=== PATIENT | female | born 1985 | race Caucasian/White ===

== ENCOUNTER 2020-10-11 10:14 | Emergency (ER) | payer BC, SELFPAY ==
[2020-10-11 10:25] VITALS: BP 154/111; PULSE 94; RESP 16; TEMP 37; O2SAT 100
--- NOTE | 2020-10-11 10:38 | ED.UPPEXIN ---
HPI - Extremity Injury (Upper) General Chief Complaint: Extremity Injury, Upper Stated Complaint: INJURED L ARM Source: patient and RN notes reviewed Limitations: no limitations History of Present Illness HPI narrative: The patient, is right-handed, presents with left shoulder pain. Patient states she has started a workout challenge and started to 50 or more push ups daily. She now complains of a couple day history of left shoulder pain is mild, worse with motion or sleeping on it, better at rest. No deformity, direct injury, neck pain, numbness/weakness, radiating pain Related Data Home Medications Medication Instructions Recorded Confirmed metoprolol succinate PO 10/11/20 Allergies Allergy/AdvReac Type Severity Reaction Status Date / Time No Known Allergies Allergy Unverified 01/11/19 10:27 Review of Systems Review of Systems: Narrative: The patient has been informed that they may have pre-hypertension or Hypertension based on a BP reading in the department. I recommend that the patient call the primary care provider listed on their discharge instructions or a physician of their choice this week to arrange follow up for further evaluation of possible pre-hypertension or Hypertension General/Constitutional: No weight loss,fever Eyes: N0: Redness,discharge Ears/Nose/Throat: No: Epistaxis,ear discharge Respiratory: Denies: Hemoptysis Gastrointestinal: No Vomiting, Bleeding-rectal Skin: No Lumps, eruption Neurologic: No Focal Weakness,Sz Hematologic: Denies: Petechiae/Purpura Psychiatric: No: Suicida ideationl All Other Systems: Reviewed and Negative PMFSH Comments At time of signature, agree with nursing past medical, surgical, social and family history. There is no relevant family history pertinent to the presenting complaint Exam Narrative: Exam Narrative: General Appearance: Well appearing, Well nourished, Conjunctiva clear Mouth/Throat: Normal appearing, Normal lips, Supple Respiratory: Airway patent, No respiratory distress MS-shoulder: Normal strength (mostly intact, limited flexion/extension, wanda IR by pain), Tenderness (AC and deltoid laterally, with mild decreased ROM), no swelling . no biceps and triceps tenderness; no drop arm, Neer, impingement signs Skin: Warm, Dry, Normal color Neurological: A&O x3, Speech clear, CN II-XII intact Psychiatric: Normal mood, Normal affect Course Vital Signs Vital signs: Vital Signs Temperature 98.6 F 10/11/20 10:25 Pulse Rate 94 10/11/20 10:25 Respiratory Rate 16 10/11/20 10:25 Blood Pressure 154/111 H 10/11/20 10:25 Pulse Oximetry 100 10/11/20 10:25 Temperature 98.6 F 10/11/20 10:25 Pulse Rate 94 10/11/20 10:25 Respiratory Rate 16 10/11/20 10:25 Blood Pressure 154/111 H 10/11/20 10:25 Pulse Oximetry 100 10/11/20 10:25 Discharge Plan Discharge Clinical Impression: Bursitis of shoulder, left Patient Disposition: Home, Self-Care Condition: Stable Instructions: Shoulder Bursitis (ED) Prescriptions: New methylprednisolone [Medrol (Guevara)] 4 mg tablets,dose pack See Rx Instructions .ROUTE .COMPLEX Qty: 21 RF: 0 tramadol 50 mg tablet 50 mg PO TID PRN (Reason: pain) Qty: 15 RF: 1 No Action metoprolol succinate 50 mg tablet extended release 24 hr PO RF: 0 Follow-up/Referrals: Erin,LETICIA Forde [Primary Care Provider] -
== END 2020-10-11 10:48 | disposition home or self-care (01) ==
PROVIDERS: Emergency Provider Emergency Medicine; PCP Physician Assistant
DX: M75.52 Bursitis of left shoulder (principal); I10 Essential (primary) hypertension
CPT/HCPCS: 99213; G0463

== ENCOUNTER 2021-07-01 09:46 | Emergency (ER) | payer BC, SELFPAY ==
--- NOTE | 2021-07-01 09:48 | ECG_ITS ---
Measurements Intervals [place] Rate: 109 P: 27 CO: 131 QRS: 39 QRSD: 89 T: -20 QT: 324 QTc: 438 Interpretive Statements SINUS TACHYCARDIA NONSPECIFIC ST & T-WAVE ABNORMALITY- ANTEROLAT/INF LEADS ABNORMAL ECG Electronically Signed On 07-01-2021 10:43:35 COMPUTATIONAL PHYSICIST by Avelino Henson D.O.
[2021-07-01 09:55] VITALS: BP 152/112; PULSE 122; RESP 20; TEMP 36.4; O2SAT 100
--- NOTE | 2021-07-01 10:39 | PC.NURSE ---
1035- Pt at intake desk stating she was just going to go outside and wait with her , informed if she was called and did not answer we would call the next person. Pt then stated she was going to leave and if her heart began racing again she would come back.
== END 2021-07-01 10:35 | disposition left against medical advice (07) ==
PROVIDERS: Emergency Provider Emergency Medicine
DX: R42 Dizziness and giddiness (principal)
CPT/HCPCS: 93005; 99199

== ENCOUNTER 2021-07-03 12:49 | Emergency (ER) | payer BC, SELFPAY ==
--- NOTE | ~2021-07-03 | XR_ITS ---
XR chest 2V DATE: 07/03/2021 13:14 INDICATION: Chest pain, palpitations. Tachycardia. Hypertension. TECHNIQUE: PA and lateral views COMPARISON: None FINDINGS: Electronic heart monitor device overlies the anterior upper mid chest. Normal heart size. There is minimal aortic unfolding. No hilar or mediastinal enlargement. No pulmonary infiltrate or consolidation, pleural effusion or pulmonary vascular congestion or pneumo thorax. Included skeletal structures are unremarkable. No rib notching is noted. IMPRESSION: No active cardiopulmonary disease Reviewed, dictated and finalized at location A. ENDOSCOPY
--- NOTE | 2021-07-03 12:52 | ECG_ITS ---
Measurements Intervals [place] Rate: 132 P: 33 DC: 108 QRS: 48 QRSD: 81 T: -29 QT: 370 QTc: 549 Interpretive Statements SINUS OR ECTOPIC ATRIAL TACHYCARDIA WITH SHORT DC INTERVAL BORDERLINE ST-T WAVE ABNORMALITY- ANTEROLAT/INF LEADS BASELINE ARTIFACT- I, II, III, AVL, AVF, V4-V6 ABNORMAL ECG Electronically Signed On 07-03-2021 12:58:59 BRAILLE TYPIST by Avelino Henson D.O.
[2021-07-03 13:02] VITALS: BP 169/97; PULSE 130; RESP 18; TEMP 36.8; O2SAT 100
[2021-07-03 13:04] LABS: Basophils Absolute Auto 0.1 K/mm3 (0.0-0.1); Basophils Percent Auto 0.4 % (0.2-1.2); Eosinophils Absolute Auto 0.1 K/mm3 (0-0.3); Eosinophils Percent Auto 0.7 % (0-4.4); Hematocrit 37.9 % (37.0-47.0); Hemoglobin 11.7 g/dL (12.0-15.0); Immature Granulocyte Absolute 0.09 K/mm3 (0.00-0.031); Immature Granulocyte Percent A 0.6 % (0-0.5); Lymphocytes Absolute Auto 1.96 K/mm3 (0.9-3.2); Lymphocytes Percent Auto 13.3 % (18.3-44.2); Mean Corpuscular HGB Conc 30.9 g/dl (32-36); Mean Corpuscular Hemoglobin 23.4 pg (26-34); Mean Corpuscular Volume 75.6 fl (80-100); Mean Platelet Volume 10.2 fl (7.4-10.4); Monocytes Percent Auto 6.9 % (2.6-8.5); Neutrophils Absolute Auto 11.5 K/mm3 (1.3-6.7); Neutrophils Percent Auto 78.1 % (45.5-73.1); Platelet Count Result 360 k/mm3 (150-375); Red Blood Count 5.01 M/mm3 (4.2-5.4); Red Cell Distribution Width 17.5 % (11.5-14.5); White Blood Count 14.7 K/mm3 (4.5-10.0)
[2021-07-03 13:14] LABS: Partial Thromboplastin Time 24.7 SECONDS (22.3-36.8); Prothrombin Time 12.8 Seconds (11.1-14.7)
[2021-07-03 13:16] LABS: Alanine Aminotransferase 14 U/L (4-35); Albumin Level 4.6 g/dL (3.5-5.1); Alkaline Phosphatase 53 U/L (38-126); Anion Gap 11 mmol/L (8-16); Aspartate Amino Transferase 20 U/L (14-36); Bilirubin,Total 0.4 mg/dL (0.2-1.3); Blood Urea Nitrogen 10 mg/dL (7-17); Calcium 9.3 mg/dL (8.4-10.2); Carbon Dioxide 20 mmol/L (22-30); Chloride 108 mmol/L (98-107); Estimated CRCL calculation 76 ml/min; Estimated Glomerular Filt Rate > 60; Glucose 120 mg/dL (65-110); Lipase 92 U/L (23-300); Potassium 3.1 mmol/L (3.4-5.0); Sodium 139 mmol/L (137-145)
[2021-07-03 13:27] LABS: Troponin I < 0.012 ng/mL (0.000-0.034)
[2021-07-03 15:53] VITALS: BP 140/98; PULSE 118; RESP 18; TEMP 37.6; O2SAT 100
--- NOTE | 2021-07-03 21:12 | ED.ARRPALP ---
HPI - Arrhythmia/Palpitations General Chief Complaint: Arrhythmia/Palpitations Stated Complaint: high blood pressure high HR Time Seen by Provider: 07/03/21 21:08 Source: patient Mode of arrival: ambulatory Limitations: no limitations History of Present Illness HPI narrative: Patient is a 36-year-old female complaining palpitations accompanied by chest discomfort, and elevated blood pressure x2 days. Patient states that her symptoms have been caused by dehydration since she did drink alcohol this past weekend and the following day she started to have the above symptoms. Patient states that she has a history of palpitations/arrhythmia in the past and had a cardiac ablation back in August. Patient states that she currently has a loop recorder on which her mining captain ordered a month ago and supposed to be returned back tomorrow. Related Data Home Medications Medication Instructions Recorded Confirmed metoprolol succinate PO 10/11/20 Allergies Allergy/AdvReac Type Severity Reaction Status Date / Time No Known Allergies Allergy Unverified 01/11/19 10:27 Review of Systems Review of Systems: All systems reviewed & are unremarkable except as noted in HPI and below Constitutional: Constitutional: Denies body ache(s), Denies chills, Denies excessive sweating, Denies fatigue, Denies fever(s), Denies headache(s), Denies lethargy, Denies malaise, Denies weakness and Denies weight loss Eyes: Eyes: Denies blurry vision, Denies change in vision and Denies loss of vision ENT: Denies dizziness, Denies ear discharge, Denies headache(s), Denies lip swelling, Denies epistaxis, Denies nasal congestion, Denies neck pain, Denies throat swelling and Denies tongue swelling Cardiovascular: Cardiovascular: Denies chest pain, Denies chest pain at rest, Denies chest pain with activity, Denies diaphoresis, Denies edema, Denies irregular heart rhythm, Denies lightheadedness and Denies dyspnea on exertion Respiratory: Respiratory: Denies chest congestion, Denies cough, Denies hemoptysis and Denies dyspnea on exertion Gastrointestinal: Gastrointestinal: Denies abdominal pain, Denies melena, Denies hematochezia, Denies diarrhea, Denies vomiting and Denies hematemesis Musculoskeletal: Musculoskeletal: Denies abnormal gait, Denies deformity, Denies joint swelling, Denies limited range of motion, Denies neck pain and Denies numbness Neurologic: Denies Abnormal speech present, Denies abnormal gait, Denies confusion, Denies dizziness, Denies headache(s), Denies focal weakness, Denies loss of vision, Denies numbness, Denies Other visual disturbances, Denies Sensory deficit (Neuro) and Denies weakness Psychiatric: Psychiatric: Denies confusion, Denies depression, Denies auditory hallucinations, Denies homicidal ideation and Denies suicidal ideation Endocrine: Endocrine: Denies cold intolerance, Denies excessive sweating, Denies fatigue, Denies heat intolerance and Denies palpitations Hematologic/Lymphatic: Hematologic/Lymphatic: Denies easy bleeding and Denies easy bruising Allergic/Immunologic: Allergic/Immunologic: Denies lip swelling, Denies throat swelling and Denies tongue swelling PMFSH Comments Past medical history: Cardiac ablation surgery, palpitations Family history: Hypertension Social history: Non-smoker no EtOH or drug use Exam Const: General: cooperative, healthy appearing, comfortable, no acute distress, well developed, alert and awake; No confusion Orientation/consciousness: oriented to person, oriented to place, oriented to time, patient oriented x3 and No confusion Limitations: no limitations HENMT: Head: normal to inspection, normocephalic and atraumatic Ears: hearing grossly normal bilaterally, TM normal on the right and TM normal on the left General nose exam: Normal external nose present, Normal nares present and No nasal discharge present Face and sinus: normal facial exam Mouth: Yes Normal oral and palatal mucosa present, Yes lip n
[2021-07-03 21:28] VITALS: BP 162/114; PULSE 94; RESP 16; O2SAT 100
[2021-07-03 21:31] VITALS: BP 139/95; PULSE 93; RESP 20; O2SAT 100
[2021-07-03] MEDS: POTASSIUM CHLORIDE 20 MEQ PACKET (FOR LIQUID) 40 MEQ PO (21:43)
[2021-07-03] MEDS: SODIUM CHLORIDE 0.9% IV 1,000 ML 999 ML (21:47)
[2021-07-03 21:53] LABS: Troponin I < 0.012 ng/mL (0.000-0.034)
[2021-07-03 22:47] LABS: D Dimer 0.27 ug/mL (<0.48)
[2021-07-03 23:00] VITALS: BP 138/109; PULSE 97; RESP 18; O2SAT 100
[2021-07-03 23:23] VITALS: BP 140/96
[2021-07-04 14:39] LABS: SARS-CoV-2 RNA PCR Negative
== END 2021-07-03 23:23 | disposition home or self-care (01) ==
PROVIDERS: Emergency Medicine; Emergency Provider Emergency Medicine; PCP Physician Assistant
DX: R00.2 Palpitations (principal); R03.0 Elevated blood-pressure reading, without diagnosis of hypertension; E87.6 Hypokalemia; Z20.822 Contact with and (suspected) exposure to COVID-19
CPT/HCPCS: 36415; 71046; 80053; 83690; 84484; 85025; 85380; 85610; 85730; 87804; 93005; 96360; 99284; A9270; C9803; J7030; U0003; U0005

== ENCOUNTER 2024-04-23 08:11 | Outpatient (CLI) | payer BC, SELFPAY ==
--- NOTE | ~2024-04-23 | XR_ITS ---
EXAMINATION: XR chest 2V 04/23/2024 08:21 INDICATION: Cough for 2 weeks. Chest tightness. PROCEDURE: 2 view chest COMPARISON: 07/03/2021 FINDINGS: The lungs are clear. The cardiomediastinal silhouette is within normal limits. There are no pleural effusions. There is no pneumothorax suspected. IMPRESSION: 1: NO ACUTE CARDIOPULMONARY DISEASE. Reviewed, dictated and finalized at location B.
== END 2024-04-23 08:12 | disposition home or self-care (01) ==
LOC: GOSHIMG 08:13
PROVIDERS: PCP Physician Assistant; Visit Provider Physician Assistant
DX: R05.9 Cough, unspecified (principal)
CPT/HCPCS: 71046

== ENCOUNTER 2024-07-09 10:39 | Emergency (ER) | payer BC, SELFPAY ==
--- NOTE | ~2024-07-09 | US_ITS ---
EXAMINATION: US pelvic complete INDICATION: Lower abdomen pain. Comparison:No prior studies for comparison. TECHNIQUE: Multiple transabdominal sonographic images of the pelvis performed. FINDINGS: The uterus measures 10.3 x 7.3 x 10.2 cm. There is a poorly circumscribed mass of the uteru s measuring 8.1 cm, compatible with a fibroid. The endometrial complex is not well delineated. There is an IUD in the endometrium. The right ovary measures 3.5 x 1.3 x 2.4 cm and the left ovary measures 4 x 2.9 x 3 cm. There is a si mple left ovarian cyst measuring 4.5 cm. There are small follicles in each ovary. Normal doppler sign al in both ovaries. There is no free fluid in the pelvis. There are no abnormal masses seen on either side. IMPRESSION: 1. Enlarged fibroid uterus. 2: Simple left ovarian cyst measuring 4.5 cm. Reviewed, dictated and finalized at location B. EKEEPING COORDINATOR
[2024-07-09 11:09] VITALS: BP 149/104; PULSE 114; RESP 18; TEMP 36.5; O2SAT 100
--- NOTE | 2024-07-09 12:06 | ED_ITS ---
HPI - Female Genitourinary General Chief complaint: Vaginal Bleeding <Terrell Thompson PA-C - Last Filed: 07/09/24 12:21> Stated complaint: vaginal bleeding <Terrell Thompson PA-C - Last Filed: 07/09/24 12:21> Time Seen by Provider: 07/09/24 14:01 <Terrell Thompson PA-C - Last Filed: 07/09/24 12:21> Focused HPI: This 39-year-old female who presents to the ED with chief complaint who presents to the ED with chief complaint of vaginal bleeding over the past couple of days. States that she has had irregular periods since having Mirena placed with OB Dr. Barfield about 5 months ago. She reports The last 2 days she has had very heavy vaginal bleeding passing large clots. States that at time she was soaked through 2 pads per hour. She has felt lightheaded but no syncope. Reports associated cramping across the lower abdomen, worse on the left. states that she was told she has ovarian cysts and fibroids. GENERAL: Well-appearing, well-nourished, and in no acute distress. HEAD: Normocephalic, atraumatic. CHEST: Clear to auscultation. No respiratory distress. HEART: Regular rate and rhythm. NEURO: Alert and oriented x3. Patient screened in triage and initial orders placed. Additional care and disposition to be based upon diagnostic testing and treatment. <Terrell Thompson PA-C - Last Filed: 07/09/24 12:21> Source: patient <Terrell Thompson PA-C - Last Filed: 07/09/24 12:21> Mode of arrival: ambulatory <Terrell Thompson PA-C - Last Filed: 07/09/24 12:21> Limitations: no limitations <Terrell Thompson PA-C - Last Filed: 07/09/24 12:21> History of Present Illness HPI Narrative: Agree with HPI. Patient has a large uterine fibroid. She also has a left-sided cyst. Increased bleeding this morning. Mildly lightheaded. <Gordo Loredo MD - Last Filed: 07/09/24 15:39> Related Data Home medications: Home Medications ?Medication ?Instructions ?Recorded ?Confirmed ?Last Taken ?Type metoprolol succinate 50 mg PO 10/11/20 Unknown History tablet,extended release 24 hr <Terrell Thompson PA-C - Last Filed: 07/09/24 12:21> Allergies/Adverse reactions: Allergies Allergy/AdvReac Type Severity Reaction Status Date / Time No Known Allergies Allergy Unverified 01/11/19 10:27 <Terrell Thompson PA-C - Last Filed: 07/09/24 12:21> Review of Systems 2 Review of Systems: All systems reviewed & are unremarkable except as noted in HPI and below <Gordo Loredo MD - Last Filed: 07/09/24 15:39> Constitutional: Constitutional: Reports no additional constitutional complaints <Gordo Loredo MD - Last Filed: 07/09/24 15:39> Cardiovascular: Cardiovascular: Reports no additional cardiovascular complaints <Gordo Loredo MD - Last Filed: 07/09/24 15:39> Respiratory: Respiratory: Reports no additional respiratory complaints < Gordo Loredo MD - Last Filed: 07/09/24 15:39> Gastrointestinal: Gastrointestinal: Reports no additional gastrointestinal complaints <Gordo Loredo MD - Last Filed: 07/09/24 15:39> Genitourinary: Genitourinary: Reports abnormal vaginal bleeding, Denies nocturia, Denies dysuria and Reports pelvic pain <Gordo Loredo MD - Last Filed: 07/09/24 15:39> PMFSH Past Medical History Medical History: Medical History (Updated 07/09/24 @ 15:38 by Gordo Loredo MD) Uterine fibroid <Terrell Thompson PA-C - Last Filed: 07/09/24 12:21> Exam 2 Narrative: GENERAL: Well-appearing, well-nourished, and in no acute distress. HEAD: Normocephalic, atraumatic. CHEST: Clear to auscultation. No respiratory distress. HEART: Regular rate and rhythm. Normal peripheral pulses. ABDOMEN: Soft, nontender, yet palpable uterine mass. EXTREMITIES: Normal range of motion. No edema. SKIN: Warm, dry, no rash. NEURO: Alert and oriented x3. PSYCH: Normal mood and affect. <Gordo Loredo MD - Last Filed: 07/09/24 15:39> Course Course Emergency Course: Discussed with Dr. Giron at [facility], he will prescribe TXA p.o.. Patient to follow-up at the clinic. Mildly dizzy with going from sitting standing but no significant hypotension. Patient given 1 L IV fluid. <Gordo Loredo MD - Last Filed: 07/09/24 15:39> Vital Signs Vital signs: Vital Signs Temperature 97.7 F 07/09/24 11:09 Pulse Rate 114 H 07/09/24 11:09 Respiratory Rate 18 07/09/24 11:09 Blood Pressure 149/104 H 07/09/24 11:09 Pulse Oximetry 100 07/09/24 11:09 Oxygen Delivery Room Air 07/09/24 11:09 Temperature 97.7 F 07/09/24 11:09 Pulse Rate 102 H 07/09/24 14:41 Respiratory Rate 16 07/09/24 14:32 Blood Pressure 124/86 07/09/24 14:41 Pulse Oximetry 100 07/09/24 14:32 Oxygen Delivery Room Air 07/09/24 11:09 <Terrell Thompson PA-C - Last Filed: 07/09/24 12:21> Vital Signs Temperature 97.7 F 07/09/24 11:09 Pulse Rate 114 H 07/09/24 11:09 Respiratory Rate 18 07/09/24 11:09 Blood Pressure 149/104 H 07/09/24 11:09 Pulse Oximetry 100 07/09/24 11:09 Oxygen Delivery Room Air 07/09/24 11:09 Temperature 97.7 F 07/09/24 11:09 Pulse Rate 102 H 07/09/24 14:41 Respiratory Rate 16 07/09/24 14:32 Blood Pressure 124/86 07/09/24 14:41 Pulse Oximetry 100 07/09/24 14:32 Oxygen Delivery Room Air 07/09/24 11:09 <Gordo Loredo MD - Last Filed: 07/09/24 15:39> MDM - Female Genitourinary Lab Data Result diagrams: 07/09/24 12:16 07/09/24 12:16 <Terrell Thompson PA-C - Last Filed: 07/09/24 12:21> Labs: Lab Results 07/09/24 07/09/24 07/09/24 Range/Units 12:16 12:23 12:29 WBC 12.6 H (4.5-10.0) K/mm3 RBC 4.99 (4.2-5.4) M/mm3 Hgb 9.7 L (12.0-15.0) g/dL Hct 34.3 L (37.0-47.0) % MCV 68.7 L (80-100) fl MCH 19.4 L (26-34) pg MCHC 28.3 L (32-36) g/dl RDW 18.6 H (11.5-14.5) % Plt Count 365 (150-375) k/mm3 MPV 10.6 H (7.4-10.4) fl Immature Gran % (Auto) 0.3 (0-0.5) % Neut % (Auto) 80.0 H (45.5-73.1) % Lymph % (Auto) 11.1 L (18.3-44.2) % [place] % (Auto) 7.4 (2.6-8.5) % Eos % (Auto) 0.6 (0-4.4) % Baso % (Auto) 0.6 (0.2-1.2) % Lymph # (Auto) 1.39 (0.9-3.2) K/mm3 [place] # (Auto) 0.9 H (0.1-0.6) K/mm3 Eos # (Auto) 0.1 (0-0.3) K/mm3 Baso # (Auto) 0.1 (0.0-0.1) K/mm3 Abs Immat Gran (auto) 0.04 H (0.00-0.031) K/mm3 Absolute Neuts (auto) 10.1 H (1.3-6.7) K/mm3 Absolute Nucleated RBC 0.000 (0.0-0.012) K/mm3 Nucleated RBC % 0.0 (0.0-0.2) % Platelet Estimate Adequate (Adequate) Hypochromasia 1+ Microcytosis 1+ (NORMAL) Ovalocytes 1+ Schistocytes None seen PT 13.6 (11.1-14.7) Seconds INR 1.0 APTT 25.9 (22.3-36.8) Seconds Sodium 136 L (137-145) mmol/L Potassium 3.6 (3.4-5.0) mmol/L Chloride 102 (98-107) mmol/L Carbon Dioxide 23 (22-30) mmol/L Anion Gap 11 (4-12) mmol/L BUN 12 (7-17) mg/dL Creatinine 0.58 L (0.7-1.0) mg/dL Estim Creat Clear Calc Not Reportable Estimated GFR > 60 (59 - ) Glucose 93 (65-110) mg/dL Calcium 9.2 (8.4-10.2) mg/dL Total Bilirubin 0.6 (0.2-1.3) mg/dL AST 26 (14-36) U/L ALT 16 (6-35) U/L Alkaline Phosphatase 60 (38-126) U/L Total Protein 8.0 (6.3-8.2) g/dL Albumin 4.7 (3.5-5.1) g/dL Urine Color Yellow (Yellow) Urine Appearance Clear (Clear) Urine pH 5.0 (5.0-9.0) Ur Specific [place] 1.007 (1.001-1.035) Urine Protein Negative (Negative) mg/dL Urine Glucose (UA) Negative (Negative) mg/dL Urine Ketones Trace H (Negative) mg/dL Ur Blood (Man) 2+ H (Negative) Urine Nitrate Negative (Negative) Urine Bilirubin Negative (Negative) Urine Urobilinogen 0.2 (<2.0) mg/dL Leukocyte Esterase Rfl Negative (Negative) SHILPA/UL Urine RBC 0-2 (0-2) /hpf Urine WBC 0-5 (0-3) /hpf Ur Squamous Epith Cells None seen (Few) /hpf Urine Bacteria None seen /hpf Urine Casts 0-2 POC Urine HCG, Qual Negative (Negative) Blood Type AB Positive Antibody Screen Negative <Terrell Thompson PA-C - Last Filed: 07/09/24 12:21> Lab Results 07/09/24 07/09/24 07/09/24 Range/Units 12:16 12:23 12:29 WBC 12.6 H (4.5-10.0) K/mm3 RBC 4.99 (4.2-5.4) M/mm3 Hgb 9.7 L (12.0-15.0) g/dL Hct 34.3 L (37.0-47.0) % MCV 68.7 L (80-100) fl MCH 19.4 L (26-34) pg MCHC 28.3 L (32-36) g/dl RDW 18.6 H (11.5-14.5) % Plt Count 365 (150-375) k/mm3 MPV 10.6 H (7.4-10.4) fl Immature Gran % (Auto) 0.3 (0-0.5) % Neut % (Auto) 80.0 H (45.5-73.1) % Lymph % (Auto) 11.1 L (18.3-44.2) % [place] % (Auto) 7.4 (2.6-8.5) % Eos % (Auto) 0.6 (0-4.4) % Baso % (Auto) 0.6 (0.2-1.2) % Lymph # (Auto) 1.39 (0.9-3.2) K/mm3 [place] # (Auto) 0.9 H (0.1-0.6) K/mm3 Eos # (Auto) 0.1 (0-0.3) K/mm3 Baso # (Auto) 0.1 (0.0-0.1) K/mm3 Abs Immat Gran (auto) 0.04 H (0.00-0.031) K/mm3 Absolute Neuts (auto) 10.1 H (1.3-6.7) K/mm3 Absolute Nucleated RBC 0.000 (0.0-0.012) K/mm3 Nucleated RBC % 0.0 (0.0-0.2) % Platelet Estimate Adequate (Adequate) Hypochromasia 1+ Microcytosis 1+ (NORMAL) Ovalocytes 1+ Schistocytes None seen PT 13.6 (11.1-14.7) Seconds INR 1.0 APTT 25.9 (22.3-36.8) Seconds Sodium 136 L (137-145) mmol/L Potassium 3.6 (3.4-5.0) mmol/L Chloride 102 (98-107) mmol/L Carbon Dioxide 23 (22-30) mmol/L Anion Gap 11 (4-12) mmol/L BUN 12 (7-17) mg/dL Creatinine 0.58 L (0.7-1.0) mg/dL Estim Creat Clear Calc Not Reportable Estimated GFR > 60 (59 - ) Glucose 93 (65-110) mg/dL Calcium 9.2 (8.4-10.2) mg/dL Total Bilirubin 0.6 (0.2-1.3) mg/dL AST 26 (14-36) U/L ALT 16 (6-35) U/L Alkaline Phosphatase 60 (38-126) U/L Total Protein 8.0 (6.3-8.2) g/dL Albumin 4.7 (3.5-5.1) g/dL Urine Color Yellow (Yellow) Urine Appearance Clear (Clear) Urine pH 5.0 (5.0-9.0) Ur Specific [place] 1.007 (1.001-1.035) Urine Protein Negative (Negative) mg/dL Urine Glucose (UA) Negative (Negative) mg/dL Urine Ketones Trace H (Negative) mg/dL Ur Blood (Man) 2+ H (Negative) Urine Nitrate Negative (Negative) Urine Bilirubin Negative (Negative) Urine Urobilinogen 0.2 (<2.0) mg/dL Leukocyte Esterase Rfl Negative (Negative) SHILPA/UL Urine RBC 0-2 (0-2) /hpf Urine WBC 0-5 (0-3) /hpf Ur Squamous Epith Cells None seen (Few) /hpf Urine Bacteria None seen /hpf Urine Casts 0-2 POC Urine HCG, Qual Negative (Negative) Blood Type AB Positive Antibody Screen Negative <Gordo Loredo MD - Last Filed: 07/09/24 15:39> Imaging Data Radiologist's impression: ITS Impressions Pelvis Ultrasound 07/09/24 12:58 IMPRESSION: 1. Enlarged fibroid uterus. 2: Simple left ovarian cyst measuring 4.5 cm. <Gordo Loredo MD - Last Filed: 07/09/24 15:39> Discharge Plan Discharge Clinical Impression: Menorrhagia, Uterine fibroid <Terrell Thompson PA-C - Last Filed: 07/09/24 12:21> Patient Disposition: Home, Self-Care <Terrell Thompson PA-C - Last Filed: 07/09/24 12:21> Condition: Stable <Terrell Thompson PA-C - Last Filed: 07/09/24 12:21> Instructions: Menorrhagia (ED) <Terrell Thompson PA-C - Last Filed: 07/09/24 12:21> Additional Instructions: Follow-up with your architectural technologist for further evaluation. Return the ER if you lose consciousness, you cannot keep down food/water/medication, or you have additional concerns. <Terrell Thompson PA-C - Last Filed: 07/09/24 12:21> Patient Language: Nepalese <Terrell Thompson PA-C - Last Filed: 07/09/24 12:21> Prescriptions: No Action metoprolol succinate 50 mg tablet extended release 24 hr PO <Terrell Thompson PA-C - Last Filed: 07/09/24 12:21> Follow-up/Referrals: Erin,LETICIA Gillis [Primary Care Provider] - Cristo Barfield MD [Physician] - 3 Days <Terrell Thompson PA-C - Last Filed: 07/09/24 12:21>
[2024-07-09 12:26] LABS: Basophils Absolute Auto 0.1 K/mm3 (0.0-0.1); Basophils Percent Auto 0.6 % (0.2-1.2); Eosinophils Absolute Auto 0.1 K/mm3 (0-0.3); Eosinophils Percent Auto 0.6 % (0-4.4); Hematocrit 34.3 % (37.0-47.0); Hemoglobin 9.7 g/dL (12.0-15.0); Immature Granulocyte Absolute 0.04 K/mm3 (0.00-0.031); Immature Granulocyte Percent A 0.3 % (0-0.5); Lymphocytes Absolute Auto 1.39 K/mm3 (0.9-3.2); Lymphocytes Percent Auto 11.1 % (18.3-44.2); Mean Corpuscular HGB Conc 28.3 g/dl (32-36); Mean Corpuscular Hemoglobin 19.4 pg (26-34); Mean Corpuscular Volume 68.7 fl (80-100); Mean Platelet Volume 10.6 fl (7.4-10.4); Monocytes Absolute Auto 0.9 K/mm3 (0.1-0.6); Monocytes Percent Auto 7.4 % (2.6-8.5); Neutrophils Absolute Auto 10.1 K/mm3 (1.3-6.7); Platelet Count Result 365 k/mm3 (150-375); Red Blood Count 4.99 M/mm3 (4.2-5.4); Red Cell Distribution Width 18.6 % (11.5-14.5); White Blood Count 12.6 K/mm3 (4.5-10.0)
[2024-07-09 12:32] LABS: BEDSIDEPREGUCG Negative (Negative)
[2024-07-09 12:37] LABS: Alanine Aminotransferase 16 U/L (6-35); Albumin Level 4.7 g/dL (3.5-5.1); Alkaline Phosphatase 60 U/L (38-126); Anion Gap 11 mmol/L (4-12); Aspartate Amino Transferase 26 U/L (14-36); Bilirubin,Total 0.6 mg/dL (0.2-1.3); Blood Urea Nitrogen 12 mg/dL (7-17); Calcium 9.2 mg/dL (8.4-10.2); Carbon Dioxide 23 mmol/L (22-30); Chloride 102 mmol/L (98-107); Estimated Glomerular Filt Rate > 60; Glucose 93 mg/dL (65-110); Potassium 3.6 mmol/L (3.4-5.0); Sodium 136 mmol/L (137-145)
[2024-07-09 12:39] LABS: Prothrombin Time 13.6 Seconds (11.1-14.7)
[2024-07-09 12:40] LABS: Add Urine Microscopic? YES; Appearance Urine Clear (Clear); Bacteria Urine None Seen /hpf; Bilirubin Urine Negative (Negative); Blood Urine 2+ (Negative); Color Urine Yellow (Yellow); Glucose Urine UA Negative (Negative); Ketones Urine Trace mg/dL (Negative); Leukocyte Esterase Ur Negative LEU/UL (Negative); Nitrate Urine Negative (Negative); Non Pathogenic Casts 0-2; Protein Urine Negative (Negative); RBC Urine 0-2 /hpf (0-2); Specific Grav Ur 1.007 (1.001-1.035); Squamous Epithelial Cell Urine None Seen /hpf (Few); Urobilinogen Urine 0.2 mg/dL (<2.0); WBC Urine 0-5 /hpf (0-3)
[2024-07-09 12:40] LABS: Partial Thromboplastin Time 25.9 Seconds (22.3-36.8)
[2024-07-09 13:01] LABS: Hypochromasia 1+; Microcytosis 1+ (NORMAL); Ovalocytes 1+; Platelet Estimate Adequate (Adequate); Schistocytes None Seen
[2024-07-09 14:32] VITALS: BP 130/82; PULSE 85; RESP 16; O2SAT 100
[2024-07-09 14:39] VITALS: BP 117/89; BP 130/82; PULSE 89; PULSE 95
[2024-07-09 14:41] VITALS: BP 124/86; PULSE 102
[2024-07-09] MEDS: SODIUM CHLORIDE 0.9% IV 1,000 ML 999 ML (14:50)
[2024-07-09 16:01] VITALS: BP 128/72; PULSE 82; RESP 16; TEMP 36.6; O2SAT 98
== END 2024-07-09 16:03 | disposition home or self-care (01) ==
PROVIDERS: Physician Assistant; Emergency Provider Emergency Medicine; PCP Physician Assistant
DX: N92.0 Excessive and frequent menstruation with regular cycle (principal); D25.9 Leiomyoma of uterus, unspecified; Z97.5 Presence of (intrauterine) contraceptive device; N83.292 Other ovarian cyst, left side
CPT/HCPCS: 36415; 76856; 80053; 81001; 81025; 85025; 85610; 85730; 86850; 86900; 86901; 99284; J7030

== ENCOUNTER 2024-07-19 08:29 | Outpatient (CLI) | payer BC, SELFPAY ==
--- NOTE | 2024-07-19 08:30 | ECG_ITS ---
Test Date: 2024-07-19 08:49:24 Measurements Intervals [place] Rate: 95 P: 32 MD: 140 QRS: 38 QRSD: 81 T: 3 QT: 338 QTc: 426 Interpretive Statements SINUS RHYTHM NONSPECIFIC T-WAVE ABNORMALITY No previous ECG available for comparison Electronically Signed On 07-19-2024 18:04:44 TARIFF CLERK by Delia Morales M.D.
--- OUTSIDE RECORDS SUMMARY | 2024-07-22 11:57 | XMS_ITS | Referral Summary ---
Author Organization [facility] Address [address] [facility] [place] [address] Care Team Providers Care Specialty Cook Name Role Phone Elis Khan Primary Care Pr ovider Encounters Date Type Department Care Team Description 07/13/2024 Telephone [facility] Cardiology [address] [facility] Medicine 8th [place] [address] [place] [address] Diego Strong MD from Last 3 Months Allergies No known active allergies Medications multivitamin with minerals tablet Take 1 tablet by mouth every morning Active metoprolol XL (TOPROL-XL) 100 mg 24 hr tablet TAKE 1 TABLET BY MOUTH EVERY DAY 90 tablet 3 3 Active lisinopriL (PRINIVIL,ZESTR IL) 10 mg tablet Take 1 tablet (10 mg total) by mouth daily 90 tablet 3 4 Active metoprolol XL (TOPROL-XL) 50 mg extended release tablet Take 1 tablet (50 mg total) by mouth daily 90 tablet 3 4 Active Additional Information Patient not taking.Reported on 04/07/2024 benzonatate (TESSALON) 200 mg capsuleIndicati ons:Acute viral syndrome Take 1 capsule (200 mg total) by mouth 3 (three) times a day as needed for cough 30 capsule 4 Active Active Problems Problem Noted Date Diagnosed Date Cough 12/19/2021 Anemia 11/30/2021 Acute bronchitis 11/30/2021 Acute sinusitis 11/08/2021 Shortness of breath 07/05/2021 Assessment & Plan (07/05/2021 11:30 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 I suspect that spell was more likely related to inappropriate sinus tachycardia. She is currently wearing a 30d monitor to rule out other arrhythmias such as atrial tachycardia. We discussed that if there is no evidence of arrhythmia on the monitor, she should continue to stay well hydrated, can take an extra dose of metoprolol if she has another episode of tachycardia and rest to see if it resolves. If symptoms persist despite this plan, could consider trial of another BB such as propranolol or atenolol. She is considering initiating therapy for anxiety, which I think is a great idea and may help with her symptoms. 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 Currently wearing event monitor Will evaluate monitor results when available Increase metoprolol to 100 daily Assessment & Plan (08/17/2020 1:49 PM DAIRY CATTLE FARM WORKER): Due to WCT - likely SVT w aberrance, vs VT Has CMR ordered, planned EP study w ablation w Dr. Pineda next month Continue metoprolol - symptoms significantly improved on it Will reassess symptoms on follow up after ablation We discussed that some of her symptoms do sound more c/w sinus tachycardia and ablation will not address those Assessment & Plan (05/11/2020 10:52 AM DAIRY CATTLE FARM WORKER): Ddx includes sinus tachycardia vs SVT The sudden onset/offset sounds c/w SVT, though trigger by standing from a bent over position sounds more c/w sinus tachycardia I would like to place a 30 d event monitor to assess for any evidence of underlying arrhythmia, though admittedly she has had long periods between her severe episodes. I have also recommended lab work up including TSH, CBC, and urinary 5-HIAA and metanephrines given her associated HTN and flushing She was not orthostatic on exam today If work up is negative, we would just recommend increased fluid intake and LE compression stockings for what may be intermittent orthostasis Benign essential hypertension 05/11/2020 Assessment & Plan (01/03/2022 9:11 AM CDT): Blood pressure is well controlled. Continue current regimen. Assessment & Plan (07/05/2021 11:29 AM DAIRY CATTLE FARM WORKER): BP has recently been elevated, remains elevated on repeat check today Unclear if her current sx are related to the elevated Bps or not Regardless, BP is above goal Recommend starting lisinopril 10 mg daily Call w BP update in 1 week Check Bmp today Assessment & Plan (08/17/2020 1:50 PM DAIRY CATTLE FARM WORKER): BP is somewhat labile, still a bit above goal Will reassess BP control following EP study and consider changing metoprolol to a different agent at that time Secondary work up negative Assessment & Plan (05/11/2020 10:55 AM DAIRY CATTLE FARM WORKER): She is persistently hypertensive in clinic today. It sounds like she had at least GHTN during - if not preeclampsia. We discussed that this increases her risk of developing CHTN. However, given her associated palpitations and flushing, I think a secondary work up is warranted. I will order labs today as well as an echo to r/o coarctation. I will also order a lipid panel for ascvd risk assessment, and some inflammatory markers given the flushing symptoms. She doesn't believe she has had COVID this year - which has been associated w new onset HTN and autonomic insufficiency. Surgical follow-up care 09/19/2016 Anorectal pain 08/08/2016 Mitral valve insufficiency 04/28/2015 Syncope 04/28/2015 Resolved Problems Problem Noted Date Diagnosed Date Resolved Date Personal history of disease 08/22/2015 01/03/2022 Immunizations Name Administration Dates Next Due Rho (D) Immune Globulin, IV or IM 03/24/2015 Tdap 01/15/2015 Social History Tobacco Use Types Packs/Day Years Used Date Smoking Tobacco: Never Smokeless Tobacco: Never Tobacco Cessation:Counseling Given: Not Answered AUDIT-C Answer Date Recorded Q1: How often do you have a drink containing alc ohol? 2-3 times a week 09/06/2020 Q2: How many drinks containi ng alcohol do you have on a typical day when you are drinking? 1 or 2 09/06/2020 Q3: How often do you have si x or more drinks on one occasion? 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 Gender Identity Not on file Sexual Orientation Not on file Last Filed Vital Signs Vital Sign Reading Time Taken Comments Blood Pressure 126/89 04/07/2024 11:37 AM CDT Pulse 95 04/07/2024 11:37 AM CDT Temperature 36.9 ??C (98.5 ??F) 04/07/2024 11:37 AM C DT Respiratory Rate 18 04/07/2024 11:37 AM CDT Oxygen Saturation 99% 04/07/2024 11:37 AM CDT Inhaled Oxygen Concentration - - Weight 59.5 kg (131 lb 1.6 oz) 04/07/2024 11:37 AM CDT Height 157.5 cm (5' 2.01 ) 04/07/2024 11:37 AM C DT Body Mass Index 23.97 04/07/2024 11:37 AM CDT Plan of Treatment Not on file Medical Devices Implanted Type Area Transportation Planning Technician Device Identifier Shelf Expiration Date Model / Serial / Lot [employer] [id number] System 6-12fr Mvp Venous Closure Vascade - [id number] - [id number] Implanted:Qty: 1 on 09/06/2020 by Tony Pineda MD at [facility] [employer] 07/11/2022 800-612C-1 [id number] / [id number] / [id number] [employer] [id number] System 6-12fr Mvp Venous Closure Vascade - [id number] - [id number] Implanted:Qty: 1 on 09/06/2020 by Tony Pineda MD at [facility] [employer] 07/11/2022 800-612C-1 0U / [id number] / [id number] [employer] [id number] Device Closure Vascade Od5 Fr Femoral Artery - [id number] - [id number] Implanted:Qty: 1 on 09/06/2020 by Tony Pineda MD at [facility] [employer] 06/08/2022 700-500DX- 05U / [id number] [id number] / [id number] [employer] [id number] Device Closure Vascade Od5 Fr Femoral Artery - [id number] - [id number] Implanted:Qty: 1 on 09/06/2020 by Tony Pineda MD at [facility] [employer] 06/08/2022 700-500DX- 05U / [id number] [id number] / [id number] [facility] FEDERAL [facility] BCBS FEDERAL Care Teams Specialty Cook Relationship Specialty Start Date End Date Elis Khan PA PCP - General Physician Apprentice Painter Neckties 10/13/20
--- OUTSIDE RECORDS SUMMARY | 2024-07-22 11:57 | XMS_ITS | Encounter Summary ---
Author Organization [facility] Address [address] [place] [address] Phone Care Team Providers Care Phytopathology Teacher Name Role Phone No, Physician Primary Care Provider [phone] Elis Khan Primary Care Pr ovider Encounter Details Date Type Department Care Team (Latest Contact Info) Description 01/20/2015 Orders Only [facility] Scanning, Provider Social History Tobacco Use Types Packs/Day Years Used Date Smoking Tobacco: Never Assessed Comments Unknown Sex and Gender Information Value Date Recorded Sex Assigned at Not on file Legal Sex Female 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 Gender Identity Not on file Sexual Orientation Not on file documented as of this encounter Plan of Treatment Not on file documented as of this encounter Procedures Procedure Name Priority Date/Time Associated Diagnosis Comments CARDIOLOGY DOCUMENT SCAN 01/20/2015 documented in this encounter Results * SCAN - CARDIOLOGY (01/20/2015) Anatomical Region Laterality Modality Other us Provider Scanning CV CARDIAC SERVICES PROCEDURES Final Result documented in this encounter Visit Diagnoses Not on filedocumented in this encounter Additional Health Concerns Infection Onset Date Last Indicated Resolved Time COVID: Suspected 04/01/2022 04/01/2022 04/01/2022 9:17 PM CDT COVID: Suspected 06/05/2022 06/05/2022 06/06/2022 3:05 AM POWER SHOVEL MECHANIC COVID: Suspected 06/05/2022 06/05/2022 06/06/2022 4:38 AM POWER SHOVEL MECHANIC COVID: Suspected 09/28/2022 09/28/2022 09/28/2022 3:33 PM CDT COVID: Suspected 04/16/2023 04/16/2023 04/16/2023 10:02 AM CDT COVID: Suspected 04/16/2023 04/16/2023 04/16/2023 3:14 PM CDT COVID: Suspected 02/22/2024 02/22/2024 02/22/2024 8:40 AM CDT COVID: Suspected 04/07/2024 04/07/2024 04/07/2024 12:10 PM CDT documented as of this encounter Care Teams Phytopathology Teacher Relationship Specialty Start Date End Date No, Physician PCP - General 05/11/20 10/12/20 Elis Khan PA PCP - General Physician Sample Hand 10/13/20 documented as of this encounter
--- OUTSIDE RECORDS SUMMARY | 2024-07-22 11:57 | XMS_ITS | Clinical Summary ---
Author Organization [facility] Address [address] [place] [address]. [place] [address] [place] [address] Care Team Providers Care Bark Grinder Name Role Phone Unavailable Primary Care Provider Unavailabl e Social History Tobacco Use Types Packs/Day Years Used Date Smoking Tobacco: Never Assessed Comments Unknown Sex and Gender Information Value Date Recorded Sex Assigned at Not on file Legal Sex Female 9:21 PM CDT Gender Identity Not on file Sexual Orientation Not on file Plan of Treatment Health Maintenance Due Date Last Done Comments Cervical Cancer Screening Pa p Smear (Age 30 to 64) Every 3 Years 1986 Annual Physical 1989 Hepatitis C 2004 DTaP, Tdap and Td Vaccines ( 1 - Tdap) 2005 Hepatitis B Vaccines (1 of 3 - 19+ 3-dose series) 2005 Cervical Cancer Screening Pa p with HPV Testing (Age 30 to 64) Every 5 Years 2016 Cervical Cancer Screening with HPV 2016 COVID-19 Vaccine (2023-2 5 season) 2024 Influenza Adult (#1) 2024 HPV Vaccines Aged Out No longer eligi ble based on patient's age to complete this topic Meningococcal B Vaccine Aged Out No l onger eligible based on patient's age to complete this topic Meningococcal Vaccine Aged Out No neva shyann eligible based on patient's age to complete this topic Pneumococcal Vaccine: Pediat rics (0 to 5 Years) and At-Risk Patients (6 to 64 Years) Aged Out No longer eligible b ased on patient's age to complete this topic RSV Immunizations Under 20 Months Aged Out No longer eligible based on patient's age to complete this topic
--- OUTSIDE RECORDS SUMMARY | 2024-07-22 11:57 | XMS_ITS | Clinical Summary ---
Author Organization 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 Gender Identity Not on file Sexual Orientation Not on file Plan of Treatment Upcoming Encounters Date Type Department Care Team (Late st Contact Info) Description 10/01/2024 9:00 AM CDT Office Visit [facility] Minimally Invasive Gynecology [address] [facility] [address] [place] [address] Tammy Monson MD [address] [facility] [address] [place] [address] Health Maintenance Due Date Last Done Comments DTAP/TDAP/TD VACCINES (1 - Tdap) 2005 HEPATITIS B VACCINES (1 of 3 - 19+ 3-dose series) 2005 CERVICAL CANCER SCREENING 2016 INFLUENZA VACCINE (#1) 2024 HPV VACCINES Aged Out No longer eligi ble based on patient's age to complete this topic PNEUMOCOCCAL VACCINE 0-64 YEARS Aged Out No longer eligible based on patient's age to complete this topic
--- OUTSIDE RECORDS SUMMARY | 2024-07-22 11:57 | XMS_ITS | Encounter Summary ---
Author Organization [facility] Address [address] [place] [address] Phone Care Team Providers Care Data Warehousing Architect Name Role Phone No, Physician Primary Care Provider [phone] Elis Khan Primary Care Pr ovider Encounter Details Date Type Department Care Team (Latest Contact Info) Description 04/27/2015 Orders Only [facility] Scanning, Provider Social History Tobacco Use Types Packs/Day Years Used Date Smoking Tobacco: Never Assessed Comments Unknown Sex and Gender Information Value Date Recorded Sex Assigned at Not on file Legal Sex Female 9:19 AM UX RESEARCHER Gender Identity Not on file Sexual Orientation Not on file documented as of this encounter Plan of Treatment Not on file documented as of this encounter Procedures Procedure Name Priority Date/Time Associated Diagnosis Comments CARDIOLOGY DOCUMENT SCAN 04/27/2015 documented in this encounter Results * SCAN - CARDIOLOGY (04/27/2015) Anatomical Region Laterality Modality Other us Provider Scanning CV CARDIAC SERVICES PROCEDURES Final Result documented in this encounter Visit Diagnoses Not on filedocumented in this encounter Additional Health Concerns Infection Onset Date Last Indicated Resolved Time COVID: Suspected 04/01/2022 04/01/2022 04/01/2022 9:17 PM CDT COVID: Suspected 06/05/2022 06/05/2022 06/06/2022 3:05 AM UX RESEARCHER COVID: Suspected 06/05/2022 06/05/2022 06/06/2022 4:38 AM UX RESEARCHER COVID: Suspected 09/28/2022 09/28/2022 09/28/2022 3:33 PM CDT COVID: Suspected 04/16/2023 04/16/2023 04/16/2023 10:02 AM CDT COVID: Suspected 04/16/2023 04/16/2023 04/16/2023 3:14 PM CDT COVID: Suspected 02/22/2024 02/22/2024 02/22/2024 8:40 AM CDT COVID: Suspected 04/07/2024 04/07/2024 04/07/2024 12:10 PM CDT documented as of this encounter Care Teams Data Warehousing Architect Relationship Specialty Start Date End Date No, Physician PCP - General 05/11/20 10/12/20 Elis Khan PA PCP - General Physician Signal Constructor 10/13/20 documented as of this encounter
--- OUTSIDE RECORDS SUMMARY | 2024-07-22 11:57 | XMS_ITS | Continuity of Care Document ---
Author Organization [facility] Address [address] [place] [address] [place] [address] Phone Care Team Providers Care Manager Disaster Recovery Name Role Phone Godwin Arevalo MD Unavailable Unavailable Allergies, Adverse Reactions, Alerts Substance Reaction Status Criticality No Known Allergies Active No Inform ation Medications Medication Instructions Dosage Effective Dates (start - stop) Status Comments Lexapro 10 mg tablet take 1 tablet by or al route every day 10 MG - Active Procedures Procedure Date PREV VISIT, [facility], AGE 18-39 OFFICE/OUTPATIENT VISIT, [facility] Advance Directives Directive Yes / No Effective Date File Name No Information Encounters Encounter Description Practice Location Reason(s) For Visit Diagnoses Date Provider Providers Copied on Encounter PREV VISIT, NEW, AGE 18-39 [facility] Medicine, [address] [place], [id number], [place] tel:[phone] [facility] Medicine physical1 (chief complaint) Encounter for general adult medical exam w abnormal findingsPalpitation sFatigueGeneralized Anxiety Disorder 0 Mickey Connelly. [address] [place], [place], [id number] , [place]. tel:[phone] Family History Family Member Type Diagnosis Age At Onset Father Problem Alive and well Mother Problem Diabetes mellitus type 2 Mother Problem Hypertension Sister Problem Hypertension Mother Problem Stroke 52 Payers Payer name Insurance type Covered constitution party ID Authoriza tion(s) No Information Social History Type Description Quantity Date Captured Comments Alcohol Use Details Caffeine Use Details Unknown Tobacco Use Status Current non-smoker Smoking Status Never smoker Non-Smoking Tobacco Use Details : No Details Available : No Details Available Sex Female Vital Signs Date / Time: Height Weight BMI Pulse Rate Blood Pressure Temperature Respiratory Rate Body Surface Area Head Circumference BMI percentile Pulse Ox Inhaled Ox 6:54 PM 62.00 in 125.00 lbs 22.8 6 kg/m eter (2) 120/70 mm[Hg] Chief Complaint And Reason For Visit From encounter dated '02/15/2020 17:53'. physical1 (chief complaint). Description: Pt needs annual physical Pt has intermittent palpitation for several years .Pt states that stress sometimes causes palpitation but sometimes just random .Pt usually feels some flushing along with palpitation Pt had negative cardiac echo 5 years ago. Pt denies any chest pain or any exertional related symptoms . Pt states that it occurs twice during last 3 months . Pt denies any sob. Pt also has chronic anxiety. Pt denies any depression or any suicidal thought Pt denies any crying spells. Pt has insomnia and she wakes up frequently at night due to anxiety and has hard time falling back to sleep Pt denies any snoring or any trouble with breathing at nig ht. Pt has chronic fatigue and foggy feeling. Plan Of Treatment Date Type Action Status No Information History Of Present Illness Encounter Date Complaint History Of Prese nt Illness physical1 Pt needs annual physical Pt has intermittent palpitation for several years .Pt states that stress sometimes causes palpitation but sometimes just random .Pt usually feels some flushing along with palpitation Pt had negative cardiac echo 5 years ago. Pt denies any chest pain or any exertional related symptoms . Pt states that it occurs twice during last 3 months . Pt denies any sob. Pt also has chronic anxiety. Pt denies any depression or any suicidal thought Pt denies any crying spells. Pt has insomnia and she wakes up frequently at night due to anxiety and has hard time falling back to sleep Pt denies any snoring or any trouble with breathing at night. Pt has chronic fatigue and foggy feeling. Instructions Date Instruction Additional Infor mation No Information Assessments Type Assessment Date assessment Encounter for general adult medi graham exam w abnormal findings assessment Palpitations assessment Fatigue assessment Generalized Anxiety Disorder Jan Mental Status Date Cognitive Assessment Orientation - [place] ed to time, place, person, situation.
--- OUTSIDE RECORDS SUMMARY | 2024-07-22 11:57 | XMS_ITS | Encounter Summary ---
Author Organization [facility] Address [address] [place] [address] Phone Care Team Providers Care Potato Picker Name Role Phone Elis Khan Primary Care Pr ovider Encounter Details Date Type Department Care Team (Late st Contact Info) Description 07/13/2024 Telephone [facility] Cardiology [address] [facility] Advanced Medicine 8th [place] [address] [place] [address] Diego Strong MD [address] [facility] [address] [place] [address] Social History Tobacco Use Types Packs/Day Years Used Date Smoking Tobacco: Never Smokeless Tobacco: Never AUDIT-C Answer Date Recorded Q1: How often [...] on file Legal Sex Female 9:19 AM LODGE SALES ASSOCIATE Gender Identity Not on file Sexual Orientation Not on file documented as of this encounter Miscellaneous Notes * Telephone Encounter - Floresita Aguilar RN - 07/13/2024 2:44 PM LODGE SALES ASSOCIATE [employer] message sent to patient with recs. E SALES ASSOCIATE * Telephone Encounter - Diego Strong MD - 07/13/2024 2:27 PM CST I would defer to her bladder blower regarding management of the fibroid. She should be able to have the surgery. I would recommend she continue metoprolol through the perioperative period. E SALES ASSOCIATE * Telephone Encounter - Floresita Aguilar RN - 07/13/2024 9:[address]ES [address]. Strong, pt would like your input on TBD surgery. E SALES ASSOCIATE * Telephone Encounter - Chritsine Melvin - 07/13/2024 8:10 AM CST Ligia Pt calling stating she is needing surgery to remove a large fibroid from her uterine wall that's causing a lot of bleeding. States she needs this removed and has had it about six months. Will be possibly discussing this surgery with her doc before she sees Royce on 07/23/24 and she wants theCardiology team primed on this so the process goes as quickly as possible. States she specifically would like Dr. Strong's input on this and if she should have surgery. Please call to advise. E SALES ASSOCIATE documented in this encounter Plan of Treatment Not on file documented as of this encounter Visit Diagnoses Not on filedocumented in this encounter Care Teams Potato Picker Relationship Specialty Start Date End Date Elis Khan PA PCP - General Physician Sand Slinger 10/13/20 documented as of this encounter
--- OUTSIDE RECORDS SUMMARY | 2024-07-22 11:57 | XMS_ITS | Clinical Summary ---
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 Currently wearing event monitor Will evaluate monitor results when available Increase metoprolol to 100 daily Assessment & Plan (08/17/2020 1:49 PM PROPERTY ECONOMIST): Due to WCT - likely SVT w [...] those Assessment & Plan (05/11/2020 10:52 AM PROPERTY ECONOMIST): Ddx includes sinus tachycardia vs SVT The [...] regimen. Assessment & Plan (07/05/2021 11:29 AM PROPERTY ECONOMIST): BP has recently been elevated, remains elevated on repeat check today Unclear if her current sx are related to the elevated Bps or not Regardless, BP is above goal Recommend starting lisinopril 10 mg daily Call w BP update in 1 week Check Bmp today Assessment & Plan (08/17/2020 1:50 PM PROPERTY ECONOMIST): BP is somewhat labile, still a bit above goal Will reassess BP control following EP study and consider changing metoprolol to a different agent at that time Secondary work up negative Assessment & Plan (05/11/2020 10:55 AM PROPERTY ECONOMIST): She is persistently hypertensive in clinic today. [...] Date Personal history of disease 08/22/2015 01/03/2022 Encounters Date Type Department Care Team Description 07/13/2024 Telephone [facility] Cardiology [address] [place] [address] [place] [address] Diego Strong MD from Last 3 Months Immunizations Name Administration Dates Next Due Rho (D) Immune Globulin, IV or IM 03/24/2015 Tdap 01/15/2015 Surgical History Surgery Date Site/Laterality Comments OVARIAN CYST REMOVAL 06/30/2018 - 06/29/2019 DILATION AND CURETTAGE OF UTERUS 06/30/2018 - 06/29/2019 RECTAL PROLAPSE REPAIR 06/30/2014 - 06/29/2015 Medical History Medical History Date Comments Anemia Type 2 [place] (myocardial infarc tion) (CMS/HCC) (HCC) 2014 HTN (hypertension) Palpitations PONV (postoperative nausea and vomiting) mild PONV, relieved with PO and IV antiemetics Family History Medical History Relation Name Comments Hypertension Father Heart attack Maternal Grandfather late 60 s Heart disease Maternal Grandfather Family history of cardiac disorder - (Added by TW Conv) Inflammatory bowel disease Maternal Grandmother Family history of inflammatory bowel disease - (Added by TW Conv) Diabetes Mother Hypertension Mother Transient ischemic attack Mother Hypertension Sister Relation Name Status Comments Father Maternal Grandfather Maternal Grandmother Mother Sister Social History Tobacco Use Types Packs/Day Years [...] on file Legal Sex Female 9:19 AM PROPERTY ECONOMIST Gender Identity Not on file Sexual Orientation Not on file Obstetrics History Last Filed Vital Signs Vital Sign Reading [...] 04/07/2024 11:37 AM CDT Plan of Treatment Health Maintenance Due Date Last Done Comments Cervical Cancer Screening 1986 Depression Screening 1986 Hepatitis C Screening 1986 Varicella Vaccines (1 of 2 - 13+ 2-dose series) 1999 Hepatitis B Screening 2004 Regular Well Visit/Exam 18-64 2004 Covid-19 Vaccine (3 - 2023-2 5 season) 2024 03/08/2021, 02/14/2021 Influenza Vaccine (#1) 2024 DTaP/Tdap/Td Vaccine (2 - Td or Tdap) 01/15/2025 01/15/2015 HPV Vaccines Aged Out No longer eligi ble based on patient's age to complete this topic Pneumococcal vaccine <65 Aged Out No longer eligible based on patient's age to complete this topic Medical Devices Implanted Type Area Switch Inspector Device Identifier Shelf Expiration Date Model / Serial / Lot [employer] [id number] System 6-12fr Mvp Venous Closure Vascade - [id number] - [id number] Implanted:Qty: 1 on 09/06/2020 by Tony Pineda MD at [facility] [employer] 07/11/2022 800-612C-1 0U / [id number] / [id number] [employer] [id number] System 6-12fr Mvp Venous Closure Vascade - [id number] - [id number] Implanted:Qty: 1 on 09/06/2020 by Tony Pineda MD at [facility] [employer] 07/11/2022 800-612C-1 0U / [id number] / [id number] [employer] [id number] Device Closure Vascade Od5 Fr Femoral Artery - [id number] - [id number] Implanted:Qty: 1 on 09/06/2020 by Tony Pineda MD at [facility] [employer] 06/08/2022 700-500DX- 05U / [id number] / [id number] [id number] [employer] [id number] Device Closure Vascade Od5 Fr Femoral Artery - [id number] - [id number] Implanted:Qty: 1 on 09/06/2020 by Tony Pineda MD at [facility] [employer] 06/08/2022 700-500DX- 05U / [id number] / [id number] Insurance [facility] [employer] Care Teams Director Of Retention Relationship Specialty Start Date End Date Menossi, Elis Tonja Beverly, PA PCP - General Physician Swatch Clerk 10/13/20
== END 2024-07-19 08:30 | disposition home or self-care (01) ==
LOC: ANHSURGERY 08:33
PROVIDERS: PCP Physician Assistant; Visit Provider Obstetrics & Gynecology
DX: Z01.818 Encounter for other preprocedural examination (principal); R94.31 Abnormal electrocardiogram [ECG] [EKG]; N92.0 Excessive and frequent menstruation with regular cycle; I10 Essential (primary) hypertension
CPT/HCPCS: 36415; 86850; 86900; 86901; 93005

== ENCOUNTER 2024-07-22 00:49 | Day surgery (SDC) | payer BC, SELFPAY ==
[2024-07-16 08:13] VITALS: BMI 24.7
--- NOTE | 2024-07-16 08:23 | PC.NURSE ---
Report to the Outpatient Waiting Room, entrance under the green pavilion located off [facility], at time _1000_ on date _[id number]_. Planned Procedure Time: _1200_.? Time changes happen often and if your time is changed the preop area will call you the afternoon before. - You and your visitor will be asked to self-screen and do not enter if you have any COVID symptoms. Please call surgeon if you need to reschedule. - A mask is optional within the hospital at this time. Patients may have clear liquids (water, carbonated beverages, clear teas, apple juice) until 3 hours prior to surgery with a maximum of 20 ounces. - No food from midnight until time of surgery and no smoking. This includes no chewing gum, candy or mints. Take only the following medications with a SIP of water on the morning of surgery: ___None___ DO NOT STOP ANY OF YOUR OTHER PRESCRIPTION MEDICATIONS PRIOR TO SURGERY EXCEPT THE FOLLOWING Medications to discontinue per physician ___Vitamins Date to take last phkl___[phone]___ Please no make-up, nail british, hairspray, perfume, deodorant, or body powder the day of surgery.? No jewelry (including any body piercings) or valuables the day of surgery, leave them at home.? Please take a shower or bath the night before, or the morning of, surgery with an antibacterial soap.? Wear comfortable, loose fitting clothing.? - Jewelry must be removed prior to entering the operating room.? Rings and piercings that are not removed may be cut off. - The hospital will not accept responsibility for valuables.? - Please leave all valuables, including medications, at home the day of surgery. If you are going home after surgery, a licensed school bus driver/custodian must drive you home.? - NO public transportation without another adult if you receive anesthesia. - We recommend that an adult stay with you for 24 hours following discharge. - We also recommend that you do not drive, make important decision, drink alcoholic beverages, or take any drugs that were not prescribed by your health care provider for at least 24 hours after your discharge time. Follow any additional instructions given to you from your surgeon. Telephone instructions given to __Tammy__and asked if any additional questions and then verbalized understanding. Patient advised to call surgeon office or pre surgery nurse liaison [phone] if any additional questions.
[2024-07-22] VITALS (10 sets, daily range): BP systolic 107–134; BP diastolic 65–87; PULSE 80–108; RESP 14–24; TEMP 36.2–37.2; O2SAT 97–100
[2024-07-22 10:59] LABS: Hematocrit 37.6 % (37.0-47.0); Hemoglobin 10.8 g/dL (12.0-15.0)
[2024-07-22] MEDS: KETOROLAC 15 MG/ML VIAL (*BKC) IV PUSH (11:20)
[2024-07-22] MEDS: LACTATED RINGERS 1,000 ML 30 ML IV CONT ×2 (11:20→14:51)
[2024-07-22] MEDS: ACETAMINOPHEN 500 MG TABLET 1000 MG PO ×3 (11:20→22:55)
[2024-07-22 11:33] LABS: BEDSIDEPREGUCG Negative (Negative)
--- NOTE | 2024-07-22 12:07 | WPDANESEPPF ---
Anes - Initial Pre Proc Eval Procedure: Operation Date: 07/22/24 12:00 Proposed Procedures p Robotic Assisted Hysterectomy with Bilateral Salpingectomy - Sd Giron MD Date/Time: 07/22/24 12:07 Surgeon: Sd Giron MD Pre Op Diagnosis: Menorrhagia Patient Data Age: 39 Gender: F Height: 1.57 m Weight: 59.6 kg Last Vital Signs Temp 37.2 C 07/22/24 11:20 Pulse 108 H 07/22/24 11:20 Resp 14 07/22/24 11:20 BP 134/87 07/22/24 11:20 Pulse Ox 100 07/22/24 11:20 O2 Del Method Room Air 07/22/24 11:20 Allergies Allergy/AdvReac Type Severity Reaction Status Date / Time No Known Allergies Allergy Verified 07/22/24 11:34 Home Medications ?Medication ?Instructions ?Recorded ?Confirmed ?Type ferrous sulfate 137 mg (45 mg 137 mg PO DAILY 07/16/24 07/22/24 History iron) tablet,extended release (Slow Fe) fiber 3 cap PO DAILY 07/16/24 07/22/24 History lisinopril 10 mg tablet 10 mg PO DAILY 07/16/24 07/22/24 History metoprolol succinate 100 mg 100 mg PO HS 07/16/24 07/22/24 History tablet,extended release 24 hr [id number]-Ty-auwl-minerals 18 tablet PO DAILY 07/16/24 History mg-0.4 mg tablet Laboratory Tests 07/22/24 07/22/24 10:53 11:20 Hgb 10.8 L g/dL (12.0-15.0) Hct 37.6 % (37.0-47.0) POC Urine HCG, Qual Negative (Negative) Patient hx anesthesia problems: none Family hx anesthesia problems: none Results Review: All pre-operative results and documents have been reviewed as part of the pre-operative evaluation. [facility] Past Medical History Medical History (Updated 07/22/24 @ 12:08 by Wood Herrera MD) SVT (supraventricular tachycardia) Hypertension Uterine fibroid Surgical History Surgical History (Updated 07/22/24 @ 12:08 by Wood Herrera MD) H/O cardiac radiofrequency ablation Social History Social History Smoking status: Never smoker Alcohol intake: current Drinks per week: 5 Living arrangements: with family Spiritual care concerns: No Anes - Eval Final PreProcedure Day of Procedure 07/22/24 12:07 Patient weight: normal Heart: regular rate and rhythm Lungs: clear to auscultation Airway: Mallampati scale class II Neurological: alert and oriented Last oral intake: >/= 8 hours ASA classification: II Emergent: no Anesthetic plan: proceed Anesthesia type and monitoring: general ETT and standard monitoring Results Review: All pre-operative results and documents have been reviewed as part of the pre-operative evaluation. Informed Consent: The patient's anesthetic plan and its attendant risks and benefits were discussed with the patient/family/POA. Questions were solicited and answers provided to the satisfaction of the patient/family/POA.
--- NOTE | 2024-07-22 12:31 | P.HP_ITS ---
H&P: HPI History of Present Illness Date/Time: 07/22/24 12:31 Chief Complaint: Heavy vaginal bleeding Narrative: This patient is a 39-year-old female with severe menorrhagia we have agreed to perform robotic assisted total hysterectomy with bilateral salpingectomy. The patient understands the details of the procedure. The procedure has been explained in detail. She understands the risks. She understands that injuries may occur that result in hospitalization, more surgery, and severe illness. She understands risk of hemorrhage and infection. She denies any chest pain or shortness of breath. She denies any nausea, vomiting, fever, chills. Review of Systems Review of Systems: All systems reviewed & are unremarkable except as noted in HPI and below Constitutional: Constitutional: Denies chills, Denies fatigue, Denies fever(s) and Denies weakness Eyes: Eyes: Denies blurry vision, Denies change in vision, Denies loss of peripheral vision, Denies loss of vision, Denies other visual disturbances and Denies eye pain ENT: Denies vertigo, Denies dizziness, Denies hearing loss, Denies mouth pain, Denies nasal obstruction, Denies neck mass and Denies neck pain Cardiovascular: Cardiovascular: Denies chest pain, Denies diaphoresis, Denies syncope, Denies leg edema and Denies dyspnea Respiratory: Respiratory: Denies chest congestion, Denies cough, Denies hemoptysis, Denies dyspnea and Denies wheezing Gastrointestinal: Gastrointestinal: Denies abdominal pain, Denies constipation, Denies diarrhea, Denies nausea and Denies vomiting Genitourinary: Genitourinary: Denies hematuria, Denies change in libido, Denies nocturia, Denies genital lesions, Denies flank pain and Denies urinary urgency Musculoskeletal: Musculoskeletal: Denies abnormal gait, Denies back pain, Denies myalgias, Denies arthralgias, Denies joint swelling, Denies muscle weakness and Denies neck pain Integumentary/Breasts: Skin/Breast: Denies swelling, Denies breast pain, Denies breast mass, Denies dry skin, Denies nipple discharge, Denies unusual bruising and Denies jaundice Neurologic: Denies Neuro-related abnormal movements, Denies Abnormal speech present, Denies abnormal gait, Denies behavioral changes, Denies confusion, Denies vertigo, Denies dizziness, Denies syncope, Denies loss of vision, Denies memory loss, Denies convulsions and Denies weakness Psychiatric: Psychiatric: Denies abnormal sleep pattern, Denies behavioral changes, Denies change in libido, Denies confusion, Denies depression, Denies anhedonia and Denies memory loss Endocrine: Endocrine: Reports no additional endocrine complaints, Denies change in libido and Denies fatigue Hematologic/Lymphatic: Hematologic/Lymphatic: Reports no additional hematologic/lymphatic complaints Allergic/Immunologic: Allergic/Immunologic: Reports no additional allergic/immunologic complaints and Denies wheezing PMFSH Past Medical History Medical History (Updated 07/22/24 @ 12:33 by Sd Giron MD) SVT (supraventricular tachycardia) Hypertension Uterine fibroid Surgical History Surgical History (Updated 07/22/24 @ 12:08 by Wood Herrera MD) H/O cardiac radiofrequency ablation Social History Social History Smoking status: Never smoker Alcohol intake: current Drinks per week: 5 Living arrangements: with family Spiritual care concerns: No Meds Home Medications and Allergies Home Medications ?Medication ?Instructions ?Recorded ?Confirmed ?Type ferrous sulfate 137 mg (45 mg 137 mg PO DAILY 07/16/24 07/22/24 History iron) tablet,extended release (Slow Fe) fiber 3 cap PO DAILY 07/16/24 07/22/24 History lisinopril 10 mg tablet 10 mg PO DAILY 07/16/24 07/22/24 History metoprolol succinate 100 mg 100 mg PO HS 07/16/24 07/22/24 History tablet,extended release 24 hr whakkkcttcfk-El-whwu-minerals 18 tablet PO DAILY 07/16/24 History mg-0.4 mg tablet Allergies Allergy/AdvReac Type Severity Reaction Status Date / Time No Known Allergies Allergy Verified 07/22/24 11:34 Vital Signs Vital Signs - 24 hr 07/22/24 11:20 Temperature 98.9 F Pulse Rate 108 H Respiratory Rate 14 Blood Pressure 134/87 Pulse Oximetry 100 Oxygen Delivery Room Air Exam Const: General: cooperative, healthy appearing, comfortable and no acute distress Orientation/consciousness: oriented to person, oriented to place and oriented to time HENMT: Head: normal to inspection Ears: external ears normal Face/Nose/Sinus: Normal external nose present and normal facial exam Face and sinus: normal facial exam Eyes: General: appearance normal, both eyes and all related structures Neck: Neck: normal visual inspection, trachea midline and supple Resp: Auscultation: clear to auscultation bilaterally, no crackles, no rales, no rhonchi and no wheezes Cardio: Rate: regular rate Rhythm: regular rhythm Heart sounds: no click, no murmurs and no rubs GI: GI Palp: No abdominal tenderness, No Soft to palpation, No Tenderness to palpation present (GI) and No Palpable mass present Auscultation: normal bowel sounds Skin: General skin exam: normal color and no rashes or lesions noted Neuro: General: oriented to person, oriented to place and oriented to time Extrem: General: normal to inspection, no joint enlargement, no clubbing, cyanosis or edema, no pedal edema and no calf tenderness Psych: Appearance: grossly normal Mental Status: mental status grossly norm al Speech and movement: Normal speech and movement present H&P: Results Labs Labs: Short CBC 07/22/24 Range/Units 10:53 Hgb 10.8 L (12.0-15.0) g/dL Hct 37.6 (37.0-47.0) % Assessment and Plan Assessment and plan (1) Menorrhagia: Code(s): N92.0 - Excessive and frequent menstruation with regular cycle Status: Acute Assessment and Plan: This patient is a 39-year-old female with severe menorrhagia we have agreed to perform robotic assisted total hysterectomy with bilateral salpingectomy. She understands risks, benefits, and alternatives. She has completed informed consent process is ready to proceed.
[2024-07-22] MEDS: ceFAZolin 2 GM/D5W 50 ML 2 GM/50 ML BAG IVPB (12:33)
--- NOTE | 2024-07-22 12:33 | WPDHPUPDATE1 ---
History and Physical Update Update Date/Time: 07/22/24 12:33 History and Physical has been reviewed, including an updated exam of the patient. There are NO changes in the patient's condition. Risks, benefits, and alternatives have been discussed and questions answered. Patient agrees to proceed with procedure.
[2024-07-22] MEDS: fentaNYL CITRATE INJ (*CRX) 100 MCG/2 ML VIAL 25 MCG IV PUSH ×6 (14:58→15:38)
--- NOTE | 2024-07-22 14:58 | P.OP_ITS ---
Procedure Note - Detailed Date of Procedure 07/22/24 Pre-op Diagnosis Menorrhagia, fibroid uterus Post-op Diagnosis Same Procedure Performed Robot assisted Total hysterectomy with bilateral salpingectomy. Surgeon Sd Giron MD Anesthesia General Indications heavy vaginal bleeding, pelvic pain Findings Large fibroid uterus -15 weeks, normal ovaries and fallopian tubes.. Some scarring over the posterior cul-de-sac peritoneum. Description of Procedure This patient was taken to the operating room. She was prepped and draped in the dorsal lithotomy position after induction of general anesthesia. The uterine manipulator and Dejah cup were placed. This was done with a speculum and tenaculum. The speculum was placed. The cervix was grasped with a tenaculum. The stay sutures were placed at 3 and 9:00 a.m.. The stay sutures of 0 Vicryl were tied to the appropriately Size scope after it was slipped around the cervix.. The tip of the ALEXA manipulator was placed in the intrauterine cavity. The cup was slid into place around the cervix and into the fornices. It was locked into place. The sutures were then wrapped around the handle and tied under tension. A 8 mm skin incision was made in the left upper quadrant the abdomen. a 5 mm Visiport trocar was inserted into abdominal cavity and pneumoperitoneum was achieved. A 8 mm supraumbilical incision was made and a 8 mm trocar was inse rted into the intrauterine cavity under direct visualization of the scope. an 8 mm incision was made in the right upper quadrant of the abdomen and an 8 mm robotic trocar was placed the inter uterine cavity under direct visualization the scope. An 11 mm trocar was inserted in the right upper quadrant of the abdomen rectal is a cystoscope after an incision was made there as well. The robot was docked. Electronic Orientation of the robot was performed. Bilateral ureteral lysis was performed. This was done from the pelvic brim down to the uterine artery. This was done with careful dissection using sharp and blunt dissection. The fallopian tubes were removed bilaterally. The mesosalpinx around the fallopian tubes were cauterized transected with LigaSure cautery. This was done in a bilateral fashion from the ovary to the uterine cornua. The fallopian tube was transected at the uterine cornu and amputated. The tube was taken out the left lower quadrant trocar site. In a stepwise fashion along the lateral aspects of the uterus the round ligament and broad ligaments were cauterized transected down to the level of the uterine arteries. A bladder flap was created in the bladder was moved distally to the end of the cervix and over the Dejah cup. The bilateral uterine arteries were cauterized and transected. Colpotomy was then performed. In a circumferential fashion the vagina was transected using unipolar cautery. The incision was made down on the Dejah cup. The uterus and cervix were taken out through the vagina. A pneumo occluder was placed in the vagina. The vaginal cuff was closed with a 0 V lock suture in a running fashion. The pelvis was irrigated with copious amounts antibiotic irrigation. The ureters were again examined and found to be intact and flowing freely under the uterine arteries into the bladder. The bladder was intact. It was examined directly. Cystoscopy was performed after administration of methylene blue. The cystoscope was inserted. Bladder was distended with fluid. The ureteric meatus was observed bilaterally. Blue fluid was seen to egress bilaterally. The bladder was drained and the cystoscope was withdrawn. The vagina was irrigated with Betadine solution after removal of the Pneumo occluder. the trocars were removed after the robot was undocked. The skin was closed with subacute or Dermabond. The patient was taken to recovery room. She was stable condition. Sponge lap and needle counts were correct x2. Estimated Blood Loss 125 Urine Output 800 Drains Yes Packing No Pathology Yes Complications No immediate complications Condition Stable Disposition Floor
[2024-07-22] MEDS: ONDANSETRON INJ 4 MG/2 ML VIAL IV PUSH ×3 (15:24→22:29)
[2024-07-22] MEDS: diphenhydrAMINE HCl INJ 50 MG/ML VIAL 12.5 MG IV PUSH (16:08)
--- NOTE | 2024-07-22 16:25 | ADMGEN ---
This patient, Tammy Cross, was admitted to OB 2nd Floor Room 286-00. Patient/family oriented to hospital policies and general routines including ID bracelet, bed and alarms, visiting hours, pain management, procedures, bathroom and other care routines, personal items, smoking policy, room service/diet, and visiting hours. Information on how to activate the Rapid Response Team has been discussed. Patient/Family are encouraged to report perceived risks to care and to ask questions if they do not understand what they are told or what they should do.
[2024-07-22] MEDS: KETOROLAC 30 MG/ML VIAL (*BKC) IV PUSH ×2 (16:43→22:55)
[2024-07-22] MEDS: DEXTROSE 5%/0.45% SOD CHL 1,000 ML 125 ML IV CONT (16:44)
[2024-07-22] MEDS: DOCUSATE SODIUM 100 MG CAPSULE PO (18:40)
[2024-07-22] MEDS: SIMETHICONE 80 MG TAB.CHEW PO (18:40)
[2024-07-22] MEDS: PROMETHAZINE HCL 25 MG/ML AMPUL (20:45)
[2024-07-22] MEDS: PROMETHAZINE HCL 25 MG/ML AMPUL 12.5 MG IV PUSH (20:48)
[2024-07-22] MEDS: METOPROLOL SUCCINATE EXT REL 100 MG TABCR PO (21:16)
[2024-07-23 02:12] LABS: Glucose Point of Care 225 mg/dl (65-105)
[2024-07-23] MEDS: SODIUM CHLORIDE 0.9% IV 1,000 ML 125 ML IV CONT (02:20)
[2024-07-23 02:57] VITALS: BP 108/70; PULSE 91; RESP 12; O2SAT 98
--- OUTSIDE RECORDS SUMMARY | 2024-07-23 03:43 | XMS_ITS | Data Portability ---
Author Organization [facility], Main Office Address [address] [place] [address] Assessment No assessment recorded. Plan of Treatment Reminders Order Date Submit Date Provider Last Modified By Organization Details Last Modified Time Details Appointments None recorded. Lab TSH + free T4, serum 023 023 [email or web address] [facility] [address] [place], [address], 4 09:20:37 lipid panel, serum 023 023 KERRY [facility] [address] [address] [place], [address], 3 10:01:45 iron + TIBC + ferritin, serum 023 023 [email or web address] [address] [address] [place], [address], 4 09:20:37 vitamin B12 + folate, serum or blood 023 023 [email or web address] [address] [address] [place], [address], 4 09:20:37 HbA1c (hemoglob in A1c), blood 023 023 [email or web address] [address] [address] [place], [address], 4 09:20:36 CBC w/ auto diff 023 023 [email or web address] [place] [address], [place], [address], 4 09:20:36 CMP, serum or plasma 023 023 [facility] [place], [address], [place], [address], 3 10:01:45 Referral None recorded. Procedures None recorded. Surgeries None recorded. Imaging None recorded. Medication Orders None recorded. Patient TargetsNo targets recorded. Patient InstructionsNo instructions recorded. Reason for Referral None Reported. Results Created Date Observation Date Name Description Value Unit Range Abnormal Flag Note LastModifiedBy Organization Detail LastModifiedTime Result Notes None recorded. Problems Name Problem SNOMED Code Status Onset Date Resolution Date Notes Provider Name and Address Organization Details Recorded Time Acute bronchitis 14761835 Active 2021 Not Available [facility] 3 22:45:45 Benign essential hypertension 1740881 Active 2021 Not Available [facility] 3 22:45:45 Acute sinusitis 70301230 Active 2021 Not Available [facility] 3 22:45:45 Anemia 086871405 Active 2021 Not Available [facility] 3 22:45:45 Cough 99263516 Active 2021 Not Available [facility] 3 22:45:45 Sinusitis 41787551 Active 2022 TAN Jones [address] [facility] [address], [place], [address] , [facility] 3 15:01:19 Problem Notes None recorded. Procedures Surgical History Date Name Laterality Status Provider Name and Address Organization Details Recorded Time 09/09/19 21 catheter ablation of arrhythmogenic focus completed Not Available [facility] 08/28/2022 22:44:04 excision of uterine polyp completed Not Available [facility] 08/28/2022 22:44:04 Imaging Results None recorded. Procedure Notes None recorded. Medical Equipment None Reported. Allergies No known drug allergies Medications Name Sig Start Date Stop Date Status Note LastModified by Organization Details LastModified Time amoxicillin 500 mg capsule TAKE 1 CAPSULE BY MOUTH THREE TIMES DAILY UNTIL GONE 07/11 /2023 completed Not Available Not Available Not Available azithromyci n 250 mg tablet TAKE 2 TABLETS BY MOUTH TODAY, THEN TAKE 1 TABLET DAILY FOR 4 DAYS 01/07 completed Not Available Not Available Not Available benzonatate 200 mg capsule TAKE 1 CAPSULE BY MOUTH THREE TIMES A DAY NEEDED FOR COUGH 01/07 completed Not Available Not Available Not Available metoprolol succinate ER 50 mg tablet,exte nded release 24 hr TAKE 1 TABLET BY MOUTH EVERY DAY 01/08 completed Not Available Not Available Not Available hydrocodone 5 mg-acetamin ophen 325 mg tablet TAKE 1 TO 2 TABLETS BY MOUTH EVERY 6 HOURS NEEDED FOR PAIN 01/08 completed Not Available Not Available Not Available prednisone 20 mg tablet TAKE 2 TABLETS BY MOUTH EVERY DAY FOR 5 DAYS 01/07 completed Not Available Not Available Not Available metoprolol succinate ER 100 mg tablet,exte nded release 24 hr TAKE 1 TABLET BY MOUTH EVERY DAY active Not Available Not Available No t Available Eva Low Dose Aspirin 81 mg tablet,bibiana yed release Take 1 tablet every day by oral route. 11/30 completed Not Available Not Available Not Available penicillin V potassium 500 mg tablet TAKE 1 TABLET BY MOUTH TWICE A DAY FOR 10 DAYS 01/07 completed Not Available Not Available Not Available tramadol 50 mg tablet PRN 11/30 completed Not Available Not Available Not Available amoxicillin 875 mg tablet Take 1 tablet every 12 hours by oral route. active Not Available Not Available No t Available triamcinolo ne acetonide 0.1 % dental paste PLACE A SMALL AMOUNT TO THE AFFECTED AREA OF MOUTH 2-3 TIMES DAILY AFTER MEALS AND AT BEDTIME 01/08 completed Not Available Not Available Not Available cephalexin 500 mg capsule TAKE 1 CAPSULE BY MOUTH EVERY 6 HOURS. 10/13 completed Not Available Not Available Not Available lisinopril 10 mg tablet TAKE 1 TABLET BY MOUTH EVERY DAY active Not Available Not Available No t Available prednisone 50 mg tablet Take 1 tablet every day by oral route for 5 days. active Not Available Not Available No t Available codeine 10 mg-guaifene sin 100 mg/5 mL oral liquid TAKE 10 ML NEEDED BY ORAL ROUTE AT BEDTIME. 01/10 completed Not Available Not Available Not Available metoprolol succinate ER 25 mg tablet,exte nded release 24 hr 10/13 completed Not Available Not Available Not Available methylpredn isolone 4 mg tablets in a dose pack TAKE 6 TABLETS ON DAY 1 DIRECTED ON PACKAGE AND DECREASE BY 1 TAB EACH DAY FOR A TOTAL OF 6 DAYS 01/10 completed Not Available Not Available Not Available amoxicillin 875 mg-potassiu m clavulanate 125 mg tablet TAKE 1 TABLET BY MOUTH TWICE A DAY FOR 7 DAYS 01/07 completed Not Available Not Available Not Available Mucinex 600 mg tablet, extended release Take 1 tablet every 12 hours by oral route. 01/08 completed Not Available Not Available Not Available ID NOW COVID-19 Test Kit TEST DIRECTED 11/29 completed Not Available Not Available Not Available BinaxNOW COVID-19 Ag Self Test kit TEST DIRECTED TODAY 01/07 completed Not Available Not Available Not Available Vitals Date Recorded Body mass index (BMI) Body height Oxygen saturation Oxygen saturation in Arterial blood by Pulse oximetry Heart rate Respiratory rate Body temperature Body weight Systolic blood pressure Diastolic blood pressure Provider Name and Address Organization Details Last Updated DateTime 1 23.6 kg/m2 157.48 cm 98 % 98 % 110 /min 16 /min 97.5 [degF] 91849.4 2 g 130 mm[Hg] 80 mm[Hg] Not Available [facility] 3 22:44:50 Date Recorded Body mass index (BMI) Body height Oxygen saturation Oxygen saturation in Arterial blood by Pulse oximetry Heart rate Respiratory rate Body temperature Body weight Systolic blood pressure Diastolic blood pressure Provider Name and Address Organization Details Last Updated DateTime 2 23.8 kg/m2 157.48 cm 99 % 99 % 88 /min 16 /min 98.3 [degF] 78984.0 1 g 128 mm[Hg] 68 mm[Hg] Not Available [facility] 3 22:44:50 Date Recorded Body height Body temperature Body mass index (BMI) Body weight Respiratory rate Oxygen saturation Oxygen saturation in Arterial blood by Pulse oximetry Heart rate Systolic blood pressure Diastolic blood pressure Provider Name and Address Organization Details Last Updated DateTime 3 157.48 cm 98 [degF] 24.1 kg/m2 16144.4 g 16 /min 99 % 99 % 73 /min 122 mm[Hg] 80 mm[Hg] Tangela [facility]BHARTI [place] [facility] 09:17:28 Social History Question Answer Notes LastModified by Organizat ion Details LastModified Time Tobacco Smoking Status Never Smoker Not Available [facility] 08/28/2022 22:43:37 What Is Your Level Of Alcohol Consumption? Occasional [id number] Information not available 08/28/2022 What Is Your Level Of Caffeine Consumption? Moderate [id number].[id number] Information not available 08/28/2022 How Much Tobacco Do You Chew? None [id number].[id number] Information not available 08/28/2022 In The 14 Days Before Symptom Onset, Have You Had Close Contact With A Laboratory-confir med COVID-19 While That Case Was Ill? No [id number] Information not available 08/28/2022 In The 14 Days Before Symptom Onset, Have You Had Close Contact With A Person Who Is Under Investigation For COVID-19 While That Person Was Ill? No [id number] Information not available 08/28/2022 What Type Of Diet Are You Following? REGULAR [id number].[id number] Information not available 08/28/2022 Which Illicit Or Recreational Drugs Have You Used? None [id number].[id number] Information not available 08/28/2022 Do You Or Have You Ever Used E-cigarettes Or Vape? Never Used Electronic Cigarettes [id number].[id number] 3910 Information not available 08/28/2022 Have There Been Any Changes To Your Family Or Social Situation? No MIGRATION.[id number] 4949 Information not available 08/28/2022 Are There Any Guns Present In Your Home? Yes [id number].[id number] Information not available 08/28/2022 Do You Use Insect Repellent Routinely? No MIGRATION.[id number] Information not available 08/28/2022 What Was The Date Of Your Most Recent Tobacco Screening? 10/13/2020 [id number].[id number] Information not available 08/28/2022 What Is Your Relationship Status? MIGRATION.[id number] 2117 Information not available 08/28/2022 Do You Use Your Seat Belt Or Car Seat Routinely? Yes MIGRATION.[id number] 9762 Information not available 08/28/2022 Do You Have Smoke And Carbon Monoxide Detectors In Your Home? Yes MIGRATION.905323 1087 Information not available 08/28/2022 Are You Passively Exposed To Smoke? No MIGRATION.386021 8536 Information not available 08/28/2022 Do You Or Have You Ever Used Smokeless Tobacco? Never Used Smokeless Tobacco MIGRATION.342033 8715 Information not available 08/28/2022 How Much Tobacco Do You Smoke? No MIGRATION.[id number] 4760 Information not available 08/28/2022 Do You Use Any Illicit Or Recreational Drugs? No MIGRATION.[id number] 6512 Information not available 08/28/2022 Do You Use Sunscreen Routinely? Yes MIGRATION.[id number] 1895 Information not available 08/28/2022 Have You Recently Traveled Abroad? No MIGRATION.[id number] 1366 Information not available 08/28/2022 Do You Have Any Dietary Restrictions? No MIGRATION.991507 6100 Information not available 08/28/2022 Do You Or Have You Ever Used Any Other Forms Of Tobacco Or Nicotine? No MIGRATION.258340 9204 Information not available 08/28/2022 Sex: Unknown Functional Status Question Answer Note LastModified by Itiva ion Details LastModified Time What is your exercise level? Moderate [id number] Information not available 08/28/2022 Mental Status None recorded. Family History Relationship Description Onset Age of this Age Resolved Age Notes LastModified by Organization Details LastModified Time Mother Diabetes mellitus [id number] Not available 08/28/2022 22:44:07 Father Hypertensive disorder [id number] Not available 08/28/2022 22:44:07 Medical History Condition Response NERVE DISEASE N BLINDNESS N RHEUMATIC FEVER N KIDNEY STONES N BLADDER PROBLEMS N MRSA N OTHER # 1 N POLIO N LUNG DISEASE/DISORDER N COPD N RADIATION / CHEMOTHERAPY N Other # 2 N BLOOD DISEASES N SURGERY N EAR OR HEARING PROBLEMS N MUMPS N DEPRESSION (INCLUDING POST ) N BOWEL PROBLEMS N STROKE/TIA N ULCERS N BENIGN PROSTATIC HYPERPLASIA N MEASLES N MYOCARDIAL INFARCTION N OBESITY N GERD/NAUSEA N ANEURYSM N URINARY/BLADDER/KIDNEY PROBLEMS N CORONARY ARTERY DISEASE (CAD) N ADDICTION CONCERNS N Impotence N ENDOMETRIOSIS N USE OF BLOOD THINNERS N SKIN PROBLEMS N GASTROINTESTINAL DISORDER N PERIPHERAL VASCULAR DISEASE N MUSCLE,JOINT OR BONE PROBLEMS N GASTROINTESTINAL BLEEDING N BLOOD CLOTS N ASTHMA N CATARACTS N ERECTILE DYSFUNCTION N VARICOSITIES N GI PROBLEMS N Low Testosterone N INFERTILITY N AIDS/HIV N CHEMOTHERAPY / RADIATION N LIVER DISEASE N MALE HYPOGONADISM N HYPERTENSION Y Deficiency N ANXIETY DISORDER N BLOOD TRANSFUSION N ANEMIA/BLOOD DISORDER Y CHRONIC EAR INFECTIONS N BRONCHITIS N TUBERCULOSIS N GLAUCOMA N FOOT PROBLEM N DIVERTICULITIS N CHICKENPOX N SLEEP APNEA N INFECTIOUS DISEASE N HEART ARRHYTHMIA N PROSTATE N INSOMNIA N HIGH CHOLESTEROL / HYPERLIPIDEMIA N EYE PROBLEMS N HYPERTHYROIDISM N NEUROLOGICAL PROBLEMS N EDEMA N CHRONIC PAIN SYNDROME N HYPOTHYROIDISM N CAROTID BLOCKAGE N CONSTIPATION N BACK / NECK PROBLEMS N HAVE YOU BEEN HOSPITALIZED OR SEEN IN [facility] IN THE PAST YEAR ? N ATHEROSCLEROSIS N BREAST PROBLEMS N DIALYSIS N ECZEMA N OSTEOPOROSIS N ARTHRITIS N NO SIGNIFICANT PAST MEDICAL HISTORY N APPENDICITIS N DIABETES, TYPE N BAD TEETH N ENT N HEARTBURN / REFLUX N AFIB N AUTISM SPECTRUM DISORDER (ASD) N HEPATITIS / LIVER DISEASE N GOUT N SLEEP DISORDER N ALZHEIMER'S DISEASE N Brain Problems N HERPES N DEMENTIA N SEIZURES/EPILEPSY N HEADACHES/MIGRAINES N VASCULAR DISEASE N PACEMAKER N Blood Disorder N DIZZINESS N KIDNEY DISEASE N HEART DISEASE/HEART PROBLEMS N MULTIPLE SCLEROSIS N CARDIAC ARRHYTHMIA N CANCER: SPECIFY N Gall Stones N ATRIAL FIBRILLATION N PULMONARY EMBOLISM N AUTOIMMUNE DISEASE N Gynecological History Statement/Question Response Menses Monthly Y Date of Last Pap Date of LMP 10/04/2020 Obstetrics History GPAL:G 2 P 0 0 0 2 Type Value Living 2 Total 2 Past Encounters Encounter ID Performer Location Encounter Start Date Encounter Closed Date Diagnosis/Indication Diagnosis SNOMED-CT Code Diagnosis ICD10 Code Diagnosis Note [id number] [facility] [place] [address] [address], [address] [place] [phone] 10/13/2020 00:00:00 10/27/2020 18:38:05 [id number] [facility] [place] [address] [address], [address] [place] [address] 4 11/30/2021 00:00:00 12/27/2021 20:34:43 [id number] TAN Jones [facility] [place] [address] [address], [address] [place] [address] 4 01/08/2023 09:10:53 01/08/2023 09:45:15 Adult health examination 545698833 Z00.00 well exam completed . Routine labs due Cholesterol screening 27 3407648 Z13.220 fasting lipids due Diabetes m ellitus screening 429912554 Z13.1 diabetes screening due Long-term drug therapy 268614329 Z79.899 Thyroid di sorder screening 623608708 Z13.29 thyroid panel due Anemia 844389296 D64.9 due for iron studies and b12 , folate with anemia hx History of radiofrequency ablation operation for arrhythmia 782195221 Z98.890 hx discussed. stable on metoprolol ER 100mg daily and lisinopril 10mg daily Benign ess ential hypertension 2859622 I10 stable on metoprolol ER 100mg daily and lisinopril 10mg daily Health Concerns Section Related Observation LastModified by Organization Detai ls LastModified Time None Recorded Concern Status LastModified by Organization Details LastModified Time None Recorded Advance Directives Directive None Recorded Payers Encounter Date Sequence Insurance Name Policy Number Policy Allen Covered Member ID Allen Member ID Guarantor Name 01/08/2023 1 [facility] [employer] ([employer]) [address] [id number] Tammy Cross Notes Date Note Type Note Provider Name and Address Organization Details Recorded Time 1 text/html Generic HPI TemplateReported bypatient.Location:L shoulder Quality:limited ROM and sharp Severity:pain 9/10 when in motion Duration:constant Onset/Timin10/10/20 Context:working out Aggravating factors:moving that armNotes:Pt states she went to [facility] for the injury and they gave her tramadol and steroid pack.HypertensionReported bypatient.Duration:has noted for months Onset/Timing:better Alleviating Factors:medication Self Care:not under emotional stress Associated Symptoms:no shortness of breath; no fatigue; no palpitations; no decline in exercise capacity; no snoring Not Available [facility] 10/27/2020 18:38:05 2 text/html Generic HPI TemplateReported bypatient.Notes:Pt has been ill since . cough, congestion in chest, and fatigue. Pt can't get rid of mucus... she will cough some up but she can feel it in her chest.HypertensionReporte d bypatient.Onset/Timing:be tter Alleviating Factors:medication Self Care:not under emotional stress Associated Symptoms:no palpitations; no decline in exercise capacity; no snoring;shortness of breath;fatigue; shortness of breath and fatigue attributed to the congestion in chest and cough. Not Available [facility] 12/27/2021 20:34:43 3 text/html HypertensionReported bypatient.Duration:has noted for years Onset/Timing:better Alleviating Factors:medication Associated Symptoms:no shortness of breath; no fatigue; no palpitations; no decline in exercise capacity; no snoring wellness TAN Jones [address] [address], [place], [address], [facility] 01/27/2023 01:27:01 OBGyn Episode No OBEpisode recorded.
--- OUTSIDE RECORDS SUMMARY | 2024-07-23 03:43 | XMS_ITS | Data Portability ---
Author Organization [facility] [place] Address [address] [place] [place] [address] [place] [address] Assessment No assessment recorded. Plan of Treatment Reminders Order Date Submit Date Provider Last Modified By Organization Details Last Modified Time Details Appointments SURG POST OP 2024 09:45A Laura GIRON MD Not available Not available Not available Lab test, urine 2023 024 ana laura [place], [address], [address], [place], [address], 02/27/2024 16:26:08 CBC w/ auto diff [facility]24 [facility] [address], [address], [place], [address], 07/14/2024 03:00:04 Referral gynecolog ist referral 2023 024 KERRY Monson MD, [address] [facility], [place], [address], 07/06/2024 04:08:59 Procedures None recorded. Surgeries robotic assisted hysterect liyah with salpingec jessee (SURG) 2024 025 KERRY [facility], [address] [address], [place], [address], 07/23/2024 01:30:12 Imaging US, pelvis 2024 025 [email or web address] [place], [address], [place], [address], 07/08/2024 21:13:44 US, transvagi nal 2024 025 [email or web address] [place], [address], [place], [address], 07/08/2024 21:13:44 Medication Orders Mirena 21 mcg/24 hr (up to 8 years) 52 mg intrauter ine device 2023 024 [email or web address] Not available 02/27/2024 16:33:40 progester one micronize d 200 mg capsule 2024 025 [facility] [address] [place], [address], 07/12/2024 14:46:56 Patient TargetsNo targets recorded. Patient InstructionsNo instructions recorded. Reason for Referral [employer] Referral for Ut erine leiomyoma Referring Physician: Kalani Felton, RESEARCHER, Encounter Date: 02/27/2024 Results Created Date Observation Date Name Description Value Unit Range Abnormal Flag Note LastModifiedBy Organization Detail LastModifiedTime 02/27/20 24 02/27/2024 pregn quyen test, urine HCG negati ve Not Available [place] [address], [place], [address], 02/27/2024 16:25:58 07/13/1907/13/2024 CBC W/DIF F WBC 6.7 10'3/ uL 3.5-10 .5 Not Available [facility] (Lab) [address], [place], [address], 07/14/2024 03:00:03 07/13/1907/13/2024 CBC W/DIF F RBC 4.29 10'6/ uL (based on docume nted legal sex) 3.80-5 .20 Not Available [facility] (Lab) [address], [place], [address], 07/14/2024 03:00:03 07/13/19 25 07/13/2024 CBC W/DIF F HGB 8.5 g/dL (based on docume nted legal sex) 11.6-1 5.4 low Not Available [facility] (Lab) [address], [place], [address], 07/14/2024 03:00:03 07/13/1907/13/2024 CBC W/DIF F HCT 29.8 % (based on docume nted legal sex) 34.0-4 5.0 low Not Available [facility] (Lab) [address], [place], [address], 07/14/2024 03:00:03 07/13/1907/13/2024 CBC W/DIF F MCV 69.5 fL 80.0-9 9.0 low Not Available [facility] (Lab) [address], [place], [address], 07/14/2024 03:00:03 07/13/1907/13/2024 CBC W/DIF F MCH 19.8 pg 27.0-3 4.0 low Not Available [facility] (Lab) [address], [place], [address], 07/14/2024 03:00:03 07/13/1907/13/2024 CBC W/DIF F MCHC 28.5 g/dL 32.0-3 5.5 low Not Available [facility] (Lab) [address], [place], [address], 07/14/2024 03:00:03 07/13/1907/13/2024 CBC W/DIF F RDW 19.4 % 11.0-1 5.0 high Not Available [facility] (Lab) [address] [place], [address], 07/14/2024 03:00:03 07/13/1907/13/2024 CBC W/DIF F plt 323 10'3/ uL 150-40 0 Not Available [facility] (Lab) [address], [place], [address], 07/14/2024 03:00:03 07/13/1907/13/2024 CBC W/DIF F MPV 11.9 fL 8.8-12 .1 Not Available [facility] (Lab) [address], [place], [address], 07/14/2024 03:00:03 07/13/1907/13/2024 CBC W/DIF F neutrophils 57.8 % 34.0-7 3.0 Not Available [facility] (Lab) [address], [place], [address], 07/14/2024 03:00:03 07/13/1907/13/2024 CBC W/DIF F lymphocytes 27.2 % 15.0-5 0.0 Not Available [facility] (Lab) [address], [place], [address], 07/14/2024 03:00:03 07/13/1907/13/2024 CBC W/DIF F monocytes 11.0 % 1.0-15 .0 Not Available [facility] (Lab) [address], [place], [address], 07/14/2024 03:00:03 07/13/1907/13/2024 CBC W/DIF F eosinophils 2.7 % 0.0-8. 0 Not Available [facility] (Lab) [address] [place], [address], 07/14/2024 03:00:03 07/13/19 25 07/13/2024 CBC W/DIF F basophils 0.9 % 0.0-2. 0 Not Available [facility] (Lab) [address] [place], [address], 07/14/2024 03:00:03 07/13/1907/13/2024 CBC W/DIF F immature granulocytes 0.4 % no define d refere nce range Immat ure Granu locyt es (IG) repre sents autom ated enume ratio n of Metam yeloc ytes, Myelo cytes and Promy elocy annette when IG is < 5%. Blast s are not inclu ded in IG and repor lauren separ ately if prese nt. Not Available [facility] (Lab) [address], [place], [address], 07/14/2024 03:00:03 07/13/1907/13/2024 CBC W/DIF F absolute neutrophils 3.9 10'3/ uL 1.5-8. 0 Not Available [facility] (Lab) [address] [place], [address], 07/14/2024 03:00:03 07/13/1907/13/2024 CBC W/DIF F absolute lymphocytes 1.8 10'3/ uL 1.0-4. 0 Not Available [facility] (Lab) [address], [place], [address], 07/14/2024 03:00:03 07/13/1907/13/2024 CBC W/DIF F absolute monocytes 0.7 10'3/ uL 0.2-1. 0 Not Available [facility] (Lab) [address] [place], [address], 07/14/2024 03:00:03 07/13/1907/13/2024 CBC W/DIF F absolute eosinophils 0.2 10'3/ uL 0.0-0. 6 Not Available [facility] (Lab) [address] [place], [address], 07/14/2024 03:00:03 07/13/1907/13/2024 CBC W/DIF F absolute basophils 0.1 10'3/ uL 0.0-0. 3 Not Available [facility] (Lab) [address], [place], [address], 07/14/2024 03:00:03 07/13/19 25 07/13/2024 CBC W/DIF F absolute immature granulocytes 0.0 10'3/ uL 0.00-0 .10 Refer ence range s for nonbi nary/ inter sex or unspe cifie d gende r patie nts have not been estab lishe d. Pleas e refer to the follo wing table for range s estab lishe d for cisge nder patie nts and evalu ate in the clini graham lakisha xt of the indiv idual patie nt: https ://la bhand book. nm.or g/Gen derX Not Available [facility] (Lab) [address], [place], [address], 07/14/2024 03:00:03 02/18/20 24 02/18/2024 US, trans vagin al No observ ation record ed. [email or web address] [place] [address], [place], [address], 02/18/2024 18:01:42 02/18/20 24 02/18/2024 US, pelvi s No observ ation record ed. [email or web address] [place] [address], [place], [address], 02/18/2024 18:01:51 02/18/20 24 02/18/2024 US, pelvi s No observ ation record ed. [email or web address] [facility] [address] [facility], [place], [address], 02/19/2024 07:41:36 07/08/19 25 07/08/2024 US, pelvi s No observ ation record ed. [email or web address] [place] [address], [place], [address], 07/08/2024 18:48:55 07/08/19 25 07/08/2024 US, trans vagin al No observ ation record ed. [facility] [address], [place], [address], 07/08/2024 18:49:03 07/08/19 25 07/08/2024 US, mary s No observ ation record ed. [email or web address] [facility] [address], [place], [address], 07/09/2024 15:46:26 Result Notes None recorded. Problems Name Problem SNOMED Code Status Onset Date Resolution Date Notes Provider Name and Address Organization Details Recorded Time Routine antenata l care Completed 201411/30/2020 Supervisi on of other normal ;Recorded Elsewhere : No Locati on: [facility] So urce: EHR Chron ic: N Practic e ID: 0001 Bill able Time: 04:30:00 PM Amber Martell [facility] 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 17:25:25 Lacerati on of female perineum Completed 201411/30/2020 Perineal tear during delivery involving vaginal muscles;R ecorded Elsewhere : No Locati on: [facility] So urce: EHR Chron ic: N Practic e ID: 0001 Bill able Time: 03:15:00 PM Amber Martell [facility] 17:25:08 Amenorrh ea [id number] Completed 201411/30/2020 AMENORRHE A;Practic e ID: 0001 Amber Martell [facility] 17:24:48 Speciali [facility] medical examinat ion Completed 201411/30/2020 Routine gynecolog ical examinati on;Practi ce ID: 0001 Amber Martell [facility] 17:25:26 Pregnanc y test positive [id number] Completed 201411/30/2020 Positive Test;Prac onel ID: 0001 Amber Martell [facility], [facility] 17:25:15 Uterine size for dates [facility]pa [facility] [id number] Completed 201411/30/2020 UTERINE SIZE ARON-ANTEP AR;Practi ce ID: 0001 Amber Martell [facility], [facility] 17:25:36 Mild hypereme sis-not delivere d [id number] Completed 201411/30/2020 Hyperemes is gravidaru m, antepartu m Mild;Prac onel ID: 0001 Amber Martell [facility], [facility] 17:25:11 anatomy study Completed 201411/30/2020 [facility] SURVEY;Pr actice ID: 0001 Amber Martell [facility] 17:25:02 Complica tion related to pregnanc y Completed 201411/30/2020 PREG COMPL NEC-ANTEP ART;Pract ice ID: 0001 Amber Martell [facility], [facility] 17:24:51 Viral disease in mother complica ting pregnanc y, childbir th AND/OR puerperi [id number] Completed 201411/30/2020 OTH VIRAL DIS-ANTEP ARTUM;Pra ctice ID: 0001 Amber Martell [facility], [facility] 17:25:38 Complica tion of pregnanc y, childbir th and/or puerperi um [id number] Completed 201411/30/2020 COAGULATI ON DEF-ANTEP ART;Pract ice ID: 0001 Amber guillen, [facility] 17:24:53 Dehydrat ion [id number] Completed 201411/30/2020 DEHYDRATI ON;Practi ce ID: 0001 Amber guillen, [facility] 17:24:54 Transien t hyperten angela of pregnanc y - delivere d [id number] Completed 201411/30/2020 Transient hypertens ion of , with delivery; Practice ID: 0001 Amber guillen, [facility] 17:25:30 Transien t hyperten angela of pregnanc y - not delivere d [id number] Completed 201411/30/2020 TRANS HYPERTEN- ANTEPART; Practice ID: 0001 Amber guillen, [facility] 17:25:32 Delivery normal [id number] Completed 201411/30/2020 NORMAL DELIVERY; Practice ID: 0001 Amber guillen, [facility] 17:24:56 Single live [id number] Completed 201411/30/2020 DELIVER-S FRANCISCO LIVEBORN; Practice ID: 0001 Amber guillen, [facility] 17:25:21 Pregnanc y-induce d hyperten angela Completed 201411/30/2020 Gestation al htn w/o significa nt proteinur ia, first trimester ;Practice ID: 0001 Amber guillen, [facility] 17:25:16 Pregnanc y-induce d hyperten angela Completed 201411/30/2020 Gestation al htn w/o significa nt proteinur ia, third trimester ;Practice ID: 0001 Amber guillen, [facility] 17:25:18 Depressi ve disorder [id number] Completed 201411/30/2020 Major depressiv e disorder, single episode, unspecifi ed;Practi ce ID: 0001 Amber Martell [facility] 17:24:58 Hemorrho ids [id number] Completed 201411/30/2020 Unspecifi ed hemorrhoi ds;Practi ce ID: 0001 Amber Martell [facility] 17:25:06 Lochia finding Completed 201411/30/2020 Encounter for routine postpartu m follow-up ;Practice ID: 0001 Amber Martell [facility] 17:25:10 Pain in female genitali a Completed 201811/30/2020 Dysmenorr hea, unspecifi ed;Practi ce ID: 0001 Amber Martell [facility] 17:25:01 Uterine leiomyom a [id number] Completed 201811/30/2020 Leiomyoma of uterus, unspecifi ed;Practi ce ID: 0001 Amber Martell [facility] 17:25:34 Polyp of corpus uteri [id number] Completed 201811/30/2020 Polyp of corpus uteri;Pra ctice ID: 0001 Amber Martell [facility] 17:25:13 Finding of menstrua l bleeding Completed 201811/30/2020 Excessive and frequent menstruat ion with regular cycle;Pra ctice ID: 0001 Amber Martell [facility] 17:25:04 Uses combined oral contrace ption [id number] Completed 201811/30/2020 Encounter for surveilla nce of contracep tive pills;Rec orded Elsewhere : No Locati on: [facility] So urce: EHR Chron ic: N Practic e ID: 0001 Bill able Time: 02:00:00 PM Amber Martell [facility] 17:24:[address] Concept Completed 201511/30/2020 Encntr for general adult medical exam w/o abnormal findings; Recorded Elsewhere : No Locati on: [facility] So urce: EHR Chron ic: N Practic e ID: 0001 Bill able Time: 02:00:00 PM Amber Martell [facility] 17:25:23 Elevated blood-pr essure reading without diagnosi s of hyperten angela [id number] Completed 201811/30/2020 Elevated blood-pre ssure reading without diagnosis of hypertens ion;Recor ded Elsewhere : No Locati on: [facility] So urce: EHR Chron ic: N Practic e ID: 0001 Bill able Time: 02:00:00 PM Amber Martell [facility] 17:24:59 Surveill ance of contrace ption Completed 201511/30/2020 Encounter for surveilla nce of contracep tives, unspecifi ed;Record ed Elsewhere : No Locati on: [facility] So urce: EHR Chron ic: N Practic e ID: 0001 Bill able Time: 02:00:00 PM Amber Martell [facility] 17:25:28 Problem Notes None recorded. Procedures Surgical History Date Name Laterality Status Provider Name and Address Organization Details Recorded Time 025 ROBOTIC ASSISTED HYSTERECTOMY WITH SALPINGECTOMY (SURG) completed Not Available [facility] 07/23/2024 01:30:13 024 IUD Insertion completed KALANI FELTON MD [address], [place], [address], [facility] 02/27/2024 16:26:33 023 Date of Last Pap Smear completed Sosa Lara [facility] 07/01/2024 11:10:28 021 cardiac radiofrequency ablation using ultrasound guidance completed [facility] 02/27/2023 18:12:16 019 Dilation and Curettage completed [facility] 02/27/2023 18:03:31 015 operative reduction of prolapse of anus completed [facility] 02/27/2023 18:02:53 013 fistulectomy of rectum completed [facility] 02/27/2023 18:12:47 hemorrhoidectomy completed [facility] 02/27/2023 18:03:50 Imaging Results Imaging Date Name Status LastModified by Organization Details LastModified Time 02/18/2024 US, transvaginal completed daniela posey [address], [place], [address], 02/18/2024 18:01:42 02/18/2024 US, pelvis completed daniela Anderson [address], [place], [address], 02/18/2024 18:01:51 02/18/2024 US, pelvis completed [email or web address] [facility] [address], [place], [address], 02/19/2024 07:41:36 07/08/2024 US, pelvis completed abhay Anderson [address], [place], [address], 07/08/2024 18:48:55 07/08/2024 US, transvaginal completed abhay posey [address], [place], [address], 07/08/2024 18:49:03 07/08/2024 US, pelvis completed [email or web address] [facility] [address], [place], [address], 07/09/2024 15:46:26 Procedure Notes None recorded. Medical Equipment None Reported. Allergies No known drug allergies Medications Name Sig Start Date Stop Date Status Note LastModified by Organization Details LastModified Time amoxicill in 500 mg capsule TAKE 1 CAPSULE BY MOUTH THREE TIMES DAILY UNTIL GONE 02/27 completed Not Available Not Available Not Available Mirena 21 mcg/24 hr (up to 8 years) 52 mg intrauter ine device Take 1 device by intraute rine route. 2023 active Not Available Not Available Not Avai lable azithromy adela 250 mg tablet TAKE 2 TABLETS BY MOUTH ON DAY 1, AND THEN TAKE 1 TABLET BY MOUTH ONCE A DAY ON DAY 2 THROUGH DAY 5 07/01 completed Not Available Not Available Not Available benzonata te 200 mg capsule TAKE 1 CAPSULE BY MOUTH THREE TIMES DAILY NEEDED FOR COUGH 07/01 completed Not Available Not Available Not Available metoprolo l succinate ER 50 mg tablet,ex tended release 24 hr TAKE 1 TABLET BY MOUTH ONCE DAILY 02/26 completed Not Available Not Available Not Available hydrocodo ne 5 mg-acetam inophen 325 mg tablet TAKE 1 TO 2 TABLETS BY MOUTH EVERY 6 HOURS NEEDED FOR PAIN 02/27 completed Not Available Not Available Not Available prednison e 20 mg tablet TAKE 2 TABLETS BY MOUTH EVERY DAY FOR 5 DAYS 02/27 completed Not Available Not Available Not Available metoprolo l succinate ER 100 mg tablet,ex tended release 24 hr TAKE 1 TABLET BY MOUTH ONCE DAILY 2024 active Not Available Not Available Not Avai lable penicilli n V potassium 500 mg tablet TAKE 1 TABLET BY MOUTH TWICE A DAY FOR 10 DAYS 02/27 completed Not Available Not Available Not Available Reglan 10 mg tablet take 1 tablet by oral route 4 times every day 30 minutes before meals and at bedtime 03/23 completed Prescrib ed Giovanny e: No [facility] By: shawn Posey ncounter DateTime : 02/25/20 15 03:30:00 PM Not Available Not Available Not Available triamcino lone acetonide 0.1 % dental paste PLACE A SMALL AMOUNT TO THE AFFECTED AREA OF MOUTH 2-3 TIMES DAILY AFTER MEALS AND AT BEDTIME 02/27 completed Not Available Not Available Not Available lisinopri l 10 mg tablet TAKE 1 TABLET BY MOUTH ONCE DAILY active Not Available Not Available No t Available progester one micronize d 200 mg capsule Take by oral route for 30 days. active Not Available Not Available No t Available lidocaine HCl 2 % mucosal solution 02/26 completed Not Available Not Available Not Available methylpre dnisolone 4 mg tablets in a dose pack TAKE BY MOUTH DIRECTED ON INSIDE OF PACKAGE 07/12 completed Not Available Not Available Not Available cefdinir 300 mg capsule TAKE 1 CAPSULE BY MOUTH EVERY 12 HOURS 07/12 completed Not Available Not Available Not Available amoxicill in 875 mg-potass ium clavulana te 125 mg tablet TAKE 1 TABLET BY MOUTH TWICE A DAY FOR 7 DAYS 02/27 completed Not Available Not Available Not Available tranexami c acid 650 mg tablet Take 2 tablets 3 times a day by oral route. 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 A 28 mg iron-1 mg-200 mg capsule take 1 capsule by oral route every day 10/08 completed Prescrib ed Elsewher e: No Locat ion: [facility]ify By: eddi hurst DateTime : 07/27/19 15 02:15:00 PM Not Available Not Available Not Available Blisovi Fe 07/19 (28) 1 mg-20 mcg (21)/75 mg (7) tablet take 1 tablet by oral route every day 02/27 completed Prescrib ed Elsewher e: No Locat ion: [facility] Laura odify By: shakeel kenyon DateTime : 01/20/20 11:41:21 AM Not Available Not Available Not Available Anusol-HC 2.5 % topical cream with perineal applicato r apply by topical route 2 times every day to the affected area(s) 06/13 completed Prescrib ed Concettaher e: No Locat ion: [facility] Laura odkong By: boogie kenyon DateTime : 04/25/20 03:00:00 PM Not Available Not Available Not Available BinaxNOW COVID-19 Ag Self Test kit TEST DIRECTED TODAY 02/27 completed Not Available Not Available Not Available Vitals Date Recorded Body height Body mass index (BMI) Body weight Systolic blood pressure Diastolic blood pressure Provider Name and Address Organization Details Last Updated DateTime 02/27/2024 157.48 cm 23.9 kg/m2 96304.16 g 119 mm[Hg] 79 mm[Hg] Rosamaria Villeda [facility] 4 15:55:15 Date Recorded Body height Body mass index (BMI) Body weight Systolic blood pressure Diastolic blood pressure Provider Name and Address Organization Details Last Updated DateTime 07/01/2024 157.48 cm 25.4 kg/m2 30389.34 g 126 mm[Hg] 86 mm[Hg] Sosa Lara [facility] 5 11:10:01 Date Recorded Body height Body mass index (BMI) Body weight Systolic blood pressure Diastolic blood pressure Provider Name and Address Organization Details Last Updated DateTime 07/12/2024 157.48 cm 25.2 kg/m2 46811.75 g 138 mm[Hg] 91 mm[Hg] Shannon Stephens [facility] 5 14:07:58 Social History Question Answer Notes LastModified by Organizat ion Details LastModified Time Tobacco Smoking Status Never [facility] 11/30/2020 17:28:58 What Is Your Level Of Alcohol Consumption? Occasional Information not available 11/30/2020 Are You Blind Or Do You Have Difficulty Seeing? No Information n ot available 11/30/2020 What Is Your Level Of Caffeine Consumption? Moderate Information not available 11/30/2020 In The 14 Days Before Symptom Onset, Have You Had Close Contact With A Laboratory-confirm ed COVID-19 While That Case Was Ill? No Information n ot available 02/27/2023 In The 14 Days Before Symptom Onset, Have You Had Close Contact With A Person Who Is Under Investigation For COVID-19 While That Person Was Ill? No Information not available 02/27/2023 Have You Been To An Area Known To Be High Risk For COVID-19? No Information not available 02/27/2023 Are You Deaf Or Do You Have Serious Difficulty Hearing? No Information not available 11/30/2020 What Type Of Diet Are You Following? REGULAR Information n ot available 11/30/2020 Do You Use Your Seat Belt Or Car Seat Routinely? Yes Information not available 11/30/2020 Do You Have Smoke And Carbon Monoxide Detectors In Your Home? Yes Information not available 11/30/2020 Do You Feel Stressed (tense, Restless, Nervous, Or Anxious, Or Unable To Sleep At Night)? [id number] Information not available 11/30/2020 Do You Use Any Illicit Or Recreational Drugs? No Information not available 11/30/2020 Do You Use Sunscreen Routinely? Yes Information not available 11/30/2020 Sex: Unknown Functional Status Question Answer Note LastModified by Organization D etails LastModified Time Are you able to walk? YESWOREST Information not available 11/30/2020 What is your exercise level? Moderate Information not available 11/30/2020 Mental Status None recorded. Family History Relationship Description Onset Age of this Age Resolved Age Notes LastModified by Organization Details LastModified Time Mother Asthma Not available 08/2020 17:27:24 Mother Diabetes mellitus Not available 2020 17:27:30 Maternal Grandfather Heart disease Not available 2020 17:27:45 Medical History Condition Response Other Y Anemia Y Hypertension Y Gynecological History Statement/Question Response Abnormal Pap N Flow Heavy Date of LMP 07/07/2024 On BCP's at Conception? N Was last menstrual period normal N STIs/STDs N Current Control Method IUD Are cycles usually normal Y Sexually Active? Y Menses Monthly Y Age of first menstrual cycle 14 Date of Last Pap Smear 02/28/2023 Sexual Problems? N LMP Definite Obstetrics History GPAL:G 2 P 2 0 0 2 Type Value Full Term 2 Living 2 Total 2 Past Encounters Encounter ID Performer Location Encounter Start Date Encounter Closed Date Diagnosis/Indication Diagnosis SNOMED-CT Code Diagnosis ICD10 Code Diagnosis Note [id number] Nancy Langley , [facility] [address] [address] 02/27/2023 17:48:10 02/28/2023 15:47:46 Gynecologic examination [id number] Z01.419 Take Calcium with Vitamin D 1200mg daily if not receiving in daily diet. It is strongly advised to have an annual flu shot and up can obtain at most pharmacies . If you have not had a TDap shot in the last 10 years you should obtain one as well. Discussed with patient & provided with informatio n regarding Gardisil vaccine to prevent the 4 strains for HPV that cause cervical cancer if under age 26. Encourage safe sexual practices, to use condoms and limit partners if not already in a monogamous relationsh ip. Do monthly self breast exams. Have mammogram yearly or every other year depending on family history. BRCA testing is now available for patients with strong genetic history of female cancer. If interested contact the office. Engage in daily exercise of low impact aerobic exercise 45-60 minutes 4-5 times weekly. Avoid tobacco and illicit drugs as well as using moderation with alcohol intake less than 1-2 8 oz beverages daily. This lifestyle behavior pattern will lead to less health conditions and longer life span. If BMI greater than 25 weight watchers or dietary consult advised. Patient received above instructio ns, and questions have been answered. If you have any questions please call or respond to this email. Patient was made aware of the patient portal and may obtain a paper copy of today's plan if desired.Pa p/hpv sentSTD Screen declinedGe netic Screen discussedC olon Screen PCPDexa Screen PCPRoutine Labs PCP Menorrhagia [id number] N9 2.[address] Rodas is anemic confirmed with her PCPWould like to consider ablationDo es not want to do BC or hormonal optionsDon e having childrenWi ll update US & then she will make MD consult to discuss ablation Lack or lo ss of sexual desire [id number] F52.0 discussed addyi & Vyleesiwil l let us know if any interest in pursuing. [id number] [facility] [address],[place] [address] 03/11/2023 17:26:48 03/11/2023 18:02:06 Menorrhagia [id number] N92.0 [id number] KALANI FELTON MD [facility] [address],[place] [address] 03/27/2023 18:04:44 03/28/2023 16:04:11 Abnormal uterine bleeding [id number] 9100 N93.9 D25.9 - discussed fibroid is likely cause of AUB, given regular but heavy cycles- management including expectant management , medical management (depo vs OCPs vs IUD), and surgical management (ablation vs myomectomy vs hysterecto my vs Acessa procedure) - discussed suspected high rate of failure with ablation given young age and large fibroid; also that ablation will not fix mass effect symptoms of fibroid.- patient leaning towards IUD for short term relief, will discuss surgical options with her 30 minutes spent discussing plan of care and treatment options with patient [id number] [facility] [address],[facility] [address] 02/18/2024 17:20:24 02/19/2024 09:08:46 Menorrhagia [id number] D25.9 [id number] KALANI FELTON MD [facility] [address],[place] [address] 02/27/2024 15:46:17 02/27/2024 16:55:06 Screening procedure [id number] Z13.9 Insertion of intrauterine contraceptive device [id number] Z30.430 - IUD inserted without difficulty - RTC 1 month for IUD check- due on 01/2032 Uterine leiomyoma 545292 05 D25.9 -7cm fundal fibroid, stable from last exam- mild pressure and heavy periods- would like referral to [facility] for possible removal [id number] KALANI FELTON MD [facility] [address] [address] 07/01/2024 09:34:06 07/01/2024 11:54:46 IUD check [id number] Z30.431 - Mirena IUD placed 02/27/24, due for removal 01/2032- no issues at this time from Mirena Uterine leiomyoma [id number] 05 D25.9 -7cm fundal fibroid, stable from last exam- mild pressure and heavy periods- periods improved on Mirena now- new pressure/l eakage/con stipation- will repeat US to reevaluate fibroid size/posit ion due to new symptoms- referral to [facility] sent, scheduled for September 2024 [id number] Antonieta Martell [facility] [address] [address] 07/08/2024 16:47:16 07/09/2024 05:26:16 Uterine leiomyoma [id number] D25.9 R10.2 N93.9 [id number] [facility] [address] [address] 07/12/2024 14:01:23 07/12/2024 15:14:31 Menorrhagia [id number] D25.9 This patient is a 39-year-ol d female presents for heavy vaginal bleeding. . Her menses are regular. However, they require double protection . Patient has accidents, getting blood on her bedding and clothing.. This bleeding has a profound impact on her quality of life and her activities of daily living.garo law had been in the ER over the weekend for severe vaginal bleeding. She has marked anemia now. She had dizziness. She had tachycardi a. Patient needs definitive surgical treatment as soon as possible. We talked about surgical treatment. She would like to move forward with hysterecto my. We agreed to robotic assisted hysterecto my with bilateral salpingect liyah. The patient understand s the procedure. The procedure was described to the patient in great detail. the patient also understand s the risks. The risks were also explained in detail. She understand s that injuries May occur during surgery. She understand s these injuries can result in hospitaliz ation, more surgery, and severe illness. She understand s there is risk of hemorrhage and infection. Abnormal u terine bleeding [id number] 9100 N93.9 [id number] Sd Giron MD [facility] [address] [address] 07/22/2024 12:03:15 07/22/2024 19:14:16 Health Concerns Section Related Observation LastModified by Organization Detai ls LastModified Time None Recorded Concern Status LastModified by Organization Details LastModified Time None Recorded Advance Directives Directive None Recorded Payers Encounter Date Sequence Insurance Name Policy Number Policy Allen Covered Member ID Allen Member ID Guarantor Name 02/27/2024 1 [employer] [address] [id number] Tammy Arteagahn 07/01/2024 1 [employer] [address] [id number] Tammy Arteagahn 07/08/2024 1 [employer] [address] [id number] Tammy Arteagahn 07/12/2024 1 [employer] [address] [id number] Tammy Sanchez Cross 07/22/2024 1 [employer] [address] [id number] Tammy Cross Notes Date Note Type Note Provider Name and Address Organization Details Recorded Time 02/27/2024 text/html Patient presents for IUD insertion. KALANI FELTON MD [address], [place], [address], [facility] 02/27/2024 16:31:56 07/01/2024 text/html Presents today f or IUD check. Had mirena IUD placed 02/26/25. Has had intermittent bleeding since insertion. Patient has not had any cramping or pain. Has had some decrease in libido. She is overall happy with the IUD.?? She does report leakage of clear discharge. Does not smell or have any irritation. Random small gushes. Some intermittent pressure in pelvis as well. Hx of 7cm fundal fibroid. KALANI FELTON MD [address], [place], [address], [facility] 07/01/2024 11:37:49 07/12/2024 text/html This patient is a 39-year-old female presents for heavy vaginal bleeding. . Her menses are regular. However, they require double protection. Patient has accidents, getting blood on her bedding and clothing.. This bleeding has a profound impact on her quality of life and her activities of daily living.patient had been in the ER over the weekend for severe vaginal bleeding. She has marked anemia now. She had dizziness. She had tachycardia. Patient needs definitive surgical treatment as soon as possible. We talked about surgical treatment. She would like to move forward with hysterectomy. We agreed to robotic assisted hysterectomy with bilateral salpingectomy. The patient understands the procedure. The procedure was described to the patient in great detail. the patient also understands the risks. The risks were also explained in detail. She understands that injuries May occur during surgery. She understands these injuries can result in hospitalization, more surgery, and severe illness. She understands there is risk of hemorrhage and infection. Sd Giron MD [address], [place], [address], [facility] 07/12/2024 14:57:28 OBGyn Episode Ob Episode Information Episode Created Date Number of Fetuses Patient Bloodtype Patient rh Status Prepregnancy Weight lbs Domestic Partner Domestic Partner Phone Father Name Electric Train Driver Status 12/01/19 21 1 CLOSED Fetus Data First Name Last Name Admitted to NICU Weight (g) Sex Living Outcome Pediatric Complications Fetus ID Race Codes Race Delivery Type 3401.94 M Full Term [id number] Vaginal Delivery Brett Calculation Initial Brett Date Initial Exam Date Initial Exam Provider Initial Ultrasound Date Last Menstrual Period Date Ultra Sound Weeks Gestation 0 Eighteen To Twenty Week Brett Update Ultra Sound Date Fundal Height At Umbil Quickening Date Ultra Sound Latest Weeks Gestation Final Brett Confirmed By Final Brett Confirmed Date Final Brett Date Ultra Sound Latest Days Gestation 0 0 Menstrual History Last Menstrual Date Menses Monthly On Bcp Conception Prior Menses Frequency Hcg Plus Date Menarche Onset Age Delivery Information Delivery Date Delivery Type Labor Anesthesia Weeks Gestation Incision Type Labor Labor Length Hrs Delivered By Post Complications Tubal Sterilization Discharge Date Comments 5 39 Discharge Information Feeding Method Contraceptive Method Maternal HG B and HCT Levels Ob Episode Information Episode Created Date Number of Fetuses Patient Bloodtype Patient rh Status Prepregnancy Weight lbs Domestic Partner Domestic Partner Phone Father Name Electric Train Driver Status 12/01/19 21 1 CLOSED Fetus Data First Name Last Name Admitted to NICU Weight (g) Sex Living Outcome Pediatric Complications Fetus ID Race Codes Race Delivery Type 3600.15 9704 M Full Term [id number] Vaginal Delivery Brett Calculation Initial Brett Date Initial Exam Date Initial Exam Provider Initial Ultrasound Date Last Menstrual Period Date Ultra Sound Weeks Gestation 0 Eighteen To Twenty Week Brtet Update Ultra Sound Date Fundal Height At Umbil Quickening Date Ultra Sound Latest Weeks Gestation Final Brett Confirmed By Final Brett Confirmed Date Final Brett Date Ultra Sound Latest Days Gestation 0 0 Menstrual History Last Menstrual Date Menses Monthly On Bcp Conception Prior Menses Frequency Hcg Plus Date Menarche Onset Age Delivery Information Delivery Date Delivery Type Labor Anesthesia Weeks Gestation Incision Type Labor Labor Length Hrs Delivered By Post Complications Tubal Sterilization Discharge Date Comments 3 41 Discharge Information Feeding Method Contraceptive Method Maternal HG B and HCT Levels
[2024-07-23] MEDS: KETOROLAC 30 MG/ML VIAL (*BKC) IV PUSH (04:59)
[2024-07-23] MEDS: ACETAMINOPHEN 500 MG TABLET 1000 MG PO ×2 (04:59→10:29)
[2024-07-23 08:15] VITALS: BP 116/74; PULSE 94; RESP 16; TEMP 37.4; O2SAT 97
[2024-07-23 08:20] VITALS: BP 113/92
[2024-07-23 08:21] VITALS: BP 111/87
[2024-07-23] MEDS: SIMETHICONE 80 MG TAB.CHEW PO ×2 (08:26→11:43)
[2024-07-23] MEDS: DOCUSATE SODIUM 100 MG CAPSULE PO (08:27)
[2024-07-23] MEDS: oxyCODONE HCL (*CRX) 5 MG TAB IR PO ×2 (08:27→13:37)
[2024-07-23] MEDS: FERROUS SULFATE DRIED 142 MG TABCR PO (08:27)
--- NOTE | 2024-07-23 08:35 | PM.GYNPNOP ---
NONPROFIT FUNDRAISER - A/P Postoperative Procedures: Procedures Operation Date: 07/22/24 12:00 Actual Procedure Side Surgeon p Robotic Assisted Hysterectomy with Bilateral Salpingectomy Bilateral Sd Giron MD Postoperative day: 1 Postoperative status: doing well Postoperative plan: see orders Time Spent With Patient Time: Total time spent is greater than 50% in coordination of care (as documented) at patient's floor/unit and/or counseling patient: Time with patient: less than 15 minutes NONPROFIT FUNDRAISER- PN:Subj Post-Op Subjective Date/time seen: 07/23/24 08:35 Subjective: patient reports feeling better, patient has no complaints and pain is well controlled Exam Const: General: healthy appearing, comfortable and no acute distress Resp: Auscultation: clear to auscultation bilaterally, no rales, no rhonchi and no wheezes Cardio: Rate: regular rate Heart sounds: no click, no murmurs and no rubs GI: Inspection: non-distended Auscultation: normal bowel sounds Extrem: General: normal to inspection, no pedal edema and no calf tenderness NONPROFIT FUNDRAISER - PN: Obj Data Vital Signs Vital Signs: Vital Signs - 24 hr 07/22/24 11:20 07/22/24 14:51 07/22/24 15:05 Temperature 98.9 F 97.2 F L Pulse Rate 108 H 83 91 Respiratory Rate 14 16 16 Blood Pressure 134/87 115/67 122/75 Pulse Oximetry 100 99 100 Oxygen Delivery Room Air Simple Face Mask Simple Face Mask Oxygen Flow Rate 10 10 07/22/24 15:20 07/22/24 15:35 07/22/24 15:50 Temperature Pulse Rate 80 88 84 Respiratory Rate 24 H 15 17 Blood Pressure 121/65 117/83 107/76 Pulse Oximetry 97 100 99 Oxygen Delivery Nasal Cannula Nasal Cannula Nasal Cannula Oxygen Flow Rate 2 2 2 07/22/24 16:05 07/22/24 16:30 07/22/24 16:30 Temperature 98.1 F Pulse Rate 91 95 Respiratory Rate 20 16 Blood Pressure 125/79 116/80 Pulse Oximetry 98 100 100 Oxygen Delivery Nasal Cannula Nasal Cannula Oxygen Flow Rate 2 2 07/22/24 19:05 07/22/24 21:16 07/23/24 02:57 Temperature 97.4 F L Pulse Rate 98 97 91 Respiratory Rate 16 12 Blood Pressure 124/79 108/70 Pulse Oximetry 98 98 Oxygen Delivery Oxygen Flow Rate Intake/Output Intake/Output: Intake & Output 07/20/24 07/21/24 07/22/24 07/23/24 23:59 23:59 23:59 23:59 Intake Total 300 2100 Output Total 800 1600 Balance -500 500 Meds/Results Medications: Active Medications Generic Name Dose Route Start Last Admin Trade Name Freq PRN Reason Stop Dose Admin Acetaminophen 1,000 mg 07/22/24 18:00 07/23/24 04:59 Acetaminophen 500 Mg Tablet PO 1,000 mg Q6HR CHEMA Administration Docusate Sodium 100 mg 07/22/24 17:00 07/23/24 08:27 Docusate Sodium 100 Mg Capsule PO 100 mg BID CHEMA Administration Ferrous Sulfate 142 mg 07/23/24 08:00 07/23/24 08:27 Ferrous Sulfate Dried 142 Mg Tabcr PO 142 mg DAILY@0800 CHEMA Administration Dextrose/Sodium Chloride 1,000 mls @ 125 mls/hr 07/22/24 16:23 07/23/24 00:44 Dextrose 5% Sodium Chloride 0.45% IV CONT Infused .Q8H CHEMA Infusion Sodium Chloride 1,000 mls @ 125 mls/hr 07/23/24 02:15 07/23/24 02:20 Normal Saline Iv IV CONT 125 mls/hr .Q8H CHEMA Administration Ibuprofen 600 mg 07/23/24 12:00 Ibuprofen 600 Mg Tablet PO Q6HR CHEMA Lisinopril 10 mg 07/23/24 09:00 Lisinopril 10 Mg Tablet PO DAILY CHEMA Metoprolol Succinate 100 mg 07/22/24 21:00 07/22/24 21:16 Metoprolol Succinate Ext Rel 100 Mg Tabcr PO 100 mg HS CHEMA Administration Miscellaneous Information 0 each 07/22/24 00:01 Fiber Capsule - Please Clarify The Product - There Are Multiple Kinds Of Fiber Supplemen XX 08/21/24 00:00 CLARIFY CHEMA Naloxone HCl 0.1 mg 07/22/24 16:23 Naloxone Hcl 0.4 Mg/Ml Vial IV PUSH Q2M PRN Respiratory rate less than 10 Non-Formulary Medication 3 cap 07/23/24 09:00 Fiber PO 08/22/24 08:59 DAILY CHEMA Ondansetron HCl 4 mg 07/22/24 16:23 07/22/24 22:29 Ondansetron Inj 4 Mg/2 Ml Vial IV PUSH 4 mg Q6H PRN Administration Nausea And Vomiting Oxycodone HCl 5 mg 07/22/24 16:23 07/23/24 08:27 Oxycodone Hcl (*Crx) 5 Mg Tab Ir PO 5 mg Q4H PRN Administration Pain Rated 4-6 Oxycodone HCl 10 mg 07/22/24 16:23 Oxycodone Hcl (*Crx) 5 Mg Tab Ir PO Q6H PRN Pain Rated 7-10 Promethazine HCl 12.5 mg 07/22/24 20:40 07/22/24 20:48 Promethazine Hcl 25 Mg/Ml Ampul IV PUSH 12.5 mg Q4H PRN Administration Nausea And Vomiting Simethicone 80 mg 07/22/24 17:00 07/23/24 08:26 Simethicone 80 Mg Tab.Chew PO 80 mg TIDWM CHEMA Administration Labs 07/22/24 10:53 Labs: Laboratory Results - last 24 hr 07/22/24 07/22/24 07/23/24 10:53 11:20 01:57 Hgb 10.8 L Hct 37.6 POC Capillary Glucose 225 H POC Urine HCG, Qual Negative
[2024-07-23] MEDS: IBUPROFEN 600 MG TABLET PO (10:29)
--- NOTE | 2024-07-23 14:00 | PC.NURSE ---
Patient has been complaining of gas pain symptoms. Increased pressure in lower abdomen and right shoulder pain. Patient has received 2 doses of Mylicon today and one dose of colace. She was given an abdominal binder and has been ambulating in hallway. States that she has been burping but not passing flatulence. Informed Dr. Giron of these symptoms at 1300. OK to discharge home per Dr. Giron. I instructed patient to call the exchange if she continues not to pass flatulence by tomorrow. Patient verbalizes understanding.
== END 2024-07-23 14:16 | disposition home or self-care (01) ==
LOC: ANHSURGERY 09:53 → ANHOB2 16:27
PROVIDERS: PCP Physician Assistant; Visit Provider Obstetrics & Gynecology
PROC: (CPT 58573; principal; 2024-07-22 12:00)
DX: D25.1 Intramural leiomyoma of uterus (principal); N83.8 Other noninflammatory disorders of ovary, fallopian tube and broad ligament; N87.9 Dysplasia of cervix uteri, unspecified; G89.18 Other acute postprocedural pain; I10 Essential (primary) hypertension; I47.10 Supraventricular tachycardia, unspecified; Z79.899 Other long term (current) drug therapy; Z98.890 Other specified postprocedural states; Z86.79 Personal history of other diseases of the circulatory system
CPT/HCPCS: 58573; S2900; 36415; 82948; 85014; 85018; 88307; 99199; A9270; J0690; J1200; J1885; J2250; J2405; J2550; J2704; J3010; J7030; J7120; Q9968

== ENCOUNTER 2024-07-26 12:15 | Observation (INO) | payer BC, SELFPAY ==
[2024-07-26] VITALS (46 sets, daily range): BP systolic 100–138; BP diastolic 81–101; PULSE 112–137; RESP 13–34; TEMP 37.2–38.4; O2SAT 97–100; BMI 25.4
--- NOTE | ~2024-07-26 | CT_ITS ---
EXAMINATION: CT abdomen pelvis w con DATE: 07/26/2024 14:33 INDICATION: Lower abdominal pain TECHNIQUE: Computed tomography (CT) of the abdomen and pelvis was performed with 100 mL Omnipaque-350 intravenous contrast. Automated exposure control and iterative reconstruction technique were employe d. The dose-length product was 313.69 mGy-cm. COMPARISON: None FINDINGS: Mild discoid atelectasis in the dependent right lower lobe. Arch size is normal. No pericardial or pl eural effusion. Liver, gallbladder, spleen, pancreas and bilateral adrenal glands are normal. There a re subcentimeter bilateral renal cysts the largest on the right measuring 6 mm. Bladder is normal. Lamberto wels including the appendix are normal. The uterus is not identified and has likely been surgically r esected. There is stranding and minimal amount of fluid in the pelvis as well as some extraperitoneal gas in the pelvis and gas in the abdominal wall likely related to the recent prior hysterectomy. No abscess or free intraperitoneal gas. Several bilateral fluid attenuation ovarian follicles with 2.8 c m dominant follicle at the left ovary. No pathologically enlarged abdominal or pelvic lymphadenopathy . Bones are unremarkable. IMPRESSION: 1. Postoperative changes of recent hysterectomy with some secondary extraperitoneal gas subtle strand ing and minimal fluid in the pelvis. No abscess or other acute intra-abdominal/pelvic process. Reviewed, dictated and finalized at location B. 3D ARTIST IMPRESSION: 1. Postoperative changes of recent hysterectomy with some secondary extraperito val gas subtle stranding and minimal fluid in the pelvis. No abscess or other acute intra-abdominal/pelvic process.
--- NOTE | ~2024-07-26 | XR_ITS ---
Clinical Indication: Postop fever PA and lateral views of the chest: Comparison: 04/23/2024 Findings: The lungs are clear, without evidence of focal consolidation or pleural effusion. Cardiome diastinal silhouette is within normal limits. Bones and soft tissues are unremarkable. Impression: Normal chest. Reviewed, dictated and finalized at [facility]. UARY TECHNICIAN Impression: Normal chest.
--- NOTE | 2024-07-26 12:40 | ECG_ITS ---
Test Date: 2024-07-26 12:52:11 Measurements Intervals [place] Rate: 120 P: 16 MS: 130 QRS: 41 QRSD: 78 T: -12 QT: 288 QTc: 408 Interpretive Statements SINUS TACHYCARDIA NONSPECIFIC T-WAVE ABNORMALITY ABNORMAL RHYTHM ECG Compared to ECG 07/19/2024 08:49:24 Sinus rhythm no longer present T-wave abnormality still present Electronically Signed On 07-26-2024 13:37:53 PURCHASING ENGINEER by Delia Morales M.D.
[2024-07-26 12:55] LABS: Basophils Percent Auto 0.2 % (0.2-1.2); Eosinophils Absolute Auto 0.1 K/mm3 (0-0.3); Eosinophils Percent Auto 0.7 % (0-4.4); Hematocrit 30.1 % (37.0-47.0); Hemoglobin 8.8 g/dL (12.0-15.0); Immature Granulocyte Absolute 0.04 K/mm3 (0.00-0.031); Immature Granulocyte Percent A 0.3 % (0-0.5); Lymphocytes Absolute Auto 0.73 K/mm3 (0.9-3.2); Lymphocytes Percent Auto 6.1 % (18.3-44.2); Mean Corpuscular HGB Conc 29.2 g/dl (32-36); Mean Corpuscular Hemoglobin 20.6 pg (26-34); Mean Corpuscular Volume 70.5 fl (80-100); Mean Platelet Volume 10.8 fl (7.4-10.4); Monocytes Absolute Auto 1.3 K/mm3 (0.1-0.6); Monocytes Percent Auto 10.7 % (2.6-8.5); Neutrophils Absolute Auto 9.7 K/mm3 (1.3-6.7); Platelet Count Result 275 k/mm3 (150-375); Red Blood Count 4.27 M/mm3 (4.2-5.4); Red Cell Distribution Width 20.8 % (11.5-14.5); White Blood Count 11.9 K/mm3 (4.5-10.0)
[2024-07-26 13:05] LABS: Alanine Aminotransferase 17 U/L (6-35); Albumin Level 3.5 g/dL (3.5-5.1); Alkaline Phosphatase 63 U/L (38-126); Anion Gap 10 mmol/L (4-12); Aspartate Amino Transferase 33 U/L (14-36); Bilirubin,Total 0.7 mg/dL (0.2-1.3); Blood Urea Nitrogen 6 mg/dL (7-17); Calcium 8.5 mg/dL (8.4-10.2); Carbon Dioxide 24 mmol/L (22-30); Chloride 100 mmol/L (98-107); Estimated CRCL calculation 97 ml/min; Estimated Glomerular Filt Rate > 60; Glucose 106 mg/dL (65-110); Sodium 134 mmol/L (137-145)
[2024-07-26 13:13] LABS: Anisocytosis 1+; Hypochromasia 1+; Ovalocytes 1+; Platelet Estimate Adequate (Adequate); Schistocytes None Seen
[2024-07-26 13:34] LABS: Add Urine Microscopic? NO; Appearance Urine Clear (Clear); Bilirubin Urine Negative (Negative); Blood Urine Negative (Negative); Color Urine Yellow (Yellow); Glucose Urine UA Negative (Negative); Ketones Urine 3+ mg/dL (Negative); Leukocyte Esterase Ur Negative LEU/UL (Negative); Nitrate Urine Negative (Negative); Protein Urine Negative (Negative); Specific Grav Ur 1.012 (1.001-1.035); Urobilinogen Urine 0.2 mg/dL (<2.0)
[2024-07-26] MEDS: SODIUM CHLORIDE 0.9% IV 1,000 ML 999 ML IV CONT ×2 (14:13→16:31)
[2024-07-26 14:36] LABS: Influenza A QL RT-PCR Negative (Negative); Influenza B QL RT-PCR Negative (Negative); RSV RNA, RT-PCR Negative (Negative); SARS-CoV-2 RNA PCR Negative (Negative)
[2024-07-26] MEDS: ACETAMINOPHEN 325 MG TABLET PO (14:40)
--- NOTE | 2024-07-26 14:42 | PC.NURSE ---
Per MD Loredo, pt okay to take one prescribed hydrocodone-acetaminophen 5/325 for her scheduled home-dose pain medication. Pt took this, along with additional 325mg acetaminophen to treat fever at this time. Pt reports that as she was trying to get up from CT table that she felt a painful popping sensation to right lower abdomen, and that her RLQ feels very hot internally. MD Loredo made aware. This pain/popping/hotness occurred after the CT was completed.
[2024-07-26 15:12] LABS: Lactic Acid Reflex 0.9 mmol/L (0.7-2.0)
--- OUTSIDE RECORDS SUMMARY | 2024-07-26 15:19 | XMS_ITS | Data Portability ---
Author Organization [facility] [employer], Main Office Address [address] [place] [address] Assessment No assessment recorded. Plan of Treatment Reminders Order Date Submit Date Provider Last Modified By Organization Details Last Modified Time Details Appointments None recorded. Lab TSH + free T4, serum 023 023 [email or web address] [facility] [address] [address] [place], [address], 4 09:20:37 lipid panel, serum 023 023 KERRY [facility] [address] [address] [place], [address], 3 10:01:45 iron + TIBC + ferritin, serum 023 023 [email or web address] [address] [address] [place], [address], 4 09:20:37 vitamin B12 + folate, serum or blood 023 023 [email or web address] [address] [address] [place], [address], 4 09:20:37 HbA1c (hemoglob in A1c), blood 023 023 [email or web address] [address] [address] [place], [address], 4 09:20:36 CBC w/ auto diff 023 023 [email or web address] [address] [place], [place], [address], 4 09:20:36 CMP, serum or plasma 023 023 [facility] [place], [address], [place], [address], 3 10:01:45 Referral None recorded. Procedures None [...] Address Organization Details Recorded Time Acute bronchitis 10387031 Active 2021 Not Available [facility] 3 22:45:45 Benign essential hypertension 3892898 Active 2021 Not Available [facility] 3 22:45:45 Acute sinusitis 37867360 Active 2021 Not Available [facility] 3 22:45:45 Anemia 220204062 Active 2021 Not Available [facility] 3 22:45:45 Cough 48101172 Active 2021 Not Available [facility] 3 22:45:45 Sinusitis 54223329 Active 2022 TAN Jones [address] [facility] [address], [place], [address] , [facility] 3 15:01:19 Problem Notes None recorded. Procedures Surgical History Date Name Laterality Status Provider Name and Address Organization Details Recorded Time 09/09/19 21 catheter ablation of arrhythmogenic focus completed Not Available [facility] 08/28/2022 22:44:04 excision of uterine polyp completed Not Available [facility] 08/28/2022 22:44:04 Imaging Results None recorded. Procedure [...] % 110 /min 16 /min 97.5 [degF] 50484.4 2 g 130 mm[Hg] 80 mm[Hg] Not Available [facility] 3 22:44:50 Date Recorded Body mass index (BMI) Body height Oxygen saturation Oxygen saturation in Arterial blood by Pulse oximetry Heart rate Respiratory rate Body temperature Body weight Systolic blood pressure Diastolic blood pressure Provider Name and Address Organization Details Last Updated DateTime 2 23.8 kg/m2 157.48 cm 99 % 99 % 88 /min 16 /min 98.3 [degF] 79769.0 1 g 128 mm[Hg] 68 mm[Hg] Not Available [facility] 3 22:44:50 Date Recorded Body height Body temperature Body mass index (BMI) Body weight Respiratory rate Oxygen saturation Oxygen saturation in Arterial blood by Pulse oximetry Heart rate Systolic blood pressure Diastolic blood pressure Provider Name and Address Organization Details Last Updated DateTime 3 157.48 cm 98 [degF] 24.1 kg/m2 55391.4 g 16 /min 99 % 99 % 73 /min 122 mm[Hg] 80 mm[Hg] Tangela CruzBHARTI [place] [facility] 09:17:28 Social History Question Answer Notes LastModified by Organizat ion Details LastModified Time Tobacco Smoking Status Never Smoker Not Available [facility] 08/28/2022 22:43:37 What Is Your Level Of Alcohol Consumption? Occasional [id number].[id number] Information not available 08/28/2022 What Is Your Level Of Caffeine Consumption? Moderate MIGRATION.[id number] 8298 Information not available 08/28/2022 How Much Tobacco Do You Chew? None MIGRATION.[id number] 3650 Information not available 08/28/2022 In The 14 Days Before Symptom Onset, Have You Had Close Contact With A Laboratory-confir med COVID-19 While That Case Was Ill? No MIGRATION.[id number] 2498 Information not available 08/28/2022 In The 14 Days Before Symptom Onset, Have You Had Close Contact With A Person Who Is Under Investigation For COVID-19 While That Person Was Ill? No MIGRATION.314251 5847 Information not available 08/28/2022 What Type Of Diet Are You Following? REGULAR MIGRATION.812803 4284 Information not available 08/28/2022 Which Illicit Or Recreational Drugs Have You Used? None MIGRATION.[id number] Information not available 08/28/2022 Do You Or Have You Ever Used E-cigarettes Or Vape? Never Used Electronic Cigarettes MIGRATION.817181 0086 Information not available 08/28/2022 Have There Been Any Changes To Your Family Or Social Situation? No MIGRATION.268846 9645 Information not available 08/28/2022 Are There Any Guns Present In Your Home? Yes MIGRATION.964629 8852 Information not available 08/28/2022 Do You Use Insect Repellent Routinely? No MIGRATION.062350 2522 Information not available 08/28/2022 What Was The Date Of Your Most Recent Tobacco Screening? 10/13/2020 MIGRATION.733403 5562 Information not available 08/28/2022 What Is Your Relationship Status? MIGRATION.567941 8312 Information not available 08/28/2022 Do You Use Your Seat Belt Or Car Seat Routinely? Yes MIGRATION.089172 3582 Information not available 08/28/2022 Do You Have Smoke And Carbon Monoxide Detectors In Your Home? Yes MIGRATION.253102 0525 Information not available 08/28/2022 Are You Passively Exposed To Smoke? No MIGRATION.492137 1009 Information not available 08/28/2022 Do You Or Have You Ever Used Smokeless Tobacco? Never Used Smokeless Tobacco MIGRATION.426306 5995 Information not available 08/28/2022 How Much Tobacco Do You Smoke? No MIGRATION.136403 0138 Information not available 08/28/2022 Do You Use Any Illicit Or Recreational Drugs? No MIGRATION.321800 8752 Information not available 08/28/2022 Do You Use Sunscreen Routinely? Yes MIGRATION.508885 4982 Information not available 08/28/2022 Have You Recently Traveled Abroad? No MIGRATION.734164 3373 Information not available 08/28/2022 Do You Have Any Dietary Restrictions? No MIGRATION.237188 0461 Information not available 08/28/2022 Do You Or Have You Ever Used Any Other Forms Of Tobacco Or Nicotine? No MIGRATION.144911 8951 Information not available 08/28/2022 Sex: Unknown Functional Status Question Answer Note LastModified by [employer] ion Details LastModified Time What is your exercise level? Moderate [id number].[id number] Information not available 08/28/2022 Mental Status None recorded. Family History Relationship Description Onset Age of this Age Resolved Age Notes LastModified by Organization Details LastModified Time Mother Diabetes mellitus [id number] Not available 08/28/2022 22:44:07 Father Hypertensive disorder MIGRATION.[id number] Not available 08/28/2022 22:44:07 Medical History Condition Response NERVE DISEASE N BLINDNESS N RHEUMATIC FEVER N KIDNEY STONES N BLADDER PROBLEMS N MRSA N OTHER # 1 N POLIO N LUNG DISEASE/DISORDER N RADIATION / CHEMOTHERAPY N COPD N Other # 2 N BLOOD DISEASES [...] GLAUCOMA N FOOT PROBLEM N DIVERTICULITIS N SLEEP APNEA N CHICKENPOX N INFECTIOUS DISEASE N PROSTATE N HEART ARRHYTHMIA N INSOMNIA N HIGH CHOLESTEROL / HYPERLIPIDEMIA N EYE PROBLEMS N HYPERTHYROIDISM N NEUROLOGICAL PROBLEMS N EDEMA N CHRONIC PAIN SYNDROME N HYPOTHYROIDISM N CAROTID BLOCKAGE N CONSTIPATION N BACK / NECK PROBLEMS N HAVE YOU BEEN HOSPITALIZED OR SEEN IN [facility] IN THE PAST YEAR ? N ATHEROSCLEROSIS N BREAST PROBLEMS N DIALYSIS N ECZEMA N OSTEOPOROSIS N ARTHRITIS N NO SIGNIFICANT PAST MEDICAL HISTORY N APPENDICITIS N DIABETES, TYPE N BAD TEETH N ENT N HEARTBURN / REFLUX N AFIB N AUTISM SPECTRUM DISORDER (ASD) N HEPATITIS / LIVER DISEASE N GOUT N SLEEP DISORDER N ALZHEIMER'S DISEASE N Brain Problems N DEMENTIA N HERPES N SEIZURES/EPILEPSY N HEADACHES/MIGRAINES N VASCULAR DISEASE N PACEMAKER N Blood Disorder N DIZZINESS N HEART DISEASE/HEART PROBLEMS N KIDNEY DISEASE N MULTIPLE SCLEROSIS N CANCER: SPECIFY N CARDIAC ARRHYTHMIA N ATRIAL FIBRILLATION N Gall Stones N PULMONARY EMBOLISM N AUTOIMMUNE DISEASE N Gynecological History Statement/Question Response Menses Monthly Y Date of Last Pap Date of LMP 10/04/2020 Obstetrics History GPAL:G 2 P 0 0 0 2 Type Value Living 2 Total 2 Past Encounters Encounter ID Performer Location Encounter Start Date Encounter Closed Date Diagnosis/Indication Diagnosis SNOMED-CT Code Diagnosis ICD10 Code Diagnosis Note [id number] [facility] [address] [address], [address] [place] [address] 4 10/13/2020 00:00:00 10/27/2020 18:38:05 [id number] [facility] [place] [address] [address], [address] [place] [address] 4 11/30/2021 00:00:00 12/27/2021 20:34:43 [id number] TAN Jones [facility] [place] [address] [address], [address] [place] [phone] 4 01/08/2023 09:10:53 01/08/2023 09:45:15 Adult health examination 210508163 Z00.00 well exam completed . Routine labs due Cholesterol screening 27 6571471 Z13.220 fasting lipids due Diabetes m ellitus screening 145687833 Z13.1 diabetes screening due Long-term drug therapy 353987843 Z79.899 Thyroid di sorder screening 561904057 Z13.29 thyroid panel due Anemia 474072998 D64.9 due for iron studies and b12 , folate with anemia hx History of radiofrequency ablation operation for arrhythmia 442313836 Z98.890 hx discussed. stable on metoprolol ER 100mg daily and lisinopril 10mg daily Benign ess ential hypertension 4427668 I10 stable on metoprolol ER 100mg daily and lisinopril 10mg daily Health Concerns Section Related Observation LastModified by Organization Detai ls LastModified Time None Recorded Concern Status LastModified by Organization Details LastModified Time None Recorded Advance Directives Directive None Recorded Payers Encounter Date Sequence Insurance Name Policy Number Policy Allen Covered Member ID Allen Member ID Guarantor Name 01/08/[address] [facility]: [employer] ([employer]O) [address] [id number] Tammy Cross Notes Date Note Type Note [...] in exercise capacity; no snoring Not Available [facility] [employer] 10/27/2020 18:38:05 2 text/html Generic HPI TemplateReported [...] congestion in chest and cough. Not Available [email or web address] 12/27/2021 20:34:43 3 text/html HypertensionReported bypatient.Duration:has noted for years Onset/Timing:better Alleviating Factors:medication Associated Symptoms:no shortness of breath; no fatigue; no palpitations; no decline in exercise capacity; no snoring wellness TAN Jones [address] [address], [place], [address], [email or web address] 01/27/2023 01:27:01 OBGyn Episode No OBEpisode recorded.
--- OUTSIDE RECORDS SUMMARY | 2024-07-26 15:19 | XMS_ITS | Clinical Summary ---
Author Organization [facility] Address [address] [place] [address]. [place] [address] [place] [address] Care Team Providers Care Backroom Associate Name Role Phone Unavailable Primary Care Provider [...]
--- OUTSIDE RECORDS SUMMARY | 2024-07-26 15:19 | XMS_ITS | Clinical Summary ---
Author Organization 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 [address] [place] [address] Health Maintenance Due Date Last [...]
--- OUTSIDE RECORDS SUMMARY | 2024-07-26 15:19 | XMS_ITS | Data Portability ---
Author Organization [facility] [place] Address [address] [place] [address] [address] Assessment No assessment recorded. Plan of Treatment Reminders Order Date Submit Date Provider Last Modified By Organization Details Last Modified Time Details Appointments SURG POST OP 2024 09:45A Laura GIRON MD Not available Not available Not available Lab test, urine 2023 024 ana laura [place], [address], [address], [place], [address], 02/27/2024 16:26:08 CBC w/ auto diff [facility] [address], [address], [place], [address], 07/14/2024 03:00:04 Referral gynecolog ist referral 2023 024 KERRY Monson MD, [address] [facility], [address], [place], [address], 07/06/2024 04:08:59 Procedures None recorded. Surgeries robotic assisted hysterect liyah with salpingec jessee (SURG) 2024 025 KERRY [facility], [address] [facility], [place], [address], 07/23/2024 01:30:12 Imaging US, pelvis 2024 025 [email or web address] [place], [address], [place], [address], 07/08/2024 21:13:44 US, transvagi nal 2024 025 [email or web address] [place], [address], [place], [address], 07/08/2024 21:13:44 Medication Orders Mirena 21 mcg/24 hr (up to 8 years) 52 mg intrauter ine device 2023 024 [email or web address] Not available 02/27/2024 16:33:40 progester one micronize d 200 mg capsule 2024 025 [facility] [address] [place], [address], 07/12/2024 14:46:56 Patient TargetsNo targets recorded. Patient InstructionsNo instructions recorded. Reason for Referral Isolation Washer Referral for Ut erine leiomyoma Referring Physician: Kalani Felton, PAINTER FOREMAN, Encounter Date: 02/27/2024 Results Created Date Observation Date Name Description Value Unit Range Abnormal Flag Note LastModifiedBy Organization Detail LastModifiedTime 02/27/20 24 02/27/2024 pregn quyen test, urine HCG negati ve Not Available [place] [address], [place], [address], 02/27/2024 16:25:58 07/13/1907/13/2024 CBC W/DIF F WBC 6.7 10'3/ uL 3.5-10 .5 Not Available [facility] (Lab) [address], [place], [address], 07/14/2024 03:00:03 07/13/1907/13/2024 CBC W/DIF F RBC 4.29 10'6/ uL (based on docume nted legal sex) 3.80-5 .20 Not Available [facility] (Lab) [address], [place], [address], 07/14/2024 03:00:03 07/13/19 25 07/13/2024 CBC W/DIF F HGB 8.5 g/dL (based on docume nted legal sex) 11.6-1 5.4 low Not Available [facility] (Lab) [address] [facility], [place], [address], 07/14/2024 03:00:03 07/13/1907/13/2024 CBC W/DIF F HCT 29.8 % (based on docume nted legal sex) 34.0-4 5.0 low Not Available [facility] (Lab) [address] [facility], [place], [address], 07/14/2024 03:00:03 07/13/1907/13/2024 CBC W/DIF F MCV 69.5 fL 80.0-9 9.0 low Not Available [facility] (Lab) [address] [facility], [place], [address], 07/14/2024 03:00:03 07/13/1907/13/2024 CBC W/DIF F MCH 19.8 pg 27.0-3 4.0 low Not Available [facility] (Lab) [address] [facility], [place], [address], 07/14/2024 03:00:03 07/13/1907/13/2024 CBC W/DIF F MCHC 28.5 g/dL 32.0-3 5.5 low Not Available [facility] (Lab) [address] [facility], [place], [address], 07/14/2024 03:00:03 07/13/1907/13/2024 CBC W/DIF F RDW 19.4 % 11.0-1 5.0 high Not Available [facility] (Lab) [address] [place], [address], 07/14/2024 03:00:03 07/13/1907/13/2024 CBC W/DIF F plt 323 10'3/ uL 150-40 0 Not Available [facility] (Lab) [address] [facility], [place], [address], 07/14/2024 03:00:03 07/13/1907/13/2024 CBC W/DIF F MPV 11.9 fL 8.8-12 .1 Not Available [facility] (Lab) [address] [facility], [place], [address], 07/14/2024 03:00:03 07/13/1907/13/2024 CBC W/DIF F neutrophils 57.8 % 34.0-7 3.0 Not Available [facility] (Lab) [address] [facility], [place], [address], 07/14/2024 03:00:03 07/13/1907/13/2024 CBC W/DIF F lymphocytes 27.2 % 15.0-5 0.0 Not Available [facility] (Lab) [address] [facility], [place], [address], 07/14/2024 03:00:03 07/13/1907/13/2024 CBC W/DIF F monocytes 11.0 % 1.0-15 .0 Not Available [facility] (Lab) [address] [facility], [place], [address], 07/14/2024 03:00:03 07/13/1907/13/2024 CBC W/DIF F eosinophils 2.7 % 0.0-8. 0 Not Available [facility] (Lab) [address] [place], [address], 07/14/2024 03:00:03 07/13/19 25 07/13/2024 CBC W/DIF F basophils 0.9 % 0.0-2. 0 Not Available [facility] (Lab) [address] [place], [address], 07/14/2024 03:00:03 07/13/1907/13/2024 CBC W/DIF F immature granulocytes 0.4 % no define d refere nce range Immat ure Granu locyt es (IG) repre sents autom ated enume ratio n of Metam yeloc ytes, Myelo cytes and Promy elocy annette when IG is < 5%. Blast s are not inclu ded in IG and repor lauren separ ately if prese nt. Not Available [facility] (Lab) [address] [facility], [place], [address], 07/14/2024 03:00:03 07/13/1907/13/2024 CBC W/DIF F absolute neutrophils 3.9 10'3/ uL 1.5-8. 0 Not Available [facility] (Lab) [address] [place], [address], 07/14/2024 03:00:03 07/13/1907/13/2024 CBC W/DIF F absolute lymphocytes 1.8 10'3/ uL 1.0-4. 0 Not Available [facility] (Lab) [address] [facility], [place], [address], 07/14/2024 03:00:03 07/13/1907/13/2024 CBC W/DIF F absolute monocytes 0.7 10'3/ uL 0.2-1. 0 Not Available [facility] (Lab) [address] [place], [address], 07/14/2024 03:00:03 07/13/1907/13/2024 CBC W/DIF F absolute eosinophils 0.2 10'3/ uL 0.0-0. 6 Not Available [facility] (Lab) [address] [place], [address], 07/14/2024 03:00:03 07/13/1907/13/2024 CBC W/DIF F absolute basophils 0.1 10'3/ uL 0.0-0. 3 Not Available [facility] (Lab) [address], [place], [address], 07/14/2024 03:00:03 07/13/19 25 07/13/2024 CBC W/DIF [...] bhand book. nm.or g/Gen derX Not Available [facility] (Lab) [address] [facility], [place], [address], 07/14/2024 03:00:03 02/18/20 24 02/18/2024 US, trans vagin al No observ ation record ed. [email or web address] [place] [address], [place], [address], 02/18/2024 18:01:42 02/18/20 24 02/18/2024 US, pelvi s No observ ation record ed. [email or web address] [place] [address], [place], [address], 02/18/2024 18:01:51 02/18/20 24 02/18/2024 US, pelvi s No observ ation record ed. [email or web address] [facility] [address] [facility], [place], [address], 02/19/2024 07:41:36 07/08/19 25 07/08/2024 US, pelvi s No observ ation record ed. [email or web address] [place] [address], [place], [address], 07/08/2024 18:48:55 07/08/19 25 07/08/2024 US, trans vagin al No observ ation record ed. [facility] [address], [place], [address], 07/08/2024 18:49:03 07/08/19 25 07/08/2024 US, mary s No observ ation record ed. [email or web address] [address], [place], [address], 07/09/2024 15:46:26 Result Notes None recorded. Problems Name Problem SNOMED Code Status Onset Date Resolution Date Notes Provider Name and Address Organization Details Recorded Time Routine antenata l care Completed 201411/30/2020 Supervisi on of other normal ;Recorded Elsewhere : No Locati on: [facility] So urce: EHR Chron ic: N Practic e ID: 0001 Bill able Time: 04:30:00 PM Amber Martell [facility] 17:25:[address] Concept Completed 201811/30/2020 Encntr for physical geographer exam (general) (routine) w/o abn findings; Recorded Elsewhere : No Locati on: [facility] So urce: EHR Chron ic: N Practic e ID: 0001 Bill able Time: 11:00:00 AM Amber Martell [facility] 17:25:25 Lacerati on of female perineum Completed 201411/30/2020 Perineal tear during delivery involving vaginal muscles;R ecorded Elsewhere : No Locati on: [facility] So urce: EHR Chron ic: N Practic e ID: 0001 Bill able Time: 03:15:00 PM Amber Martell [facility] 17:25:08 Amenorrh ea [id number] Completed 201411/30/2020 AMENORRHE A;Practic e ID: 0001 Amber Martell [facility] 17:24:48 [facility]in[facility] ion Completed 201411/30/2020 Routine gynecolog ical examinati on;Practi ce ID: 0001 Amber Martell [facility] 17:25:26 Pregnanc y test positive [id number] Completed 201411/30/2020 Positive Test;Prac onel ID: 0001 Amber Martell [facility], [facility] 17:25:15 Uterine size for dates [facility] [id number] Completed 201411/30/2020 UTERINE SIZE ARON-ANTEP AR;Practi ce ID: 0001 Amber Martell [facility], [facility] 17:25:36 Mild hypereme sis-not delivere d [id number] Completed 201411/30/2020 Hyperemes is gravidaru m, antepartu m Mild;Prac onel ID: 0001 Amber Martell [facility], [facility] 17:25:11 anatomy study Completed 201411/30/2020 [facility] ANATMC SURVEY;Pr actice ID: 0001 Amber Martell [facility] 17:25:02 Complica tion related to pregnanc y Completed 201411/30/2020 PREG COMPL NEC-ANTEP ART;Pract ice ID: 0001 Amber Martell [facility], [facility] 17:24:51 Viral disease in mother complica ting pregnanc y, childbir th AND/OR puerperi [id number] Completed 201411/30/2020 OTH VIRAL DIS-ANTEP ARTUM;Pra ctice ID: 0001 Amber Martell [facility], [facility] 17:25:38 Complica tion of pregnanc y, childbir th and/or puerperi um [id number] Completed 201411/30/2020 COAGULATI ON DEF-ANTEP ART;Pract ice ID: 0001 Amber guillen, [facility] 17:24:53 Dehydrat ion 16227419 Completed 201411/30/2020 DEHYDRATI ON;Practi ce ID: 0001 Amber guillen, [facility] 17:24:54 Transien t hyperten angela of pregnanc y - delivere d 052463221 Completed 201411/30/2020 Transient hypertens ion of , with delivery; Practice ID: 0001 Amber guillen, [facility] 17:25:30 Transien t hyperten angela of pregnanc y - not delivere d [id number] Completed 201411/30/2020 TRANS HYPERTEN- ANTEPART; Practice ID: 0001 Amber guillen, [facility] 17:25:32 Delivery normal [id number] Completed 201411/30/2020 NORMAL DELIVERY; Practice ID: 0001 Amber guillen, [facility] 17:24:56 Single live [id number] Completed 201411/30/2020 DELIVER-S FRANCISCO LIVEBORN; Practice ID: 0001 Amber guillen, [facility] 17:25:21 Pregnanc y-induce d hyperten angela Completed 201411/30/2020 Gestation al htn w/o significa nt proteinur ia, first trimester ;Practice ID: 0001 Amber guillen, [facility] 17:25:16 Pregnanc y-induce d hyperten angela Completed 201411/30/2020 Gestation al htn w/o significa nt proteinur ia, third trimester ;Practice ID: 0001 Amber guillen, [facility] 17:25:18 Depressi ve disorder 86020540 Completed 201411/30/2020 Major depressiv e disorder, single episode, unspecifi ed;Practi ce ID: 0001 Amber Martell [facility] 17:24:58 Hemorrho ids [id number] Completed 201411/30/2020 Unspecifi ed hemorrhoi ds;Practi ce ID: 0001 Amber Martell [facility] 17:25:06 Lochia finding Completed 201411/30/2020 Encounter for routine postpartu m follow-up ;Practice ID: 0001 Amber Martell [facility] 17:25:10 Pain in female genitali a Completed 201811/30/2020 Dysmenorr hea, unspecifi ed;Practi ce ID: 0001 Amber Martell [facility] 17:25:01 Uterine leiomyom a [id number] Completed 201811/30/2020 Leiomyoma of uterus, unspecifi ed;Practi ce ID: 0001 Amber Martell [facility] 17:25:34 Polyp of corpus uteri 91454272 Completed 201811/30/2020 Polyp of corpus uteri;Pra ctice ID: 0001 Amber Martell [facility] 17:25:13 Finding of menstrua l bleeding Completed 201811/30/2020 Excessive and frequent menstruat ion with regular cycle;Pra ctice ID: 0001 Amber Martell [facility] 17:25:04 Uses combined oral contrace ption [id number] Completed 201811/30/2020 Encounter for surveilla nce of contracep tive pills;Rec orded Elsewhere : No Locati on: [facility] So urce: EHR Chron ic: N Practic e ID: 0001 Bill able Time: 02:00:00 PM Amber Martell [facility] 17:24:[address] Concept Completed 201511/30/2020 Encntr for general adult medical exam w/o abnormal findings; Recorded Elsewhere : No Locati on: [facility] So urce: EHR Chron ic: N Practic e ID: 0001 Bill able Time: 02:00:00 PM Amber Martell [facility] 17:25:23 Elevated blood-pr essure reading without diagnosi s of hyperten angela [id number] Completed 201811/30/2020 Elevated blood-pre ssure reading without diagnosis of hypertens ion;Recor ded Elsewhere : No Locati on: [facility] So urce: EHR Chron ic: N Practic e ID: 0001 Bill able Time: 02:00:00 PM Amber Martell [facility] 17:24:59 Surveill ance of contrace ption Completed 201511/30/2020 Encounter for surveilla nce of contracep tives, unspecifi ed;Record ed Elsewhere : No Locati on: [facility] So urce: EHR Chron ic: N Practic e ID: 0001 Bill able Time: 02:00:00 PM Amber Martell [facility] 17:25:28 Problem Notes None recorded. Procedures Surgical History Date Name Laterality Status Provider Name and Address Organization Details Recorded Time 025 ROBOTIC ASSISTED HYSTERECTOMY WITH SALPINGECTOMY (SURG) completed Sosa Lara [facility] 07/23/2024 09:23:18 024 IUD Insertion completed KALANI FELTON MD [address], [place], [address], [facility] 02/27/2024 16:26:33 023 Date of Last Pap Smear completed Sosa Lara [facility] 07/01/2024 11:10:28 021 cardiac radiofrequency ablation using ultrasound guidance completed [facility] 02/27/2023 18:12:16 019 Dilation and Curettage completed [facility] 02/27/2023 18:03:31 015 operative reduction of prolapse of anus completed [facility] 02/27/2023 18:02:53 013 fistulectomy of rectum completed [facility] 02/27/2023 18:12:47 hemorrhoidectomy completed [facility] 02/27/2023 18:03:50 Imaging Results Imaging Date Name Status LastModified by Organization Details LastModified Time 02/18/2024 US, transvaginal completed daniela posey [address], [place], [address], 02/18/2024 18:01:42 02/18/2024 US, pelvis completed daniela [address], [place], [address], 02/18/2024 18:01:51 02/18/2024 US, pelvis completed [email or web address] [address], [place], [address], 02/19/2024 07:41:36 07/08/2024 US, pelvis completed abhay [address], [place], [address], 07/08/2024 18:48:55 07/08/2024 US, transvaginal completed abhay posey [address], [place], [address], 07/08/2024 18:49:03 07/08/2024 US, pelvis completed [email or web address] [address] [facility], [place], [address], 07/09/2024 15:46:26 Procedure Notes None recorded. Medical [...] mg-acetam inophen 325 mg tablet TAKE 1 TABLET BY MOUTH EVERY 4 HOURS NEEDED FOR PAIN active Not Available Not Available No t Available prednison e 20 mg tablet TAKE [...] and at bedtime 03/23 completed Prescrib ed Elsewher e: No Locat ion: Indira [facility] odkong By: [email or web address] E ncounter DateTime : 08/24/19 15 03:30:00 PM Not Available Not Available [...] Prescrib ed Elsewher e: No Locat ion: Indira posey [facility] odify By: [email or web address] kenyon DateTime : 01/19/20 19 10:30:00 AM Not Available Not Available Not Available VETERINARIAN ASSISTANT-PNV-DH A 28 mg iron-1 mg-200 mg capsule take 1 capsule by oral route every day 10/08 completed Prescrib ed Elsewher e: No [facility] By: eddi zuritaunter DateTime : 07/27/19 15 02:15:00 PM Not Available Not Available Not Available Blisovi Fe 07/19 (28) 1 mg-20 mcg (21)/75 mg (7) tablet take 1 tablet by oral route every day 02/27 completed Prescrib ed Elsewher e: No Locat ion: Indira posey [facility] odify By: shakeel kenyon DateTime : 01/20/20 11:41:21 AM Not Available Not Available Not Available Anusol-HC 2.5 % topical cream with perineal applicato r apply by topical route 2 times every day to the affected area(s) 06/13 completed Prescrib neil Baltazar e: No Locat ion: Indira posey [facility] odify By: boogie kenyon DateTime : 04/25/20 03:00:00 PM Not Available Not Available Not Available [employer]NOW COVID-19 Ag Self Test kit TEST DIRECTED TODAY 02/27 completed Not Available Not Available Not Available Vitals Date Recorded Body height Body mass index (BMI) Body weight Systolic blood pressure Diastolic blood pressure Provider Name and Address Organization Details Last Updated DateTime 02/27/2024 157.48 cm 23.9 kg/m2 85330.16 g 119 mm[Hg] 79 mm[Hg] Rosamaria Villeda [facility] 4 15:55:15 Date Recorded Body height Body mass index (BMI) Body weight Systolic blood pressure Diastolic blood pressure Provider Name and Address Organization Details Last Updated DateTime 07/01/2024 157.48 cm 25.4 kg/m2 81389.34 g 126 mm[Hg] 86 mm[Hg] Sosa Lara [facility] 5 11:10:01 Date Recorded Body height Body mass index (BMI) Body weight Systolic blood pressure Diastolic blood pressure Provider Name and Address Organization Details Last Updated DateTime 07/12/2024 157.48 cm 25.2 kg/m2 09393.75 g 138 mm[Hg] 91 mm[Hg] Shannon Stephens [facility] 5 14:07:58 Social History Question Answer Notes LastModified by Organizat ion Details LastModified Time Tobacco Smoking Status Never Smoker [facility] 11/30/2020 17:28:58 What Is Your Level [...] Anxious, Or Unable To Sleep At Night)? [id number] Information not available 11/30/2020 Do You Use [...] SNOMED-CT Code Diagnosis ICD10 Code Diagnosis Note [id number] Nancy Langley , [facility] [address] [address] 02/27/2023 17:48:10 02/28/2023 15:47:46 Gynecologic examination 01888617 Z01.419 Take Calcium with Vitamin D 1200mg [...] Screen PCPDexa Screen PCPRoutine Labs PCP Menorrhagia 050177403 N9 2.0 Labs updated by . TedFunmilayokalpesh is anemic confirmed with her PCPWould like to consider ablationDo es not want to do BC or hormonal optionsDon e having childrenWi ll update US & then she will make MD consult to discuss ablation Lack or lo ss of sexual desire 103055397 F52.0 discussed addyi & Vyleesiwil l let us know if any interest in pursuing. [id number] [facility] [address] [address] 03/11/2023 17:26:48 03/11/2023 18:02:06 Menorrhagia 147645592 N92.0 [id number] KALANI FELTON MD [place] [address],[place] [address] 03/27/2023 18:04:44 03/28/2023 16:04:11 Abnormal uterine bleeding 8951601471 9100 N93.9 D25.9 - discussed fibroid is [...] of care and treatment options with patient [id number] Gena [facility] [address] [address] 02/18/2024 17:20:24 02/19/2024 09:08:46 Menorrhagia 767177717 D25.9 [id number] KALANI FELTON MD [place] [address] [address] 02/27/2024 15:46:17 02/27/2024 16:55:06 Screening procedure 58983089 Z13.9 Insertion of intrauterine contraceptive device 51015515 Z30.430 - IUD inserted without difficulty - RTC 1 month for IUD check- due on 01/2032 Uterine leiomyoma 377024 05 D25.9 -7cm fundal fibroid, stable from last exam- mild pressure and heavy periods- would like referral to [facility] for possible removal [id number] KALANI FELTON MD [place] [address] [address] 07/01/2024 09:34:06 07/01/2024 11:54:46 IUD check 825144560 Z30.431 - Mirena IUD placed 02/27/24, due for removal 01/2032- no issues at this time from Mirena Uterine leiomyoma 880747 05 D25.9 -7cm fundal fibroid, stable from last exam- mild pressure and heavy periods- periods improved on Mirena now- new pressure/l eakage/con stipation- will repeat US to reevaluate fibroid size/posit ion due to new symptoms- referral to [facility] sent, scheduled for September 2024 [id number] Antonieta Martell [place] [address] [address] 07/08/2024 16:47:16 07/09/2024 05:26:16 Uterine leiomyoma 11660064 D25.9 R10.2 N93.9 [id number] [place] [address] [address] 07/12/2024 14:01:23 07/12/2024 15:14:31 Menorrhagia 965654406 D25.9 This patient is a 39-year-ol d [...] hemorrhage and infection. Abnormal u terine bleeding 8009397408 9100 N93.9 [id number] Sd Giron MD [place] [address] [address] 07/22/2024 12:03:15 07/24/2024 03:52:11 Health Concerns Section Related Observation LastModified by Organization Detai ls LastModified Time None Recorded Concern Status LastModified by Organization Details LastModified Time None Recorded Advance Directives Directive None Recorded Payers Encounter Date Sequence Insurance Name Policy Number Policy Allen Covered Member ID Allen Member ID Guarantor Name 02/27/2024 1 [employer] [address] [id number] Tammy Cross 07/01/2024 1 [employer] [address] [id number] Tammy Arteagahn 07/08/2024 1 [employer] [address] [id number] Tammy Arteagahn 07/12/2024 1 [employer] [address] [id number] Tammy Arteagahn 07/22/2024 1 [employer] [address] [id number] Tammy Cross Notes Date Note Type Note Provider Name and Address Organization Details Recorded Time 02/27/2024 text/html Patient presents for IUD insertion. KALANI FELTON MD [address], [place], [address], [facility] 02/27/2024 16:31:56 07/01/2024 text/html Presents today [...] 7cm fundal fibroid. KALANI FELTON MD [address], [place], [address], [facility] 07/01/2024 11:37:49 07/12/2024 text/html This patient [...] infection. Sd Giron MD [address], [place], [address], [facility] 07/12/2024 14:57:28 OBGyn Episode Ob Episode Information Episode Created Date Number of Fetuses Patient Bloodtype Patient rh Status Prepregnancy Weight lbs Domestic Partner Domestic Partner Phone Father Name Associate Account Executive Status 12/01/19 21 1 CLOSED Fetus Data First Name Last Name Admitted to NICU Weight (g) Sex Living Outcome Pediatric Complications Fetus ID Race Codes Race Delivery Type 3401.94 M Full Term [id number] Vaginal Delivery Brett Calculation Initial Brett Date [...] Domestic Partner Domestic Partner Phone Father Name Associate Account Executive Status 12/01/19 21 1 CLOSED Fetus Data First Name Last Name Admitted to NICU Weight (g) Sex Living Outcome Pediatric Complications Fetus ID Race Codes Race Delivery Type 3600.15 9704 M Full Term [id number] Vaginal Delivery Brett Calculation Initial Brett Date [...]
--- OUTSIDE RECORDS SUMMARY | 2024-07-26 15:20 | XMS_ITS | Referral Summary ---
Author Organization [facility] Address [address] [place] [address] Care Team Providers Care Boilers Inspector Name Role Phone Elis Khan Primary Care Pr ovider Encounters Date Type Department Care Team Description 07/13/2024 Telephone [facility] Cardiology [address] 8th [place] [address] [place] [address] Diego Strong MD from Last [...] 07/05/2021 Assessment & Plan (07/05/2021 11:30 AM DISTRIBUTOR SALES CONSULTANT): Reports generalized symptoms including WOODS, nausea, dyspnea [...] 05/11/2020 Assessment & Plan (07/05/2021 11:28 AM DISTRIBUTOR SALES CONSULTANT): Sound most c/w sinus tachycardia, 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 Currently wearing event monitor Will evaluate monitor results when available Increase metoprolol to 100 daily Assessment & Plan (08/17/2020 1:49 PM DISTRIBUTOR SALES CONSULTANT): Due to WCT - likely SVT w [...] those Assessment & Plan (05/11/2020 10:52 AM DISTRIBUTOR SALES CONSULTANT): Ddx includes sinus tachycardia vs SVT The [...] regimen. Assessment & Plan (07/05/2021 11:29 AM DISTRIBUTOR SALES CONSULTANT): BP has recently been elevated, remains elevated on repeat check today Unclear if her current sx are related to the elevated Bps or not Regardless, BP is above goal Recommend starting lisinopril 10 mg daily Call w BP update in 1 week Check Bmp today Assessment & Plan (08/17/2020 1:50 PM DISTRIBUTOR SALES CONSULTANT): BP is somewhat labile, still a bit above goal Will reassess BP control following EP study and consider changing metoprolol to a different agent at that time Secondary work up negative Assessment & Plan (05/11/2020 10:55 AM DISTRIBUTOR SALES CONSULTANT): She is persistently hypertensive in clinic today. [...] on file Legal Sex Female 9:19 AM DISTRIBUTOR SALES CONSULTANT Gender Identity Not on file Sexual Orientation [...] on file Medical Devices Implanted Type Area Reverberatory Furnace Supervisor Device Identifier Shelf Expiration Date Model / Serial / Lot [employer] [id number] System 6-12fr Mvp Venous Closure Vascade - [id number] - [id number] Implanted:Qty: 1 on 09/06/2020 by Tony Pineda MD at [facility] [employer] 07/11/2022 800-612C-1 0U / [id number] / [id number] [employer] [id number] System 6-12fr Mvp Venous Closure Vascade - [id number] - [id number] Implanted:Qty: 1 on 09/06/2020 by Tony Pineda MD at [facility] [employer] 07/11/2022 800-612C-1 0U / [id number] / [id number] [employer] [id number] Device Closure Vascade Od5 Fr Femoral Artery - [id number] - [id number] Implanted:Qty: 1 on 09/06/2020 by Tony Pineda MD at [facility] [employer] 06/08/2022 700-500DX- 05U / [id number] [id number] / [id number] [id number] [employer] [id number] Device Closure Vascade Od5 Fr Femoral Artery - [id number] - [id number] Implanted:Qty: 1 on 09/06/2020 by Tony Pineda MD at [facility] [employer] 06/08/2022 700-500DX- 05U / [id number] [id number] / [id number] Insurance [facility] FEDERAL [facility] BCBS FEDERAL Care Teams Boilers Inspector Relationship Specialty Start Date End Date Elis Khan PA PCP - General Physician Speech Therapy Director 10/13/20
--- OUTSIDE RECORDS SUMMARY | 2024-07-26 15:20 | XMS_ITS | Clinical Summary ---
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 Currently wearing event monitor Will evaluate monitor results when available Increase metoprolol to 100 daily Assessment & Plan (08/17/2020 1:49 PM SUPERVISOR SAWMILL): Due to WCT - likely SVT w [...] those Assessment & Plan (05/11/2020 10:52 AM SUPERVISOR SAWMILL): Ddx includes sinus tachycardia vs SVT The [...] regimen. Assessment & Plan (07/05/2021 11:29 AM SUPERVISOR SAWMILL): BP has recently been elevated, remains elevated on repeat check today Unclear if her current sx are related to the elevated Bps or not Regardless, BP is above goal Recommend starting lisinopril 10 mg daily Call w BP update in 1 week Check Bmp today Assessment & Plan (08/17/2020 1:50 PM SUPERVISOR SAWMILL): BP is somewhat labile, still a bit above goal Will reassess BP control following EP study and consider changing metoprolol to a different agent at that time Secondary work up negative Assessment & Plan (05/11/2020 10:55 AM SUPERVISOR SAWMILL): She is persistently hypertensive in clinic today. [...] Type Department Care Team Description 07/13/2024 Telephone [facility] Cardiology [address] 8th [place] [address] [place] [address] Diego Strong MD from Last 3 Months Immunizations Name Administration Dates Next Due Rho (D) Immune Globulin, IV or IM 03/24/2015 Tdap 01/15/2015 Surgical History Surgery Date Site/Laterality Comments OVARIAN CYST REMOVAL 06/30/2018 - 06/29/2019 DILATION AND CURETTAGE OF UTERUS 06/30/2018 - 06/29/2019 RECTAL PROLAPSE REPAIR 06/30/2014 - 06/29/2015 Medical History Medical History Date Comments Anemia Type 2 VT (myocardial infarc tion) (CMS/HCC) (HCC) 2014 HTN [...] on file Legal Sex Female 9:19 AM SUPERVISOR SAWMILL Gender Identity Not on file Sexual Orientation [...] this topic Medical Devices Implanted Type Area Batterboard Setter Device Identifier Shelf Expiration Date Model / Serial / Lot [employer] [id number] System 6-12fr Mvp Venous Closure Vascade - [id number] - [id number] Implanted:Qty: 1 on 09/06/2020 by Tony Pineda MD at [facility] [employer] 07/11/2022 800-612C-1 0U / [id number] / [id number] [employer] [id number] System 6-12fr Mvp Venous Closure Vascade - [id number] - [id number] Implanted:Qty: 1 on 09/06/2020 by Tony Pineda MD at [facility] [employer] 07/11/2022 800-612C-1 0U / [id number] / [id number] [employer] [id number] Device Closure Vascade Od5 Fr Femoral Artery - [id number] - [id number] Implanted:Qty: 1 on 09/06/2020 by Tony Pineda MD at [facility] [employer] 06/08/2022 700-500DX- 05U / [id number] [id number] / [id number] [id number] [employer] [id number] Device Closure Vascade Od5 Fr Femoral Artery - [id number] - [id number] Implanted:Qty: 1 on 09/06/2020 by Tony Pineda MD at [facility] [employer] 06/08/2022 700-500DX- 05U / [id number] [id number] / [id number] Insurance [facility] FEDERAL Care Teams Equine Science Instructor Relationship Specialty Start Date End Date Menossi, Elis Tonja [place], [place] PCP - General Physician Communications Technologist 10/13/20
--- OUTSIDE RECORDS SUMMARY | 2024-07-26 15:20 | XMS_ITS | Continuity of Care Document ---
Author Organization [facility] Address [address] [place] [address] [place] [address] Phone Care Team Providers Care Food And Beverage Order Clerk Name Role Phone Godwin Arevalo MD Unavailable Unavailable Allergies, Adverse Reactions, Alerts Substance Reaction Status Criticality No Known Allergies Active No Inform ation Medications Medication Instructions Dosage Effective Dates (start - stop) Status Comments Lexapro 10 mg tablet take 1 tablet by or al route every day 10 MG - Active Procedures Procedure Date PREV VISIT, [facility], AGE 18-39 OFFICE/OUTPATIENT VISIT, [facility] Advance Directives Directive Yes / No Effective Date File Name No Information Encounters Encounter Description Practice Location Reason(s) For Visit Diagnoses Date Provider Providers Copied on Encounter PREV VISIT, NEW, AGE 18-39 [facility] Medicine, [address] [place], [id number], [place] tel:[phone] [facility] Medicine physical1 (chief complaint) Encounter for general adult medical exam w abnormal findingsPalpitation sFatigueGeneralized Anxiety Disorder [address] Connelly. [address] [place], [place], [id number] , [place]. tel:[phone] Family History Family Member Type Diagnosis Age At Onset Father Problem Alive and well Mother Problem Diabetes mellitus type 2 Mother Problem Hypertension Sister Problem Hypertension Mother Problem Stroke 52 Payers Payer name Insurance type Covered alliance party ID Authoriza tion(s) No Information Social History Type Description Quantity Date Captured Comments Alcohol Use Details Caffeine Use Details Unknown Tobacco Use Status Current non-smoker 20 Smoking Status Never smoker Non-Smoking Tobacco Use [...] Mental Status Date Cognitive Assessment Orientation - [place] ed to time, place, person, situation.
--- OUTSIDE RECORDS SUMMARY | 2024-07-26 15:20 | XMS_ITS | Encounter Summary ---
Author Organization [facility] Address [address] [place] [address] Phone Care Team Providers Care Cloth Cutting Machine Operator Name Role Phone No, Physician Primary Care Provider [phone] Elis Khan Primary Care Pr ovider Encounter Details Date Type Department Care Team (Latest Contact Info) Description 01/20/2015 Orders Only [facility] Scanning, Provider Social History Tobacco Use Types Packs/Day Years Used Date Smoking Tobacco: Never Assessed Comments Unknown Sex and Gender Information Value Date Recorded Sex Assigned at Not on file Legal Sex Female 9:19 AM RESTUARANT CREW WORKER Gender Identity Not on file Sexual [...] COVID: Suspected 06/05/2022 06/05/2022 06/06/2022 3:05 AM RESTUARANT CREW WORKER COVID: Suspected 06/05/2022 06/05/2022 06/06/2022 4:38 AM RESTUARANT CREW WORKER COVID: Suspected 09/28/2022 09/28/2022 09/28/2022 3:33 PM CDT COVID: Suspected 04/16/2023 04/16/2023 04/16/2023 10:02 AM CDT COVID: Suspected 04/16/2023 04/16/2023 04/16/2023 3:14 PM CDT COVID: Suspected 02/22/2024 02/22/2024 02/22/2024 8:40 AM CDT COVID: Suspected 04/07/2024 04/07/2024 04/07/2024 12:10 PM CDT documented as of this encounter Care Teams Cloth Cutting Machine Operator Relationship Specialty Start Date End Date No, Physician PCP - General 05/11/20 10/12/20 Elis Khan PA PCP - General Physician Tuber Operator 10/13/20 documented as of this encounter
--- OUTSIDE RECORDS SUMMARY | 2024-07-26 15:20 | XMS_ITS | Encounter Summary ---
Author Organization [facility] Address [address] [place] [address] Phone Care Team Providers Care Final Assembly And Packing Supervisor Name Role Phone Elis Khan Primary Care Pr ovider Encounter Details Date Type Department Care Team (Late st Contact Info) Description 07/13/2024 Telephone [facility] Cardiology [address] [facility] [address] 8th [place] [address] [place] [address] Diego Strong MD [address] [facility] [address] [place] [address] Social History Tobacco Use Types [...] on file Legal Sex Female 9:19 AM ROBOTICS APPLICATION ENGINEER Gender Identity Not on file Sexual Orientation Not on file documented as of this encounter Miscellaneous Notes * Telephone Encounter - Floresita Aguilar RN - 07/13/2024 2:44 PM ROBOTICS APPLICATION ENGINEER CEINT message sent to patient with recs. TICS APPLICATION ENGINEER * Telephone Encounter - Diego Strong MD - 07/13/2024 2:27 PM CST I would defer to her sash sticker regarding management of the fibroid. She should be able to have the surgery. I would recommend she continue metoprolol through the perioperative period. TICS APPLICATION ENGINEER * Telephone Encounter - Floresita Aguilar RN - 07/13/2024 9:00 [address]ICS APPLICATION ENGINE[address] Dr. Strong, pt would like your input on TBD surgery. TICS APPLICATION ENGINEER * Telephone Encounter - Christine Melvin - 07/13/2024 8:10 AM CST Ligia [...] should have surgery. Please call to advise. TICS APPLICATION ENGINEER documented in this encounter Plan of Treatment Not on file documented as of this encounter Visit Diagnoses Not on filedocumented in this encounter Care Teams Final Assembly And Packing Supervisor Relationship Specialty Start Date End Date Elis Khan PA PCP - General Physician Strike Off Machine Operator 10/13/20 documented as of this encounter
--- OUTSIDE RECORDS SUMMARY | 2024-07-26 15:20 | XMS_ITS | Encounter Summary ---
Author Organization [facility] Address [address] [place] [address] Phone Care Team Providers Care Resist Coater Developer Name Role Phone No, Physician Primary Care Provider [phone] Elis Khan Primary Care Pr ovider Encounter Details Date Type Department Care Team (Latest Contact Info) Description 04/27/2015 Orders Only [facility] Scanning, Provider Social History Tobacco Use Types Packs/Day Years Used Date Smoking Tobacco: Never Assessed Comments Unknown Sex and Gender Information Value Date Recorded Sex Assigned at Not on file Legal Sex Female 9:19 AM LEATHER GOODS I ASSEMBLER Gender Identity Not on file Sexual Orientation [...] COVID: Suspected 06/05/2022 06/05/2022 06/06/2022 3:05 AM LEATHER GOODS I ASSEMBLER COVID: Suspected 06/05/2022 06/05/2022 06/06/2022 4:38 AM LEATHER GOODS I ASSEMBLER COVID: Suspected 09/28/2022 09/28/2022 09/28/2022 3:33 PM CDT COVID: Suspected 04/16/2023 04/16/2023 04/16/2023 10:02 AM CDT COVID: Suspected 04/16/2023 04/16/2023 04/16/2023 3:14 PM CDT COVID: Suspected 02/22/2024 02/22/2024 02/22/2024 8:40 AM CDT COVID: Suspected 04/07/2024 04/07/2024 04/07/2024 12:10 PM CDT documented as of this encounter Care Teams Resist Coater Developer Relationship Specialty Start Date End Date No, Physician PCP - General 05/11/20 10/12/20 Elis Khan PA PCP - General Physician Collar Stay Fuser Tender 10/13/20 documented as of this encounter
--- NOTE | 2024-07-26 15:46 | ED_ITS ---
HPI - General Adult General Chief complaint: Fever Stated complaint: near syncope Time Seen by Provider: 07/26/24 12:53 History of Present Illness HPI narrative: Patient is a 39-year-old female who presents ER with fever and body aches as well as lower abdominal pain. Recently had a laparoscopic hysterectomy for fibroids. Fever started today. Had been feeling improved yesterday. He reports lower abdominal pressure and cramping with urination. No runny nose or sore throat or productive cough. Reports her surgical port sites were not red or draining. Denies vaginal bleeding or discharge. Patient has been taking MiraLax to help with constipation. Related Data Home Medications ?Medication ?Instructions ?Recorded ?Confirmed ?Last Taken ?Type ferrous sulfate 137 mg (45 mg 137 mg PO DAILY 07/16/24 07/22/24 07/18/24 History iron) tablet,extended release (Slow Fe) fiber 3 cap PO DAILY 07/16/24 07/22/24 07/18/24 History lisinopril 10 mg tablet 10 mg PO DAILY 07/16/24 07/22/24 07/22/24 History metoprolol succinate 100 mg 100 mg PO HS 07/16/24 07/22/24 07/22/24 History tablet,extended release 24 hr umvtplraldda-Yl-wipn-minerals 18 tablet PO DAILY 07/16/24 07/18/24 History mg-0.4 mg tablet Allergies Allergy/AdvReac Type Severity Reaction Status Date / Time No Known Allergies Allergy Verified 07/22/24 11:34 Review of Systems 2 Review of Systems: All systems reviewed & are unremarkable except as noted in HPI and below Constitutional: Constitutional: Reports chills, Reports fatigue and Reports fever(s) ENT: Reports system reviewed and no additional complaints, except as documented Cardiovascular: Cardiovascular: Reports no additional cardiovascular complaints Respiratory: Respiratory: Reports no additional respiratory complaints Gastrointestinal: Gastrointestinal: Reports abdominal pain, Denies diarrhea, Denies nausea and Denies vomiting Genitourinary: Genitourinary: Reports no additional female genitourinary complaints [facility] Past Medical History Medical History (Updated 07/26/24 @ 18:13 by Gordo Loredo MD) SVT (supraventricular tachycardia) Hypertension Uterine fibroid Surgical History Surgical History (Updated 07/22/24 @ 12:08 by Wood Herrera MD) H/O cardiac radiofrequency ablation Social History Social History Smoking status: Never smoker Alcohol intake: current Drinks per week: 5 Living arrangements: with family Spiritual care concerns: No Exam 2 Narrative: GENERAL: Well-appearing, well-nourished, and in no acute distress. HEAD: Normocephalic, atraumatic. ENT: Mucous membranes moist. NECK: Supple. CHEST: Clear to auscultation. No respiratory distress. HEART: Tachycardic and regular. Normal peripheral pulses. ABDOMEN: Soft, mild bilateral lower quadrant pelvic discomfort with voluntary guarding, nondistended. Well-healing surgical port sites. EXTREMITIES: Normal range of motion. No edema. SKIN: Warm, dry, no rash. NEURO: Alert and oriented x3. PSYCH: Normal mood and affect. Course Course Emergency Course: Patient persistently tachycardic after IV fluids and Tylenol. Elevated white count and no source of fever. Discussed with Dr. Giron. Will order blood cultures and start on Zosyn for possible infection the pelvic region. Patient's hemoglobin initially low and we will repeat a hemoglobin. If continues to drop she may require transfusion and verbalized understanding of this. Vital Signs Vital signs: Vital Signs Temperature 101.2 F H 07/26/24 12:16 Pulse Rate 121 H 07/26/24 12:16 Respiratory Rate 07/26/24 12:16 Blood Pressure 133/96 H 07/26/24 12:16 Pulse Oximetry 98 07/26/24 12:16 Oxygen Delivery Room Air 07/26/24 12:16 Temperature 100.2 F H 07/26/24 15:23 Pulse Rate 129 H 07/26/24 15:23 Respiratory Rate 07/26/24 15:23 Blood Pressure 100/89 07/26/24 15:23 Pulse Oximetry 100 07/26/24 15:23 Oxygen Delivery Room Air 07/26/24 12:16 Medical Decision Making Vital Signs Vital Signs: Vital Signs Temperature 101.2 F H 07/26/24 12:16 Pulse Rate 121 H 07/26/24 12:16 Respiratory Rate 20 07/26/24 12:16 Blood Pressure 133/96 H 07/26/24 12:16 Pulse Oximetry 98 07/26/24 12:16 Oxygen Delivery Room Air 07/26/24 12:16 Temperature 100.2 F H 07/26/24 15:23 Pulse Rate 129 H 07/26/24 15:23 Respiratory Rate 20 07/26/24 15:23 Blood Pressure 100/89 07/26/24 15:23 Pulse Oximetry 100 07/26/24 15:23 Oxygen Delivery Room Air 07/26/24 12:16 Lab Data 07/26/24 16:07 07/26/24 12:44 Labs: Lab Results 07/26/24 07/26/24 07/26/24 Range/Units 12:44 13:21 16:07 WBC 11.9 H (4.5-10.0) K/mm3 RBC 4.27 (4.2-5.4) M/mm3 Hgb 8.8 L 9.3 L (12.0-15.0) g/dL Hct 30.1 L 31.6 L (37.0-47.0) % MCV 70.5 L (80-100) fl MCH 20.6 L (26-34) pg MCHC 29.2 L (32-36) g/dl RDW 20.8 H (11.5-14.5) % Plt Count 275 (150-375) k/mm3 MPV 10.8 H (7.4-10.4) fl Immature Gran % (Auto) 0.3 (0-0.5) % Neut % (Auto) 82.0 H (45.5-73.1) % Lymph % (Auto) 6.1 L (18.3-44.2) % [place] % (Auto) 10.7 H (2.6-8.5) % Eos % (Auto) 0.7 (0-4.4) % Baso % (Auto) 0.2 (0.2-1.2) % Lymph # (Auto) 0.73 L (0.9-3.2) K/mm3 [place] # (Auto) 1.3 H (0.1-0.6) K/mm3 Eos # (Auto) 0.1 (0-0.3) K/mm3 Baso # (Auto) 0.0 (0.0-0.1) K/mm3 Abs Immat Gran (auto) 0.04 H (0.00-0.031) K/mm3 Absolute Neuts (auto) 9.7 H (1.3-6.7) K/mm3 Absolute Nucleated RBC 0.000 (0.0-0.012) K/mm3 Nucleated RBC % 0.0 (0.0-0.2) % Platelet Estimate Adequate (Adequate) Hypochromasia 1+ Anisocytosis 1+ Ovalocytes 1+ Schistocytes None seen Sodium 134 L (137-145) mmol/L Potassium 4.0 (3.4-5.0) mmol/L Chloride 100 (98-107) mmol/L Carbon Dioxide 24 (22-30) mmol/L Anion Gap 10 (4-12) mmol/L BUN 6 L D (7-17) mg/dL Creatinine 0.52 L (0.7-1.0) mg/dL Estim Creat Clear Calc 97 ml/min Estimated GFR > 60 (59 - ) Glucose 106 (65-110) mg/dL Lactic Acid 0.9 (0.7-2.0) mmol/L Calcium 8.5 (8.4-10.2) mg/dL Total Bilirubin 0.7 (0.2-1.3) mg/dL AST 33 (14-36) U/L ALT 17 (6-35) U/L Alkaline Phosphatase 63 (38-126) U/L Total Protein 6.0 L (6.3-8.2) g/dL Albumin 3.5 (3.5-5.1) g/dL Urine Color Yellow (Yellow) Urine Appearance Clear (Clear) Urine pH 7.0 (5.0-9.0) Ur Specific [place] 1.012 (1.001-1.035) Urine Protein Negative (Negative) mg/dL Urine Glucose (UA) Negative (Negative) mg/dL Urine Ketones 3+ H (Negative) mg/dL Ur Blood (Man) Negative (Negative) Urine Nitrate Negative (Negative) Urine Bilirubin Negative (Negative) Urine Urobilinogen 0.2 (<2.0) mg/dL Leukocyte Esterase Rfl Negative (Negative) SHILPA/UL Influenza A (RT-PCR) Negative (Negative) Influenza B (RT-PCR) Negative (Negative) RSV (RT-PCR) Negative (Negative) SARS-CoV-2 RNA (RT-PCR) Negative (Negative) Blood Type AB Positive Antibody Screen Negative Imaging Data Radiologist's impression: ITS Impressions Chest X-Ray 07/26/24 13:38 Impression: Normal chest. Abdomen/Pelvis CT 07/26/24 14:49 IMPRESSION: 1. Postoperative changes of recent hysterectomy with some secondary extraperitoneal gas subtle stranding and minimal fluid in the pelvis. No abscess or other acute intra-abdominal/pelvic process. ECG Data EKG #1: ECG completion date: 07/26/24 ECG completion time: 12:52 EKG Interpretation: tachycardia (120), sinus rhythm, non-specific ST changes, normal QRS, normal QT and NL axis Discharge Plan Discharge Clinical Impression: Post-operative pain, Fever postop Patient Disposition: Still a Patient Condition: Stable Patient Language: Cymro Prescriptions: No Action lisinopril 10 mg tablet 10 mg PO DAILY metoprolol succinate 100 mg tablet extended release 24 hr 100 mg PO HS bgwxdkkxuftf-Ng-jaef-minerals 18-0.4 mg tablet PO DAILY fiber Capsule 3 cap PO DAILY Slow Fe 137 mg (45 mg iron) tablet extended release 137 mg PO DAILY hydrocodone-acetaminophen 5-325 mg tablet 1 tablet PO Q4H PRN (Reason: pain) Qty: 25 0RF Follow-up/Referrals: Erin,LETICIA Gillis [Primary Care Provider] -
[2024-07-26 16:16] LABS: Hematocrit 31.6 % (37.0-47.0); Hemoglobin 9.3 g/dL (12.0-15.0)
[2024-07-26] MEDS: PIPERACILLN/TAZ 3.375GM/NS50ML 3.375 GM/50 ML BAG IVPB ×2 (16:31→22:44)
[2024-07-26] MEDS: SODIUM CHLORIDE 0.9% IV 1,000 ML 125 ML IV CONT (19:22)
--- NOTE | 2024-07-26 20:34 | ADMGEN ---
This patient, Tammy Cross, was admitted to Medical Room 250-01. Patient/family oriented to hospital policies and general routines including ID bracelet, bed and alarms, visiting hours, pain management, procedures, bathroom and other care routines, personal items, smoking policy, room service/diet, and visiting hours. Information on how to activate the Rapid Response Team has been discussed. Patient/Family are encouraged to report perceived risks to care and to ask questions if they do not understand what they are told or what they should do.
[2024-07-26] MEDS: HYDROcodone/acetaminophen (*CRX) 5-325 MG TABLET 1 TAB PO (21:19)
[2024-07-27] VITALS (9 sets, daily range): BP systolic 120–144; BP diastolic 81–96; PULSE 96–110; RESP 16–18; TEMP 35.9–37.3; O2SAT 98–100
[2024-07-27] MEDS: SODIUM CHLORIDE 0.9% IV 1,000 ML 125 ML IV CONT ×3 (04:08→20:04)
[2024-07-27] MEDS: PIPERACILLN/TAZ 3.375GM/NS50ML 3.375 GM/50 ML BAG IVPB ×3 (05:26→17:12)
[2024-07-27] MEDS: HYDROcodone/acetaminophen (*CRX) 5-325 MG TABLET 1 TAB PO ×3 (05:35→17:59)
--- NOTE | 2024-07-27 08:50 | P.HP_ITS ---
H&P: HPI History of Present Illness Date/Time: 07/27/24 08:50 Chief Complaint: Dizziness Narrative: 39-year-old female who presented emergency department with dizziness. She was evaluated found to have tachycardia and fever. She became suddenly dizzy at home. Had a near syncopal event. She is recovering normally from a robotic hysterectomy. It was uncomplicated. CT of the abdomen and pelvis was normal. Normal postoperative CT of the abdomen and pelvis. Her urine showed only increased ketones. Her chest x-ray was normal. She had a fever of 101.2 in the emergency department. No focus of infection could be identified. She was started on Zosyn and admitted for observation. She remained tachycardic. Her tachycardia improved but did not resolve with observation. We will consider 1 unit of blood. We will continue observation. Patient feels much better today. Consider discharge later today on oral antibiotics. Review of Systems Review of Systems: All systems reviewed & are unremarkable except as noted in HPI and below Constitutional: Constitutional: Denies chills, Denies fatigue, Denies fever(s) and Denies weakness Eyes: Eyes: Denies blurry vision, Denies change in vision, Denies loss of peripheral vision, Denies loss of vision, Denies other visual disturbances and Denies eye pain ENT: Denies vertigo, Denies dizziness, Denies hearing loss, Denies mouth pain, Denies nasal obstruction, Denies neck mass and Denies neck pain Cardiovascular: Cardiovascular: Denies chest pain, Denies diaphoresis, Denies syncope, Denies leg edema and Denies dyspnea Respiratory: Respiratory: Denies chest congestion, Denies cough, Denies hemoptysis, Denies dyspnea and Denies wheezing Gastrointestinal: Gastrointestinal: Denies abdominal pain, Denies constipation, Denies diarrhea, Denies nausea and Denies vomiting Genitourinary: Genitourinary: Denies hematuria, Denies change in libido, Denies nocturia, Denies genital lesions, Denies flank pain and Denies urinary urgency Musculoskeletal: Musculoskeletal: Denies abnormal gait, Denies back pain, Denies myalgias, Denies arthralgias, Denies joint swelling, Denies muscle weakness and Denies neck pain Integumentary/Breasts: Skin/Breast: Denies swelling, Denies breast pain, Denies breast mass, Denies dry skin, Denies nipple discharge, Denies unusual bruising and Denies jaundice Neurologic: Denies Neuro-related abnormal movements, Denies Abnormal speech present, Denies abnormal gait, Denies behavioral changes, Denies confusion, Denies vertigo, Denies dizziness, Denies syncope, Denies loss of vision, Denies memory loss, Denies convulsions and Denies weakness Psychiatric: Psychiatric: Denies abnormal sleep pattern, Denies behavioral changes, Denies change in libido, Denies confusion, Denies depression, Denies anhedonia and Denies memory loss Endocrine: Endocrine: Reports no additional endocrine complaints, Denies change in libido and Denies fatigue Hematologic/Lymphatic: Hematologic/Lymphatic: Reports no additional hematologic/lymphatic complaints Allergic/Immunologic: Allergic/Immunologic: Reports no additional allergic/immunologic complaints and Denies wheezing PMFSH Past Medical History Medical History (Updated 07/27/24 @ 08:55 by Sd Giron MD) SVT (supraventricular tachycardia) Hypertension Uterine fibroid Surgical History Surgical History (Updated 07/22/24 @ 12:08 by Wood Herrera MD) H/O cardiac radiofrequency ablation Family History Family History (Updated 07/26/24 @ 20:37 by Frances Hendricks RN) Grandparent Acute myocardial infarction Chronic obstructive pulmonary disease Mother Asthma Cerebrovascular accident Diabetes mellitus Hypertension Sibling Hypertension Father Prostate carcinoma Social History Social History Smoking status: Former smoker Alcohol intake: current Drinks per week: 4 Substance use: never Do You Feel Safe in your Home?: Yes Lack of Transportation: No Lack of Food: Never True Current Housing: I Have Housing Concerned About Future Housing: No Difficulty Paying Gas/Electric Bills: No Difficulty Paying for Meds: No Currently Unemployed: No Education: High School Diploma/GED Difficulty w/ Childcare or Family Care: No Living arrangements: with family Spiritual care concerns: No Meds Home Medications and Allergies Home Medications ?Medication ?Instructions ?Recorded ?Confirmed ?Type ferrous sulfate 137 mg (45 mg 137 mg PO DAILY 07/16/24 07/26/24 History iron) tablet,extended release (Slow Fe) fiber 3 cap PO DAILY 07/16/24 07/26/24 History lisinopril 10 mg tablet 10 mg PO DAILY 07/16/24 07/26/24 History metoprolol succinate 100 mg 100 mg PO HS 07/16/24 07/26/24 History tablet,extended release 24 hr [id number]-Kv-mzvt-minerals 18 1 tablet PO DAILY 07/16/24 07/26/24 History mg-0.4 mg tablet hydrocodone 5 mg-acetaminophen 325 1 tablet PO Q4H PRN pain #25 tabs 07/23/24 07/26/24 Rx mg tablet docusate sodium 100 mg capsule 100 mg PO BID 07/26/24 07/26/24 History (Colace) Allergies Allergy/AdvReac Type Severity Reaction Status Date / Time No Known Allergies Allergy Verified 07/22/24 11:34 Vital Signs Vital Signs - 24 hr 07/26/24 12:16 07/26/24 12:21 07/26/24 12:22 Temperature 101.2 F H Pulse Rate 121 H 121 H 127 H Respiratory Rate 20 34 H 19 Blood Pressure 133/96 H 133/96 H Pulse Oximetry 98 98 98 Oxygen Delivery Room Air 07/26/24 12:30 07/26/24 12:31 07/26/24 12:45 Temperature Pulse Rate 122 H 120 H 123 H Respiratory Rate 16 15 15 Blood Pressure 134/101 H Pulse Oximetry 99 100 99 Oxygen Delivery 07/26/24 13:00 07/26/24 13:01 07/26/24 13:15 Temperature Pulse Rate 124 H 122 H 124 H Respiratory Rate 19 16 19 Blood Pressure 137/99 H Pulse Oximetry 98 99 98 Oxygen Delivery 07/26/24 13:30 07/26/24 13:45 07/26/24 14:00 Temperature Pulse Rate 127 H 129 H 127 H Respiratory Rate 25 H 29 H 20 Blood Pressure Pulse Oximetry 100 100 97 Oxygen Delivery 07/26/24 14:15 07/26/24 14:17 07/26/24 14:18 Temperature Pulse Rate 129 H 127 H 128 H Respiratory Rate 18 15 Blood Pressure 138/94 H 138/94 H Pulse Oximetry 99 100 Oxygen Delivery 07/26/24 14:20 07/26/24 14:20 07/26/24 14:22 Temperature Pulse Rate 132 H 134 H 132 H Respiratory Rate 16 20 Blood Pressure 128/92 H 128/92 H 120/87 Pulse Oximetry 98 Oxygen Delivery 07/26/24 14:23 07/26/24 14:37 07/26/24 14:45 Temperature Pulse Rate 137 H 129 H 123 H Respiratory Rate 24 H 20 Blood Pressure 120/87 Pulse Oximetry 100 100 Oxygen Delivery 07/26/24 15:00 07/26/24 15:22 07/26/24 15:23 Temperature 100.2 F H Pulse Rate 126 H 132 H 129 H Respiratory Rate 17 26 H 20 Blood Pressure 100/89 Pulse Oximetry 98 99 100 Oxygen Delivery 07/26/24 15:24 07/26/24 15:30 07/26/24 15:31 Temperature Pulse Rate 127 H 123 H 123 H Respiratory Rate 21 H 17 18 Blood Pressure 128/91 H Pulse Oximetry 99 98 97 Oxygen Delivery 07/26/24 15:45 07/26/24 16:00 07/26/24 16:00 Temperature Pulse Rate 121 H 126 H Respiratory Rate 18 16 18 Blood Pressure Pulse Oximetry 97 98 Oxygen Delivery 07/26/24 16:15 07/26/24 16:30 07/26/24 16:36 Temperature Pulse Rate 129 H 122 H 119 H Respiratory Rate 13 19 21 H Blood Pressure 133/94 H Pulse Oximetry 99 98 100 Oxygen Delivery 07/26/24 16:45 07/26/24 16:46 07/26/24 17:00 Temperature Pulse Rate 115 H 116 H 113 H Respiratory Rate 18 15 20 Blood Pressure 127/92 H Pulse Oximetry 99 99 100 Oxygen Delivery 07/26/24 18:24 07/26/24 18:30 07/26/24 18:35 Temperature Pulse Rate 117 H 115 H 115 H Respiratory Rate 16 21 H Blood Pressure 115/81 Pulse Oximetry 100 100 100 Oxygen Delivery 07/26/24 18:36 07/26/24 18:45 07/26/24 19:00 Temperature 99.2 F Pulse Rate 112 H 114 H 115 H Respiratory Rate 18 21 H 22 H Blood Pressure 122/92 H Pulse Oximetry 99 99 98 Oxygen Delivery 07/26/24 19:01 07/26/24 19:15 07/26/24 19:30 Temperature Pulse Rate 122 H 113 H 115 H Respiratory Rate 25 H 19 20 Blood Pressure Pulse Oximetry 98 100 98 Oxygen Delivery 07/26/24 19:45 07/26/24 20:00 07/26/24 20:23 Temperature 98.9 F 99.9 F H Pulse Rate 113 H 113 H 126 H Respiratory Rate 17 17 17 Blood Pressure 122/92 H 131/95 H Pulse Oximetry 98 98 100 Oxygen Delivery 07/26/24 20:44 07/26/24 22:28 07/27/24 05:23 Temperature 99.1 F Pulse Rate 105 H Respiratory Rate 17 Blood Pressure 124/81 Pulse Oximetry 100 Oxygen Delivery Room Air Room Air 07/27/24 08:09 Temperature 96.7 F L Pulse Rate Respiratory Rate Blood Pressure Pulse Oximetry Oxygen Delivery Exam Const: General: cooperative, healthy appearing, comfortable and no acute distress Orientation/consciousness: oriented to person, oriented to place and oriented to time HENMT: Head: normal to inspection Ears: external ears normal Face/Nose/Sinus: Normal external nose present and normal facial exam Face and sinus: normal facial exam Eyes: General: appearance normal, both eyes and all related structures Neck: Neck: normal visual inspection, trachea midline and supple Resp: Auscultation: clear to auscultation bilaterally, no crackles, no rales, no rhonchi and no wheezes Cardio: Rate: regular rate Rhythm: regular rhythm Heart sounds: no click, no murmurs and no rubs GI: GI Palp: No abdominal tenderness, No Soft to palpation, No Tenderness to palpation present (GI) and No Palpable mass present Auscultation: normal bowel sounds Skin: General skin exam: normal color and no rashes or lesions noted Neuro: General: oriented to person, oriented to place and oriented to time Extrem: General: normal to inspection, no joint enlargement, no clubbing, cyanosis or edema, no pedal edema and no calf tenderness Psych: Appearance: grossly normal Mental Status: mental status grossly normal Speech and movement: Normal speech and movement present H&P: Results Labs Labs: Short CBC 07/26/24 07/26/24 Range/Units 12:44 16:07 WBC 11.9 H (4.5-10.0) K/mm3 Hgb 8.8 L 9.3 L (12.0-15.0) g/dL Hct 30.1 L 31.6 L (37.0-47.0) % Plt Count 275 (150-375) k/mm3 BMP 07/26/24 12:44 Sodium 134 L Potassium 4.0 Chloride 100 Carbon Dioxide 24 BUN 6 L D Creatinine 0.52 L Glucose 106 Calcium 8.5 Liver Function 07/26/24 Range/Units 12:44 Total Bilirubin 0.7 (0.2-1.3) mg/dL AST 33 (14-36) U/L ALT 17 (6-35) U/L Alkaline Phosphatase 63 (38-126) U/L Albumin 3.5 (3.5-5.1) g/dL Urine 07/26/24 Range/Units 13:21 Urine Color Yellow (Yellow) Urine Appearance Clear (Clear) Urine pH 7.0 (5.0-9.0) Ur Specific [place] 1.012 (1.001-1.035) Urine Protein Negative (Negative) mg/dL Urine Glucose (UA) Negative (Negative) mg/dL Assessment and Plan Assessment and plan (1) Fever postop: Code(s): R50.82 - Postprocedural fever Status: Acute (2) Anemia: Code(s): D64.9 - Anemia, unspecified Status: Acute (3) Tachycardia: Code(s): R00.0 - Tachycardia, unspecified Status: Acute Plan 39-year-old female who presented emergency department with dizziness. She was evaluated found to have tachycardia and fever. She became suddenly dizzy at home. Had a near syncopal event. She is recovering normally from a robotic hysterectomy. It was uncomplicated. CT of the abdomen and pelvis was normal. Normal postoperative CT of the abdomen and pelvis. Her urine showed only increased ketones. Her chest x-ray was normal. She had a fever of 101.2 in the emergency department. No focus of infection could be identified. She was started on Zosyn and admitted for observation. She remained tachycardic. Her tachycardia improved but did not resolve with observation. We will consider 1 unit of blood. We will continue observation. Patient feels much better today. Consider discharge later today on oral antibiotics.
[2024-07-27] MEDS: polyethylene glycoL 3350 17 GM POWD.PACK PO (09:20)
[2024-07-27] MEDS: lisinopriL 10 MG TABLET PO (09:20)
[2024-07-27] MEDS: DOCUSATE SODIUM 100 MG CAPSULE PO ×2 (09:20→17:11)
[2024-07-27] MEDS: calcium polycarbophiL 625 MG TABLET 1875 MG PO (09:20)
[2024-07-27] MEDS: FERROUS SULFATE DRIED 142 MG TABCR PO (09:20)
[2024-07-27] MEDS: THERAPEUTIC MULTIVITAMINS/MINERALS TAB (*BKC) 1 TABLET PO (09:20)
[2024-07-27] MEDS: BISACODYL 5 MG TABLET EC PO (09:20)
[2024-07-27] MEDS: BISACODYL 10 MG SUPPOSITORY RECTAL (13:49)
[2024-07-27 15:19] LABS: Hematocrit 27.3 % (37.0-47.0); Hemoglobin 7.9 g/dL (12.0-15.0)
--- NOTE | 2024-07-27 20:36 | P.CONIM_ITS ---
Assessment and Plan Assessment and plan (1) Fever postop: Code(s): R50.82 - Postprocedural fever Status: Acute Assessment and Plan: Patient has been placed in observation Likely secondary to atelectasis CT abdomen and pelvis reviewed Patient empirically on antibiotics Doubtful of acute infection Postop day 4 (2) Anemia: Code(s): D64.9 - Anemia, unspecified Status: Acute Assessment and Plan: Transfuse as needed (3) Menorrhagia: Code(s): N92.0 - Excessive and frequent menstruation with regular cycle Status: Acute Assessment and Plan: Status post hysterectomy (4) SVT (supraventricular tachycardia): Code(s): I47.10 - Supraventricular tachycardia, unspecified Status: Acute Assessment and Plan: Continue metoprolol (5) Hypertension: Code(s): I10 - Essential (primary) hypertension Status: Acute Assessment and Plan: Continue lisinopril HPI Date of Consult Consult date: 07/28/24 Requesting Physician: Sd Giron MD Primary Care Provider: Elis Khan, PA-C Consult Narrative Reason for consult: Fever Narrative: Tammy Cross is a 39 year old female with past medical history significant for uterine bleed, supraventricular tachycardia, ablation, patient is post up day for hysterectomy. Comes to the emergency room due to having episode of near- syncope while in the emergency room patient had also a temp of 101? F, patient has had nausea vomiting at home found to have a hemoglobin of 7.8, patient had resume her metoprolol and lisinopril medications at home a was well. Patient has been taking her pain med the medication as well. Patient was worked up for fever currently started on Zosyn. Will receive 2 units of packed red blood cells. At the time of my visit patient denies any discharge, no cough, no sputum production. Preliminary workup was significant for hemoglobin of 7.8, a CT of abdomen and pelvis was significant for post operative changes and mild discoid atelectasis. Patient has been placed in observation for further evaluation management and treatment. linical Indication: Postop fever PA and lateral views of the chest: Comparison: 04/23/2024 Findings: The lungs are clear, without evidence of focal consolidation or pleural effusion. Cardiomediastinal silhouette is within normal limits. Bones and soft tissues are unremarkable. Impression: Normal chest. EXAMINATION: CT abdomen pelvis w con DATE: 07/26/2024 14:33 INDICATION: Lower abdominal pain TECHNIQUE: Computed tomography (CT) of the abdomen and pelvis was performed with 100 mL Omnipaque-350 intravenous contrast. Automated exposure control and iterative reconstruction technique were employed. The dose-length product was 313.69 mGy-cm. COMPARISON: None FINDINGS: Mild discoid atelectasis in the dependent right lower lobe. Arch size is normal. No pericardial or pleural effusion. Liver, gallbladder, spleen, pancreas and bilateral adrenal glands are normal. There are subcentimeter bilateral renal cysts the largest on the right measuring 6 mm. Bladder is normal. Bowels including the appendix are normal. The uterus is not identified and has likely been surgically resected. There is stranding and minimal amount of fluid in the pelvis as well as some extraperitoneal gas in the pelvis and gas in the abdominal wall likely related to the recent prior hysterectomy. No abscess or free intraperitoneal gas. Several bilateral fluid attenuation ovarian follicles with 2.8 cm dominant follicle at the left ovary. No pathologically enlarged abdominal or pelvic lymphadenopathy. Bones are unremarkable. IMPRESSION: 1. Postoperative changes of recent hysterectomy with some secondary extraperitoneal gas subtle stranding and minimal fluid in the pelvis. No abscess or other acute intra-abdominal/pelvic process. Review of Systems 2 Review of Systems: Near syncope, fever PMFSH Past Medical History Medical History (Updated 07/28/24 @ 01:15 by Kayla Torrez MD) SVT (supraventricular tachycardia) Hypertension Uterine fibroid Surgical History Surgical History (Updated 07/22/24 @ 12:08 by Wood Herrera MD) H/O cardiac radiofrequency ablation Family History Family History (Updated 07/26/24 @ 20:37 by Frances Hendricks RN) Grandparent Acute myocardial infarction Chronic obstructive pulmonary disease Mother Asthma Cerebrovascular accident Diabetes mellitus Hypertension Sibling Hypertension Father Prostate carcinoma Social History Social History Smoking status: Former smoker Alcohol intake: current Drinks per week: 4 Substance use: never Do You Feel Safe in your Home?: Yes Lack of Transportation: No Lack of Food: Never True Current Housing: I Have Housing Concerned About Future Housing: No Difficulty Paying Gas/Electric Bills: No Difficulty Paying for Meds: No Currently Unemployed: No Education: High School Diploma/GED Difficulty w/ Childcare or Family Care: No Living arrangements: with family Spiritual care concerns: No Meds Home Medications and Allergies Home Medications ?Medication ?Instructions ?Recorded ?Confirmed ?Type ferrous sulfate 137 mg (45 mg 137 mg PO DAILY 07/16/24 07/26/24 History iron) tablet,extended release (Slow Fe) fiber 3 cap PO DAILY 07/16/24 07/26/24 History lisinopril 10 mg tablet 10 mg PO DAILY 07/16/24 07/26/24 History metoprolol succinate 100 mg 100 mg PO HS 07/16/24 07/26/24 History tablet,extended release 24 hr mjndqsiwiebd-Br-etih-minerals 18 1 tablet PO DAILY 07/16/24 07/26/24 History mg-0.4 mg tablet hydrocodone 5 mg-acetaminophen 325 1 tablet PO Q4H PRN pain #25 tabs 07/23/24 07/26/24 Rx mg tablet docusate sodium 100 mg capsule 100 mg PO BID 07/26/24 07/26/24 History (Colace) Allergies Allergy/AdvReac Type Severity Reaction Status Date / Time No Known Allergies Allergy Verified 07/22/24 11:34 Vital Signs Vital Signs - 24 hr 07/26/24 20:44 07/26/24 22:28 07/27/24 05:23 Temperature 99.1 F Pulse Rate 105 H Respiratory Rate 17 Blood Pressure 124/81 Pulse Oximetry 100 Oxygen Delivery Room Air Room Air 07/27/24 08:00 07/27/24 08:09 07/27/24 09:19 Temperature 96.7 F L Pulse Rate Respiratory Rate Blood Pressure 130/87 Pulse Oximetry 100 Oxygen Delivery Room Air 07/27/24 14:00 Temperature 97.7 F Pulse Rate 97 Respiratory Rate 16 Blood Pressure 120/86 Pulse Oximetry 100 Oxygen Delivery Exam 2 Narrative: Patient is sitting in bed Const: General: comfortable, no acute distress, well developed, alert, awake and average body habitus Nutritional Appearance: average body habitus O rientation/consciousness: patient oriented x3 Other: Well-appearing HENMT: Head: normal to inspection, normocephalic and atraumatic Ears: h earing grossly normal bilaterally Face/Nose/Sinus: normal facial exam Face and sinus: normal facial exam Eyes: General: appearance normal, both eyes and all related structures P upils: Equal, round and reactive pupils present EOM: EOMs intact bilaterally Neck: Neck: full ROM, no lymphadenopathy and no JVD Thyroid: thyroid normal Lymphatic: no lymphadenopathy noted Resp: Effort & Inspection: normal respiratory effort and able to speak in complete sentences Auscultation: crackles bilateral at the base Cardio: Jugular venous distension: no JVD Rate: regular rate Rhythm: r egular rhythm Heart sounds: S1 normal heart sound present and S2 normal heart sound present GI: Inspection: no visible herniation and other (Surgical incisions closed.) GI Palp: Yes Soft to palpation and Yes No hepatosplenomegaly present : General: Yes deferred Skin: Rashes: no rashes Wounds: no wounds Neuro: General: patient oriented x3 and CN's II-XI intact bilaterally C ranial nerves: Yes CN's II-XII intact bilaterally and Yes Equal, round and reactive pupils present Cognition (Neuro): normal cognition Speech: normal speech Gait exam (Neuro): Unable to assess gait Motor exam (neuro): 5/5 motor strength present throughout Extrem: General: normal to inspection, full ROM, no joint enlargement and no pedal edema Results Labs 07/27/24 15:13 07/26/24 12:44 Labs: Short CBC 07/27/24 Range/Units 15:13 Hgb 7.9 L (12.0-15.0) g/dL Hct 27.3 L (37.0-47.0) % Hospitalist MIPS Advance Care Plan I have confirmed that the patient's Advanced Care Plan is present, code status is documented, or surrogate decision maker is listed in patient medical record.: Yes Medication Reconciliation I have utilized all available resources to obtain, update and review the patients current medications (includes all prescriptions, OTC, herbals, cannabis, and nutritional supplements).: Yes
--- NOTE | 2024-07-27 20:45 | P.PNOB_ITS ---
[facility] TECHN[facility] - A/P Time Spent With Patient Time: Total time spent is greater than 50% in coordination of care (as documented) at patient's floor/unit and/or counseling patient: Time with patient: 15 - 25 minutes [facility] TECHNICIAN- PN:Iris Post-Op Subjective Date/time seen: 07/27/24 20:45 Improved heart rate this evening, continues to feel weak /fatigue. Hemoglobin approximately 7.7. Given the patient's syncopal episode and her low hemoglobin and we talked about blood transfusion ultimately we agreed to 2 units of packed red blood cells. Considering iron supplementation. Medicine to see patient. We agreed to units packed red blood cells. [facility]IAN - PN: Obj Data Vital Signs Vital Signs: Vital Signs - 24 hr 07/26/24 22:28 07/27/24 05:23 07/27/24 08:00 Temperature 99.1 F Pulse Rate 105 H Respiratory Rate 17 Blood Pressure 124/81 Pulse Oximetry 100 100 Oxygen Delivery Room Air Room Air 07/27/24 08:09 07/27/24 09:19 07/27/24 14:00 Temperature 96.7 F L 97.7 F Pulse Rate 97 Respiratory Rate 16 Blood Pressure 130/87 120/86 Pulse Oximetry 100 Oxygen Delivery Intake/Output Intake/Output: Intake & Output 07/24/24 07/25/24 07/26/24 07/27/24 23:59 23:59 23:59 23:59 Intake Total 2100 4248.3 Output Total 900 2200 Balance 1200 2048.3 Meds/Results Medications: Active Medications Generic Name Dose Route Start Last Admin Trade Name Freq PRN Reason Stop Dose Admin Acetaminophen 650 mg 07/26/24 16:01 Acetaminophen 325 Mg Tablet PO Q4H PRN Mild Pain (1-3) or Fever Hydrocodone Bitart/Acetaminophen 1 tab 07/26/24 16:01 07/27/24 17:59 Hydrocodone/Acetaminophen (*Crx) 5-325 Mg Tablet PO 1 tab Q4H PRN Administration Pain Rated 4-6 Bisacodyl 5 mg 07/27/24 08:14 07/27/24 09:20 Bisacodyl 5 Mg Tablet Ec PO 5 mg QAM PRN Administration Constipation Calcium Polycarbophil 1,875 mg 07/27/24 09:00 07/27/24 09:20 Calcium Polycarbophil 625 Mg Tablet PO 1,875 mg DAILY CHEMA Administration Docusate Sodium 100 mg 07/27/24 09:00 07/27/24 17:11 Docusate Sodium 100 Mg Capsule PO 100 mg BID CHEMA Administration Ferrous Sulfate 142 mg 07/27/24 08:25 07/27/24 09:20 Ferrous Sulfate Dried 142 Mg Tabcr PO 142 mg DAILY@0800 CHEMA Administration Piperacillin/Tazobactam/Dextrose 3.375 gm in 50 mls @ 100 mls/hr 07/26/24 23:00 07/27/24 17:12 Zosyn 3.375 Gm/Ns 50 Ml IVPB 100 mls/hr Q6HR CHEMA Administration Sodium Chloride 1,000 mls @ 125 mls/hr 07/26/24 16:05 07/27/24 20:04 Normal Saline Iv IV CONT 125 mls/hr .Q8H CHEMA Administration Sodium Chloride 250 mls @ 30 mls/hr 07/27/24 16:08 Normal Saline Iv IV CONT 07/28/24 00:27 .Q8H20M STA Lisinopril 10 mg 07/27/24 09:00 07/27/24 09:20 Lisinopril 10 Mg Tablet PO 10 mg DAILY CHEMA Administration Metoprolol Succinate 100 mg 07/27/24 21:00 Metoprolol Succinate Ext Rel 100 Mg Tabcr PO HS [facility] Morphine Sulfate 2 mg 07/26/24 16:01 Morphine Sulfate (*Crx) 2 Mg/Ml Inj IV PUSH Q2H PRN Pain Rated 7-10 Multivitamins/Calcium 1 tablet 07/27/24 09:00 07/27/24 09:20 Therapeutic Multivitamins/Minerals Tab (*Bkc) PO 1 tablet DAILY CHEMA Administration Ondansetron HCl 4 mg 07/26/24 16:01 Ondansetron Inj 4 Mg/2 Ml Vial IV PUSH Q4H PRN Nausea Polyethylene Glycol 17 gm 07/27/24 08:14 07/27/24 09:20 Polyethylene Glycol 3350 17 Gm Powd.Pack PO 17 gm QAM PRN Administration Constipation Radiology Results: ITS Impressions Chest X-Ray 07/26/24 13:38 Impression: Normal chest. Abdomen/Pelvis CT 07/26/24 14:49 IMPRESSION: 1. Postoperative changes of recent hysterectomy with some secondary extraperitoneal gas subtle stranding and minimal fluid in the pelvis. No abscess or other acute intra-abdominal/pelvic process. Labs 07/27/24 15:13 07/26/24 12:44 Labs: Laboratory Results - last 24 hr 07/26/24 07/27/24 16:07 15:13 Hgb 7.9 L Hct 27.3 L Blood Type AB Positive Antibody Screen Negative Crossmatch See Detail
[2024-07-27] MEDS: METOPROLOL SUCCINATE EXT REL 100 MG TABCR PO (22:33)
[2024-07-28] VITALS (14 sets, daily range): BP systolic 121–157; BP diastolic 78–93; PULSE 79–108; RESP 16–20; TEMP 36.3–37.3; O2SAT 98–100
--- NOTE | 2024-07-28 | ECHO_ITS ---
Patient Info Name: Tammy Cross Age: 39 years : 1985 Gender: Female Ht: 62 in Wt: 139 lbs BSA: 1.67 m2 HR: 92 bpm BP: 138 / 89 mmHg Heart Rhythm: Sinus Rhythm Technical Quality: Excellent Exam Date: 07/28/2024 2:45 PM Exam Location: Echo Lab Exam Room: [facility] Patient Status: Inpatient Admit Date: 07/28/2024 Staff Ordering Physician: Dayanara Hurd APRN Tools Developer: Jessica Castillo RDCS Attending Provider: Sd Giron MD Referring Physician: Vannessa SAMANO; Exam Type: CA echo doppler w bubble study Study Info Indications - Syncope Complete two-dimensional, color flow and Doppler transthoracic echocardiogram is performed with agitated saline. Summary 1. There is normal biventricular size and systolic function. 2. There is no significant valvular disease. Left Ventricle The left ventricle is normal in size and systolic function. The left ventricular ejection fraction is visually estimated to be 55-60%. There is a false tendon noted in the left ventricle. There is normal diastolic function. Right Ventricle The right ventricle is normal in size and systolic function. Left Atria The left atrium is normal size. Right Atria The right atrium is normal size. Atrial Septum There is no oldge-of-sdsc shunt on the agitated saline study. Pulmonic Valve The pulmonic valve is not well visualized. There is no color Doppler evidence of pulmonic valve regurgitation. Mitral Valve The mitral valve is normal. There is no mitral regurgitation. Tricuspid Valve The tricuspid valve is normal. There is trace tricuspid regurgitation. Pericardium/Pleural Pericardium is normal in appearance with no evidence for significant pericardial effusion. Inferior Vena Cava Inferior vena cava is not well visualized. Aorta The aortic root at the level of the sinus of Valsalva measures 3.4 cm in diameter. Left Ventricular Outflow Tract Name Value Normal LVOT 2D LVOT Diameter 2.0 cm LVOT Doppler LVOT Peak Gradient 7 mmHg LVOT Mean Gradient 3 mmHg LVOT VTI 22 cm LVOT VTI/AV VTI Ratio 0.9 LVOT Stroke Volume 73 ml LVOT CO 6.1 l/min LVOT CI 3.7 l/min/m2 Pulmonic Valve Name Value Normal PV Doppler PV Peak Gradient 3 mmHg Mitral Valve Name Value Normal MV Doppler MV Peak Gradient 4 mmHg MV Mean Gradient 2 mmHg MV Decel [place] 656 cm/s2 MV PHT 49 ms MV Area (PHT) 4.5 cm2 4.0-5.0 MV Area (Cont Eq VTI) 3.2 cm2 MV Regurgitation Doppler MR Peak Gradient 68 mmHg MV Diastolic Function MV E Peak Velocity 111 cm/s MV A Peak Velocity 73 cm/s MV E/A 1.5 MV Decel Time 169 ms MV Annular TDI MV E/e' (Septal) 6.6 <=8.0 MV E/e' (Lateral) 8.2 <=8.0 MV E/e' (Average) 7.4 Tricuspid Valve Name Value Normal TV Regurgitation Doppler TR Peak Velocity 280 cm/s TR Peak Gradient 29 mmHg Aortic Valve Name Value Normal AV Doppler AV Peak Velocity 135 cm/s AV Peak Gradient 7 mmHg AV Mean Gradient 4 mmHg AV VTI 24 cm AV Area (Cont Eq VTI) 3.1 cm2 >=3.0 AV Area (Cont Eq Eloy) 3.1 cm2 AV Regurgitation 2D LVOT Area 3.3 cm2 Ventricles Name Value Normal LV Dimensions 2D/MM IVS Diastolic Thickness (2D) 0.7 cm 0.6-1.0 LVID Diastole (2D) 4.6 cm 3.8-5.2 LVIW Diastolic Thickness (2D) 0.7 cm 0.6-0.9 LVID Systole (2D) 3.3 cm 2.2-3.5 LVOT Diameter 2.0 cm LV Mass (2D Cubed) 101.19 g 67.00-162.00 LV Mass Index (2D Cubed) 60 g/m2 43-95 Relative Wall Thickness (2D) 0.32 LV Fractional Shortening/Ejection Fraction 2D/MM LV Fractional Shortening (2D) 29 % 27-45 LV EF (2D Teicholz) 56 % 54-74 LV Diastolic Volume (4C MOD) 122 ml LV EF (4C MOD) 77 % LV Diastolic Length (4C) 8.2 cm LV Systolic Length (4C) 6.6 cm LV Stroke Volume (4C MOD) 94 ml Atria Name Value Normal LA Dimensions LA Volume (4C A-L) 43 ml RA Dimensions RA Area (4C) 13.7 cm2 <=18.0 Report Signatures
[2024-07-28] MEDS: PIPERACILLN/TAZ 3.375GM/NS50ML 3.375 GM/50 ML BAG IVPB ×3 (01:07→11:04)
[2024-07-28] MEDS: HYDROcodone/acetaminophen (*CRX) 5-325 MG TABLET 1 TAB PO ×2 (02:11→11:03)
[2024-07-28 05:49] LABS: Hematocrit 34.2 % (37.0-47.0); Hemoglobin 10.4 g/dL (12.0-15.0); Mean Corpuscular HGB Conc 30.4 g/dl (32-36); Mean Corpuscular Hemoglobin 22.9 pg (26-34); Mean Corpuscular Volume 75.2 fl (80-100); Mean Platelet Volume 10.1 fl (7.4-10.4); Platelet Count Result 255 k/mm3 (150-375); Red Blood Count 4.55 M/mm3 (4.2-5.4); Red Cell Distribution Width 22.2 % (11.5-14.5); White Blood Count 8.6 K/mm3 (4.5-10.0)
[2024-07-28 06:02] LABS: Anion Gap 7 mmol/L (4-12); Blood Urea Nitrogen 2 mg/dL (7-17); Calcium 8.8 mg/dL (8.4-10.2); Carbon Dioxide 25 mmol/L (22-30); Chloride 106 mmol/L (98-107); Estimated CRCL calculation 94 ml/min; Estimated Glomerular Filt Rate > 60; Glucose 94 mg/dL (65-110); Sodium 138 mmol/L (137-145)
--- NOTE | 2024-07-28 07:43 | P.PNIM_ITS ---
Progress Note: A&P Assessment and Plan (1) Syncopal episodes: Code(s): R55 - Syncope and collapse Status: Acute Assessment and Plan: Echocardiogram Anemia workup Telemetry (2) Fever postop: Code(s): R50.82 - Postprocedural fever Status: Acute Assessment and Plan: s/p hysterectomy with post op fever Likely secondary to atelectasis CT abdomen and pelvis reviewed Patient empirically on antibiotics Doubtful of acute infection Blood cultures with NGTD (3) Anemia: Code(s): D64.9 - Anemia, unspecified Status: Acute Assessment and Plan: 2 uRBC 07/27 for being symaptic Anemia workup (4) Menorrhagia: Code(s): N92.0 - Excessive and frequent menstruation with regular cycle Status: Acute Assessment and Plan: Status post hysterectomy (5) SVT (supraventricular tachycardia): Code(s): I47.10 - Supraventricular tachycardia, unspecified Status: Acute Assessment and Plan: Continue metoprolol (6) Hypertension: Code(s): I10 - Essential (primary) hypertension Status: Acute Assessment and Plan: Continue lisinopril Time Spent With Patient Time: Includes review of chart, time spent patient and family, consulting teams and nursing. Vital signs were reviewed and they are stable. His medications will be reviewed and resumed as appropriate. Findings and treatment plan were discussed with the patient. Questions were solicited and answered to satisfaction. Care plan was discussed with nursing. Over 55 minutes Subjective Date/time seen: 07/28/24 07:43 Interval history: 39 year old female with past medical history significant for uterine bleed, supraventricular tachycardia, ablation s/p hysterectomy with post op fever. Patient states Long history of syncope, she states that was never worked up it was always blamed on her heavy periods. Hemoglobin on arrival to the hospital with close to her baseline, and she did not have any acute bleeding, recommend syncope workup Review of Systems Review of Systems: 12 systems were reviewed and are negativ e except for as per HPI. Exam Narrative: General: well appearing, appears stated age. HEENT: normocephalic, atraumatic. Mucous membranes moist. EOMI, PERRLA, bilateral sclera anicteric, no conjunctival injection. Neck supple without JVD, lymphadenopathy, or bruit. Respiratory: clear to ascultation bilaterally. No rales/rhonic/wheezes. Cardiovascular: Regular rate and rhythm, normal S1-S2 upon ascultation. No murmurs, rubs, or clicks. PMI is nondisplaced, capillary refill less than 3 second. Abdomen: Soft, round, no pulsatile masses, nondistended and nontender. No rebound, no guarding. No CVA tenderness, no hepatosplenomegaly. Bowel sounds present to all four quadrants. No high pitch or tinkling sounds, resonant to percussion. Laparoscopic sites with ecchymosis Extremities: No cyanosis, clubbing, or edema present. Pulses are palpable 2/2. Active ROM to all four extremities. Neuro: Alert and orientated x 4. PERRLA. Cranial nerves 2-12 intact without focal deficit. Skin: Warm, dry, and intact, without rash, erythema, or lesion. Psych: pleasant, cooperative, normal speech, normal affect, no hallucinations, no dysarthia Objective Data Vital Signs Vital Signs: Vital Signs - 24 hr 07/27/24 08:00 07/27/24 08:09 07/27/24 09:19 Temperature 96.7 F L Pulse Rate Respiratory Rate Blood Pressure 130/87 Pulse Oximetry 100 Oxygen Delivery Room Air 07/27/24 14:00 07/27/24 21:00 07/27/24 22:04 Temperature 97.7 F 98.6 F Pulse Rate 97 109 H 108 H Respiratory Rate 16 16 Blood Pressure 120/86 144/96 H Pulse Oximetry 100 100 Oxygen Delivery 07/27/24 22:20 07/27/24 23:20 07/28/24 00:00 Temperature 98.3 F 97.7 F Pulse Rate 110 H 96 91 Respiratory Rate 18 16 Blood Pressure 140/94 H 132/88 Pulse Oximetry 100 98 Oxygen Delivery 07/28/24 00:20 07/28/24 01:04 07/28/24 02:02 Temperature 98.7 F 98.8 F 98.5 F Pulse Rate 91 92 104 H Respiratory Rate 16 20 20 Blood Pressure 138/78 141/93 H 138/91 H Pulse Oximetry 99 98 99 Oxygen Delivery 07/28/24 02:21 07/28/24 03:21 07/28/24 04:00 Temperature 99.1 F 98.6 F Pulse Rate 101 H 89 84 Respiratory Rate 20 16 Blood Pressure 132/82 133/84 Pulse Oximetry 99 98 Oxygen Delivery 07/28/24 04:21 07/28/24 05:27 Temperature 97.3 F L 98.3 F Pulse Rate 79 81 Respiratory Rate 16 16 Blood Pressure 157/81 H 138/89 Pulse Oximetry 100 100 Oxygen Delivery Intake/Output Intake/Output: Intake & Output 07/25/24 07/26/24 07/27/24 07/28/24 23:59 23:59 23:59 23:59 Intake Total 2100 4550.4 950 Output Total 900 2200 Balance 1200 2350.4 950 Meds/Results Medications: Active Medications Generic Name Dose Route Start Last Admin Trade Name Freq PRN Reason Stop Dose Admin Acetaminophen 650 mg 07/26/24 16:01 Acetaminophen 325 Mg Tablet PO Q4H PRN Mild Pain (1-3) or Fever Hydrocodone Bitart/Acetaminophen 1 tab 07/26/24 16:01 07/28/24 02:11 Hydrocodone/Acetaminophen (*Crx) 5-325 Mg Tablet PO 1 tab Q4H PRN Administration Pain Rated 4-6 Bisacodyl 5 mg 07/27/24 08:14 07/27/24 09:20 Bisacodyl 5 Mg Tablet Ec PO 5 mg QAM PRN Administration Constipation Calcium Polycarbophil 1,875 mg 07/27/24 09:00 07/27/24 09:20 Calcium Polycarbophil 625 Mg Tablet PO 1,875 mg DAILY CHEMA Administration Docusate Sodium 100 mg 07/27/24 09:00 07/27/24 17:11 Docusate Sodium 100 Mg Capsule PO 100 mg BID CHEMA Administration Ferrous Sulfate 142 mg 07/27/24 08:25 07/27/24 09:20 Ferrous Sulfate Dried 142 Mg Tabcr PO 142 mg DAILY@0800 CHEMA Administration Piperacillin/Tazobactam/Dextrose 3.375 gm in 50 mls @ 100 mls/hr 07/26/24 23:00 07/28/24 06:34 Zosyn 3.375 Gm/Ns 50 Ml IVPB 100 mls/hr Q6HR CHEMA Administration Sodium Chloride 1,000 mls @ 125 mls/hr 07/26/24 16:05 07/28/24 01:43 Normal Saline Iv IV CONT Not Given .Q8H CHEMA Lisinopril 10 mg 07/27/24 09:00 07/27/24 09:20 Lisinopril 10 Mg Tablet PO 10 mg DAILY CHEMA Administration Metoprolol Succinate 100 mg 07/27/24 21:00 07/27/24 22:33 Metoprolol Succinate Ext Rel 100 Mg Tabcr PO 100 mg HS CHEMA Administration Morphine Sulfate 2 mg 07/26/24 16:01 Morphine Sulfate (*Crx) 2 Mg/Ml Inj IV PUSH Q2H PRN Pain Rated 7-10 Multivitamins/Calcium 1 tablet 07/27/24 09:00 07/27/24 09:20 Therapeutic Multivitamins/Minerals Tab (*Bkc) PO 1 tablet DAILY CHEMA Administration Ondansetron HCl 4 mg 07/26/24 16:01 Ondansetron Inj 4 Mg/2 Ml Vial IV PUSH Q4H PRN Nausea Polyethylene Glycol 17 gm 07/27/24 08:14 07/27/24 09:20 Polyethylene Glycol 3350 17 Gm Powd.Pack PO 17 gm QAM PRN Administration Constipation Radiology Results: ITS Impressions Chest X-Ray 07/26/24 13:38 Impression: Normal chest. Abdomen/Pelvis CT 07/26/24 14:49 IMPRESSION: 1. Postoperative changes of recent hysterectomy with some secondary extra peritoneal gas subtle stranding and minimal fluid in the pelvis. No abscess or other acute intra-abdominal/pelvic process. Labs Labs: Laboratory Results - last 24 hr 07/26/24 07/27/24 07/28/24 16:07 15:13 05:35 WBC 8.6 RBC 4.55 Hgb 7.9 L 10.4 L Hct 27.3 L 34.2 L MCV 75.2 L D MCH 22.9 L D MCHC 30.4 L RDW 22.2 H Plt Count 255 MPV 10.1 Sodium 138 Potassium 4.0 Chloride 106 Carbon Dioxide 25 Anion Gap 7 BUN 2 L Creatinine 0.54 L Estim Creat Clear Calc 94 Estimated GFR > 60 Glucose 94 Calcium 8.8 Blood Type AB Positive Antibody Screen Negative Crossmatch See Detail Quality VTE Prophylaxis VTE prophylaxis: mechanical ordered Hospitalist MIPS Advance Care Plan I have confirmed that the patient's Advanced Care Plan is present, code status is documented, or surrogate decision maker is listed in patient medical record.: Yes Medication Reconciliation I have utilized all available resources to obtain, update and review the patients current medications (includes all prescriptions, OTC, herbals, cannabis, and nutritional supplements).: Yes
[2024-07-28] MEDS: FERROUS SULFATE DRIED 142 MG TABCR PO (08:20)
[2024-07-28] MEDS: THERAPEUTIC MULTIVITAMINS/MINERALS TAB (*BKC) 1 TABLET PO (08:20)
[2024-07-28] MEDS: DOCUSATE SODIUM 100 MG CAPSULE PO (08:20)
[2024-07-28] MEDS: lisinopriL 10 MG TABLET PO (08:20)
[2024-07-28] MEDS: SODIUM CHLORIDE 0.9% IV 1,000 ML 125 ML IV CONT (09:29)
[2024-07-28] MEDS: polyethylene glycoL 3350 17 GM POWD.PACK PO (11:05)
--- NOTE | 2024-07-28 12:42 | P.PNOB_ITS ---
[employer] - A/P Assessment and plan (1) SVT (supraventricular tachycardia): Code(s): I47.10 - Supraventricular tachycardia, unspecified Status: Acute (2) Tachycardia: Code(s): R00.0 - Tachycardia, unspecified Status: Acute (3) Fever postop: Code(s): R50.82 - Postprocedural fever Status: Acute (4) Anemia: Code(s): D64.9 - Anemia, unspecified Status: Acute Plan patient doing well today, she received 2 units of blood, resolution of tachycardia, normal blood pressures, ambulating, afebrile, blood culture-no growth, discharged home with precautions and follow-up Postoperative Postoperative day: 1 Postoperative status: doing well Postoperative plan: see orders Time Spent With Patient Time: Total time spent is greater than 50% in coordination of care (as documented) at patient's floor/unit and/or counseling patient: Time with patient: 15 - 25 minutes [employer]- PN:Iris Post-Op Subjective Date/time seen: 07/28/24 12:42 Patient denies any nausea, vomiting, fever, chills. She denies any chest pain shortness of breath incisions are clean dry intact Interval history: 39 year old female with past medical history significant for uterine bleed, supraventricular tachycardia, ablation s/p hysterectomy with post op fever. Subjective: patient reports feeling better, patient has no complaints and pain is well controlled Exam 2 Const: General: healthy appearing, comfortable and no acute distress Resp: Auscultation: clear to auscultation bilaterally, no rales, no rhonchi and no wheezes Cardio: Rate: regular rate Heart sounds: no click, no murmurs and no rubs GI: Inspection: non-distended Auscultation: normal bowel sounds Extrem: General: normal to inspection, no pedal edema and no calf tenderness [employer] - PN: Obj Data Vital Signs Vital Signs: Vital Signs - 24 hr 07/27/24 14:00 07/27/24 21:00 07/27/24 22:04 Temperature 97.7 F 98.6 F Pulse Rate 97 109 H 108 H Respiratory Rate 16 16 Blood Pressure 120/86 144/96 H Pulse Oximetry 100 100 Oxygen Delivery 07/27/24 22:20 07/27/24 23:20 07/28/24 00:00 Temperature 98.3 F 97.7 F Pulse Rate 110 H 96 91 Respiratory Rate 18 16 Blood Pressure 140/94 H 132/88 Pulse Oximetry 100 98 Oxygen Delivery 07/28/24 00:20 07/28/24 01:04 07/28/24 02:02 Temperature 98.7 F 98.8 F 98.5 F Pulse Rate 91 92 104 H Respiratory Rate 16 20 20 Blood Pressure 138/78 141/93 H 138/91 H Pulse Oximetry 99 98 99 Oxygen Delivery 07/28/24 02:21 07/28/24 03:21 07/28/24 04:00 Temperature 99.1 F 98.6 F Pulse Rate 101 H 89 84 Respiratory Rate 20 16 Blood Pressure 132/82 133/84 Pulse Oximetry 99 98 Oxygen Delivery 07/28/24 04:21 07/28/24 05:27 07/28/24 08:00 Temperature 97.3 F L 98.3 F Pulse Rate 79 81 Respiratory Rate 16 16 Blood Pressure 157/81 H 138/89 Pulse Oximetry 100 100 100 Oxygen Delivery Room Air 07/28/24 08:00 Temperature Pulse Rate 90 Respiratory Rate Blood Pressure Pulse Oximetry Oxygen Delivery Intake/Output Intake/Output: Intake & Output 07/25/24 07/26/24 07/27/24 07/28/24 23:59 23:59 23:59 23:59 Intake Total 2100 4550.4 1360 Output Total 900 2200 Balance 1200 2350.4 1360 Meds/Results Medications: Active Medications Generic Name Dose Route Start Last Admin Trade Name Freq PRN Reason Stop Dose Admin Acetaminophen 650 mg 07/26/24 16:01 Acetaminophen 325 Mg Tablet PO Q4H PRN Mild Pain (1-3) or Fever Hydrocodone Bitart/Acetaminophen 1 tab 07/26/24 16:01 07/28/24 11:03 Hydrocodone/Acetaminophen (*Crx) 5-325 Mg Tablet PO 1 tab Q4H PRN Administration Pain Rated 4-6 Bisacodyl 5 mg 07/27/24 08:14 07/27/24 09:20 Bisacodyl 5 Mg Tablet Ec PO 5 mg QAM PRN Administration Constipation Calcium Polycarbophil 1,875 mg 07/27/24 09:00 07/28/24 08:22 Calcium Polycarbophil 625 Mg Tablet PO Not Given DAILY CHEMA Docusate Sodium 100 mg 07/27/24 09:00 07/28/24 08:20 Docusate Sodium 100 Mg Capsule PO 100 mg BID CHEMA Administration Ferrous Sulfate 142 mg 07/27/24 08:25 07/28/24 08:20 Ferrous Sulfate Dried 142 Mg Tabcr PO 142 mg DAILY@0800 CHEMA Administration Piperacillin/Tazobactam/Dextrose 3.375 gm in 50 mls @ 100 mls/hr 07/26/24 23:00 07/28/24 11:04 Zosyn 3.375 Gm/Ns 50 Ml IVPB 100 mls/hr Q6HR CHEMA Administration Sodium Chloride 1,000 mls @ 125 mls/hr 07/26/24 16:05 07/28/24 09:29 Normal Saline Iv IV CONT 125 mls/hr .Q8H CHEMA Administration Lisinopril 10 mg 07/27/24 09:00 07/28/24 08:20 Lisinopril 10 Mg Tablet PO 10 mg DAILY CHEMA Administration Metoprolol Succinate 100 mg 07/27/24 21:00 07/27/24 22:33 Metoprolol Succinate Ext Rel 100 Mg Tabcr PO 100 mg HS CHEMA Administration Morphine Sulfate 2 mg 07/26/24 16:01 Morphine Sulfate (*Crx) 2 Mg/Ml Inj IV PUSH Q2H PRN Pain Rated 7-10 Multivitamins/Calcium 1 tablet 07/27/24 09:00 07/28/24 08:20 Therapeutic Multivitamins/Minerals Tab (*Bkc) PO 1 tablet DAILY CHEMA Administration Ondansetron HCl 4 mg 07/26/24 16:01 Ondansetron Inj 4 Mg/2 Ml Vial IV PUSH Q4H PRN Nausea Polyethylene Glycol 17 gm 07/27/24 08:14 07/28/24 11:05 Polyethylene Glycol 3350 17 Gm Powd.Pack PO 17 gm QAM PRN Administration Constipation Radiology Results: ITS Impressions Chest X-Ray 07/26/24 13:38 Impression: Normal chest. Abdomen/Pelvis CT 07/26/24 14:49 IMPRESSION: 1. Postoperative changes of recent hysterectomy with some secondary extraperitoneal gas subtle stranding and minimal fluid in the pelvis. No abscess or other acute intra-abdominal/pelvic process. Labs 07/28/24 05:35 07/28/24 05:35 Labs: Laboratory Results - last 24 hr 07/26/24 07/27/24 07/28/24 16:07 15:13 05:35 WBC 8.6 RBC 4.55 Hgb 7.9 L 10.4 L Hct 27.3 L 34.2 L MCV 75.2 L D MCH 22.9 L D MCHC 30.4 L RDW 22.2 H Plt Count 255 MPV 10.1 Sodium 138 Potassium 4.0 Chloride 106 Carbon Dioxide 25 Anion Gap 7 BUN 2 L Creatinine 0.54 L Estim Creat Clear Calc 94 Estimated GFR > 60 Glucose 94 Calcium 8.8 Blood Type AB Positive Antibody Screen Negative Crossmatch See Detail
--- NOTE | 2024-07-28 12:45 | PM.DS ---
DS: Admitting Diagnosis Discharge Date July 28, 2024 Admitting Diagnosis postoperative fever, syncope DS: Discharge Diagnosis Discharge Diagnosis (1) Anemia: Code(s): D64.9 - Anemia, unspecified Status: Acute (2) Fever postop: Code(s): R50.82 - Postprocedural fever Status: Acute DS: Summary Hospital Course Reason for hospitalization: syncope, postop fever Hospital Course: 39-year-old female admitted through the emergency department for postoperative fever. She was about 5 days postop at the time of admission. The fever was of unknown etiology, probably atelectasis. CT showed normal postoperative changes in the pelvis. Was treated with antibiotics and 2 units packed red blood cells. She was markedly anemic. She had an episode of syncope prior to admission. To discharge home today. Ambulating well. Time Spent with Patient Time attestation: Total time spent providing and/or coordinating discharge services: DS: Data Data Completed and Pending Labs on day of discharge: Labs from last 24 hours 07/28/24 07/27/24 07/26/24 05:35 15:13 16:07 WBC 8.6 RBC 4.55 Hgb 10.4 L 7.9 L Hct 34.2 L 27.3 L MCV 75.2 L D MCH 22.9 L D MCHC 30.4 L RDW 22.2 H Plt Count 255 MPV 10.1 Sodium 138 Potassium 4.0 Chloride 106 Carbon Dioxide 25 Anion Gap 7 BUN 2 L Creatinine 0.54 L Estim Creat Clear Calc 94 Estimated GFR > 60 Glucose 94 Calcium 8.8 Blood Type AB Positive Antibody Screen Negative Crossmatch See Detail Preliminary micro results at discharge 07/26/24 16:06 Blood Culture - Preliminary Blood 07/26/24 16:06 Blood Culture - Preliminary Blood Discharge Plan Discharge Consulting providers: Gayla Correa Discharging Clinician: Sd Giron Activity: pelvic rest Diet: regular Patient Language: Italian Discharge Medications: Continued lisinopril 10 mg tablet 10 mg PO DAILY metoprolol succinate 100 mg tablet extended release 24 hr 100 mg PO HS ioglpnzbbvor-Qe-uaoz-minerals 18-0.4 mg tablet 1 tablet PO DAILY fiber Capsule 3 cap PO DAILY Slow Fe 137 mg (45 mg iron) tablet extended release 137 mg PO DAILY hydrocodone-acetaminophen 5-325 mg tablet 1 tablet PO Q4H PRN (Reason: pain) Qty: 25 0RF docusate sodium [Colace] 100 mg capsule 100 mg PO BID Date of admission: 07/28/24 08:59 Primary Care Provider: ErinElis Admitting Provider: Sd Giron Attending physician on admission: Sd Giron Condition: Stable
[2024-07-28] MEDS: CYCLOBENZAPRINE HCL 5 MG TABLET PO (14:18)
[2024-07-28 17:40] LABS: Iron 64 ug/dL (37-170)
[2024-07-28 17:50] LABS: Percent Iron Saturation 21 % (20-50)
[2024-07-28 18:11] LABS: Transferrin 211 mg/dL (206-381)
--- OUTSIDE RECORDS SUMMARY | 2024-07-29 10:47 | XMS_ITS | Encounter Summary ---
Author Organization [facility] Address [address] [place] [address] Phone Care Team Providers Care Knitting Machine Operator Helper Name Role Phone No, Physician Primary Care Provider [phone] Elis Khan Primary Care Pr ovider Encounter Details Date Type Department Care Team (Latest Contact Info) Description 01/20/2015 Orders Only [facility] Scanning, Provider Social History Tobacco Use Types Packs/Day Years Used Date Smoking Tobacco: Never Assessed Comments Unknown Sex and Gender Information Value Date Recorded Sex Assigned at Not on file Legal Sex Female 9:19 AM [employer] Gender Identity Not on file Sexual Orientation [...] COVID: Suspected 06/05/2022 06/05/2022 06/06/2022 3:05 AM [employer] COVID: Suspected 06/05/2022 06/05/2022 06/06/2022 4:38 AM [employer]ATION[employer] COVID: Suspected 09/28/2022 09/28/2022 09/28/2022 3:33 PM CDT COVID: Suspected 04/16/2023 04/16/2023 04/16/2023 10:02 AM CDT COVID: Suspected 04/16/2023 04/16/2023 04/16/2023 3:14 PM CDT COVID: Suspected 02/22/2024 02/22/2024 02/22/2024 8:40 AM CDT COVID: Suspected 04/07/2024 04/07/2024 04/07/2024 12:10 PM CDT documented as of this encounter Care Teams Knitting Machine Operator Helper Relationship Specialty Start Date End Date No, Physician PCP - General 05/11/20 10/12/20 Elis Khan PA PCP - General Physician Processing Lead 10/13/20 documented as of this encounter
--- OUTSIDE RECORDS SUMMARY | 2024-07-29 10:47 | XMS_ITS | Clinical Summary ---
Author Organization [facility] Address [address] [place] [address]. [place] [address] [place] [address] Care Team Providers Care Pumping Station Supervisor Name Role Phone Unavailable Primary Care Provider [...]
--- OUTSIDE RECORDS SUMMARY | 2024-07-29 10:47 | XMS_ITS | Continuity of Care Document ---
Author Organization [facility] Address [address] [place] [address] [place] [address] Phone Care Team Providers Care Development Director Name Role Phone Godwin Arevalo MD Unavailable Unavailable Allergies, Adverse Reactions, Alerts Substance Reaction Status Criticality No Known Allergies Active No Inform ation Medications Medication Instructions Dosage Effective Dates (start - stop) Status Comments Lexapro 10 mg tablet take 1 tablet by or al route every day 10 MG - Active Procedures Procedure Date PREV VISIT, [facility], AGE 18-39 OFFICE/OUTPATIENT VISIT, [facility] Advance Directives Directive Yes / No Effective Date File Name No Information Encounters Encounter Description Practice Location Reason(s) For Visit Diagnoses Date Provider Providers Copied on Encounter PREV VISIT, NEW, AGE 18-39 [facility], [address] [place], [id number], [place] tel:[phone] [facility] physical1 (chief complaint) Encounter for general adult medical exam w abnormal findingsPalpitation sFatigueGeneralized Anxiety Disorder 0 [address] Connelly. [address] [place], [id number] , [place]. tel:[phone] Family History Family Member Type Diagnosis Age At Onset Father Problem Alive and well Mother Problem Diabetes mellitus type 2 Mother Problem Hypertension Sister Problem Hypertension Mother Problem Stroke 52 Payers Payer name Insurance type Covered green party ID Authoriza tion(s) No Information Social [...] Mental Status Date Cognitive Assessment Orientation - [place] ed to time, place, person, situation.
--- OUTSIDE RECORDS SUMMARY | 2024-07-29 10:47 | XMS_ITS | Data Portability ---
Author Organization '[facility] Address [address] [place] [address] [place] [address] Assessment No assessment recorded. Plan of Treatment Reminders Order Date Submit Date Provider Last Modified By Organization Details Last Modified Time Details Appointments SURG POST OP 2024 11:15A Laura GIRON MD Not available Not available Not available Lab test, urine 2023 024 ana laura [place], [address], [address], [place], [address], 02/27/2024 16:26:08 CBC w/ auto diff [facility]24 [facility] [address], [address], [place], [address], 07/14/2024 03:00:04 Referral gynecolog ist referral 2023 024 KERRY Monson MD, [address] [facility], [place], [place], [address], 07/06/2024 04:08:59 Procedures None recorded. Surgeries robotic assisted hysterect liyah with salpingec jessee (SURG) 2024 025 KERRY [facility], [address] [facility], [place], [address], 07/23/2024 01:30:12 Imaging US, pelvis 2024 025 [email or web address] [place], [address], [place], [address], 07/08/2024 21:13:44 US, transvagi nal 2024 025 [email or web address] [place], [address], [place], [address], 07/08/2024 21:13:44 Medication Orders Mirena 21 mcg/24 hr (up to 8 years) 52 mg intrauter ine device 2023 024 [email or web address] Not available 02/27/2024 16:33:40 progester one micronize d 200 mg capsule 2024 025 [facility] [address] [place], [address], 07/12/2024 14:46:56 Patient TargetsNo targets recorded. Patient InstructionsNo instructions recorded. Reason for Referral Negotiator Sales Referral for Ut erine leiomyoma Referring Physician: Kalani Felton, CUSTOMER GREETER, Encounter Date: 02/27/2024 Results Created Date Observation Date Name Description Value Unit Range Abnormal Flag Note LastModifiedBy Organization Detail LastModifiedTime 02/27/20 24 02/27/2024 pregn quyen test, urine HCG negati ve Not Available [place] [address], [place], [address], 02/27/2024 16:25:58 07/13/1907/13/2024 CBC W/DIF F WBC 6.7 10'3/ uL 3.5-10 .5 Not Available [facility] (Lab) [address], [place], [address], 07/14/2024 03:00:03 07/13/1907/13/2024 CBC W/DIF F RBC 4.29 10'6/ uL (based on docume nted legal sex) 3.80-5 .20 Not Available [facility] (Lab) [address], [place], [address], 07/14/2024 03:00:03 07/13/19 25 07/13/2024 CBC W/DIF F HGB 8.5 g/dL (based on docume nted legal sex) 11.6-1 5.4 low Not Available [facility] (Lab) [address] [facility], [place], [address], 07/14/2024 03:00:03 07/13/1907/13/2024 CBC W/DIF F HCT 29.8 % (based on docume nted legal sex) 34.0-4 5.0 low Not Available [facility] (Lab) [address] [facility], [place], [address], 07/14/2024 03:00:03 07/13/1907/13/2024 CBC W/DIF F MCV 69.5 fL 80.0-9 9.0 low Not Available [facility] (Lab) [address], [place], [address], 07/14/2024 03:00:03 07/13/1907/13/2024 CBC W/DIF F MCH 19.8 pg 27.0-3 4.0 low Not Available [facility] (Lab) [address], [place], [address], 07/14/2024 03:00:03 07/13/1907/13/2024 CBC W/DIF F MCHC 28.5 g/dL 32.0-3 5.5 low Not Available [facility] (Lab) [address] [facility], [place], [address], 07/14/2024 03:00:03 07/13/1907/13/2024 CBC W/DIF F RDW 19.4 % 11.0-1 5.0 high Not Available [facility] (Lab) [address] [place], [address], 07/14/2024 03:00:03 07/13/1907/13/2024 CBC W/DIF F plt 323 10'3/ uL 150-40 0 Not Available [facility] (Lab) [address] [facility], [place], [address], 07/14/2024 03:00:03 07/13/1907/13/2024 CBC W/DIF F MPV 11.9 fL 8.8-12 .1 Not Available [facility] (Lab) [address] [facility] [address] [facility], [place], [address], 07/14/2024 03:00:03 07/13/1907/13/2024 CBC W/DIF F neutrophils 57.8 % 34.0-7 3.0 Not Available [facility] (Lab) [address], [place], [address], 07/14/2024 03:00:03 07/13/1907/13/2024 CBC W/DIF F lymphocytes 27.2 % 15.0-5 0.0 Not Available [facility] (Lab) [address] [facility] [address] [facility], [place], [address], 07/14/2024 03:00:03 07/13/1907/13/2024 CBC W/DIF F monocytes 11.0 % 1.0-15 .0 Not Available [facility] (Lab) [address], [place], [address], 07/14/2024 03:00:03 07/13/1907/13/2024 CBC W/DIF F eosinophils 2.7 % 0.0-8. 0 Not Available [facility] (Lab) [address] [place], [address], 07/14/2024 03:00:03 07/13/19 25 07/13/2024 CBC W/DIF F basophils 0.9 % 0.0-2. 0 Not Available [facility] (Lab) [address] [place], [address], 07/14/2024 03:00:03 07/13/1907/13/2024 CBC W/DIF F immature granulocytes 0.4 % no define d refere nce range Immat ure Granu locyt es (IG) repre sents autom ated enume ratio n of Metam yeloc ytes, Myelo cytes and Promy elocy annette when IG is < 5%. Blast s are not inclu ded in IG and repor lauren separ ately if prese nt. Not Available [facility] (Lab) [address] [facility], [place], [address], 07/14/2024 03:00:03 07/13/1907/13/2024 CBC W/DIF F absolute neutrophils 3.9 10'3/ uL 1.5-8. 0 Not Available [facility] (Lab) [address] [place], [address], 07/14/2024 03:00:03 07/13/1907/13/2024 CBC W/DIF F absolute lymphocytes 1.8 10'3/ uL 1.0-4. 0 Not Available [facility] (Lab) [address] [facility] [address] [facility], [place], [address], 07/14/2024 03:00:03 07/13/1907/13/2024 CBC W/DIF F absolute monocytes 0.7 10'3/ uL 0.2-1. 0 Not Available [facility] (Lab) [address] [place], [address], 07/14/2024 03:00:03 07/13/1907/13/2024 CBC W/DIF F absolute eosinophils 0.2 10'3/ uL 0.0-0. 6 Not Available [facility] (Lab) [address] [place], [address], 07/14/2024 03:00:03 07/13/1907/13/2024 CBC W/DIF F absolute basophils 0.1 10'3/ uL 0.0-0. 3 Not Available [facility] (Lab) [address], [place], [address], 07/14/2024 03:00:03 07/13/19 25 07/13/2024 CBC W/DIF [...] bhand book. nm.or g/Gen derX Not Available [facility] (Lab) [address] [facility], [place], [address], 07/14/2024 03:00:03 02/18/20 24 02/18/2024 US, trans vagin al No observ ation record ed. [email or web address] [place] [address], [place], [address], 02/18/2024 18:01:42 02/18/20 24 02/18/2024 US, pelvi s No observ ation record ed. [email or web address] [place] [address], [place], [address], 02/18/2024 18:01:51 02/18/20 24 02/18/2024 US, pelvi s No observ ation record ed. [email or web address] [facility] [address] [facility], [place], [address], 02/19/2024 07:41:36 07/08/19 25 07/08/2024 US, pelvi s No observ ation record ed. [email or web address] [place] [address], [place], [address], 07/08/2024 18:48:55 07/08/19 25 07/08/2024 US, trans vagin al No observ ation record ed. [facility] [address], [place], [address], 07/08/2024 18:49:03 07/08/19 25 07/08/2024 US, mary s No observ ation record ed. [email or web address] [address], [place], [address], 07/09/2024 15:46:26 Result Notes None recorded. Problems Name Problem SNOMED Code Status Onset Date Resolution Date Notes Provider Name and Address Organization Details Recorded Time Routine antenata l care Completed 201411/30/2020 Supervisi on of other normal ;Recorded Elsewhere : No Locati on: [facility] So urce: EHR Chron ic: N Practic e ID: 0001 Bill able Time: 04:30:00 PM Amber Martell [facility] 17:25:[address] Concept Completed 201811/30/2020 Encntr for manufacturing inspector exam (general) (routine) w/o abn findings; Recorded Elsewhere : No Locati on: [facility] So urce: EHR Chron ic: N Practic e ID: 0001 Bill able Time: 11:00:00 AM Amber Martell [facility] 17:25:25 Lacerati on of female perineum Completed 201411/30/2020 Perineal tear during delivery involving vaginal muscles;R ecorded Elsewhere : No Locati on: [facility] So urce: EHR Chron ic: N Practic e ID: 0001 Bill able Time: 03:15:00 PM Amber Martell [facility] 17:25:08 Amenorrh ea [id number] Completed 201411/30/2020 AMENORRHE A;Practic e ID: 0001 Amber Martell [facility] 17:24:48 Speciali [facility] medical examinat ion Completed 201411/30/2020 Routine gynecolog ical examinati on;Practi ce ID: 0001 Amber Martell [facility] 17:25:26 Pregnanc y test positive [id number] Completed 201411/30/2020 Positive Test;Prac onel ID: 0001 Amber Martell [facility], [facility] 17:25:15 Uterine size for dates discrepa [facility] [id number] Completed 201411/30/2020 UTERINE SIZE ARON-ANTEP AR;Practi ce ID: 0001 Amber Martell [facility], [facility] 17:25:36 Mild hypereme sis-not delivere d [id number] Completed 201411/30/2020 Hyperemes is gravidaru m, antepartu m Mild;Prac onel ID: 0001 Amber Martell [facility], [facility] 17:25:11 anatomy study Completed 201411/30/2020 [facility] ANATMC SURVEY;Pr actice ID: 0001 Amber Martell [facility] 17:25:02 Complica tion related to pregnanc y Completed 201411/30/2020 PREG COMPL NEC-ANTEP ART;Pract ice ID: 0001 Amber Martell [facility], [facility] 17:24:51 Viral disease in mother complica ting pregnanc y, childbir th AND/OR puerperi [id number] Completed 201411/30/2020 OTH VIRAL DIS-ANTEP ARTUM;Pra ctice ID: 0001 Amber Martell [facility], [facility] 17:25:38 Complica tion of pregnanc y, childbir th and/or puerperi um [id number] Completed 201411/30/2020 COAGULATI ON DEF-ANTEP ART;Pract ice ID: 0001 Amber guillen, [facility] 17:24:53 Dehydrat ion 96168490 Completed 201411/30/2020 DEHYDRATI ON;Practi ce ID: 0001 Amber guillen, [facility] 17:24:54 Transien t hyperten angela of pregnanc y - delivere d [id number] Completed 201411/30/2020 Transient hypertens ion of , with delivery; Practice ID: 0001 Amber guillen, [facility] 17:25:30 Transien t hyperten angela of pregnanc y - not delivere d 116916811 Completed 201411/30/2020 TRANS HYPERTEN- ANTEPART; Practice ID: 0001 Amber guillen, [facility] 17:25:32 Delivery normal [id number] Completed 201411/30/2020 NORMAL DELIVERY; Practice ID: 0001 Amber guillen, [facility] 17:24:56 Single live [id number] Completed 201411/30/2020 DELIVER-S FRANCISCO LIVEBORN; Practice ID: 0001 Amber guillen, [facility] 17:25:21 Pregnanc y-induce d hyperten angela Completed 201411/30/2020 Gestation al htn w/o significa nt proteinur ia, first trimester ;Practice ID: 0001 Amber guillen, [facility] 17:25:16 Pregnanc y-induce d hyperten angela Completed 201411/30/2020 Gestation al htn w/o significa nt proteinur ia, third trimester ;Practice ID: 0001 Amber guillen, [facility] 17:25:18 Depressi ve disorder 45625195 Completed 201411/30/2020 Major depressiv e disorder, single episode, unspecifi ed;Practi ce ID: 0001 Amber Martell [facility] 17:24:58 Hemorrho ids [id number] Completed 201411/30/2020 Unspecifi ed hemorrhoi ds;Practi ce ID: 0001 Amber Martell [facility] 17:25:06 Lochia finding Completed 201411/30/2020 Encounter for routine postpartu m follow-up ;Practice ID: 0001 Amber Martell [facility] 17:25:10 Pain in female genitali a Completed 201811/30/2020 Dysmenorr hea, unspecifi ed;Practi ce ID: 0001 Amber Martell [facility] 17:25:01 Uterine leiomyom a [id number] Completed 201811/30/2020 Leiomyoma of uterus, unspecifi ed;Practi ce ID: 0001 Amber Martell [facility] 17:25:34 Polyp of corpus uteri 27763830 Completed 201811/30/2020 Polyp of corpus uteri;Pra ctice ID: 0001 Amber Martell [facility] 17:25:13 Finding of menstrua l bleeding Completed 201811/30/2020 Excessive and frequent menstruat ion with regular cycle;Pra ctice ID: 0001 Amber Martell [facility] 17:25:04 Uses combined oral contrace ption [id number] Completed 201811/30/2020 Encounter for surveilla nce of contracep tive pills;Rec orded Elsewhere : No Locati on: [facility] So urce: EHR Chron ic: N Practic e ID: 0001 Bill able Time: 02:00:00 PM Amber Martell [facility] 17:24:[address] Concept Completed 201511/30/2020 Encntr for general adult medical exam w/o abnormal findings; Recorded Elsewhere : No Locati on: [facility] So urce: EHR Chron ic: N Practic e ID: 0001 Bill able Time: 02:00:00 PM Amber Martell [facility] 17:25:23 Elevated blood-pr essure reading without diagnosi s of hyperten angela [id number] Completed 201811/30/2020 Elevated blood-pre ssure reading without diagnosis of hypertens ion;Recor ded Elsewhere : No Locati on: [facility] So urce: EHR Chron ic: N Practic e ID: 0001 Bill able Time: 02:00:00 PM Amber Martell [facility] 17:24:59 Surveill ance of contrace ption Completed 201511/30/2020 Encounter for surveilla nce of contracep tives, unspecifi ed;Record ed Elsewhere : No Locati on: [facility] So urce: EHR Chron ic: N Practic e ID: 0001 Bill able Time: 02:00:00 PM Amber Martell [facility] 17:25:28 Problem Notes None recorded. Procedures Surgical History Date Name Laterality Status Provider Name and Address Organization Details Recorded Time 025 ROBOTIC ASSISTED HYSTERECTOMY WITH SALPINGECTOMY (SURG) completed Sosa Lara [facility] 07/23/2024 09:23:18 024 IUD Insertion completed KALANI FELTON MD [address], [place], [address], [facility] 02/27/2024 16:26:33 023 Date of Last Pap Smear completed Sosa Lara [facility] 07/01/2024 11:10:28 021 cardiac radiofrequency ablation using ultrasound guidance completed [facility] 02/27/2023 18:12:16 019 Dilation and Curettage completed [facility] 02/27/2023 18:03:31 015 operative reduction of prolapse of anus completed [facility] 02/27/2023 18:02:53 013 fistulectomy of rectum completed [facility] 02/27/2023 18:12:47 hemorrhoidectomy completed [facility] 02/27/2023 18:03:50 Imaging Results Imaging Date Name Status LastModified by Organization Details LastModified Time 02/18/2024 US, transvaginal completed daniela posey [address], [place], [address], 02/18/2024 18:01:42 02/18/2024 US, pelvis completed daniela [address], [place], [address], 02/18/2024 18:01:51 02/18/2024 US, pelvis completed [email or web address] [address], [place], [address], 02/19/2024 07:41:36 07/08/2024 US, pelvis completed abhay [address], [place], [address], 07/08/2024 18:48:55 07/08/2024 US, transvaginal completed bahay posey [address], [place], [address], 07/08/2024 18:49:03 07/08/2024 US, pelvis completed [address] [facility], [place], [address], 07/09/2024 15:46:26 Procedure Notes None recorded. Medical [...] ed Elsewher e: No Locat ion: [facility] odkong By: [email or web address] E ncounter DateTime : [...] Elsewher e: No Locat ion: Indira posey [facility] odify By: bchaeverett kenyon DateTime : 01/19/20 19 10:30:00 AM Not Available Not Available Not Available BATTERY CHARGER CONVEYOR LINE-PNV-DH A 28 mg iron-1 mg-200 mg capsule take 1 capsule by oral route every day 10/08 completed Prescrib ed Elsewher e: No [facility] By: eddi zuritaunter DateTime : 07/27/19 15 02:15:00 PM Not Available Not Available Not Available Blisovi Fe 07/19 (28) 1 mg-20 mcg (21)/75 mg (7) tablet take 1 tablet by oral route every day 02/27 completed Prescrib ed Elsewher e: No Locat ion: Indira posey [facility] odify By: shakeel kenyon DateTime : 01/20/20 11:41:21 AM Not Available Not Available Not Available Anusol-HC 2.5 % topical cream with perineal applicato r apply by topical route 2 times every day to the affected area(s) 06/13 completed Prescrib neil Baltazar e: No Locat ion: Indira posey [facility] odify By: boogie kenyon DateTime : [...] Updated DateTime 02/27/2024 157.48 cm 23.9 kg/m2 95973.16 g 119 mm[Hg] 79 mm[Hg] Rosamaria Villeda [facility] 4 15:55:15 Date Recorded Body height Body mass index (BMI) Body weight Systolic blood pressure Diastolic blood pressure Provider Name and Address Organization Details Last Updated DateTime 07/01/2024 157.48 cm 25.4 kg/m2 69726.34 g 126 mm[Hg] 86 mm[Hg] Sosa Lara [facility] 5 11:10:01 Date Recorded Body height Body mass index (BMI) Body weight Systolic blood pressure Diastolic blood pressure Provider Name and Address Organization Details Last Updated DateTime 07/12/2024 157.48 cm 25.2 kg/m2 45050.75 g 138 mm[Hg] 91 mm[Hg] Shannon Stephens [facility] 5 14:07:58 Social History Question Answer Notes LastModified by Organizat ion Details LastModified Time Tobacco Smoking Status Never [facility]oker [facility] 11/30/2020 17:28:58 What Is Your Level [...] Anxious, Or Unable To Sleep At Night)? [id number] Information not available 11/30/2020 Do You Use [...] SNOMED-CT Code Diagnosis ICD10 Code Diagnosis Note [id number] Nancy Langley , [facility] [address] [address] 02/27/2023 17:48:10 02/28/2023 15:47:46 Gynecologic examination 85799069 Z01.419 Take Calcium with Vitamin D 1200mg [...] Screen PCPDexa Screen PCPRoutine Labs PCP Menorrhagia 114117318 N9 2.0 Labs updated by . TedFunmilayokalpesh is anemic confirmed with her PCPWould like to consider ablationDo es not want to do BC or hormonal optionsDon e having childrenWi ll update US & then she will make MD consult to discuss ablation Lack or lo ss of sexual desire 222108047 F52.0 discussed addyi & Vyleesiwil l let us know if any interest in pursuing. [id number] [facility] [address] [address] 03/11/2023 17:26:48 03/11/2023 18:02:06 Menorrhagia 076851251 N92.0 [id number] KALANI FELTON MD [place] [address],[place] [address] 03/27/2023 18:04:44 03/28/2023 16:04:11 Abnormal uterine bleeding 5344774042 9100 N93.9 D25.9 - discussed fibroid is [...] of care and treatment options with patient [id number] Gena [facility] [address] [address] 02/18/2024 17:20:24 02/19/2024 09:08:46 Menorrhagia 948301242 D25.9 [id number] KALANI FELTON MD [place] [address] [address] 02/27/2024 15:46:17 02/27/2024 16:55:06 Screening procedure 94480051 Z13.9 Insertion of intrauterine contraceptive device 23193408 Z30.430 - IUD inserted without difficulty - RTC 1 month for IUD check- due on 01/2032 Uterine leiomyoma 495855 05 D25.9 -7cm fundal fibroid, stable from last exam- mild pressure and heavy periods- would like referral to [facility] for possible removal [id number] KALANI FELTON MD [place] [address] [address] 07/01/2024 09:34:06 07/01/2024 11:54:46 IUD check 918590467 Z30.431 - Mirena IUD placed 02/27/24, due for removal 01/2032- no issues at this time from Mirena Uterine leiomyoma 847174 05 D25.9 -7cm fundal fibroid, stable from last exam- mild pressure and heavy periods- periods improved on Mirena now- new pressure/l eakage/con stipation- will repeat US to reevaluate fibroid size/posit ion due to new symptoms- referral to [facility] sent, scheduled for September 2024 [id number] Antonieta Martell [place] [address] [address] 07/08/2024 16:47:16 07/09/2024 05:26:16 Uterine leiomyoma 53281621 D25.9 R10.2 N93.9 [id number] [place] [address] [address] 07/12/2024 14:01:23 07/12/2024 15:14:31 Menorrhagia 895420315 D25.9 This patient is a 39-year-ol d [...] hemorrhage and infection. Abnormal u terine bleeding [id number] 9100 N93.9 [id number] Sd Giron MD [place] [address] [address] 07/22/2024 12:03:15 07/24/2024 03:52:11 Health Concerns Section Related Observation LastModified by Organization Detai ls LastModified Time None Recorded Concern Status LastModified by Organization Details LastModified Time None Recorded Advance Directives Directive None Recorded Payers Encounter Date Sequence Insurance Name Policy Number Policy Allen Covered Member ID Allen Member ID Guarantor Name 02/27/2024 1 [employer] [address] [id number] Tammy Cross 07/01/2024 1 [employer] [address] [id number] Tammy Arteagahn 07/08/2024 1 [employer] [address] [id number] Tammy Arteagahn 07/12/2024 1 [employer] [address] [id number] Tammy Arteagahn 07/22/2024 1 [employer] [address] [id number] Tammy Cross Notes Date Note Type Note Provider Name and Address Organization Details Recorded Time 02/27/2024 text/html Patient presents for IUD insertion. KALANI FELTON MD [address], [place], [address], [facility] 02/27/2024 16:31:56 07/01/2024 text/html Presents today [...] fibroid. KALANI FELTON MD [address], [place], [address], [facility], [...] infection. Sd Giron MD [address], [place], [address], [facility] 07/12/2024 14:57:28 OBGyn Episode Ob Episode Information Episode Created Date Number of Fetuses Patient Bloodtype Patient rh Status Prepregnancy Weight lbs Domestic Partner Domestic Partner Phone Father Name Action Finisher Status 12/01/19 21 1 CLOSED Fetus Data First Name Last Name Admitted to NICU Weight (g) Sex Living Outcome Pediatric Complications Fetus ID Race Codes Race Delivery Type 3401.94 M Full Term [id number] Vaginal Delivery Brett Calculation Initial Brett Date [...] Domestic Partner Domestic Partner Phone Father Name Action Finisher Status 12/01/19 21 1 CLOSED Fetus Data First Name Last Name Admitted to NICU Weight (g) Sex Living Outcome Pediatric Complications Fetus ID Race Codes Race Delivery Type 3600.15 9704 M Full Term [id number] Vaginal Delivery Brett Calculation Initial Brett Date [...]
--- OUTSIDE RECORDS SUMMARY | 2024-07-29 10:47 | XMS_ITS | Data Portability ---
Author Organization [facility] Food Reporter, Main Office Address [address] [place] [address] Assessment No assessment recorded. Plan of Treatment Reminders Order Date Submit Date Provider Last Modified By Organization Details Last Modified Time Details Appointments None recorded. Lab TSH + free T4, serum 023 023 [email or web address] [facility] [address] [address] [place], [address], 4 09:20:37 lipid panel, serum 023 023 KERRY [facility] [address] [address] [place], [address], 3 10:01:45 iron + TIBC + ferritin, serum 023 023 [email or web address] [address] [address] [place], [address], 4 09:20:37 vitamin B12 + folate, serum or blood 023 023 [email or web address] [address] [address] [place], [address], 4 09:20:37 HbA1c (hemoglob in A1c), blood 023 023 [email or web address] [address] [address] [place], [address], 4 09:20:36 CBC w/ auto diff 023 023 [email or web address] [address], [place], [address], 4 09:20:36 CMP, serum or plasma 023 023 [facility] [place], [address], [place], [address], 3 10:01:45 Referral None recorded. Procedures None [...] Address Organization Details Recorded Time Acute bronchitis 06404688 Active 2021 Not Available [facility] 3 22:45:45 Benign essential hypertension 4652977 Active 2021 Not Available [facility] 3 22:45:45 Acute sinusitis 60406366 Active 2021 Not Available [facility] 3 22:45:45 Anemia 223130647 Active 2021 Not Available [facility] 3 22:45:45 Cough 24731420 Active 2021 Not Available [facility] 3 22:45:45 Sinusitis 47524378 Active 2022 TAN Jones [address] [facility] [address], [place], [address] , [facility] 3 15:01:19 Problem Notes None recorded. Procedures Surgical History Date Name Laterality Status Provider Name and Address Organization Details Recorded Time 09/09/19 21 catheter ablation of arrhythmogenic focus completed Not Available [facility] 08/28/2022 22:44:04 excision of uterine polyp completed Not Available [facility] 08/28/2022 22:44:04 Imaging Results None recorded. Procedure [...] % 110 /min 16 /min 97.5 [degF] 48733.4 2 g 130 mm[Hg] 80 mm[Hg] Not Available [facility] 3 22:44:50 Date Recorded Body mass index (BMI) Body height Oxygen saturation Oxygen saturation in Arterial blood by Pulse oximetry Heart rate Respiratory rate Body temperature Body weight Systolic blood pressure Diastolic blood pressure Provider Name and Address Organization Details Last Updated DateTime 2 23.8 kg/m2 157.48 cm 99 % 99 % 88 /min 16 /min 98.3 [degF] 33854.0 1 g 128 mm[Hg] 68 mm[Hg] Not Available [facility] 3 22:44:50 Date Recorded Body height Body temperature Body mass index (BMI) Body weight Respiratory rate Oxygen saturation Oxygen saturation in Arterial blood by Pulse oximetry Heart rate Systolic blood pressure Diastolic blood pressure Provider Name and Address Organization Details Last Updated DateTime 3 157.48 cm 98 [degF] 24.1 kg/m2 52493.4 g 16 /min 99 % 99 % 73 /min 122 mm[Hg] 80 mm[Hg] Tangela CruzBHARTI [place] [facility] 09:17:28 Social History Question Answer Notes LastModified by Organizat ion Details LastModified Time Tobacco Smoking Status Never Smoker Not Available [facility] 08/28/2022 22:43:37 What Is Your Level Of Alcohol Consumption? Occasional [id number] Information not available 08/28/2022 What Is Your Level Of Caffeine Consumption? Moderate MIGRATION.310603 1365 Information not available 08/28/2022 How Much Tobacco Do You Chew? None MIGRATION.831476 3192 Information not available 08/28/2022 In The 14 Days Before Symptom Onset, Have You Had Close Contact With A Laboratory-confir med COVID-19 While That Case Was Ill? No MIGRATION.793870 8843 Information not available 08/28/2022 In The 14 Days Before Symptom Onset, Have You Had Close Contact With A Person Who Is Under Investigation For COVID-19 While That Person Was Ill? No MIGRATION.555276 0978 Information not available 08/28/2022 What Type Of Diet Are You Following? REGULAR MIGRATION.646464 5701 Information not available 08/28/2022 Which Illicit Or Recreational Drugs Have You Used? None MIGRATION.472835 8018 Information not available 08/28/2022 Do You Or Have You Ever Used E-cigarettes Or Vape? Never Used Electronic Cigarettes MIGRATION.261751 4893 Information not available 08/28/2022 Have There Been Any Changes To Your Family Or Social Situation? No MIGRATION.843771 8825 Information not available 08/28/2022 Are There Any Guns Present In Your Home? Yes MIGRATION.085576 9537 Information not available 08/28/2022 Do You Use Insect Repellent Routinely? No MIGRATION.273724 3017 Information not available 08/28/2022 What Was The Date Of Your Most Recent Tobacco Screening? 10/13/2020 MIGRATION.[id number] 0742 Information not available 08/28/2022 What Is Your Relationship Status? MIGRATION.979629 4293 Information not available 08/28/2022 Do You Use Your Seat Belt Or Car Seat Routinely? Yes MIGRATION.054118 8808 Information not available 08/28/2022 Do You Have Smoke And Carbon Monoxide Detectors In Your Home? Yes MIGRATION.930780 2430 Information not available 08/28/2022 Are You Passively Exposed To Smoke? No MIGRATION.090949 1180 Information not available 08/28/2022 Do You Or Have You Ever Used Smokeless Tobacco? Never Used Smokeless Tobacco MIGRATION.709744 1332 Information not available 08/28/2022 How Much Tobacco Do You Smoke? No MIGRATION.333173 1223 Information not available 08/28/2022 Do You Use Any Illicit Or Recreational Drugs? No MIGRATION.949918 1840 Information not available 08/28/2022 Do You Use Sunscreen Routinely? Yes MIGRATION.766581 8456 Information not available 08/28/2022 Have You Recently Traveled Abroad? No MIGRATION.974995 3758 Information not available 08/28/2022 Do You Have Any Dietary Restrictions? No MIGRATION.798994 8258 Information not available 08/28/2022 Do You Or Have You Ever Used Any Other Forms Of Tobacco Or Nicotine? No MIGRATION.280281 4721 Information not available 08/28/2022 Sex: Unknown Functional Status Question Answer Note LastModified by [employer] ion Details LastModified Time What is your exercise level? Moderate [id number].[id number] 6 Information not available 08/28/2022 Mental Status None recorded. Family History Relationship Description Onset Age of this Age Resolved Age Notes LastModified by Organization Details LastModified Time Mother Diabetes mellitus MIGRATION.[id number] Not available 08/28/2022 22:44:07 Father Hypertensive disorder MIGRATION.[id number] Not available 08/28/2022 22:44:07 Medical History Condition Response NERVE DISEASE N BLINDNESS N RHEUMATIC FEVER N KIDNEY STONES N BLADDER PROBLEMS N MRSA N OTHER # 1 N POLIO N LUNG DISEASE/DISORDER N RADIATION / CHEMOTHERAPY N COPD N Other # 2 N BLOOD DISEASES N SURGERY N EAR OR HEARING PROBLEMS N MUMPS N BOWEL PROBLEMS N DEPRESSION (INCLUDING POST ) N STROKE/TIA N ULCERS N BENIGN PROSTATIC HYPERPLASIA N MEASLES N MYOCARDIAL INFARCTION N OBESITY N GERD/NAUSEA N ANEURYSM N URINARY/BLADDER/KIDNEY PROBLEMS N CORONARY ARTERY DISEASE (CAD) N ADDICTION CONCERNS N ENDOMETRIOSIS N Impotence N USE OF BLOOD THINNERS N SKIN [...] APNEA N CHICKENPOX N INFECTIOUS DISEASE N HEART ARRHYTHMIA N PROSTATE N INSOMNIA N HIGH CHOLESTEROL / HYPERLIPIDEMIA N HYPERTHYROIDISM N EYE PROBLEMS N NEUROLOGICAL PROBLEMS N EDEMA N CHRONIC PAIN SYNDROME N HYPOTHYROIDISM N CAROTID BLOCKAGE N CONSTIPATION N BACK / NECK PROBLEMS N HAVE YOU BEEN HOSPITALIZED OR SEEN IN THE MEDICAL CENTER IN THE PAST YEAR ? N ATHEROSCLEROSIS [...] Brain Problems N HERPES N DEMENTIA N HEADACHES/MIGRAINES N SEIZURES/EPILEPSY N VASCULAR DISEASE N PACEMAKER N Blood Disorder N DIZZINESS N HEART DISEASE/HEART PROBLEMS N KIDNEY DISEASE N MULTIPLE SCLEROSIS N CARDIAC ARRHYTHMIA N CANCER: SPECIFY N ATRIAL FIBRILLATION N Gall Stones N [...] SNOMED-CT Code Diagnosis ICD10 Code Diagnosis Note [id number] [facility] [place] [address] [address], [address] [place] [address] 10/13/2020 00:00:00 10/27/2020 18:38:05 [id number] [facility] [place] [address] [address], [address] [place] [address] 4 11/30/2021 00:00:00 12/27/2021 20:34:43 [id number] TAN Jones [facility] [place] [address] [address], [address] [place] [address] 4 01/08/2023 09:10:53 01/08/2023 09:45:15 Adult health examination 968756937 Z00.00 well exam completed . Routine labs due Cholesterol screening 27 5866422 Z13.220 fasting lipids due Diabetes m ellitus screening 954517103 Z13.1 diabetes screening due Long-term drug therapy 529295322 Z79.899 Thyroid di sorder screening 810381060 Z13.29 thyroid panel due Anemia 139828126 D64.9 due for iron studies and b12 , folate with anemia hx History of radiofrequency ablation operation for arrhythmia 222230517 Z98.890 hx discussed. stable on metoprolol ER 100mg daily and lisinopril 10mg daily Benign ess ential hypertension 8812805 I10 stable on metoprolol ER 100mg daily and lisinopril 10mg daily Health Concerns Section Related Observation LastModified by Organization Detai ls LastModified Time None Recorded Concern Status LastModified by Organization Details LastModified Time None Recorded Advance Directives Directive None Recorded Payers Encounter Date Sequence Insurance Name Policy Number Policy Allen Covered Member ID Allen Member ID Guarantor Name 01/08/2023 1 [facility] [employer] (PPO) [address] [id number] Tammy Cross Notes Date Note Type Note [...] in exercise capacity; no snoring Not Available [facility] Food Reporter 10/27/2020 18:38:05 2 text/html Generic HPI TemplateReported [...] congestion in chest and cough. Not Available [employer] 12/27/2021 20:34:43 3 text/html HypertensionReported bypatient.Duration:has noted for years Onset/Timing:better Alleviating Factors:medication Associated Symptoms:no shortness of breath; no fatigue; no palpitations; no decline in exercise capacity; no snoring wellness TAN Jones [address] [address], [place], [address], [employer] 01/27/2023 01:27:01 OBGyn Episode No OBEpisode recorded.
--- OUTSIDE RECORDS SUMMARY | 2024-07-29 10:47 | XMS_ITS | Encounter Summary ---
Author Organization [facility] Address [address] [place] [address] Phone Care Team Providers Care Mask Designer Name Role Phone No, Physician Primary Care Provider [phone] Elis Khan Primary Care Pr ovider Encounter Details Date Type Department Care Team (Latest Contact Info) Description 04/27/2015 Orders Only [facility] Scanning, Provider Social History Tobacco Use Types Packs/Day Years Used Date Smoking Tobacco: Never Assessed Comments Unknown Sex and Gender Information Value Date Recorded Sex Assigned at Not on file Legal Sex Female 9:19 AM INTAKE MAN Gender Identity Not on file Sexual Orientation [...] COVID: Suspected 06/05/2022 06/05/2022 06/06/2022 3:05 AM INTAKE MAN COVID: Suspected 06/05/2022 06/05/2022 06/06/2022 4:38 AM INTAKE MAN COVID: Suspected 09/28/2022 09/28/2022 09/28/2022 3:33 PM CDT COVID: Suspected 04/16/2023 04/16/2023 04/16/2023 10:02 AM CDT COVID: Suspected 04/16/2023 04/16/2023 04/16/2023 3:14 PM CDT COVID: Suspected 02/22/2024 02/22/2024 02/22/2024 8:40 AM CDT COVID: Suspected 04/07/2024 04/07/2024 04/07/2024 12:10 PM CDT documented as of this encounter Care Teams Mask Designer Relationship Specialty Start Date End Date No, Physician PCP - General 05/11/20 10/12/20 Elis Khan PA PCP - General Physician Figure Skater 10/13/20 documented as of this encounter
--- OUTSIDE RECORDS SUMMARY | 2024-07-29 10:47 | XMS_ITS | Clinical Summary ---
Author Organization [facility] Address [address] [place] [address] Phone Care Team Providers Care Per Diem Name Role Phone Unavailable Primary Care Provider Unavailabl e Social History Tobacco Use Types Packs/Day Years Used Date Smoking Tobacco: Never Assessed Comments Unknown Sex and Gender Information Value Date Recorded Sex Assigned at Not on file Legal Sex Female 11:48 AM SAW SETTER Gender Identity Not on file Sexual Orientation Not on file Plan of Treatment Upcoming Encounters Date Type Department Care Team (Late st Contact Info) Description 10/01/2024 9:00 AM CDT Office Visit [facility]imally Invasive [facility]necology [address] [facility] [place] [address] Tammy Monson MD [address] [facility] [address] [place] [address] Health Maintenance Due Date Last [...]
--- OUTSIDE RECORDS SUMMARY | 2024-07-29 10:48 | XMS_ITS | Encounter Summary ---
Author Organization [facility] Address [address] [place] [address] Phone Care Team Providers Care Manager Rfid Name Role Phone Elis Khan Primary Care Pr ovider Encounter Details Date Type Department Care Team (Late st Contact Info) Description 07/13/2024 Telephone [facility] Cardiology [address] [facility] Advanced Medicine 8th [place] [address] [place] [address] Diego Strong MD [address] [facility] [address] [place] [address] Social History Tobacco Use Types [...] on file Legal Sex Female 9:19 AM GINGER FARMER Gender Identity Not on file Sexual Orientation Not on file documented as of this encounter Miscellaneous Notes * Telephone Encounter - Floresita Aguilar RN - 07/13/2024 2:44 PM GINGER FARMER S[employer] message sent to patient with recs. ER FARMER * Telephone Encounter - Diego Strong MD - 07/13/2024 2:27 PM CST I would defer to her habilitation training specialist regarding management of the fibroid. She should be able to have the surgery. I would recommend she continue metoprolol through the perioperative period. ER FARMER * Telephone Encounter - Floresita Aguilar RN - 07/13/2024 9:[address] Strong, pt would like your input on TBD surgery. ER FARMER * Telephone Encounter - Christine Melvin - [...] should have surgery. Please call to advise. ER FARMER documented in this encounter Plan of Treatment Not on file documented as of this encounter Visit Diagnoses Not on filedocumented in this encounter Care Teams Manager Rfid Relationship Specialty Start Date End Date Elis Khan PA PCP - General Physician Location Man 10/13/20 documented as of this encounter
--- OUTSIDE RECORDS SUMMARY | 2024-07-29 10:48 | XMS_ITS | Referral Summary ---
Author Organization [facility] Address [address] [place] [address] Care Team Providers Care Electroplating Laborer Name Role Phone Elis Khan Primary Care Pr ovider Encounters Date Type Department Care Team Description 07/13/2024 Telephone [facility] Cardiology [address] [facility] Medicine 8th [place] [address] [place] [address] Diego Strong MD from Last [...] 07/05/2021 Assessment & Plan (07/05/2021 11:30 AM PHYSICIAN REPRESENTATIVE): Reports generalized symptoms including WOODS, nausea, dyspnea [...] 05/11/2020 Assessment & Plan (07/05/2021 11:28 AM PHYSICIAN REPRESENTATIVE): Sound most c/w sinus tachycardia, 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 Currently wearing event monitor Will evaluate monitor results when available Increase metoprolol to 100 daily Assessment & Plan (08/17/2020 1:49 PM PHYSICIAN REPRESENTATIVE): Due to WCT - likely SVT w [...] those Assessment & Plan (05/11/2020 10:52 AM PHYSICIAN REPRESENTATIVE): Ddx includes sinus tachycardia vs SVT The [...] regimen. Assessment & Plan (07/05/2021 11:29 AM PHYSICIAN REPRESENTATIVE): BP has recently been elevated, remains elevated on repeat check today Unclear if her current sx are related to the elevated Bps or not Regardless, BP is above goal Recommend starting lisinopril 10 mg daily Call w BP update in 1 week Check Bmp today Assessment & Plan (08/17/2020 1:50 PM PHYSICIAN REPRESENTATIVE): BP is somewhat labile, still a bit above goal Will reassess BP control following EP study and consider changing metoprolol to a different agent at that time Secondary work up negative Assessment & Plan (05/11/2020 10:55 AM PHYSICIAN REPRESENTATIVE): She is persistently hypertensive in clinic today. [...] on file Legal Sex Female 9:19 AM PHYSICIAN REPRESENTATIVE Gender Identity Not on file Sexual Orientation [...] on file Medical Devices Implanted Type Area Access Clerk Device Identifier Shelf Expiration Date Model / Serial / Lot [employer] [id number] System 6-12fr Mvp Venous Closure Vascade - [id number] - [id number] Implanted:Qty: 1 on 09/06/2020 by Tony Pineda MD at [facility] [employer] 07/11/2022 800-612C-1 0U / [id number] / [id number] [employer] [id number] System 6-12fr Mvp Venous Closure Vascade - [id number] - [id number] Implanted:Qty: 1 on 09/06/2020 by Tony Pineda MD at [facility] [employer] 07/11/2022 800-612C-1 0U / [id number] / [id number] [id number] [employer] [id number] Device Closure Vascade Od5 Fr Femoral Artery - [id number] - [id number] Implanted:Qty: 1 on 09/06/2020 by Tony Pineda MD at [facility] [employer] 06/08/2022 700-500DX- 05U / [id number] [id number] / [id number] [id number] [employer] [id number] Device Closure Vascade Od5 Fr Femoral Artery - [id number] - [id number] Implanted:Qty: 1 on 09/06/2020 by Tony Pineda MD at [facility] [employer] 06/08/2022 700-500DX- 05U / [id number] 10B / [id number] [id number] Insurance [facility] FEDERAL [facility] BCBS FEDERAL Care Teams Electroplating Laborer Relationship Specialty Start Date End Date Elis Khan PA PCP - General Physician Field Agent 10/13/20
--- OUTSIDE RECORDS SUMMARY | 2024-07-29 10:48 | XMS_ITS | Clinical Summary ---
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 Currently wearing event monitor Will evaluate monitor results when available Increase metoprolol to 100 daily Assessment & Plan (08/17/2020 1:49 PM FIREARMS SALES ASSOCIATE): Due to WCT - likely SVT w [...] those Assessment & Plan (05/11/2020 10:52 AM FIREARMS SALES ASSOCIATE): Ddx includes sinus tachycardia vs SVT The [...] regimen. Assessment & Plan (07/05/2021 11:29 AM FIREARMS SALES ASSOCIATE): BP has recently been elevated, remains elevated on repeat check today Unclear if her current sx are related to the elevated Bps or not Regardless, BP is above goal Recommend starting lisinopril 10 mg daily Call w BP update in 1 week Check Bmp today Assessment & Plan (08/17/2020 1:50 PM FIREARMS SALES ASSOCIATE): BP is somewhat labile, still a bit above goal Will reassess BP control following EP study and consider changing metoprolol to a different agent at that time Secondary work up negative Assessment & Plan (05/11/2020 10:55 AM FIREARMS SALES ASSOCIATE): She is persistently hypertensive in clinic today. [...] Department Care Team Description 07/13/2024 Telephone [facility] Cardiology [address] [facility] 8[address] [place] [address] [place] [address] Diego Strong MD from Last 3 Months Immunizations Name Administration Dates Next Due Rho (D) Immune Globulin, IV or IM 03/24/2015 Tdap 01/15/2015 Surgical History Surgery Date Site/Laterality Comments OVARIAN CYST REMOVAL 06/30/2018 - 06/29/2019 DILATION AND CURETTAGE OF UTERUS 06/30/2018 - 06/29/2019 RECTAL PROLAPSE REPAIR 06/30/2014 - 06/29/2015 Medical History Medical History Date Comments Anemia Type 2 NE (myocardial infarc tion) (CMS/HCC) (HCC) 2014 HTN [...] on file Legal Sex Female 9:19 AM FIREARMS SALES ASSOCIATE Gender Identity Not on file [...] this topic Medical Devices Implanted Type Area Steam Hoist Operator Device Identifier Shelf Expiration Date Model / Serial / Lot [employer] [id number] System 6-12fr Mvp Venous Closure Vascade - [id number] - [id number] Implanted:Qty: 1 on 09/06/2020 by Tony Pineda MD at [facility] [employer] 07/11/2022 800-612C-1 0U / [id number] / [id number] [employer] [id number] System 6-12fr Mvp Venous Closure Vascade - [id number] - [id number] Implanted:Qty: 1 on 09/06/2020 by Tony Pineda MD at [facility] [employer] 07/11/2022 800-612C-1 0U / [id number] / [id number] [employer] [id number] Device Closure Vascade Od5 Fr Femoral Artery - [id number] - [id number] Implanted:Qty: 1 on 09/06/2020 by Tony Pineda MD at [facility] [employer] 06/08/2022 700-500DX- 05U / [id number] 10B / [id number] [id number] [employer] [id number] Device Closure Vascade Od5 Fr Femoral Artery - [id number] - [id number] Implanted:Qty: 1 on 09/06/2020 by Tony Pineda MD at [facility] [employer] 06/08/2022 700-500DX- 05U / [id number] 10B / [id number] [id number] Insurance [facility] FEDERAL Care Teams Last Putter Away Relationship Specialty Start Date End Date Menossi, Elis Tonja [place], [place] PCP - General Physician General Operator 10/13/20
== END 2024-07-28 19:55 | disposition home or self-care (01) ==
LOC: ANHED 18:13 → ANH2MED 07-27 14:59 → ANH3MEDSUR 07-29 10:04 → ANH2MED 07-29 10:04
PROVIDERS: Nurse Practitioner Gerontology; Admitting Provider Obstetrics & Gynecology; Emergency Provider Emergency Medicine; PCP Physician Assistant; Visit Provider Obstetrics & Gynecology
DX: R50.82 Postprocedural fever (principal); D64.9 Anemia, unspecified; G89.18 Other acute postprocedural pain; I47.10 Supraventricular tachycardia, unspecified; I10 Essential (primary) hypertension; Z20.822 Contact with and (suspected) exposure to COVID-19; Z79.899 Other long term (current) drug therapy; Z87.42 Personal history of other diseases of the female genital tract; Z87.891 Personal history of nicotine dependence; Z90.710 Acquired absence of both cervix and uterus
CPT/HCPCS: 36415; 36430; 71046; 74177; 80048; 80053; 81003; 82607; 82728; 82746; 83540; 83550; 83605; 84443; 84466; 85014; 85018; 85025; 85027; 86850; 86900; 86901; 86923; 87040; 87637; 93005; 93306; 96361; 96365; 96366; 96375; 96376; 99285; A9270; G0378; J2543; J7030; P9016; Q9967

== ENCOUNTER 2024-08-09 09:28 | Inpatient (IN) | payer BC, SELFPAY ==
[2024-08-09] VITALS (7 sets, daily range): BP systolic 108–143; BP diastolic 72–100; PULSE 56–97; RESP 16–18; TEMP 36.6–37.2; O2SAT 96–100; BMI 22.6
--- NOTE | ~2024-08-09 | CT_ITS ---
EXAMINATION: CT guide absc cath placement DATE: 08/10/2024 11:56 INDICATION: Pelvic abscess. TECHNIQUE: The procedure including the risks, benefits, and alternatives was discussed with the patie nt. Risks discussed included bleeding and infection. The patient understood the risks and benefits an d agreed to proceed. The patient was confirmed to be receiving appropriate antibiotic coverage. The skin overlying the abdomen was prepped and draped in usual sterile fashion. Anesthetic was administe red with 1% lidocaine subcutaneously. Moderate sedation was achieved with 1 mg Versed IV and 100 mcg fentanyl IV. An 18 gauge trochar needle was inserted into the pelvic abscess with CT guidance. The ne edle was exchanged over a wire for 5 [place] and 7 [place] dilators and then for an 8.5 [place] pigtail catheter. The catheter was stitched to the skin, and a sterile dressing was applied. The mA was adjus lauren according to patient size. Iterative reconstruction technique was employed. The dose-length produ ct was 407.15 mGy-cm. There were no immediate complications. FINDINGS: CT images demonstrate the catheter within the pelvic abscess. 2 mL fluid was aspirated for testing. IMPRESSION: 1. Successful CT-guided pelvic abscess drainage. 2. 2 mL bloody fluid was sent for aerobic and anaerobic cultures. Reviewed, dictated and finalized at location A. SIFIED ADVERTISING CLERK
--- NOTE | ~2024-08-09 | CT_ITS ---
EXAMINATION: CT abdomen pelvis w con DATE: 08/09/2024 13:01 INDICATION: Fever 2 weeks post hysterectomy TECHNIQUE: Computed tomography (CT) of the abdomen and pelvis was performed with 100 mL Omnipaque-350 intravenous contrast. Automated exposure control and iterative reconstruction technique were employe d. The dose-length product was 238.77 mGy-cm. COMPARISON: 07/26/2024 FINDINGS: Lung bases are clear. Heart size is normal. No pericardial or pleural effusion. Liver, gallbladder, s pleen, pancreas, bilateral adrenal glands and left kidney are normal. 6 mm right renal cyst. Bowels i ncluding the appendix are normal. Bladder is normal. Postoperative change of recent hysterectomy. The re is a 3.9 x 2.5 x 2.5 cm rim-enhancing fluid collection at the uterine fossa which could represent a postoperative hematoma or abscess. Bilateral low-attenuation ovarian follicles the largest on the r ight measuring up to 1.8 cm. There is minimal likely postoperative and extra peritoneal gas in the an terior right hemipelvis. Tiny fat-containing umbilical hernia. No pathologically enlarged abdominal o r pelvic lymphadenopathy. Bones are unremarkable. IMPRESSION: 1. Status post recent hysterectomy with 3.9 x 2.5 x 2.5 cm rim-enhancing fluid collection at the uter ine fossa which could represent a postoperative hematoma or abscess. Reviewed, dictated and finalized at location A. DATA ANALYST IMPRESSION: 1. Status post recent hysterectomy with 3.9 x 2.5 x 2.5 cm rim-enhancing fluid collection at the uterine fossa which could represent a postoperative hematoma or abscess.
--- OUTSIDE RECORDS SUMMARY | 2024-08-09 09:56 | XMS_ITS | Clinical Summary ---
Author Organization [facility] Address [address] [place] [address] Phone Care Team Providers Care Piece Work Checker Name Role Phone Unavailable Primary Care Provider Unavailabl e Social History Tobacco Use Types Packs/Day Years Used Date Smoking Tobacco: Never Assessed Comments Unknown Sex and Gender Information Value Date Recorded Sex Assigned at Not on file Legal Sex Female 11:48 AM TRANSCRIPTION SPECIALIST Gender Identity Not on file Sexual Orientation Not on file Plan of Treatment Upcoming Encounters Date Type Department Care Team (Late st Contact Info) Description 10/01/2024 9:00 AM CDT Office Visit [facility] Minimally Invasive Gynecology [address] [facility] [address] [place] [address] Tammy Monson MD [address] [facility] [address] [place] [address] Health Maintenance Due Date Last Done Comments DTAP/TDAP/TD VACCINES (1 - Tdap) 2005 HEPATITIS B VACCINES (1 of 3 - 19+ 3-dose series) 2005 CERVICAL CANCER SCREENING 2016 INFLUENZA VACCINE (#1) 2024 HPV VACCINES Aged Out No longer eligi ble based on patient's age to complete this topic
--- OUTSIDE RECORDS SUMMARY | 2024-08-09 09:56 | XMS_ITS | Data Portability ---
Author Organization [facility] [place] Address [address] [place] [address] [place] [address] Assessment No assessment recorded. Plan of Treatment Reminders Order Date Submit Date Provider Last Modified By Organization Details Last Modified Time Details Appointments None recorded. Lab CBC w/ auto diff [facility] [address], [address], [place], [address], 03:00:04 urinalysis, dipstick [email or web address] [place] [address], [facility] [address], [place], [address], 11:43:12 Referral None recorded. Procedures None recorded. Surgeries robotic assisted hysterectom y with salpingecto my (SURG) 2024 025 [facility], [address], [place], [address], 5 01:30:12 Imaging US, pelvis [email or web address] [facility] [address], [place], [address], 21:13:44 US, transvagina l 2024 [email or web address], [address], [place], [address], 21:13:44 Medication Orders progesteron e micronized 200 mg capsule 2024 025 KERRYJEREMY [facility] [place], [address], 14:46:56 Patient TargetsNo targets recorded. Patient InstructionsNo instructions recorded. Reason for Referral None Reported. Results Created Date Observation Date Name Description Value Unit Range Abnormal Flag Note LastModifiedBy Organization Detail LastModifiedTime 07/13/1907/13/2024 CBC W/DIF F WBC 6.7 10'3/ uL 3.5-10 .5 Not Available [facility] (Lab) [address], [place], [address], 07/14/2024 03:00:03 07/13/1907/13/2024 CBC W/DIF F RBC 4.29 10'6/ uL (based on docume nted legal sex) 3.80-5 .20 Not Available [facility] (Lab) [address], [place], [address], 07/14/2024 03:00:03 07/13/1907/13/2024 CBC W/DIF F HGB 8.5 g/dL (based on docume nted legal sex) 11.6-1 5.4 low Not Available [facility] (Lab) [address], [place], [address], 07/14/2024 03:00:03 07/13/1907/13/2024 CBC W/DIF F HCT 29.8 % (based on docume nted legal sex) 34.0-4 5.0 low Not Available [facility] (Lab) [address], [place], [address], 07/14/2024 03:00:03 07/13/1907/13/2024 CBC W/DIF F MCV 69.5 fL 80.0-9 9.0 low Not Available [facility] (Lab) [address] [facility], [place], [address], 07/14/2024 03:00:03 07/13/1907/13/2024 CBC W/DIF F MCH 19.8 pg 27.0-3 4.0 low Not Available [facility] (Lab) [address] [facility], [place], [address], 07/14/2024 03:00:03 07/13/19 25 07/13/2024 CBC W/DIF F MCHC 28.5 g/dL 32.0-3 5.5 low Not Available [facility] (Lab) [address] [facility], [place], [address], 07/14/2024 03:00:03 07/13/1907/13/2024 CBC W/DIF F RDW 19.4 % 11.0-1 5.0 high Not Available [facility] (Lab) [address] [facility], [place], [address], 07/14/2024 03:00:03 07/13/1907/13/2024 CBC W/DIF F plt 323 10'3/ uL 150-40 0 Not Available [facility] (Lab) [address] [facility], [place], [address], 07/14/2024 03:00:03 07/13/1907/13/2024 CBC W/DIF F MPV 11.9 fL 8.8-12 .1 Not Available [facility] (Lab) [address] [facility], [place], [address], 07/14/2024 03:00:03 07/13/1907/13/2024 CBC W/DIF F neutrophils 57.8 % 34.0-7 3.0 Not Available [facility] (Lab) [address] [facility], [place], [address], 07/14/2024 03:00:03 07/13/1907/13/2024 CBC W/DIF F lymphocytes 27.2 % 15.0-5 0.0 Not Available [facility] (Lab) [address] [facility], [place], [address], 07/14/2024 03:00:03 07/13/19 25 07/13/2024 CBC W/DIF F monocytes 11.0 % 1.0-15 .0 Not Available [facility] (Lab) [address] [facility], [place], [address], 07/14/2024 03:00:03 07/13/1907/13/2024 CBC W/DIF F eosinophils 2.7 % 0.0-8. 0 Not Available [facility] (Lab) [address] [facility], [place], [address], 07/14/2024 03:00:03 07/13/1907/13/2024 CBC W/DIF F basophils 0.9 % 0.0-2. 0 Not Available [facility] (Lab) [address] [facility], [place], [address], 07/14/2024 03:00:03 07/13/1907/13/2024 CBC W/DIF F immature granulocytes 0.4 % no define d refere nce range Immat ure Granu locyt es (IG) repre sents autom ated enume ratio n of Metam yeloc ytes, Myelo cytes and Promy elocy annette when IG is < 5%. Blast s are not inclu ded in IG and repor lauren separ ately if prese nt. Not Available [facility] (Lab) [address] [facility], [place], [address], 07/14/2024 03:00:03 07/13/1907/13/2024 CBC W/DIF F absolute neutrophils 3.9 10'3/ uL 1.5-8. 0 Not Available [facility] (Lab) [address] [facility], [place], [address], 07/14/2024 03:00:03 07/13/1907/13/2024 CBC W/DIF F absolute lymphocytes 1.8 10'3/ uL 1.0-4. 0 Not Available [facility] (Lab) [address] [facility], [place], [address], 07/14/2024 03:00:03 07/13/1907/13/2024 CBC W/DIF F absolute monocytes 0.7 10'3/ uL 0.2-1. 0 Not Available [facility] (Lab) [address] [facility], [place], [address], 07/14/2024 03:00:03 07/13/1907/13/2024 CBC W/DIF F absolute eosinophils 0.2 10'3/ uL 0.0-0. 6 Not Available [facility] (Lab) [address] [facility], [place], [address], 07/14/2024 03:00:03 07/13/1907/13/2024 CBC W/DIF F absolute basophils 0.1 10'3/ uL 0.0-0. 3 Not Available [facility] (Lab) [address] [facility], [place], [address], 07/14/2024 03:00:03 07/13/1907/13/2024 CBC W/DIF F absolute immature granulocytes 0.0 10'3/ uL 0.00-0 .10 Refer ence range s for nonbi nary/ inter sex or unspe cifie d gende r patie nts have not been estab lishe d. Pleas e refer [facility] for range s estab lishe d for cisge nder patie nts and evalu ate in the clini graham lakisha xt of the indiv idual patie nt: [email or web address] :[email or web address] g/[email or web address] derX Not Available [facility] (Lab) [address] [facility], [place], [address], 07/14/2024 03:00:03 07/08/1907/08/2024 , mary s No observ ation record ed. [facility] [address], [place], [address], 07/08/2024 18:48:55 07/08/19 25 07/08/2024 US, trans vagin al No observ ation record ed. [facility] [address], [place], [address], 07/08/2024 18:49:03 07/08/19 25 07/08/2024 US, pelvi s No observ ation record ed. [email or web address], [place], [address], 07/09/2024 15:46:26 07/29/19 25 07/28/2024 trans -thor acic echoc ardio gram (TTE) (PROC ) No observ ation record ed. [place] [address], [place], [address], 07/29/2024 22:05:39 Result Notes None recorded. Problems Name Problem [...] SNOMED CT Concept Completed 201811/30/2020 Encntr for office admin exam (general) (routine) w/o abn findings; Recorded Elsewhere : No Locati on: [facility] So urce: EHR Chron ic: N Practic e ID: 0001 Bill able Time: 11:00:00 AM Amber Martell [facility] 17:25:25 Lacerati on of female perineum Completed 201411/30/2020 Perineal tear during delivery involving vaginal muscles;R ecorded Elsewhere : No Locati on: [facility] So urce: EHR Chron ic: N Practic e ID: 0001 Ric able Time: 03:15:00 PM [facility] 17:25:08 Amenorrh ea [id number] Completed 201411/30/2020 AMENORRHE A;Practic e ID: 0001 [facility] 17:24:48 Speciali zed medical examinat ion Completed 201411/30/2020 Routine gynecolog ical examinati on;Practi ce ID: 0001 Amber Martell [facility] 17:25:26 Pregnanc y test positive [id number] Completed 201411/30/2020 Positive Test;Prac onel ID: 0001 Amber Martell [facility] 17:25:15 Uterine size for dates discrepa ncy 086020940 Completed 201411/30/2020 UTERINE SIZE ARON-ANTEP AR;Practi ce ID: 0001 Amber Martell [facility] 17:25:36 Mild hypereme sis-not delivere d 130626057 Completed 201411/30/2020 Hyperemes is gravidaru m, antepartu m Mild;Prac onel ID: 0001 Amber Martell [facility] 17:25:11 anatomy study Completed 201411/30/2020 SCRN ANATMC SURVEY;Pr actice ID: 0001 Amber Martell [facility] 17:25:02 Complica tion related to pregnanc y Completed 201411/30/2020 PREG COMPL NEC-ANTEP ART;Pract ice ID: 0001 Amber Martell [facility] 17:24:51 Viral disease in mother complica ting pregnanc y, childbir th AND/OR puerperi [id number] Completed 201411/30/2020 OTH VIRAL DIS-ANTEP ARTUM;Pra ctice ID: 0001 Amber guillen [facility] 17:25:38 Complica tion of pregnanc y, childbir th and/or puerperi 138452610 Completed 201411/30/2020 COAGULATI ON DEF-ANTEP ART;Pract ice ID: 0001 Amber guillen [facility] 17:24:53 Dehydrat ion 06001862 Completed 201411/30/2020 DEHYDRATI ON;Practi ce ID: 0001 Amber Martell wilmer [facility] 17:24:54 Transien t hyperten angela of pregnanc y - delivere d 353815462 Completed 201411/30/2020 Transient hypertens ion of , with delivery; Practice ID: 0001 Amber Martell wilmer [facility] 17:25:30 Transien t hyperten angela of pregnanc y - not delivere d 757540859 Completed 201411/30/2020 TRANS HYPERTEN- ANTEPART; Practice ID: 0001 Amber Martell wilmer [facility] 17:25:32 Delivery normal [id number] Completed 201411/30/2020 NORMAL DELIVERY; Practice ID: 0001 Amber guillen [facility] 17:24:56 Single live [id number] Completed 201411/30/2020 DELIVER-S FRANCISCO LIVEBORN; Practice ID: 0001 Amber guillen [facility] 17:25:21 Pregnanc y-induce d hyperten angela Completed 201411/30/2020 Gestation al htn w/o significa nt proteinur ia, first trimester ;Practice ID: 0001 Amber Martell [facility] 17:25:16 Pregnanc y-induce d hyperten angela Completed 201411/30/2020 Gestation al htn w/o significa nt proteinur ia, third trimester ;Practice ID: 0001 Amber Jasbir guillen [facility] 17:25:18 Depressi ve disorder 60036359 Completed 201411/30/2020 Major depressiv e disorder, single episode, unspecifi ed;Practi ce ID: 0001 Amber Martell [facility] 17:24:58 Hemorrho ids 46574446 Completed 201411/30/2020 Unspecifi ed hemorrhoi ds;Practi ce ID: 0001 Amber Martell [facility] 17:25:06 Lochia finding Completed 201411/30/2020 Encounter for routine postpartu m follow-up ;Practice ID: 0001 Amber Martell [facility] 17:25:10 Pain in female genitali a Completed 201811/30/2020 Dysmenorr hea, unspecifi ed;Practi ce ID: 0001 Amber Martell [facility] 17:25:01 Uterine leiomyom a 05785016 Completed 201811/30/2020 Leiomyoma of uterus, unspecifi ed;Practi ce ID: 0001 Amber Martell [facility] 17:25:34 Polyp of corpus uteri 90248290 Completed 201811/30/2020 Polyp of corpus uteri;Pra ctice ID: 0001 Amber Martell [facility] 17:25:13 Finding of menstrua l bleeding Completed 201811/30/2020 Excessive and frequent menstruat ion with regular cycle;Pra ctice ID: 0001 Amber Martell [facility] 17:25:04 Uses combined oral contrace ption 606735020 Completed 201811/30/2020 Encounter for surveilla nce of contracep tive pills;Rec orded Elsewhere : No Locati on: [facility] So urce: EHR Chron ic: N Practic e ID: 0001 Bill able Time: 02:00:00 PM Amber [facility] 17:24:[address] Concept Completed 201511/30/2020 Encntr for general adult medical exam w/o abnormal findings; Recorded Elsewhere : No Locati on: [facility] So urce: EHR Chron ic: N Practic e ID: 0001 Bill able Time: 02:00:00 PM Amber Martell [facility] 17:25:23 Elevated blood-pr essure reading without diagnosi s of hyperten angela 281305193 Completed 201811/30/2020 Elevated blood-pre ssure reading without [...] 0001 Bill able Time: 02:00:00 PM Amber [facility] 17:25:28 Problem Notes None recorded. Procedures Surgical History Date Name Laterality Status Provider Name and Address Organization Details Recorded Time 025 ROBOTIC ASSISTED HYSTERECTOMY WITH SALPINGECTOMY (SURG) completed [facility] 07/23/2024 09:23:18 024 IUD Insertion completed KALANI FELTON MD [address], [place], [address], [place] [facility] 02/27/2024 16:26:33 023 Date of Last Pap Smear [facility] 07/01/2024 11:10:28 021 cardiac radiofrequency ablation using ultrasound guidance completed [facility] 02/27/2023 18:12:16 019 Dilation and Curettage completed [facility] 02/27/2023 18:03:31 015 operative reduction of prolapse of anus completed [facility] 02/27/2023 18:02:53 013 fistulectomy of rectum completed [facility] 02/27/2023 18:12:47 hemorrhoidectomy completed [facility] 02/27/2023 18:03:50 Imaging Results Imaging Date Name Status LastModified by Organization Details LastModified Time 07/08/2024 US, pelvis completed abhay Anderson [address], [place], [address], 07/08/2024 18:48:55 07/08/2024 US, transvaginal completed abhay posey [address], [place], [address], 07/08/2024 18:49:03 07/08/2024 US, pelvis completed [email or web address] [address], [place], [address], 07/09/2024 15:46:26 07/28/2024 trans-thoracic echocardiogram (TTE) (PROC) completed [address], [place], [address], 07/29/2024 22:05:39 Procedure Notes None recorded. Medical Equipment None [...] Elsewher e: No Locat ion: Indira posey [facility] odify By: [email or web address] zuritaunter DateTime : 08/24/19 15 03:30:00 PM Not [...] completed Not Available Not Available Not Available nitrofura ntoin monohydra te/macroc rystals 100 mg capsule active Not Available Not Available Not Available tranexami c acid 650 mg tablet Take 2 tablets 3 times a day by oral route. 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 A 28 mg iron-1 mg-200 mg capsule take 1 capsule by oral route every day 10/08 completed Prescrib ed Elsewher e: No Locat ion: Indira posey [facility] odify By: [email or web address] zuritaunter DateTime : 07/27/19 15 02:15:00 PM Not Available Not Available Not Available Blisovi Fe 07/19 (28) 1 mg-20 mcg (21)/75 mg (7) tablet take 1 tablet by oral route every day 02/27 completed Prescrib ed Elsewher e: No Locat ion: Abhijeet kalpesh [facility] odify By: shakeel kenyon DateTime : 01/20/20 11:41:21 AM Not Available Not Available Not Available Anusol-HC 2.5 % topical cream with perineal applicato r apply by topical route 2 times every day to the affected area(s) 06/13 completed Prescrib ed Elsewher e: No [facility] odify By: boogie kenyon DateTime : [...] Updated DateTime 07/01/2024 157.48 cm 25.4 kg/m2 68643.34 g 126 mm[Hg] 86 mm[Hg] Sosa Lara [facility] 5 11:10:01 Date Recorded Body height Body mass index (BMI) Body weight Systolic blood pressure Diastolic blood pressure Provider Name and Address Organization Details Last Updated DateTime 07/12/2024 157.48 cm 25.2 kg/m2 29967.75 g 138 mm[Hg] 91 mm[Hg] [facility] 5 14:07:58 Date Recorded Body height Body mass index (BMI) Body weight Systolic blood pressure Diastolic blood pressure Provider Name and Address Organization Details Last Updated DateTime 08/06/2024 157.48 cm 23.8 kg/m2 04009.01 g 125 mm[Hg] 83 mm[Hg] [facility] 5 11:34:53 Social History Question Answer Notes LastModified by Organizat ion Details LastModified Time Tobacco Smoking Status Never Smoker Amber Martell [facility] 11/30/2020 17:28:58 What Is Your Level [...] Anxious, Or Unable To Sleep At Night)? [id number] Information not available 11/30/2020 Do You Use [...] normal N STIs/STDs N Current Control Method Hysterectom y Are cycles usually normal Y Sexually Active? [...] SNOMED-CT Code Diagnosis ICD10 Code Diagnosis Note [id number] Nancy Langley [facility] [address] [address] 02/27/2023 17:48:10 02/28/2023 15:47:46 Gynecologic examination 24325329 Z01.419 Take Calcium with Vitamin D 1200mg [...] Screen PCPDexa Screen PCPRoutine Labs PCP Menorrhagia 949911207 N9 2.[address] Rodas is anemic confirmed with her PCPWould like to consider ablationDo es not want to do BC or hormonal optionsDon e having childrenWi ll update US & then she will make MD consult to discuss ablation Lack or lo ss of sexual desire [id number] F52.0 discussed addyi & Vyleesiwil l let us know if any interest in pursuing. [id number] Gena [facility] [address],[place] [address] 03/11/2023 17:26:48 03/11/2023 18:02:06 Menorrhagia 356680045 N92.0 [id number] KALANI FELTON MD [place] [address],[place] [address] 03/27/2023 18:04:44 03/28/2023 16:04:11 Abnormal uterine bleeding 4921977444 9100 N93.9 D25.9 - discussed fibroid is [...] of care and treatment options with patient [id number] Gena [facility] [address],[place] [address] 02/18/2024 17:20:24 02/19/2024 09:08:46 Menorrhagia 328554756 D25.9 [id number] KALANI FELTON MD [place] [address],[place] [address] 02/27/2024 15:46:17 02/27/2024 16:55:06 Screening procedure 84882683 Z13.9 Insertion of intrauterine contraceptive device 08183441 Z30.430 - IUD inserted without difficulty - RTC 1 month for IUD check- due on 01/2032 Uterine leiomyoma 326919 05 D25.9 -7cm fundal fibroid, stable from last exam- mild pressure and heavy periods- would like referral to [facility] for possible removal [id number] KALANI FELTON MD [place] [address] [address] 07/01/2024 09:34:06 07/01/2024 11:54:46 IUD check 039881124 Z30.431 - Mirena IUD placed 02/27/24, due for removal 01/2032- no issues at this time from Mirena Uterine leiomyoma 337681 05 D25.9 -7cm fundal fibroid, stable from last exam- mild pressure and heavy periods- periods improved on Mirena now- new pressure/l eakage/con stipation- will repeat US to reevaluate fibroid size/posit ion due to new symptoms- referral to [facility] sent, scheduled for September 2024 [id number] Antonieta Martell [facility] [address] [address] 07/08/2024 16:47:16 07/09/2024 05:26:16 Uterine leiomyoma 13820358 D25.9 R10.2 N93.9 [id number] [place] [address] [address] 07/12/2024 14:01:23 07/12/2024 15:14:31 Menorrhagia 326539210 D25.9 This patient is a 39-year-ol d female presents for heavy vaginal bleeding. . Her menses are regular. However, they require double protection . Patient has accidents, getting blood on her bedding and clothing.. This bleeding has a profound impact on her quality of life and her activities of daily living.garo lwa had been in the ER over the [...] hemorrhage and infection. Abnormal u terine bleeding 7464807159 9100 N93.9 [id number] Sd Giron MD [place] [address] [address] 07/22/2024 12:03:15 07/24/2024 03:52:11 [id number] Sd Giron MD [place] [address] [address] 08/06/2024 11:12:27 08/06/2024 15:09:31 Dysuria 32843782 R30.0 Postoperative care 96767 9007 Z48.89 . 39-year-ol d female presents for postop follow-up. She is having trouble with upper respirator y symptoms. She has a viral upper respirator y syndrome. She also has been treated recently for urinary tract infection. Her incisions are clean dry and intact. She is recovering normally from the surgery. Her recent hemoglobin was 12. She had anemia while in the hospital that was treated with blood transfusio n. She will follow up as needed. Health Concerns Section Related Observation LastModified by Organization Detai ls LastModified Time None Recorded Concern Status LastModified by Organization Details LastModified Time None Recorded Advance Directives Directive None Recorded Payers Encounter Date Sequence Insurance Name Policy Number Policy Allen Covered Member ID Allen Member ID Guarantor Name 07/01/2024 1 [employer] [address] [id number] Tammy Cross 07/08/2024 1 [employer] 132 [address] [id number] Tammy Cross 07/12/2024 1 [employer] 132 [address] [id number] Tammy Cross 07/22/2024 1 [employer]: [employer] 132 [address] Cross [id number] Tammy Cross 08/06/2024 1 [facility]: [employer] 132 [address] Cross [id number] Tammy Cross Notes Date Note Type Note Provider Name and Address Organization Details Recorded Time 07/01/2024 text/html Presents today f or IUD check. Had mirena IUD placed 02/26/25. Has had intermittent bleeding since insertion. Patient has not had any cramping or pain. Has had some decrease in libido. She is overall happy with the IUD. She does report leakage of clear discharge. Does not smell or have any irritation. Random small gushes. Some intermittent pressure in pelvis as well. Hx of 7cm fundal fibroid. KALANI FELTON MD [address], [place], [address], [facility] 07/01/2024 11:37:49 07/12/2024 text/html This patient [...] infection. Sd Giron MD [address], [place], [address], [facility] 07/12/2024 14:57:28 08/06/2024 text/html . 39-year-old female presents for postop follow-up. She is having trouble with upper respiratory symptoms. She has a viral upper respiratory syndrome. She also has been treated recently for urinary tract infection. Her incisions are clean dry and intact. She is recovering normally from the surgery. Her recent hemoglobin was 12. She had anemia while in the hospital that was treated with blood transfusion. She will follow up as needed. Sd Giron MD [address], [place], [address], [facility] 08/06/2024 15:07:00 OBGyn Episode Ob Episode Information Episode Created Date Number of Fetuses Patient Bloodtype Patient rh Status Prepregnancy Weight lbs Domestic Partner Domestic Partner Phone Father Name Nuclear Monitoring Technician Status 12/01/19 21 1 CLOSED Fetus Data First Name Last Name Admitted to NICU Weight (g) Sex Living Outcome Pediatric Complications Fetus ID Race Codes Race Delivery Type 3401.94 M Full Term [id number] Vaginal Delivery Brett Calculation Initial Brett Date [...] Domestic Partner Domestic Partner Phone Father Name Nuclear Monitoring Technician Status 12/01/19 21 1 CLOSED Fetus Data First Name Last Name Admitted to NICU Weight (g) Sex Living Outcome Pediatric Complications Fetus ID Race Codes Race Delivery Type 3600.15 9704 M Full Term [id number] Vaginal Delivery Brett Calculation Initial Brett Date [...]
--- OUTSIDE RECORDS SUMMARY | 2024-08-09 09:56 | XMS_ITS | Continuity of Care Document ---
Author Organization [facility] Address [address] [place] [address] [place] [address] Phone Care Team Providers Care Associate Quality Engineer Name Role Phone Godwin Arevalo MD Unavailable Unavailable Allergies, Adverse Reactions, Alerts Substance Reaction Status Criticality No Known Allergies Active No Inform ation Medications Medication Instructions Dosage Effective Dates (start - stop) Status Comments Lexapro 10 mg tablet take 1 tablet by or al route every day 10 MG - Active Procedures Procedure Date PREV VISIT, [facility], AGE 18-39 OFFICE/OUTPATIENT VISIT, [facility] Advance Directives Directive Yes / No Effective Date File Name No Information Encounters Encounter Description Practice Location Reason(s) For Visit Diagnoses Date Provider Providers Copied on Encounter PREV VISIT, NEW, AGE 18-39 [facility], [address], [place], [id number], [place] tel:[phone] [facility] physical1 (chief complaint) Encounter for general adult medical exam w abnormal findingsPalpitation sFatigueGeneralized Anxiety Disorder 0 Mickey Connelly. [address], [place], [id number] , [place]. tel:[phone] Family History Family Member Type Diagnosis Age [...] Mental Status Date Cognitive Assessment Orientation - [place] ed to time, place, person, situation.
--- OUTSIDE RECORDS SUMMARY | 2024-08-09 09:56 | XMS_ITS | Encounter Summary ---
Author Organization [facility] Address [address] [place] [address] Phone Care Team Providers Care Coil Winder Name Role Phone No, Physician Primary Care Provider [phone] Elis Khan Primary Care Pr ovider Encounter Details Date Type Department Care Team (Latest Contact Info) Description 04/27/2015 Orders Only [facility] Scanning, Provider Social History Tobacco Use Types Packs/Day Years Used Date Smoking Tobacco: Never Assessed Comments Unknown Sex and Gender Information Value Date Recorded Sex Assigned at Not on file Legal 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 Gender Identity Not on file Sexual Orientation [...] COVID: Suspected 06/05/2022 06/05/2022 06/06/2022 3:05 AM FARMWORKER [employer]ICE COVID: Suspected 06/05/2022 06/05/2022 06/06/2022 4:38 AM FARMWORKER RICE COVID: Suspected 09/28/2022 09/28/2022 09/28/2022 3:33 PM CDT COVID: Suspected 04/16/2023 04/16/2023 04/16/2023 10:02 AM CDT COVID: Suspected 04/16/2023 04/16/2023 04/16/2023 3:14 PM CDT COVID: Suspected 02/22/2024 02/22/2024 02/22/2024 8:40 AM CDT COVID: Suspected 04/07/2024 04/07/2024 04/07/2024 12:10 PM CDT documented as of this encounter Care Teams Coil Winder Relationship Specialty Start Date End Date No, Physician PCP - General 05/11/20 10/12/20 Elis Khan PA PCP - General Physician Director Of Regional Sales 10/13/20 documented as of this encounter
--- OUTSIDE RECORDS SUMMARY | 2024-08-09 09:56 | XMS_ITS | Clinical Summary ---
Author Organization [facility] Address [address] [address] Care Team Providers Care Clinic Coordinator Name Role Phone Bakari Hsieh Primary Care Pr ovider Allergies No known active allergies Medications multivitamin with minerals tablet Take 1 tablet by mouth every morning Active metoprolol XL (TOPROL-XL) 100 mg 24 hr tablet TAKE 1 TABLET BY MOUTH EVERY DAY 90 tablet 3 01/25/20 23 Active metoprolol XL (TOPROL-XL) 50 mg extended release tablet Take 1 tablet (50 mg total) by mouth daily 90 tablet 3 07/23/19 24 Active Additional Information Patient not taking.Reported on 04/07/2024 benzonatate (TESSALON) 200 mg capsuleIndicat ions:Acute viral syndrome Take 1 capsule (200 mg total) by mouth 3 (three) times a day as needed for cough 30 capsule 04/07/20 24 Active lisinopriL (PRINIVIL,ZEST RIL) 10 mg tablet Take 1 tablet by mouth once daily 90 tablet 08/05/19 25 Active lisinopriL (PRINIVIL,ZEST RIL) 10 mg tablet Take 1 tablet (10 mg total) by mouth daily 90 tablet 3 07/23/19 24 025 Discontinued Active Problems Problem Noted Date Diagnosed Date Cough 12/19/2021 Anemia 11/30/2021 Acute bronchitis 11/30/2021 Acute sinusitis 11/08/2021 Shortness of breath 07/05/2021 Assessment & Plan (07/05/2021 11:30 AM MAINTENANCE MANAGER): Reports generalized symptoms including WOODS, nausea, dyspnea [...] 05/11/2020 Assessment & Plan (07/05/2021 11:28 AM MAINTENANCE MANAGER): Sound most c/w sinus tachycardia, 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 Currently wearing event monitor Will evaluate monitor results when available Increase metoprolol to 100 daily Assessment & Plan (08/17/2020 1:49 PM MAINTENANCE MANAGER): Due to WCT - likely SVT w [...] those Assessment & Plan (05/11/2020 10:52 AM MAINTENANCE MANAGER): Ddx includes sinus tachycardia vs SVT The [...] regimen. Assessment & Plan (07/05/2021 11:29 AM MAINTENANCE MANAGER): BP has recently been elevated, remains elevated on repeat check today Unclear if her current sx are related to the elevated Bps or not Regardless, BP is above goal Recommend starting lisinopril 10 mg daily Call w BP update in 1 week Check Bmp today Assessment & Plan (08/17/2020 1:50 PM MAINTENANCE MANAGER): BP is somewhat labile, still a bit above goal Will reassess BP control following EP study and consider changing metoprolol to a different agent at that time Secondary work up negative Assessment & Plan (05/11/2020 10:55 AM MAINTENANCE MANAGER): She is persistently hypertensive in clinic today. [...] Encounters Date Type Department Care Team Description 08/05/2024 11:22 AM MAINTENANCE MANAGER - 08/05/2024 11:59 PM MAINTENANCE MANAGER Hospital Encounter [facility] [address] [place] [address] Hyperglycemia; Dysuria Discharge Disposition: Discharge to home or self care 08/05/2024 11:00 AM MAINTENANCE MANAGER Lab [facility] Outpatient Lab at [address] [address] Hyperglycemia (Primary Dx); Dysuria; Benign essential hypertension 07/13/2024 Telephone [facility] Cardiology [address] [place] [address] [place] [address] Diego Strong MD from Last 3 Months Immunizations Name Administration Dates Next Due Rho (D) Immune Globulin, IV or IM 03/24/2015 Tdap 01/15/2015 Surgical History Surgery Date Site/Laterality Comments OVARIAN CYST REMOVAL 06/30/2018 - 06/29/2019 DILATION AND CURETTAGE OF UTERUS 06/30/2018 - 06/29/2019 RECTAL PROLAPSE REPAIR 06/30/2014 - 06/29/2015 Medical History Medical History Date Comments Anemia Type 2 [place] (myocardial infarc tion) (CMS/HCC) (HCC) 2014 HTN [...] on file Legal Sex Female 9:19 AM MAINTENANCE MANAGER Gender Identity Not on file Sexual Orientation Not on file Obstetrics History Last Filed Vital Signs Vital Sign Reading Time Taken Comments Blood Pressure 126/89 04/07/2024 11:37 AM CDT Pulse 95 04/07/2024 11:37 AM CDT Temperature 36.9 C (98.5 F) 04/07/2024 11:37 AM CDT Respiratory Rate 18 04/07/2024 11:37 AM CDT [...] this topic Medical Devices Implanted Type Area Classification And Treatment Director Device Identifier Shelf Expiration Date Model / Serial / Lot [employer] [id number] System 6-12fr Mvp Venous Closure Vascade - [id number] - [id number] Implanted:Qty: 1 on 09/06/2020 by Tony Pineda MD at [facility] [employer] 07/11/2022 800-612C-1 [id number] / [id number] / [id number] [employer] [id number] System 6-12fr Mvp Venous Closure Vascade - [id number] - [id number] Implanted:Qty: 1 on 09/06/2020 by Tony Pineda MD at [facility] [employer] 07/11/2022 800-612C-1 0U / [id number] / [id number] [employer] [id number] Device Closure Vascade Od5 Fr Femoral Artery - [id number] - [id number] Implanted:Qty: 1 on 09/06/2020 by Tony Pineda MD at [facility] [employer] 06/08/2022 700-500DX- 05U / [id number] [id number] / [id number] [employer] [id number] Device Closure Vascade Od5 Fr Femoral Artery - [id number] - [id number] Implanted:Qty: 1 on 09/06/2020 by Tony Pineda MD at [facility] [employer] 06/08/2022 700-500DX- 05U / [id number] / [id number] Procedures Procedure Name Priority Date/Time Associated Diagnosis Comments EGFR Routine 08/05/2024 11:22 AM MAINTENANCE MANAGER Hyperglycemia Dysuria DIFFERENTIAL AUTO Routine 08/05/2024 11: 22 AM MAINTENANCE MANAGER Hyperglycemia Dysuria CBC WITH AUTO DIFFERENTIAL Routine 08/05/2024 11:22 AM MAINTENANCE MANAGER Hyperglycemia Dysuria VITAMIN B12 Routine 08/05/2024 11:22 AM MAINTENANCE MANAGER Hyperglycemia Dysuria HEMOGLOBIN A1C Routine 08/05/2024 11:22 AM MAINTENANCE MANAGER Hyperglycemia Dysuria FOLATE Routine 08/05/2024 11:22 AM MAINTENANCE MANAGER Hyperglycemia Dysuria COMPREHENSIVE METABOLIC PANEL Routine 08/05/2024 11:22 AM MAINTENANCE MANAGER Hyperglycemia Dysuria URINE CULTURE Routine 08/05/2024 11:22 AM MAINTENANCE MANAGER Hyperglycemia Dysuria URINALYSIS AND REFLEX TO MICROSCOPIC AND CULTURE Routine 08/05/2024 11:22 AM MAINTENANCE MANAGER Hyperglycemia Dysuria from Last 3 Months Results * eGFR (08/05/2024 11:22 AM MAINTENANCE MANAGER) eGFR >90 >=60 mL/min/1. 73 m2 Comment: Interpretive Data Reference Interval Normal >/= 90 mL/min/1.73m2 Mildly decreased* 60 - 89 mL/min/1.73m2 Mildly to moderately decreased 45 - 59 mL/min/1.73m2 Moderately to severely decreased 30 - 44 mL/min/1.73m2 Severely decreased 15 - 29 mL/min/1.73m2 Kidney Failure < 15 mL/min/1.73m2 *Relative to young adult level Estimated glomerular filtration rate is determined by the 2020 CKD-EPI equation recommended by the National Kidney Foundation (A Unifying Approach to GFR Estimation: Recommendations of the NKF-ASK Task Force on Reassessing the Inclusion of Race in Diagnosing Kidney Disease, JASN 2020). The CKD-EPI equation should not be used for patients with unstable renal function and has not been validated in children and those over 70. Current interpretive data was last reviewed 2021. Blood 08/05/2024 11:2 2 AM MAINTENANCE MANAGER 08/05/2024 3:37 PM MAINTENANCE MANAGER us Bakari MADDO[facility] LAB BLOOD ORDERA BLES Final Result NICK PERKINS [address] [place] [address] * (ABNORMAL) Differential, auto (08/05/2024 11:22 AM MAINTENANCE MANAGER) Neutrophil abs 9.5(H) 1.5 - 6.5 K/cumm Imm gran abs 0.1 0.0 - 0.1 K/cumm [facility] Lymphocyte abs 1.2 0.8 - 3.3 K/cumm [facility] Monocyte abs 1.2(H) 0.2 - 0.8 K/cumm [facility] Eosinophil abs 0.2 0.0 - 0.5 K/cumm [facility] Basophil abs 0.1 0.0 - 0.1 K/cumm [facility] Neutrophil pct 78.3 % [facility] Comment: Interpretive Data Percent cell count reference ranges are not reported, since discordance with absolute values may lead to misinterpretation of CBC data. Current Interpretive Data was last revised on 2017. Imm gran pct 0.6 % [facility] Comment: Interpretive Data Percent cell count reference ranges are not reported, since discordance with absolute values may lead to misinterpretation of CBC data. Current Interpretive Data was last revised on 2017. Lymphocyte pct 9.5 % [facility] Comment: Interpretive Data Percent cell count reference ranges are not reported, since discordance with absolute values may lead to misinterpretation of CBC data. Current Interpretive Data was last revised on 2017. Monocyte pct 9.5 % [facility] Comment: Interpretive Data Percent cell count reference ranges are not reported, since discordance with absolute values may lead to misinterpretation of CBC data. Current Interpretive Data was last revised on 2017. Eosinophil pct 1.6 % [facility] Comment: Interpretive Data Percent cell count reference ranges are not reported, since discordance with absolute values may lead to misinterpretation of CBC data. Current Interpretive Data was last revised on 2017. Basophil pct 0.5 % [facility] Comment: Interpretive Data Percent cell count reference ranges are not reported, since discordance with absolute values may lead to misinterpretation of CBC data. Current Interpretive Data was last revised on 2017. Blood 08/05/2024 11:2 2 AM MAINTENANCE MANAGER 08/05/2024 3:19 PM MAINTENANCE MANAGER us Bakari MADDOX LAB BLOOD ORDERA BLES Final Result [facility] [address] Department [place] [address] * Urinalysis reflex to microscopic and culture Urine, clean voided (08/05/2024 11:22 AM MAINTENANCE MANAGER) Color, ur Straw Yellow Clarity, ur Clear Clear [facility] Specific gravity, ur 1.004 1.003 - 1.030 [facility] pH, urine 6.0 [facility] Comment: Interpretive Data U rine pH is affected by diet, medications, systemic acid-base disturbances, and renal tubular function. pH may affect urinary stone formation. For example, urine pH below 6.0 may help reduce the tendency for calcium phosphate stones and pH greater than 6.0 may reduce the tendency for uric acid stone formation. Source: [facility] Current Interpretive Data was last revised on 2017 Protein, ur ql Negative Negative [facility] Glucose, ur ql Negative Negative [facility] Ketones, ur Negative Negative [facility] Bilirubin, ur Negative Negative [facility] Blood, ur Negative Negative [facility] Urobilinogen, ur <2.0 <2.0 mg/dL [facility] Nitrite, ur Negative Negative [facility] Leukocyte esterase, ur Negative Negative [facility] Urine, clean voided 08/05/2024 11:22 AM MAINTENANCE MANAGER 08/05/2024 3:19 PM MAINTENANCE MANAGER Narrative [facility]ER - 08/05/2024 3:48 PM MAINTENANCE MANAGER FAX RESULTS TO [phone] BAKARI HSIEH Bakari [facility]AD[facility] LAB MICROBIOLOGY - GENERAL ORDERABLES Final Result NICK PERKINS [address] Department [place] [address] * (ABNORMAL) CBC with auto differential (08/05/2024 11:22 AM MAINTENANCE MANAGER) WBC 12.2(H) 3.8 - 9.9 K/cumm Hgb 12.9 11.9 - 15.5 g/dL [facility] Hct 44.5 35.6 - 45.5 % [facility] Plt 366 150 - 400 K/cumm [facility] MPV 10.8 9.1 - 12.3 fL [facility] RBC 5.73(H) 3.90 - 5.20 M/cumm [facility] MCV 77.7(L) 81.3 - 96.4 fL [facility] MCH 22.5(L) 27.1 - 33.3 pg [facility] MCHC 29.0(L) 32.3 - 35.7 g/dL [facility] RDW CV 24.0(H) 11.1 - 14.9 % [facility] RDW SD 65.1(H) 35.7 - 48.1 fL [facility] NRBC abs 0.00 0.00 - 0.01 K/cumm [facility] Blood 08/05/2024 11:2 2 AM MAINTENANCE MANAGER 08/05/2024 3:19 PM MAINTENANCE MANAGER Narrative [facility] - 08/05/2024 3:46 PM MAINTENANCE MANAGER FAX RESULTS TO [phone] BAKARI HSIEH us Bakari MADDOX LAB BLOOD ORDERA BLES Final Result [facility] [address] Department [place] [address] * Urine culture Urine, clean voided (08/05/2024 11:22 AM MAINTENANCE MANAGER) Report Final Report: Less than 100,000 colonies/mL (clinically insignificant growth based on current clinical standards) Comment:Testing performed by : [facility], [address] [facility]., [address] Organism (CLINICALLY INSIGNIFICANT GROWTH [facility] Urine, clean voided 08/05/2024 11:22 AM MAINTENANCE MANAGER 08/05/2024 6:16 PM MAINTENANCE MANAGER Narrative [facility] - 08/06/2024 7:59 PM MAINTENANCE MANAGER FAX RESULTS TO [phone] BAKARI HSIEH Testing performed by [facility] Microbiology Laboratory ([phone]) us Bakari MADDOX LAB MICROBIOLOGY - GENERAL ORDERABLES Final Result Performing Organization Address [facility] Co de Phone Number NICK [address] [address] [facility] [place] [address] * Hemoglobin A1c (08/05/2024 11:22 AM MAINTENANCE MANAGER) [facility] Hgb A1C 4.9 4.0 - 5.6 % Estimated Average Glucose 94 mg/dL NICK Comment: The ADA recommends reporting an estimated Average Glucose (eAG) with all Hemoglobin A1c results using the equation derived from a study of 507 normal and diabetic adults. Minority populations were underrepresented and children were not included. (Diabetes Care 31:7150-9988, 2008). The eAG is not equivalent to a fasting glucose. Blood (Blood, Venous) 08/05/2024 11:22 AM MAINTENANCE MANAGER 08/05/2024 3:19 PM MAINTENANCE MANAGER Narrative NICK - 08/05/2024 4:40 PM MAINTENANCE MANAGER FAX RESULTS TO [phone] BAKARI HSIEH Bakari MADDOX LAB BLOOD ORDERA BLES Final Result Performing Organization Address [facility] de Phone Number NICK [address] [address] [facility] [place] [address] * Folate (08/05/2024 11:22 AM MAINTENANCE MANAGER) [facility] Folic acid >20.0 >=5.0 ng/mL Comment:Hemolysis present. R esults may be affected. Blood 08/05/2024 11:2 2 AM MAINTENANCE MANAGER 08/05/2024 3:19 PM MAINTENANCE MANAGER Bakari Tonja MADDOX LAB BLOOD ORDERA BLES Final Result Performing Organization Address [facility] Co de Phone Number NICK [address] [address] [facility] [place] [address] * Vitamin B12 (08/05/2024 11:22 AM MAINTENANCE MANAGER) [facility] Vitamin B12 480 230 - 1,250 pg/mL Blood (Blood, Venous) 08/05/2024 11:22 AM MAINTENANCE MANAGER 08/05/2024 3:19 PM MAINTENANCE MANAGER Narrative [facility] - 08/05/2024 4:16 PM MAINTENANCE MANAGER FAX RESULTS TO [phone] BAKARI HSIEH Bakari Hsieh PA LAB [place]LOOD [place] [address] [address] Department [place] [address] * (ABNORMAL) Comprehensive metabolic panel (08/05/2024 11:22 AM MAINTENANCE MANAGER) Sodium 134(L) 135 - 145 mmol/L Potassium, pl 4.4 3.3 - 4.9 mmol/L [facility] Chloride 96(L) 97 - 110 mmol/L [facility] CO2 23 22 - 32 mmol/L [facility] Anion gap 15 2 - 15 mmol/L [facility] BUN 7 6 - 25 mg/dL [facility] Creatinine 0.68 0.60 - 1.10 mg/dL [facility] Glucose 86 70 - 199 mg/dL [facility] Comment: Interpretive Data Fasting glucose >/= 126 mg/dl is diagnostic for diabetes. Fasting is defined as no caloric intake for at least 8 hours. Fasting glucose between 100 mg/dl to 125 mg/dl is diagnostic of prediabetes. In a patient with classic symptoms of hyperglycemia or hyperglycemic crisis, a random glucose >/= 200 mg/dl is diagnostic for diabetes. In the absence of unequivocal hyperglycemia, results should be confirmed by repeat testing. The classification and Diagnosis of Diabetes Diabetes Care 2021; 46: S19-S40. Current interpretive data was last revised 2022. Calcium 9.7 8.5 - 10.3 mg/dL [facility] Bilirubin, total 0.4 0.1 - 1.2 mg/dL [facility] Protein, pl 7.3 6.5 - 8.5 g/dL [facility] Albumin 3.9 3.5 - 5.0 g/dL [facility] Alk phos 92 40 - 130 Units/L [facility] ALT 18 7 - 45 Units/L [facility] AST 28 10 - 45 Units/L [facility] Blood (Blood, Venous) 08/05/2024 11:22 AM MAINTENANCE MANAGER 08/05/2024 3:19 PM MAINTENANCE MANAGER Bakari MADDOX LAB BLOOD ORDERA BLES Final Result NICK [address] [address] Department [place] [address] from Last 3 Months Insurance [facility] [employer] Address: [address] [place] [address] Care Teams Clinic Coordinator Relationship Specialty Start Date End Date Bakari Hsieh PA PCP - General Physician Claim Inspector 10/13/20
--- OUTSIDE RECORDS SUMMARY | 2024-08-09 09:56 | XMS_ITS | Data Portability ---
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 colonoscopy not due yet. [email or web address] Not available 11/29/2023 14:25:34 Plan of Treatment Reminders Order Date Submit Date Provider Last Modified By Organization Details Last Modified Time Details Appointments ANY 30 2024 09:00A M TAN Jones Not available Not available Not available Lab ANTONIA (antinuc lear antibodi es) panel, serum 2023 024 [facility], [facility] [place], [address], 12/09/2023 14:29:53 TSH + free T4, serum 2023 024 [email or web address] [facility] [place] [address] [place], [address], 12/25/2023 14:44:47 CMP, serum or plasma 2023 024 [facility] [place] [address] [place], [address], 12/09/2023 14:30:11 CBC w/ auto diff 2023 024 KERRY [facility], [address], [place], [address], 12/09/2023 14:08:22 vitamin B12 + folate, serum or blood 2023 024 [facility], [address], [place], [address], 12/09/2023 14:31:07 lipid panel, serum 2023 024 [facility], [address], [place], [address], 12/09/2023 14:30:30 HbA1c (hemoglo bin A1c), blood 2023 024 [facility], [address], [place], [address], 12/09/2023 14:30:51 Referral None recorded . Procedures None recorded . Surgeries None recorded . Imaging None recorded . Medication Orders None recorded . Patient TargetsNo targets recorded. Patient InstructionsNo instructions recorded. Reason for Referral None Reported. Results Created Date Observation Date Name Description Value Unit Range Abnormal Flag Note LastModifiedBy Organization Detail LastModifiedTime 08/05/1908/05/2024 influ tucker virus A + B + SARS- CoV-2 (COVI D19) Ag panel , rapid IA, upper respi rator y speci men Flu A negati ve Not Available In-Office Order Internal Use Only DO Not Attach Compendium DO Not Attach Compendium, Do Not Delete/merge, [id number] 08/05/2024 11:55:25 08/05/19 25 08/05/2024 influ tucker virus A + B + SARS- CoV-2 (COVI D19) Ag panel , rapid IA, upper respi rator y speci men Flu B negati ve Not Available In-Office Order Internal Use Only DO Not Attach Compendium DO Not Attach Compendium, Do Not Delete/merge, [id number] 08/05/2024 11:55:25 08/05/19 25 08/05/2024 influ tucker virus A + B + SARS- CoV-2 (COVI D19) Ag panel , rapid IA, upper respi rator y speci men Rapid SARS CoV 2 Ag, QL IA, respiratory specimen negati ve Not Available In-Office Order Internal Use Only DO Not Attach Compendium DO Not Attach Compendium, Do Not Delete/merge, [id number] 08/05/2024 11:55:25 08/05/19 25 08/05/2024 rapid strep group A, throa t Strep negati ve Not Available In-Office Order Internal Use Only DO Not Attach Compendium DO Not Attach Compendium, Do Not Delete/merge, [id number] 08/05/2024 12:05:33 04/23/20 24 04/23/2024 XR, chest , 2 view No observ ation record ed. [facility] [address] [facility] [address], [place], [address], 04/23/2024 14:04:43 07/09/19 25 07/09/2024 US, pelvi s, compl ete No observ ation record ed. [email or web address] [address], [place], [address], 07/13/2024 09:03:27 07/26/19 25 07/26/2024 XR, chest , 2 view No observ ation record ed. [address], [place], [address], 07/26/2024 23:05:15 07/26/19 25 07/26/2024 CT, abdom en + pelvi s, w/ contr ast No observ ation record ed. [email or web address] [place] [address] [facility] [address], [place], [address], 07/26/2024 23:02:57 Result Notes None recorded. Problems Name Problem SNOMED Code Status Onset Date Resolution Date Notes Provider Name and Address Organization Details Recorded Time Eruption of skin of face Active 2023 TAN Jones Attn: Pedro g,[address] [facility], [place], [address], [facility] 4 14:24:19 Long-term drug therapy Active 2023 TAN Jones Attn: ePdro balbuena,[address] [facility], [place], [address], [facility] 4 14:24:37 History of radiofrequency ablation operation for arrhythmia 262547705 Active 2023 TAN Jones Attn: Pedro balbuena,[address] [facility], [place], [address], [place] [facility] 4 14:24:46 Benign essential hypertension 1847023 Active 2023 TAN Jones Attn: Pedro balbuena,[address] [facility], [place], [address], [facility] 4 14:25:01 Body mass index 20-24 - normal 932081816 Active 2024 Olegario Shaw [place] null, [place] [facility] 5 11:24:09 Problem Notes None recorded. Procedures Surgical History Date Name Laterality Status Provider Name and Address Organization Details Recorded Time 07/22/19 partial hysterectomy completed Olegario Shaw MA [facility] 08/05/2024 11:22:09 Imaging Results Imaging Date Name Status LastModified by Organiz ation Details LastModified Time 04/23/2024 XR, chest, 2 view completed [facility] [address], [place], [address], 04/23/2024 14:04:43 07/09/2024 US, pelvis, complete completed [address] [place] [address], [address], 07/13/2024 09:03:27 07/26/2024 XR, chest, 2 view completed [address], [address], 07/26/2024 23:05:15 07/26/2024 CT, abdomen + pelvis, w/ contrast completed [address], [place], [address], 07/26/2024 23:02:57 Procedure Notes None recorded. Medical Equipment None Reported. Allergies No known drug allergies Medications Name Sig Start Date Stop Date Status Note LastModified by Organization Details LastModified Time amoxicill in 500 mg capsule TAKE 1 CAPSULE BY MOUTH THREE TIMES DAILY UNTIL GONE 11/25 completed Not Available Not Available Not Available azithromy adela 250 mg tablet TAKE 2 TABLETS BY MOUTH ON DAY 1, AND THEN TAKE 1 TABLET BY MOUTH ONCE A DAY ON DAY 2 THROUGH DAY 5 08/05 completed Not Available Not Available Not Available benzonata te 200 mg capsule TAKE 1 CAPSULE BY MOUTH THREE TIMES DAILY NEEDED FOR COUGH 08/05 completed Not Available Not Available Not Available metoprolo l succinate ER 50 mg tablet,ex tended release 24 hr TAKE 1 TABLET BY MOUTH ONCE DAILY 11/25 completed Not Available Not Available Not Available hydrocodo ne 5 mg-acetam inophen 325 mg tablet TAKE 1 TABLET BY MOUTH EVERY 4 HOURS NEEDED FOR PAIN 08/05 completed Not Available Not Available Not Available metoprolo l succinate ER 100 mg tablet,ex tended release 24 hr TAKE 1 TABLET BY MOUTH ONCE DAILY active Not Available Not Available No t Available Macrobid 100 mg capsule Take 1 capsule every 12 hours by oral route. 2024 active Not Available Not Available Not Avai lable lisinopri l 10 mg tablet TAKE 1 TABLET BY MOUTH ONCE DAILY active Not Available Not Available No t Available methylpre dnisolone 4 mg tablets in a dose pack TAKE BY MOUTH DIRECTED ON INSIDE OF PACKAGE 08/05 completed Not Available Not Available Not Available cefdinir 300 mg capsule TAKE 1 CAPSULE BY MOUTH EVERY 12 HOURS 08/05 completed Not Available Not Available Not Available tranexami c acid 650 mg tablet TAKE 2 TABLETS BY MOUTH THREE TIMES DAILY 08/05 completed pt has stopped taking Not Available Not Available Not Available Vitals Date Recorded Body height Body mass index (BMI) Body weight Respiratory rate Oxygen saturation Oxygen saturation in Arterial blood by Pulse oximetry Heart rate Systolic blood pressure Diastolic blood pressure Provider Name and Address Organization Details Last Updated DateTime 157.48 cm 24.6 kg/m2 73224.4 6 g 20 /min 100 % 100 % 78 /min 130 mm[Hg] 80 mm[Hg] Olegario Shaw [place] [facility] 4 10:02:26 Date Recorded Body height Body mass index (BMI) Body weight Respiratory rate Oxygen saturation Oxygen saturation in Arterial blood by Pulse oximetry Heart rate Systolic blood pressure Diastolic blood pressure Provider Name and Address Organization Details Last Updated DateTime 5 157.48 cm 24.3 kg/m2 86041.7 9 g 20 /min 100 % 100 % 113 /min 136 mm[Hg] 82 mm[Hg] Olegario Shaw [place] [facility] 5 11:25:39 Social History Question Answer Notes LastModified by [employer] ion Details LastModified Time Tobacco Smoking Status Never Smoker Olegario Shaw MA null, [facility] 11/26/2023 10:00:20 What Is Your Level Of Alcohol Consumption? Occasional Information not available 11/26/2023 Are You Blind Or Do You Have Difficulty Seeing? No Information not available 11/26/2023 What Is Your Level Of Caffeine Consumption? Moderate Information not available 11/26/2023 In The 14 Days Before Symptom Onset, Have You Had Close Contact With A Laboratory-confir med COVID-19 While That Case Was Ill? No Information not available 11/26/2023 Have You Been To An Area Known To Be High Risk For COVID-19? No Information not available 11/26/2023 What Type Of Diet Are You Following? REGULAR Information not available 11/26/2023 Are There Any Guns Present In Your Home? No Information not available 11/26/2023 What Was The Date Of Your Most Recent Tobacco Screening? 08/05/2024 Information not available 08/05/2024 Do You Use Your Seat Belt Or Car Seat Routinely? Yes Information not available 11/26/2023 Do You Have Smoke And Carbon Monoxide Detectors In Your Home? Yes Information not available 11/26/2023 Do You Use Any Illicit Or Recreational Drugs? No Information not available 11/26/2023 Do You Use Sunscreen Routinely? Yes Information not available 11/26/2023 Has Tobacco Cessation Counseling Been Provided? Yes Information not available 11/26/2023 On What Date Was Tobacco Cessation Counseling Provided? 08/05/2024 Information not available 08/05/2024 Do You Or Have You Ever Used Any Other Forms Of Tobacco Or Nicotine? No Information not available 11/26/2023 Sex: Female Functional Status Question Answer Note LastModified by Organization D etails LastModified Time Are you able to care for yourself? Yes Information not available 11/26/2023 What is your exercise level? Moderate Information not available 11/26/2023 Mental Status None recorded. Family History Relationship Description Onset Age of this Age Resolved Age Notes LastModified by Organization Details LastModified Time Mother Diabetes mellitus [email or web address] Not available 2023 10:48:37 Mother Hypertensive disorder [email or web address] Not available 2023 10:48:41 Medical History Condition Response Coronary Artery Disease N Other N Atrial Fibrillation N High Blood Pressure Y Depression N COPD N Blood Clots N Anxiety Disorder N Muscle, Joint, or Bone Problems N Acid Reflux (GERD) N Cancer N Stroke N High Cholesterol N Liver Disease N Headaches N Kidney or Bladder Problems N Thyroid Problems N GI Problems N Skin Problems N Anemia N Heart Attack (PR) N Diabetes N Seizures/Epilepsy N Asthma N Allergies N Hepatitis N Heart Failure N Osteoporosis N Gynecological History Statement/Question Response Flow Heavy Date of LMP 07/07/2024 Frequency of Cycle (Q days) 28 Menses Monthly Y Duration of Flow (days) 5 Current Control Method IUD LMP Approximate Obstetrics History GPAL:G 2 P 2 0 0 2 Type Value Full Term 2 Induced 0 Spontaneous 0 Premature 0 Living 2 Total 2 Immunizations Vaccine Type Date Status Note Provider Nam e and Address Organization Details Recorded Time Rho(D)-IG 03/24/2015 completed HAYDE [place], [place] - [facility] 08/05/2024 11:23:52 COVID-19, mRNA, LNP-S, PF, 30 mcg/0.3 mL dose 02/14/2021 [place] HAYDE [place], [place] [facility] 08/05/2024 11:23:52 COVID-19, mRNA, LNP-S, PF, 30 mcg/0.3 mL dose 03/08/2021 completed Olegario Shaw MA wilmer, [place] - [facility] 08/05/2024 11:23:52 Tdap 01/15/2015 completed HAYDE Summers, [place] - [facility] 08/05/2024 11:23:52 Past Encounters Encounter ID Performer Location Encounter Start Date Encounter Closed Date Diagnosis/Indication Diagnosis SNOMED-CT Code Diagnosis ICD10 Code Diagnosis Note [id number] TAN Jones [facility] [employer] [address] [place] [address] 11/26/2023 09:44:45 11/26/2023 11:46:02 Adult health examination 007338410 Z00.01 annual wellness completed. fasting labs ordered Benign ess ential hypertension 2807505 I10 stable on lisinopril 10mg daily, and metoprolol succ. ER 100mg daily. History of radiofrequency ablation operation for arrhythmia 333137831 Z98.890 hx noted. pt is very stable. Long-term drug therapy 189000161 Z79.899 cmp, cbc and b12, folate labs are due Cholesterol screening 27 2481937 Z13.220 fasting lipids due Diabetes m ellitus screening 713921559 Z13.1 a1c screening due Thyroid di sorder screening 387589620 Z13.29 routine thyroid labs due Eruption o f skin of face 6892368256 R21 screening ANTONIA panel ordered with butterfly type rash that waxes and wanes in prominence . [id number] TAN Jones [facility] [employer] [address] [place] [address] 08/05/2024 11:01:43 08/05/2024 12:37:19 Body mass index 20-24 - normal 510969021 Z68.24 Anemia 928392059 D64.9 Hyperglycemia 22577394 R 73.9 Dysuria 88016305 R30.0 Low grade pyrexia 651281 008 R50.9 Health Concerns Section Related Observation LastModified by Organization Detai ls LastModified Time None Recorded Concern Status LastModified by Organization Details LastModified Time None Recorded Advance Directives Directive None Recorded Payers Encounter Date Sequence Insurance Name Policy Number Policy Allen Covered Member ID Allen Member ID Guarantor Name 11/26/2023 1 [place] [employer] [place]) [address] [id number] Tammy Cross Notes Date Note Type Note Provider Name and Address Organization Details Recorded Time 4 text/html HypertensionReported bypatient.Notes:pt is taking lisinopril 10mg daily and metoprolol ER 100mg daily. 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 pt is tolerating medication well. she is due for annual labs. she does report some rosacea type red rash on face/cheeks often. she would like lab testing for this. wellness appt TAN Jones Attn: Accounting,[address] [place], [address], [facility] 11/29/2023 14:25:48 OBGyn Episode No OBEpisode recorded.
--- OUTSIDE RECORDS SUMMARY | 2024-08-09 09:56 | XMS_ITS | Encounter Summary ---
Author Organization [facility] Address [address] [place] [address] Phone Care Team Providers Care Flat Locker Name Role Phone No, Physician Primary Care Provider [phone] Elis Khan Primary Care Pr ovider Encounter Details Date Type Department Care Team (Latest Contact Info) Description 01/20/2015 Orders Only [facility] Scanning, Provider Social History Tobacco Use Types Packs/Day Years Used Date Smoking Tobacco: Never Assessed Comments Unknown Sex and Gender Information Value Date Recorded Sex Assigned at Not on file Legal Sex 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 Gender Identity Not on file Sexual Orientation [...] COVID: Suspected 06/05/2022 06/05/2022 06/06/2022 3:05 AM BOBBIN DRIER COVID: Suspected 06/05/2022 06/05/2022 06/06/2022 4:38 AM BOBBIN DRIER COVID: Suspected 09/28/2022 09/28/2022 09/28/2022 3:33 PM CDT COVID: Suspected 04/16/2023 04/16/2023 04/16/2023 10:02 AM CDT COVID: Suspected 04/16/2023 04/16/2023 04/16/2023 3:14 PM CDT COVID: Suspected 02/22/2024 02/22/2024 02/22/2024 8:40 AM CDT COVID: Suspected 04/07/2024 04/07/2024 04/07/2024 12:10 PM CDT documented as of this encounter Care Teams Flat Locker Relationship Specialty Start Date End Date No, Physician PCP - General 05/11/20 10/12/20 Elis Khan PA PCP - General Physician Online Media Buyer 10/13/20 documented as of this encounter
--- OUTSIDE RECORDS SUMMARY | 2024-08-09 09:56 | XMS_ITS | Clinical Summary ---
Author Organization [facility] Address [address] [place] [address] Care Team Providers Care Educational Technology Coordinator Name Role Phone Unavailable Primary Care Provider [...]
--- OUTSIDE RECORDS SUMMARY | 2024-08-09 09:56 | XMS_ITS | Encounter Summary ---
Author Organization [facility] Address [address] [place] [address] Phone Care Team Providers Care Quantity Surveyor Name Role Phone Elis Khan Primary Care Pr ovider Encounter Details Date Type Department Care Team (Late st Contact Info) Description 07/13/2024 Telephone [facility] Cardiology [address] 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 D COORDINATOR * Telephone Encounter - Diego Strong MD - 07/13/2024 2:27 PM CST I would defer to her client customer manager regarding management of the fibroid. She should be able to have the surgery. I would recommend she continue metoprolol through the perioperative period. D COORDINATOR * Telephone Encounter - Floresita Aguilar RN - 07/13/2024 9:[address] Strong, pt would like your input on TBD surgery. D COORDINATOR * Telephone Encounter - Christine Melvin - [...] should have surgery. Please call to advise. D COORDINATOR documented in this encounter Plan of Treatment Not on file documented as of this encounter Visit Diagnoses Not on filedocumented in this encounter Care Teams Quantity Surveyor Relationship Specialty Start Date End Date Elis Khan PA PCP - General Physician Legal Administrative Assistant 10/13/20 documented as of this encounter
--- OUTSIDE RECORDS SUMMARY | 2024-08-09 09:56 | XMS_ITS | Referral Summary ---
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 Name Role Phone Elis Hsieh Primary Care Pr ovider Encounters Date Type Department Care Team Description 08/05/2024 11:22 AM CURATOR HERBARIUM - 08/05/2024 11:59 PM CURATOR HERBARIUM Hospital Encounter [address] [address] Hyperglycemia; Dysuria Discharge Disposition: Discharge to home or self care 08/05/2024 11:00 AM CURATOR HERBARIUM Lab [facility] Outpatient Lab at [address] [address] Hyperglycemia (Primary Dx); Dysuria; Benign essential hypertension 07/13/2024 Telephone [facility] [place] [facility] 8th [place] [address] [place] [address] Diego Strong MD from Last [...] 07/05/2021 Assessment & Plan (07/05/2021 11:30 AM CURATOR HERBARIUM): Reports generalized symptoms including WOODS, nausea, dyspnea [...] 05/11/2020 Assessment & Plan (07/05/2021 11:28 AM CURATOR HERBARIUM): Sound most c/w sinus tachycardia, 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 Currently wearing event monitor Will evaluate monitor results when available Increase metoprolol to 100 daily Assessment & Plan (08/17/2020 1:49 PM CURATOR HERBARIUM): Due to WCT - likely SVT w [...] those Assessment & Plan (05/11/2020 10:52 AM CURATOR HERBARIUM): Ddx includes sinus tachycardia vs SVT The [...] regimen. Assessment & Plan (07/05/2021 11:29 AM CURATOR HERBARIUM): BP has recently been elevated, remains elevated on repeat check today Unclear if her current sx are related to the elevated Bps or not Regardless, BP is above goal Recommend starting lisinopril 10 mg daily Call w BP update in 1 week Check Bmp today Assessment & Plan (08/17/2020 1:50 PM CURATOR HERBARIUM): BP is somewhat labile, still a bit above goal Will reassess BP control following EP study and consider changing metoprolol to a different agent at that time Secondary work up negative Assessment & Plan (05/11/2020 10:55 AM CURATOR HERBARIUM): She is persistently hypertensive in clinic today. [...] on file Legal Sex Female 9:19 AM CURATOR HERBARIUM Gender Identity Not on file Sexual Orientation [...] on file Medical Devices Implanted Type Area [employer] Helper Device Identifier Shelf Expiration Date Model / Serial / Lot [employer] [id number] System 6-12fr Mvp Venous Closure Vascade - [id number] - [id number] Implanted:Qty: 1 on 09/06/2020 by Tony Pineda MD at [facility] [employer] 07/11/2022 800-612C-1 0U / [id number] / [id number] [employer] [id number] System 6-12fr Mvp Venous Closure Vascade - [id number] - [id number] Implanted:Qty: 1 on 09/06/2020 by Tony Pineda MD at [facility] [employer] 07/11/2022 800-612C-1 0U / [id number] / [id number] [employer] [id number] Device Closure Vascade Od5 Fr Femoral Artery - [id number] - [id number] Implanted:Qty: 1 on 09/06/2020 by Tony Pineda MD at [facility] [employer] 06/08/2022 700-500DX- 05U / [id number] 10B / [id number] [id number] [employer] [id number] Device Closure Vascade Od5 Fr Femoral Artery - [id number] - [id number] Implanted:Qty: 1 on 09/06/2020 by Tony Pineda MD at [facility] [employer] 06/08/2022 700-500DX- 05U / [id number] [id number] / [id number] Procedures Procedure Name Priority Date/Time Associated Diagnosis Comments EGFR Routine 08/05/2024 11:22 AM CURATOR HERBARIUM Hyperglycemia Dysuria DIFFERENTIAL AUTO Routine 08/05/2024 11: 22 AM CURATOR HERBARIUM Hyperglycemia Dysuria CBC WITH AUTO DIFFERENTIAL Routine 08/05/2024 11:22 AM CURATOR HERBARIUM Hyperglycemia Dysuria VITAMIN B12 Routine 08/05/2024 11:22 AM CURATOR HERBARIUM Hyperglycemia Dysuria HEMOGLOBIN A1C Routine 08/05/2024 11:22 AM CURATOR HERBARIUM Hyperglycemia Dysuria FOLATE Routine 08/05/2024 11:22 AM CURATOR HERBARIUM Hyperglycemia Dysuria COMPREHENSIVE METABOLIC PANEL Routine 08/05/2024 11:22 AM CURATOR HERBARIUM Hyperglycemia Dysuria URINE CULTURE Routine 08/05/2024 11:22 AM CURATOR HERBARIUM Hyperglycemia Dysuria URINALYSIS AND REFLEX TO MICROSCOPIC AND CULTURE Routine 08/05/2024 11:22 AM CURATOR HERBARIUM Hyperglycemia Dysuria from Last 3 Months Results * eGFR (08/05/2024 11:22 AM CURATOR HERBARIUM) eGFR >90 >=60 mL/min/1. 73 m2 Comment: [...] reviewed 2021. Blood 08/05/2024 11:2 2 AM CURATOR HERBARIUM 08/05/2024 3:37 PM CURATOR HERBARIUM us Elis [facility] BLOOD ORDERA BLES Final Result NICK [address] Department [place] [address] * (ABNORMAL) Differential, auto (08/05/2024 11:22 AM CURATOR HERBARIUM) Neutrophil abs 9.5(H) 1.5 - 6.5 K/cumm Imm gran abs 0.1 0.0 - 0.1 K/cumm [facility] Lymphocyte abs 1.2 0.8 - 3.3 K/cumm [facility] Monocyte abs 1.2(H) 0.2 - 0.8 K/cumm [facility] Eosinophil abs 0.2 0.0 - 0.5 K/cumm [facility] Basophil abs 0.1 0.0 - 0.1 K/cumm [facility] Neutrophil pct 78.3 % [facility] Comment: Interpretive Data Percent cell count reference ranges are not reported, since discordance with absolute values may lead to misinterpretation of CBC data. Current Interpretive Data was last revised on 2017. Imm gran pct 0.6 % [facility] Comment: Interpretive Data Percent cell count reference ranges are not reported, since discordance with absolute values may lead to misinterpretation of CBC data. Current Interpretive Data was last revised on 2017. Lymphocyte pct 9.5 % [facility] Comment: Interpretive Data Percent cell count reference ranges are not reported, since discordance with absolute values may lead to misinterpretation of CBC data. Current Interpretive Data was last revised on 2017. Monocyte pct 9.5 % [facility] Comment: Interpretive Data Percent cell count reference ranges are not reported, since discordance with absolute values may lead to misinterpretation of CBC data. Current Interpretive Data was last revised on 2017. Eosinophil pct 1.6 % [facility] Comment: Interpretive Data Percent cell count reference ranges are not reported, since discordance with absolute values may lead to misinterpretation of CBC data. Current Interpretive Data was last revised on 2017. Basophil pct 0.5 % [facility] Comment: Interpretive Data Percent cell count reference ranges are not reported, since discordance with absolute values may lead to misinterpretation of CBC data. Current Interpretive Data was last revised on 2017. Blood 08/05/2024 11:2 2 AM CURATOR HERBARIUM 08/05/2024 3:19 PM CURATOR HERBARIUM us Elis [facility] BLOOD ORDERA BLES Final Result [facility] [address] Department of Laboratories [place], [place] [id number] * Urinalysis reflex to microscopic and culture Urine, clean voided (08/05/2024 11:22 AM CURATOR HERBARIUM) Color, ur Straw Yellow Clarity, ur Clear [...] tendency for uric acid stone formation. Source: [facility]lect[facility] Current Interpretive Data was last revised on [...] CH Urine, clean voided 08/05/2024 11:22 AM CURATOR HERBARIUM 08/05/2024 3:19 PM CURATOR HERBARIUM Narrative [facility] - 08/05/2024 3:48 PM CURATOR HERBARIUM FAX RESULTS TO [phone] ELIS HSIEH us Elis [facility] MICROBIOLOGY - GENERAL ORDERABLES Final Result [facility] PERKINS [address] Department of Laboratories [place], [place] [id number] * (ABNORMAL) CBC with auto differential (08/05/2024 11:22 AM CURATOR HERBARIUM) WBC 12.2(H) 3.8 - 9.9 K/cumm Hgb 12.9 11.9 - 15.5 g/dL [facility] Hct 44.5 35.6 - 45.5 % [facility] Plt 366 150 - 400 K/cumm [facility] MPV 10.8 9.1 - 12.3 fL [facility] RBC 5.73(H) 3.90 - 5.20 M/cumm [facility] MCV 77.7(L) 81.3 - 96.4 fL [facility] MCH 22.5(L) 27.1 - 33.3 pg [facility] MCHC 29.0(L) 32.3 - 35.7 g/dL [facility] RDW CV 24.0(H) 11.1 - 14.9 % [facility] RDW SD 65.1(H) 35.7 - 48.1 fL [facility] NRBC abs 0.00 0.00 - 0.01 K/cumm [facility] Blood 08/05/2024 11:2 2 AM CURATOR HERBARIUM 08/05/2024 3:19 PM CURATOR HERBARIUM Narrative [facility] - 08/05/2024 3:46 PM CURATOR HERBARIUM FAX RESULTS TO [phone] ELIS HSIEH Elis MAD[facility] BLOOD ORDERA BLES Final Result N[facility] PERKINS [address] Department [place] [address] * Urine culture Urine, clean voided (08/05/2024 11:22 AM CURATOR HERBARIUM) Report Final Report: Less than 100,000 colonies/mL (clinically insignificant growth based on current clinical standards) Comment:Testing performed by : [facility], [address] [place]., [address] Organism (CLINICALLY INSIGNIFICANT GROWTH [facility] Urine, clean voided 08/05/2024 11:22 AM CURATOR HERBARIUM 08/05/2024 6:16 PM CURATOR HERBARIUM Narrative NICK - 08/06/2024 7:59 PM CURATOR HERBARIUM FAX RESULTS TO [phone] ELIS HSIEH Testing performed by [facility] ([phone]) Elis [facility] MICROBIOLOGY - GENERAL ORDERABLES Final Result Performing Organization Address [facility] Co de Phone Number [facility] [address] [place] [address] * Hemoglobin A1c (08/05/2024 11:22 AM CURATOR HERBARIUM) Hgb A1C 4.9 4.0 - 5.6 % Estimated Average Glucose 94 mg/dL NICK Comment: The ADA recommends reporting an estimated Average Glucose (eAG) with all Hemoglobin A1c results using the equation derived from a study of 507 normal and diabetic adults. Minority populations were underrepresented and children were not included. (Diabetes Care 31:9589-6036, 2008). The eAG is not equivalent to a fasting glucose. Blood (Blood, Venous) 08/05/2024 11:22 AM CURATOR HERBARIUM 08/05/2024 3:19 PM CURATOR HERBARIUM Narrative NICK - 08/05/2024 4:40 PM CURATOR HERBARIUM FAX RESULTS TO [phone] ELIS HSIEH Elis MAD[facility]X [facility] BLOOD ORDERA BLES Final Result Performing Organization Address City/[facility]/ZIP Co de Phone Number [facility] [address] [place] [address] * Folate (08/05/2024 11:22 AM CURATOR HERBARIUM) Pathologist [facility] Folic acid >20.0 >=5.0 ng/mL Comment:Hemolysis present. R esults may be affected. Blood 08/05/2024 11:2 2 AM CURATOR HERBARIUM 08/05/2024 3:19 PM CURATOR HERBARIUM Elis Evangelista Lorena [facility] LAB BLOOD ORDERA BLES Final Result Performing Organization Address [facility] [[email or web address]] de Phone Number NICK [address] [place] [address] * Vitamin B12 (08/05/2024 11:22 AM CURATOR HERBARIUM) [facility] Vitamin B12 480 230 - 1,250 pg/mL Blood (Blood, Venous) 08/05/2024 11:22 AM CURATOR HERBARIUM 08/05/2024 3:19 PM CURATOR HERBARIUM Narrative [facility] - 08/05/2024 4:16 PM CURATOR HERBARIUM FAX RESULTS TO [phone] ELIS HSIEH Elis Tonja [facility] BLOOD ORDERA BLES Final Result Performing Organization Address [facility] Phone Number [facility] [address] Department [place] [address] * (ABNORMAL) Comprehensive metabolic panel (08/05/2024 11:22 AM CURATOR HERBARIUM) [facility] Sodium 134(L) 135 - 145 mmol/L Potassium, pl 4.4 3.3 - 4.9 mmol/L [facility] Chloride 96(L) 97 - 110 mmol/L [facility] CO2 23 22 - 32 mmol/L [facility] Anion gap 15 2 - 15 mmol/L [facility] BUN 7 6 - 25 mg/dL [facility] Creatinine 0.68 0.60 - 1.10 mg/dL [facility] Glucose 86 70 - 199 mg/dL [facility] Comment: Interpretive Data Fasting glucose >/= 126 [...] classification and Diagnosis of Diabetes Diabetes Care 202; 46: S19-S40. Current interpretive data was last [...] CH Blood (Blood, Venous) 08/05/2024 11:22 AM CURATOR HERBARIUM 08/05/2024 3:19 PM CURATOR HERBARIUM Elis MADDOX LAB BLOOD ORDERA BLES Final Result [facility] [address] Department [place] [address] from Last 3 Months Insurance [facility] [place] [address] [facility] [place] [address] [facility] Care Teams Piano Case And Bench Assembler Relationship Specialty Start Date End Date Elis Hsieh PA PCP - General Physician Career Development Associate 10/13/20
--- NOTE | 2024-08-09 11:35 | ED_ITS ---
HPI - Fever General Chief Complaint: Fever <Christine Lowe PA-C - Last Filed: 08/11/24 17:37> Stated Complaint: UTI sx, fever <Christine Lowe PA-C - Last Filed: 08/11/24 17:37> Time Seen by Provider: 08/09/24 11:35 <Christine Lowe PA-C - Last Filed: 08/11/24 17:37> Focused HPI: This is a 39 year old female that presents to the ER for dysuria. Reports partial hysterectomy about 2 weeks ago. She was started on Macrobid, has been taking this with little relief. Her motor operator is Dr. Giron. Reports she is also having hematuria and fevers. Dr. Giron recommended possible CT to look for pyelonephritis. Denies flank pain currently. GENERAL: Well-appearing, well-nourished, and in no acute distress. HEAD: Normocephalic, atraumatic. CHEST: Clear to auscultation. ?No respiratory distress. HEART: Regular rate and rhythm.? NEURO: ?Alert and oriented x3. Patient screened in triage and initial orders placed.? ?Additional care and disposition to be based upon?diagnostic testing and treatment. <Christine Lowe PA-C - Last Filed: 08/11/24 17:37> History of Present Illness HPI Narrative: Agree with the HPI above. <Twin Mendez MD - Last Filed: 08/09/24 14:05> Related Data Home Medications: Home Medications ?Medication ?Instructions ?Recorded ?Confirmed ?Last Taken ?Type ferrous sulfate 137 mg (45 mg 137 mg PO DAILY 07/16/24 08/09/24 08/08/24 History iron) tablet,extended release (Slow Fe) lisinopril 10 mg tablet 10 mg PO DAILY 07/16/24 08/09/24 08/08/24 History metoprolol succinate 100 mg 100 mg PO HS 07/16/24 08/09/24 08/08/24 History tablet,extended release 24 hr lactobacillus comb no.10 20 80,000 mmu cells PO DAILY 08/09/24 08/09/24 08/08/24 History billion cell capsule (Probiotic) [id number] fumarate 18 1 tab-cap PO DAILY 08/09/24 08/09/24 08/08/24 History mg-FA 600 mcg-vit K 40 mcg capsule (Multi For Her) <Christine Lowe PA-C - Last Filed: 08/11/24 17:37> Allergies/Adverse Reactions: Allergies Allergy/AdvReac Type Severity Reaction Status Date / Time No Known Allergies Allergy Verified 08/09/24 09:43 <Christine Lowe PA-C - Last Filed: 08/11/24 17:37> Review of Systems 2 Review of Systems: As reviewed above in HPI <Twin Mendez MD - Last Filed: 08/09/24 14:05> [facility] Past Medical History Medical History: Medical History SVT (supraventricular tachycardia) Hypertension Uterine fibroid <Christine Lowe PA-C - Last Filed: 08/11/24 17:37> Surgical History Surgical History: Surgical History H/O cardiac radiofrequency ablation <Christine Lowe PA-C - Last Filed: 08/11/24 17:37> Family History Family History: Family History Grandparent Acute myocardial infarction Chronic obstructive pulmonary disease Mother Asthma Cerebrovascular accident Diabetes mellitus Hypertension Sibling Hypertension Father Prostate carcinoma <Christine Lowe PA-C - Last Filed: 08/11/24 17:37> Social History Social History: Social History Smoking status: Former smoker Alcohol intake: current Drinks per week: 4 Substance use: never Do You Feel Safe in your Home?: Yes Lack of Transportation: No Lack of Food: Never True Current Housing: I Have Housing Concerned About Future Housing: No Difficulty Paying Gas/Electric Bills: No Difficulty Paying for Meds: No Currently Unemployed: No Education: High School Diploma/GED Difficulty w/ Childcare or Family Care: No Living arrangements: with family Spiritual care concerns: No <Christine Lowe PA-C - Last Filed: 08/11/24 17:37> Exam 2 Narrative: GENERAL: [Well-appearing, well-nourished, and in no acute distress.] HEAD: [Normocephalic, atraumatic.] EYES: [PERRLA and EOMI.] ENT: Nares clear, no rhinorrhea or epistaxis. Mucous membranes moist. NECK: Supple. CHEST: [Clear to auscultation. No respiratory distress.] HEART: [Regular rate and rhythm]. No murmur heard. [Normal peripheral pulses.] ABDOMEN: [Soft, nondistended], [nontender], [No rigidity or guarding] EXTREMITIES: Normal range of motion. [No edema.] SKIN: Warm, dry, no rash. NEURO: [No focal deficits]. Alert and oriented [x3.] PSYCH: [Normal mood and affect.] <Twin Mendez MD - Last Filed: 08/09/24 14:05> Course Vital Signs Vital signs: Vital Signs Temperature 98.9 F 08/09/24 09:43 Pulse Rate 97 08/09/24 09:43 Respiratory Rate 16 08/09/24 09:43 Blood Pressure 112/89 08/09/24 09:43 Pulse Oximetry 100 08/09/24 09:43 Oxygen Delivery Room Air 08/09/24 09:43 Temperature 97.6 F 08/11/24 14:00 Pulse Rate 76 08/11/24 14:00 Respiratory Rate 18 08/11/24 14:00 Blood Pressure 126/79 08/11/24 14:00 Pulse Oximetry 97 08/11/24 14:00 Oxygen Delivery Room Air 08/11/24 08:00 Oxygen Flow Rate 2 08/10/24 11:55 <Christine Lowe PA-C - Last Filed: 08/11/24 17:37> Vital Signs Temperature 98.9 F 08/09/24 09:43 Pulse Rate 97 08/09/24 09:43 Respiratory Rate 16 08/09/24 09:43 Blood Pressure 112/89 08/09/24 09:43 Pulse Oximetry 100 08/09/24 09:43 Oxygen Delivery Room Air 08/09/24 09:43 Temperature 97.6 F 08/11/24 14:00 Pulse Rate 76 08/11/24 14:00 Respiratory Rate 18 08/11/24 14:00 Blood Pressure 126/79 08/11/24 14:00 Pulse Oximetry 97 08/11/24 14:00 Oxygen Delivery Room Air 08/11/24 08:00 Oxygen Flow Rate 2 08/10/24 11:55 <Twin Mendez MD - Last Filed: 08/09/24 14:05> MDM - Fever MDM Narrative Medical decision making narrative: 39-year-old female that is 2 weeks status post partial hysterectomy. She was diagnosed urinary tract infection and started on Macrobid but having persistent symptoms despite [id number] pain control medications and azo. She does a fever last night but presently afebrile. Vital signs are reassuring without any significant blood pressure elevations, tachycardia, fever, hypoxia. She has a soft nontender nondistended abdomen and otherwise pleasant without significant pain. She spoke to her OBGYN who recommended obtaining a CT scan to see if she has pyelonephritis or other intra-abdominal process. Laboratory studies were obtained, CBC, CMP, CT abdomen pelvis was obtained, she was given Toradol for analgesia and fluid bolus and started on Rocephin for urinary tract infection that was evident on new urinalysis. Workup shows no leukocytosis or anemia. Normal platelet count. Coags ordered and pending. Electrolytes within normal limits, normal renal function panel. Normal glucose, negative lactic acid, LFTs mildly elevated but not severe. Normal bilirubin. Urinalysis with discoloration, red blood cells and copious white blood cells and bacteria consistent with urinary tract infection. CT scan shows a 3.9 x 2.5 x 2.5 cm rim enhancing fluid collection in the uterine fossa which is likely an abscess versus hematoma. I discussed these findings with patient's OBGYN Dr. Giron with recommendations to trying get IR guided drainage versus just antibiotics with possibility of operative intervention if failing these conservative measures. I discussed the case with our on-call radiologist Dr. Cornejo who recommended obtaining coag studies and ordering the CT-guided drainage so it can be done today or tomorrow. Discussed this with the patient at bedside and informed of the risks and benefits of this procedure versus antibiotics versus alternatives. I discussed the case once again with her OBGYN who will take patient to admission to his service for CT-guided drainage, antibiotics, pain management and further care. Patient comfortable with this plan of care and she was safely admitted at this time. <Twin Mendez MD - Last Filed: 08/09/24 14:05> Medical Records Attestation: I reviewed the patient's medical records. <Twin Mendez MD - Last Filed: 08/09/24 14:05> Lab Data Attestation: I reviewed the patient's lab results. <Twin Mendez MD - Last Filed: 08/09/24 14:05> Result diagrams: 08/10/24 09:23 08/09/24 11:46 <Christine Lowe PA-C - Last Filed: 08/11/24 17:37> Labs: Lab Results 08/09/24 Range/Units 11:46 WBC 8.5 (4.5-10.0) K/mm3 RBC 5.83 H (4.2-5.4) M/mm3 Hgb 13.4 D (12.0-15.0) g/dL Hct 43.7 (37.0-47.0) % MCV 75.0 L (80-100) fl MCH 23.0 L (26-34) pg MCHC 30.7 L (32-36) g/dl RDW 24.3 H (11.5-14.5) % Plt Count 383 H D (150-375) k/mm3 MPV 10.6 H (7.4-10.4) fl Immature Gran % (Auto) 0.4 (0-0.5) % Neut % (Auto) 65.6 (45.5-73.1) % Lymph % (Auto) 21.5 (18.3-44.2) % [place] % (Auto) 11.7 H (2.6-8.5) % Eos % (Auto) 0.4 (0-4.4) % Baso % (Auto) 0.4 (0.2-1.2) % Lymph # (Auto) 1.82 (0.9-3.2) K/mm3 [place] # (Auto) 1.0 H (0.1-0.6) K/mm3 Eos # (Auto) 0.0 (0-0.3) K/mm3 Baso # (Auto) 0.0 (0.0-0.1) K/mm3 Abs Immat Gran (auto) 0.03 (0.00-0.031) K/mm3 Absolute Neuts (auto) 5.6 (1.3-6.7) K/mm3 Absolute Nucleated RBC 0.000 (0.0-0.012) K/mm3 Nucleated RBC % 0.0 (0.0-0.2) % Atypical Lymphocytes Present Platelet Estimate Adequate (Adequate) Anisocytosis 2+ Schistocytes None seen PT 13.4 (11.1-14.7) Seconds INR 1.0 APTT 33.7 (22.3-36.8) Seconds Sodium 133 L (137-145) mmol/L Potassium 4.0 (3.4-5.0) mmol/L Chloride 94 L (98-107) mmol/L Carbon Dioxide 27 (22-30) mmol/L Anion Gap 12 (4-12) mmol/L BUN 8 D (7-17) mg/dL Creatinine 0.52 L (0.7-1.0) mg/dL Estim Creat Clear Calc 97 ml/min Estimated GFR > 60 (59 - ) Glucose 96 (65-110) mg/dL Lactic Acid 0.9 (0.7-2.0) mmol/L Calcium 9.6 (8.4-10.2) mg/dL Total Bilirubin 0.5 (0.2-1.3) mg/dL AST 47 H (14-36) U/L ALT 65 H (6-35) U/L Alkaline Phosphatase 113 (38-126) U/L C-Reactive Protein 5.4 H (<1.0) mg/dL Total Protein 8.0 (6.3-8.2) g/dL Albumin 4.4 (3.5-5.1) g/dL Urine Color [place] H (Yellow) Urine Appearance TNP Urine pH TNP Ur Specific [place] TNP Urine Protein TNP Urine Glucose (UA) TNP Urine Ketones TNP Ur Blood (Man) TNP Urine Nitrate TNP Urine Bilirubin TNP Urine Urobilinogen TNP Leukocyte Esterase Rfl TNP Urine RBC 51-100 H (0-2) /hpf Urine WBC >100 H (0-3) /hpf Ur Squamous Epith Cells Few (Few) /hpf Urine Bacteria 1+ H /hpf Urine Casts 0-2 Influenza A (RT-PCR) Positive A (Negative) Influenza B (RT-PCR) Negative (Negative) RSV (RT-PCR) Negative (Negative) SARS-CoV-2 RNA (RT-PCR) Negative (Negative) <Christine Lowe PA-C - Last Filed: 08/11/24 17:37> Lab Results 08/09/24 Range/Units 11:46 WBC 8.5 (4.5-10.0) K/mm3 RBC 5.83 H (4.2-5.4) M/mm3 Hgb 13.4 D (12.0-15.0) g/dL Hct 43.7 (37.0-47.0) % MCV 75.0 L (80-100) fl MCH 23.0 L (26-34) pg MCHC 30.7 L (32-36) g/dl RDW 24.3 H (11.5-14.5) % Plt Count 383 H D (150-375) k/mm3 MPV 10.6 H (7.4-10.4) fl Immature Gran % (Auto) 0.4 (0-0.5) % Neut % (Auto) 65.6 (45.5-73.1) % Lymph % (Auto) 21.5 (18.3-44.2) % [place] % (Auto) 11.7 H (2.6-8.5) % Eos % (Auto) 0.4 (0-4.4) % Baso % (Auto) 0.4 (0.2-1.2) % Lymph # (Auto) 1.82 (0.9-3.2) K/mm3 [place] # (Auto) 1.0 H (0.1-0.6) K/mm3 Eos # (Auto) 0.0 (0-0.3) K/mm3 Baso # (Auto) 0.0 (0.0-0.1) K/mm3 Abs Immat Gran (auto) 0.03 (0.00-0.031) K/mm3 Absolute Neuts (auto) 5.6 (1.3-6.7) K/mm3 Absolute Nucleated RBC 0.000 (0.0-0.012) K/mm3 Nucleated RBC % 0.0 (0.0-0.2) % Atypical Lymphocytes Present Platelet Estimate Adequate (Adequate) Anisocytosis 2+ Schistocytes None seen PT 13.4 (11.1-14.7) Seconds INR 1.0 APTT 33.7 (22.3-36.8) Seconds Sodium 133 L (137-145) mmol/L Potassium 4.0 (3.4-5.0) mmol/L Chloride 94 L (98-107) mmol/L Carbon Dioxide 27 (22-30) mmol/L Anion Gap 12 (4-12) mmol/L BUN 8 D (7-17) mg/dL Creatinine 0.52 L (0.7-1.0) mg/dL Estim Creat Clear Calc 97 ml/min Estimated GFR > 60 (59 - ) Glucose 96 (65-110) mg/dL Lactic Acid 0.9 (0.7-2.0) mmol/L Calcium 9.6 (8.4-10.2) mg/dL Total Bilirubin 0.5 (0.2-1.3) mg/dL AST 47 H (14-36) U/L ALT 65 H (6-35) U/L Alkaline Phosphatase 113 (38-126) U/L C-Reactive Protein 5.4 H (<1.0) mg/dL Total Protein 8.0 (6.3-8.2) g/dL Albumin 4.4 (3.5-5.1) g/dL Urine Color [place] H (Yellow) Urine Appearance TNP Urine pH TNP Ur Specific [place] TNP Urine Protein TNP Urine Glucose (UA) TNP Urine Ketones TNP Ur Blood (Man) TNP Urine Nitrate TNP Urine Bilirubin TNP Urine Urobilinogen TNP Leukocyte Esterase Rfl TNP Urine RBC 51-100 H (0-2) /hpf Urine WBC >100 H (0-3) /hpf Ur Squamous Epith Cells Few (Few) /hpf Urine Bacteria 1+ H /hpf Urine Casts 0-2 Influenza A (RT-PCR) Positive A (Negative) Influenza B (RT-PCR) Negative (Negative) RSV (RT-PCR) Negative (Negative) SARS-CoV-2 RNA (RT-PCR) Negative (Negative) <Twin Mendez MD - Last Filed: 08/09/24 14:05> Imaging Data Attestation: I personally reviewed and interpreted this imaging study as follows: < Twin Mendez MD - Last Filed: 08/09/24 14:05> My impression: Impressions Abdomen/Pelvis CT 08/09/24 13:03 IMPRESSION: 1. Status post recent hysterectomy with 3.9 x 2.5 x 2.5 cm rim-enhancing fluid collection at the uterine fossa which could represent a postoperative hematoma or abscess. <Twin Mendez MD - Last Filed: 08/09/24 14:05> Critical Care Time Critical Care Time Critical Care Time: No <Christine Lowe PA-C - Last Filed: 08/11/24 17:37> Discharge Plan Discharge Clinical Impression: Pelvic abscess in female, Status post hysterectomy UTI (urinary tract infection) Qualifiers: Urinary tract infection type: acute cystitis Hematuria presence: with hematuria Qualified Code(s): N30.01 - Acute cystitis with hematuria <Christine Lowe PA-C - Last Filed: 08/11/24 17:37> Patient Disposition: Still a Patient <Christine Lowe PA-C - Last Filed: 08/11/24 17:37> Condition: Stable <Christine Lowe PA-C - Last Filed: 08/11/24 17:37> Time of Disposition: 14:05 <Christine Lowe PA-C - Last Filed: 08/11/24 17:37> 14:05 <Twin Mendez MD - Last Filed: 08/09/24 14:05>
[2024-08-09 11:54] LABS: Basophils Percent Auto 0.4 % (0.2-1.2); Eosinophils Percent Auto 0.4 % (0-4.4); Hematocrit 43.7 % (37.0-47.0); Hemoglobin 13.4 g/dL (12.0-15.0); Immature Granulocyte Absolute 0.03 K/mm3 (0.00-0.031); Immature Granulocyte Percent A 0.4 % (0-0.5); Lymphocytes Absolute Auto 1.82 K/mm3 (0.9-3.2); Lymphocytes Percent Auto 21.5 % (18.3-44.2); Mean Corpuscular HGB Conc 30.7 g/dl (32-36); Mean Platelet Volume 10.6 fl (7.4-10.4); Monocytes Percent Auto 11.7 % (2.6-8.5); Neutrophils Absolute Auto 5.6 K/mm3 (1.3-6.7); Neutrophils Percent Auto 65.6 % (45.5-73.1); Platelet Count Result 383 k/mm3 (150-375); Red Blood Count 5.83 M/mm3 (4.2-5.4); Red Cell Distribution Width 24.3 % (11.5-14.5); White Blood Count 8.5 K/mm3 (4.5-10.0)
[2024-08-09 12:03] LABS: Bacteria Urine 1+ /hpf; Non Pathogenic Casts 0-2; Squamous Epithelial Cell Urine Few /hpf (Few); WBC Urine >100 /hpf (0-3)
[2024-08-09 12:15] LABS: Lactic Acid Reflex 0.9 mmol/L (0.7-2.0); Platelet Estimate Adequate (Adequate); Schistocytes None Seen
[2024-08-09 12:16] LABS: Anisocytosis 2+; Atypical Lymphocytes Present
[2024-08-09 12:19] LABS: Add Urine Microscopic? YES; Color Urine Orange (Yellow)
[2024-08-09 12:20] LABS: Alanine Aminotransferase 65 U/L (6-35); Albumin Level 4.4 g/dL (3.5-5.1); Alkaline Phosphatase 113 U/L (38-126); Anion Gap 12 mmol/L (4-12); Aspartate Amino Transferase 47 U/L (14-36); Bilirubin,Total 0.5 mg/dL (0.2-1.3); Blood Urea Nitrogen 8 mg/dL (7-17); CRP 5.4 mg/dL (<1.0); Calcium 9.6 mg/dL (8.4-10.2); Carbon Dioxide 27 mmol/L (22-30); Chloride 94 mmol/L (98-107); Estimated CRCL calculation 97 ml/min; Estimated Glomerular Filt Rate > 60; Glucose 96 mg/dL (65-110); RBC Urine 51-100 /hpf (0-2); Sodium 133 mmol/L (137-145)
--- OUTSIDE RECORDS SUMMARY | 2024-08-09 12:45 | XMS_ITS | Encounter Summary ---
Author Organization [facility] Address [address] [place] [address] Phone Care Team Providers Care Server Engineer Name Role Phone No, Physician Primary Care Provider [phone] Elis Khan Primary Care Pr ovider Encounter Details Date Type Department Care Team (Latest Contact Info) Description 04/27/2015 Orders Only [facility] Scanning, Provider Social History Tobacco Use Types Packs/Day Years Used Date Smoking Tobacco: Never Assessed Comments Unknown Sex and Gender Information Value Date Recorded Sex Assigned at Not on file Legal 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 Gender Identity Not on file Sexual [...] COVID: Suspected 06/05/2022 06/05/2022 06/06/2022 3:05 AM FREEZING ROOM WORKER COVID: Suspected 06/05/2022 06/05/2022 06/06/2022 4:38 AM FREEZING ROOM WORKER COVID: Suspected 09/28/2022 09/28/2022 09/28/2022 3:33 PM CDT COVID: Suspected 04/16/2023 04/16/2023 04/16/2023 10:02 AM CDT COVID: Suspected 04/16/2023 04/16/2023 04/16/2023 3:14 PM CDT COVID: Suspected 02/22/2024 02/22/2024 02/22/2024 8:40 AM CDT COVID: Suspected 04/07/2024 04/07/2024 04/07/2024 12:10 PM CDT documented as of this encounter Care Teams Server Engineer Relationship Specialty Start Date End Date No, Physician PCP - General 05/11/20 10/12/20 Elis Khan PA PCP - General Physician Manager Loan 10/13/20 documented as of this encounter
--- OUTSIDE RECORDS SUMMARY | 2024-08-09 12:45 | XMS_ITS | Data Portability ---
Author Organization [facility], Main Office Address [address] [place] [address] Assessment No assessment recorded. Plan of Treatment Reminders Order Date Submit Date Provider Last Modified By Organization Details Last Modified Time Details Appointments None recorded. Lab TSH + free T4, serum 023 023 [email or web address] [facility] [place] [address] [place], [address], 4 09:20:37 lipid panel, serum 023 023 KERRY [facility] [place] [address] [place], [address], 3 10:01:45 iron + TIBC + ferritin, serum 023 023 [email or web address] [place] [address] [place], [address], 4 09:20:37 vitamin B12 + folate, serum or blood 023 023 [email or web address] [place] [address] [place], [address], 4 09:20:37 HbA1c (hemoglob in A1c), blood 023 023 [email or web address] [place] [address] [place], [address], 4 09:20:36 CBC w/ auto diff 023 023 [email or web address] [place] [address], [place], [address], 4 09:20:36 CMP, serum or plasma 023 023 [facility] [place], [address], [place], [address], 3 10:01:45 Referral None recorded. Procedures None [...] Address Organization Details Recorded Time Acute bronchitis 07989030 Active 2021 Not Available [facility] 3 22:45:45 Benign essential hypertension 1259381 Active 2021 Not Available [facility] 3 22:45:45 Acute sinusitis 56489176 Active 2021 Not Available [facility] 3 22:45:45 Anemia 110544588 Active 2021 Not Available [facility] 3 22:45:45 Cough 68153945 Active 2021 Not Available [facility] 3 22:45:45 Sinusitis 71380331 Active 2022 TAN Jones [address] [facility] [address], [place], [address] , [facility] 3 15:01:19 Problem Notes None recorded. Procedures Surgical History Date Name Laterality Status Provider Name and Address Organization Details Recorded Time 09/09/19 21 catheter ablation of arrhythmogenic focus completed Not Available [facility] 08/28/2022 22:44:04 excision of uterine polyp completed Not Available [facility] 08/28/2022 22:44:04 Imaging Results None recorded. [...] Date Recorded Body mass index (BMI) Body mass index (BMI) Body height Body height Oxygen saturation Oxygen saturation in Arterial blood by Pulse oximetry Oxygen saturation Oxygen saturation in Arterial blood by Pulse oximetry Heart rate Heart rate Respiratory rate Respiratory rate Body temperature Body temperature Body weight Body weight Systolic blood pressure Diastolic blood pressure Systolic blood pressure Diastolic blood pressure Provider Name and Address Organization Details Last Updated DateTime 3 23.6 kg/m2 23.8 kg/m2 157.48 cm 157.48 cm 98 % 98 % 99 % 99 % 110 /min 88 /min 16 /min 16 /min 97.5 [degF] 98.3 [degF] 28504.4 2 g 38791.0 1 g 130 mm[Hg] 80 mm[Hg] 128 mm[Hg] 68 mm[Hg] Not Available [facility] 3 22:44:50 Date Recorded Body height Body temperature Body mass index (BMI) Body weight Respiratory rate Oxygen saturation Oxygen saturation in Arterial blood by Pulse oximetry Heart rate Systolic blood pressure Diastolic blood pressure Provider Name and Address Organization Details Last Updated DateTime 3 157.48 cm 98 [degF] 24.1 kg/m2 76147.4 g 16 /min 99 % 99 % 73 /min 122 mm[Hg] 80 mm[Hg] BHARTI Hook - [facility] 3 09:17:28 Social History Question Answer Notes LastModified by Organizat ion Details LastModified Time Tobacco Smoking Status Never Smoker Not Available [facility] 08/28/2022 22:43:37 What Is Your Level Of Alcohol Consumption? Occasional [id number] Information not available 08/28/2022 What Is Your Level Of Caffeine Consumption? Moderate MIGRATION.785879 2512 Information not available 08/28/2022 How Much Tobacco Do You Chew? None MIGRATION.732393 9748 Information not available 08/28/2022 In The 14 Days Before Symptom Onset, Have You Had Close Contact With A Laboratory-confir med COVID-19 While That Case Was Ill? No MIGRATION.[id number] 5569 Information not available 08/28/2022 In The 14 Days Before Symptom Onset, Have You Had Close Contact With A Person Who Is Under Investigation For COVID-19 While That Person Was Ill? No MIGRATION.[id number] 9004 Information not available 08/28/2022 What Type Of Diet Are You Following? REGULAR MIGRATION.[id number] 9376 Information not available 08/28/2022 Which Illicit Or Recreational Drugs Have You Used? None MIGRATION.817282 2702 Information not available 08/28/2022 Do You Or Have You Ever Used E-cigarettes Or Vape? Never Used Electronic Cigarettes MIGRATION.961805 8223 Information not available 08/28/2022 Have There Been Any Changes To Your Family Or Social Situation? No MIGRATION.348601 3313 Information not available 08/28/2022 Are There Any Guns Present In Your Home? Yes MIGRATION.708904 8595 Information not available 08/28/2022 Do You Use Insect Repellent Routinely? No MIGRATION.[id number] 3978 Information not available 08/28/2022 What Was The Date Of Your Most Recent Tobacco Screening? 10/13/2020 MIGRATION.[id number] 4169 Information not available 08/28/2022 What Is Your Relationship Status? MIGRATION.438776 4304 Information not available 08/28/2022 Do You Use Your Seat Belt Or Car Seat Routinely? Yes MIGRATION.563922 6355 Information not available 08/28/2022 Do You Have Smoke And Carbon Monoxide Detectors In Your Home? Yes MIGRATION.857849 4627 Information not available 08/28/2022 Are You Passively Exposed To Smoke? No MIGRATION.757662 0063 Information not available 08/28/2022 Do You Or Have You Ever Used Smokeless Tobacco? Never Used Smokeless Tobacco MIGRATION.477274 8935 Information not available 08/28/2022 How Much Tobacco Do You Smoke? No MIGRATION.548201 7511 Information not available 08/28/2022 Do You Use Any Illicit Or Recreational Drugs? No MIGRATION.945768 1645 Information not available 08/28/2022 Do You Use Sunscreen Routinely? Yes MIGRATION.964267 8872 Information not available 08/28/2022 Have You Recently Traveled Abroad? No MIGRATION.035027 1497 Information not available 08/28/2022 Do You Have Any Dietary Restrictions? No MIGRATION.424368 9624 Information not available 08/28/2022 Do You Or Have You Ever Used Any Other Forms Of Tobacco Or Nicotine? No MIGRATION.857089 3078 Information not available 08/28/2022 Sex: Unknown Functional Status Question Answer Note LastModified by Kahunaizat ion Details LastModified Time What is your exercise level? Moderate [id number].[id number] Information not available 08/28/2022 Mental Status None recorded. Family History Relationship Description Onset Age of this Age Resolved Age Notes LastModified by Organization Details LastModified Time Mother Diabetes mellitus [id number] Not available 08/28/2022 22:44:07 Father Hypertensive disorder [id number] Not available 08/28/2022 22:44:07 Medical History Condition Response BLINDNESS N NERVE DISEASE N RHEUMATIC FEVER N BLADDER PROBLEMS N KIDNEY STONES N MRSA N OTHER # 1 N [...] HAVE YOU BEEN HOSPITALIZED OR SEEN IN [facility] ER IN THE PAST YEAR ? N ATHEROSCLEROSIS [...] SNOMED-CT Code Diagnosis ICD10 Code Diagnosis Note [id number] [facility] [place] [address] [place] [address] 10/13/2020 00:00:00 10/27/2020 18:38:05 [id number] [facility] [place] [address] [facility] [address] [place] [address] 11/30/2021 00:00:00 12/27/2021 20:34:43 [id number] TAN Jones [facility] [place] [address] [place] [address] 01/08/2023 09:10:53 01/08/2023 09:45:15 Adult health examination 647769840 Z00.00 well exam completed . Routine labs due Cholesterol screening 27 5576467 Z13.220 fasting lipids due Diabetes m ellitus screening 697416572 Z13.1 diabetes screening due Long-term drug therapy 898710554 Z79.899 Thyroid di sorder screening 576047218 Z13.29 thyroid panel due Anemia 216044665 D64.9 due for iron studies and b12 , folate with anemia hx History of radiofrequency ablation operation for arrhythmia 891724785 Z98.890 hx discussed. stable on metoprolol ER 100mg daily and lisinopril 10mg daily Benign ess ential hypertension 0103152 I10 stable on metoprolol ER 100mg daily and lisinopril 10mg daily Health Concerns Section Related Observation LastModified by Organization Detai ls LastModified Time None Recorded Concern Status LastModified by Organization Details LastModified Time None Recorded Advance Directives Directive None Recorded Payers Encounter Date Sequence Insurance Name Policy Number Policy Allen Covered Member ID Allen Member ID Guarantor Name 01/08/2023 1 [place] ([place]) [address] Cross [id number] Tammy Cross Notes Date Note Type Note [...] in exercise capacity; no snoring Not Available [employer] 10/27/2020 18:38:05 2 text/html Generic HPI TemplateReported [...] congestion in chest and cough. Not Available [employer] 12/27/2021 20:34:43 3 text/html HypertensionReported bypatient.Duration:has noted for years Onset/Timing:better Alleviating Factors:medication Associated Symptoms:no shortness of breath; no fatigue; no palpitations; no decline in exercise capacity; no snoring wellness TAN Jones [address] [facility] [facility] [address], [place], [address], [place] [facility] 01/27/2023 01:27:01 OBGyn Episode No OBEpisode recorded.
--- OUTSIDE RECORDS SUMMARY | 2024-08-09 12:45 | XMS_ITS | Encounter Summary ---
Author Organization [facility] Address [address] [place] [address] Phone Care Team Providers Care Way Inspector Name Role Phone Elis Khan Primary Care Pr ovider Encounter Details Date Type Department Care Team (Late st Contact Info) Description 07/13/2024 Telephone [facility] Cardiology [address] [facility] Advanced Medicine 8th [place] [address] [place] [address] Diego Strong MD [address] [facility] [address] [place] [address] Social History Tobacco Use Types [...] on file Legal Sex Female 9:19 AM EMPLOYEE RELATION MANAGER Gender Identity Not on file Sexual Orientation Not on file documented as of this encounter Miscellaneous Notes * Telephone Encounter - Floresita Aguilar RN - 07/13/2024 2:44 PM EMPLOYEE RELATION MANAGER [employer] message sent to patient with recs. OYEE RELATION MANAGER * Telephone Encounter - Diego Strong MD - 07/13/2024 2:27 PM CST I would defer to her airport operations specialist regarding management of the fibroid. She should be able to have the surgery. I would recommend she continue metoprolol through the perioperative period. OYEE RELATION MANAGER * Telephone Encounter - Floresita Aguilar RN - 07/13/2024 9:00 AM EMPLOYEE RELATION MANAGER Dr. Strong, pt would like your input on TBD surgery. OYEE RELATION MANAGER * Telephone Encounter - Christine Melvin - [...] should have surgery. Please call to advise. OYEE RELATION MANAGER documented in this encounter Plan of Treatment Not on file documented as of this encounter Visit Diagnoses Not on filedocumented in this encounter Care Teams Way Inspector Relationship Specialty Start Date End Date Elis Khan PA PCP - General Physician Sleeper Cutter 10/13/20 documented as of this encounter
--- OUTSIDE RECORDS SUMMARY | 2024-08-09 12:45 | XMS_ITS | Continuity of Care Document ---
Author Organization [facility] Address [address] [place] [address] [place] [address] Phone Care Team Providers Care Prison Librarian Name Role Phone Godwin Arevalo MD Unavailable Unavailable Allergies, Adverse Reactions, Alerts Substance Reaction Status Criticality No Known Allergies Active No Inform ation Medications Medication Instructions Dosage Effective Dates (start - stop) Status Comments Lexapro 10 mg tablet take 1 tablet by or al route every day 10 MG - Active Procedures Procedure Date PREV VISIT, [facility], AGE 18-39 OFFICE/OUTPATIENT VISIT, [facility] Advance Directives Directive Yes / No Effective Date File Name No Information Encounters Encounter Description Practice Location Reason(s) For Visit Diagnoses Date Provider Providers Copied on Encounter PREV VISIT, NEW, AGE 18-39 [facility], [address] [place], [address], [place] tel:[phone] [facility] physical1 (chief complaint) Encounter for general adult medical exam w abnormal findingsPalpitation sFatigueGeneralized Anxiety Disorder 0 Mickey Connelly. [address] [place], [place], [id number] , [place]. tel:[phone] Family History Family Member Type Diagnosis Age [...] Mental Status Date Cognitive Assessment Orientation - [place] ed to time, place, person, situation.
--- OUTSIDE RECORDS SUMMARY | 2024-08-09 12:45 | XMS_ITS | Clinical Summary ---
Author Organization [facility] Address [address] [place] [address] Phone Care Team Providers Care Optometric Technologist Name Role Phone Unavailable Primary Care Provider Unavailabl e Social History Tobacco Use Types Packs/Day Years Used Date Smoking Tobacco: Never Assessed Comments Unknown Sex and Gender Information Value Date Recorded Sex Assigned at Not on file Legal Sex Female 11:48 AM TRADE MARK ATTORNEY Gender Identity Not on file Sexual Orientation Not on file Plan of Treatment Upcoming Encounters Date Type Department Care Team (Late st Contact Info) Description 10/01/2024 9:00 AM CDT Office Visit [facility]necology [address] [facility] [address] [place] [address] Tammy Monson MD [address] [facility] [address] [place] [address] Health Maintenance Due Date Last Done Comments DTAP/TDAP/TD VACCINES (1 - Tdap) 2005 HEPATITIS B VACCINES (1 of 3 - 19+ 3-dose series) 2005 CERVICAL CANCER SCREENING 2016 INFLUENZA VACCINE (#1) 2024 HPV VACCINES Aged Out No longer eligi ble based on patient's age to complete this topic
--- OUTSIDE RECORDS SUMMARY | 2024-08-09 12:45 | XMS_ITS | Encounter Summary ---
Author Organization [facility] Address [address] [place] [address] Phone Care Team Providers Care Edging Machine Catcher Name Role Phone No, Physician Primary Care Provider [phone] Elis Khan Primary Care Pr ovider Encounter Details Date Type Department Care Team (Latest Contact Info) Description 01/20/2015 Orders Only [facility] Scanning, Provider Social History Tobacco Use Types Packs/Day Years Used Date Smoking Tobacco: Never Assessed Comments Unknown Sex and Gender Information Value Date Recorded Sex Assigned at Not on file Legal Sex Female 9:19 AM SPRING ASSEMBLER SUPERVISOR Gender Identity Not on file Sexual Orientation [...] COVID: Suspected 06/05/2022 06/05/2022 06/06/2022 3:05 AM SPRING ASSEMBLER SUPERVISOR COVID: Suspected 06/05/2022 06/05/2022 06/06/2022 4:38 AM SPRING ASSEMBLER SUPERVISOR COVID: Suspected 09/28/2022 09/28/2022 09/28/2022 3:33 PM CDT COVID: Suspected 04/16/2023 04/16/2023 04/16/2023 10:02 AM CDT COVID: Suspected 04/16/2023 04/16/2023 04/16/2023 3:14 PM CDT COVID: Suspected 02/22/2024 02/22/2024 02/22/2024 8:40 AM CDT COVID: Suspected 04/07/2024 04/07/2024 04/07/2024 12:10 PM CDT documented as of this encounter Care Teams Edging Machine Catcher Relationship Specialty Start Date End Date No, Physician PCP - General 05/11/20 10/12/20 Elis Khan PA PCP - General Physician Prosthetic Dentist 10/13/20 documented as of this encounter
--- OUTSIDE RECORDS SUMMARY | 2024-08-09 12:45 | XMS_ITS | Clinical Summary ---
Author Organization [facility] Address [address] [place] [address] Care Team Providers Care Gear Keeper Name Role Phone Unavailable Primary Care Provider [...]
--- OUTSIDE RECORDS SUMMARY | 2024-08-09 12:46 | XMS_ITS | Referral Summary ---
Author Organization [facility] Address [address] [place] [address] Care Team Providers Care Construction Director Name Role Phone Elis Hsieh Primary Care Pr ovider Encounters Date Type Department Care Team Description 08/05/2024 11:22 AM TIMEKEEPER SUPERVISOR - 08/05/2024 11:59 PM TIMEKEEPER SUPERVISOR Hospital Encounter [address] [address] Hyperglycemia; Dysuria Discharge Disposition: Discharge to home or self care 08/05/2024 11:00 AM TIMEKEEPER SUPERVISOR Lab [facility] Outpatient Lab at [address] [address] Hyperglycemia (Primary Dx); Dysuria; Benign essential hypertension 07/13/2024 Telephone [facility] Cardiology [facility] Advanced Medicine 8th [place] [address] [place] [address] Diego Strong MD from Last [...] 07/05/2021 Assessment & Plan (07/05/2021 11:30 AM TIMEKEEPER SUPERVISOR): Reports generalized symptoms including WOODS, nausea, dyspnea [...] 05/11/2020 Assessment & Plan (07/05/2021 11:28 AM TIMEKEEPER SUPERVISOR): Sound most c/w sinus tachycardia, 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 Currently wearing event monitor Will evaluate monitor results when available Increase metoprolol to 100 daily Assessment & Plan (08/17/2020 1:49 PM TIMEKEEPER SUPERVISOR): Due to WCT - likely SVT w [...] those Assessment & Plan (05/11/2020 10:52 AM TIMEKEEPER SUPERVISOR): Ddx includes sinus tachycardia vs SVT The [...] regimen. Assessment & Plan (07/05/2021 11:29 AM TIMEKEEPER SUPERVISOR): BP has recently been elevated, remains elevated on repeat check today Unclear if her current sx are related to the elevated Bps or not Regardless, BP is above goal Recommend starting lisinopril 10 mg daily Call w BP update in 1 week Check Bmp today Assessment & Plan (08/17/2020 1:50 PM TIMEKEEPER SUPERVISOR): BP is somewhat labile, still a bit above goal Will reassess BP control following EP study and consider changing metoprolol to a different agent at that time Secondary work up negative Assessment & Plan (05/11/2020 10:55 AM TIMEKEEPER SUPERVISOR): She is persistently hypertensive in clinic today. [...] on file Legal Sex Female 9:19 AM TIMEKEEPER SUPERVISOR Gender Identity Not on file Sexual [...] on file Medical Devices Implanted Type Area Gear Hobber Set Up Operator Device Identifier Shelf Expiration Date Model / Serial / Lot [employer] [id number] System 6-12fr Mvp Venous Closure Vascade - [id number] - [id number] Implanted:Qty: 1 on 09/06/2020 by Tony Pineda MD at [facility] [employer] 07/11/2022 800-612C-1 0U / [id number] / [id number] [employer] [id number] System 6-12fr Mvp Venous Closure Vascade - [id number] - [id number] Implanted:Qty: 1 on 09/06/2020 by Tony Pineda MD at [facility] [employer] 07/11/2022 800-612C-1 0U / [id number] / [id number] [employer] [id number] Device Closure Vascade Od5 Fr Femoral Artery - [id number] - [id number] Implanted:Qty: 1 on 09/06/2020 by Tony Pineda MD at [facility] [employer] 06/08/2022 700-500DX- 05U / [id number] 10B / [id number] [id number] [employer] [id number] Device Closure Vascade Od5 Fr Femoral Artery - [id number] - [id number] Implanted:Qty: 1 on 09/06/2020 by Tony Pineda MD at [facility] [employer] 06/08/2022 700-500DX- 05U / [id number] [id number] / [id number] [id number] Procedures Procedure Name Priority Date/Time Associated Diagnosis Comments EGFR Routine 08/05/2024 11:22 AM TIMEKEEPER SUPERVISOR Hyperglycemia Dysuria DIFFERENTIAL AUTO Routine 08/05/2024 11: 22 AM TIMEKEEPER SUPERVISOR Hyperglycemia Dysuria CBC WITH AUTO DIFFERENTIAL Routine 08/05/2024 11:22 AM TIMEKEEPER SUPERVISOR Hyperglycemia Dysuria VITAMIN B12 Routine 08/05/2024 11:22 AM TIMEKEEPER SUPERVISOR Hyperglycemia Dysuria HEMOGLOBIN A1C Routine 08/05/2024 11:22 AM TIMEKEEPER SUPERVISOR Hyperglycemia Dysuria FOLATE Routine 08/05/2024 11:22 AM TIMEKEEPER SUPERVISOR Hyperglycemia Dysuria COMPREHENSIVE METABOLIC PANEL Routine 08/05/2024 11:22 AM TIMEKEEPER SUPERVISOR Hyperglycemia Dysuria URINE CULTURE Routine 08/05/2024 11:22 AM TIMEKEEPER SUPERVISOR Hyperglycemia Dysuria URINALYSIS AND REFLEX TO MICROSCOPIC AND CULTURE Routine 08/05/2024 11:22 AM TIMEKEEPER SUPERVISOR Hyperglycemia Dysuria from Last 3 Months Results * eGFR (08/05/2024 11:22 AM TIMEKEEPER SUPERVISOR) eGFR >90 >=60 mL/min/1. 73 m2 Comment: [...] reviewed 2021. Blood 08/05/2024 11:2 2 AM TIMEKEEPER SUPERVISOR 08/05/2024 3:37 PM TIMEKEEPER SUPERVISOR us Elis [facility] BLOOD ORDERA BLES Final Result NICK [id number] [place] [address] * (ABNORMAL) Differential, auto (08/05/2024 11:22 AM TIMEKEEPER SUPERVISOR) Neutrophil abs 9.5(H) 1.5 - 6.5 K/cumm Imm gran abs 0.1 0.0 - 0.1 K/cumm [facility] Lymphocyte abs 1.2 0.8 - 3.3 K/cumm [facility] Monocyte abs 1.2(H) 0.2 - 0.8 K/cumm [facility] Eosinophil abs 0.2 0.0 - 0.5 K/cumm [facility] Basophil abs 0.1 0.0 - 0.1 K/cumm [facility] Neutrophil pct 78.3 % [facility] Comment: Interpretive Data Percent cell count reference ranges are not reported, since discordance with absolute values may lead to misinterpretation of CBC data. Current Interpretive Data was last revised on 2017. Imm gran pct 0.6 % [facility] Comment: Interpretive Data Percent cell count reference ranges are not reported, since discordance with absolute values may lead to misinterpretation of CBC data. Current Interpretive Data was last revised on 2017. Lymphocyte pct 9.5 % [facility] Comment: Interpretive Data Percent cell count reference ranges are not reported, since discordance with absolute values may lead to misinterpretation of CBC data. Current Interpretive Data was last revised on 2017. Monocyte pct 9.5 % [facility] Comment: Interpretive Data Percent cell count reference ranges are not reported, since discordance with absolute values may lead to misinterpretation of CBC data. Current Interpretive Data was last revised on 2017. Eosinophil pct 1.6 % [facility] Comment: Interpretive Data Percent cell count reference [...] on 2017. Blood 08/05/2024 11:2 2 AM TIMEKEEPER SUPERVISOR 08/05/2024 3:19 PM TIMEKEEPER SUPERVISOR us Elis MADDOX [facility] BLOOD ORDERA BLES Final Result [facility] [address] Department of Laboratories [place], [place] [id number] * Urinalysis reflex to microscopic and culture Urine, clean voided (08/05/2024 11:22 AM TIMEKEEPER SUPERVISOR) Color, ur Straw Yellow Clarity, ur Clear [...] tendency for uric acid stone formation. Source: [facility] [place] Current Interpretive Data was last revised on [...] CH Urine, clean voided 08/05/2024 11:22 AM TIMEKEEPER SUPERVISOR 08/05/2024 3:19 PM TIMEKEEPER SUPERVISOR Narrative [facility] CH - 08/05/2024 3:48 PM TIMEKEEPER SUPERVISOR FAX RESULTS TO [phone] ELIS HSIEH us Elis [facility] MICROBIOLOGY - GENERAL ORDERABLES Final Result NICK PERKINS [address] Department of Laboratories [place], [place] [id number] * (ABNORMAL) CBC with auto differential (08/05/2024 11:22 AM TIMEKEEPER SUPERVISOR) WBC 12.2(H) 3.8 - 9.9 K/cumm Hgb 12.9 11.9 - 15.5 g/dL [facility] Hct 44.5 35.6 - 45.5 % [facility] Plt 366 150 - 400 K/cumm [facility] CH MPV 10.8 9.1 - 12.3 fL [facility] RBC 5.73(H) 3.90 - 5.20 M/cumm [facility] CH MCV 77.7(L) 81.3 - 96.4 fL [facility] CH MCH 22.5(L) 27.1 - 33.3 pg [facility] MCHC 29.0(L) 32.3 - 35.7 g/dL [facility] CH RDW CV 24.0(H) 11.1 - 14.9 % [facility] RDW SD 65.1(H) 35.7 - 48.1 fL [facility] NRBC abs 0.00 0.00 - 0.01 K/cumm [facility] Blood 08/05/2024 11:2 2 AM TIMEKEEPER SUPERVISOR 08/05/2024 3:19 PM TIMEKEEPER SUPERVISOR Narrative [facility] - 08/05/2024 3:46 PM TIMEKEEPER SUPERVISOR FAX RESULTS TO [phone] ELIS HSIEH Elis MADDOX LAB BLOOD ORDERA BLES Final Result [facility] [address] [place] [address] * Urine culture Urine, clean voided (08/05/2024 11:22 AM TIMEKEEPER SUPERVISOR) Report Final Report: Less than 100,000 colonies/mL (clinically insignificant growth based on current clinical standards) Comment:Testing performed by : [facility], [address] [place] [address] Organism (CLINICALLY INSIGNIFICANT GROWTH [facility] Urine, clean voided 08/05/2024 11:22 AM TIMEKEEPER SUPERVISOR 08/05/2024 6:16 PM TIMEKEEPER SUPERVISOR Narrative NICK - 08/06/2024 7:59 PM TIMEKEEPER SUPERVISOR FAX RESULTS TO [phone] ELIS HSIEH Testing performed by [facility] Microbiology Laboratory ([phone]) Elis MADDOX LAB MICROBIOLOGY - GENERAL ORDERABLES Final Result Performing Organization Address [facility] Co de Phone Number [facility] [address] [place] [address] * Hemoglobin A1c (08/05/2024 11:22 AM TIMEKEEPER SUPERVISOR) Hgb A1C 4.9 4.0 - 5.6 % Estimated Average Glucose 94 mg/dL NICK Comment: The ADA recommends reporting an estimated Average Glucose (eAG) with all Hemoglobin A1c results using the equation derived from a study of 507 normal and diabetic adults. Minority populations were underrepresented and children were not included. (Diabetes Care 31:0737-9310, 2008). The eAG is not equivalent to a fasting glucose. Blood (Blood, Venous) 08/05/2024 11:22 AM TIMEKEEPER SUPERVISOR 08/05/2024 3:19 PM TIMEKEEPER SUPERVISOR Narrative NICK - 08/05/2024 4:40 PM TIMEKEEPER SUPERVISOR FAX RESULTS TO [phone] ELIS HSIEH Elis MADDOX LAB BLOOD ORDERA BLES Final Result Performing Organization Address City/[facility]/ZIP Co de Phone Number [facility] [address] [place] [address] * Folate (08/05/2024 11:22 AM TIMEKEEPER SUPERVISOR) Pathologist [facility] Folic acid >20.0 >=5.0 ng/mL Comment:Hemolysis present. R esults may be affected. Blood 08/05/2024 11:2 2 AM TIMEKEEPER SUPERVISOR 08/05/2024 3:19 PM TIMEKEEPER SUPERVISOR Elis Evangelista Lorena MADDOX LAB BLOOD ORDERA BLES Final Result Performing Organization Address [facility] de Phone Number NICK [address] [place] [address] * Vitamin B12 (08/05/2024 11:22 AM TIMEKEEPER SUPERVISOR) [facility] Vitamin B12 480 230 - 1,250 pg/mL Blood (Blood, Venous) 08/05/2024 11:22 AM TIMEKEEPER SUPERVISOR 08/05/2024 3:19 PM TIMEKEEPER SUPERVISOR Narrative [facility] - 08/05/2024 4:16 PM TIMEKEEPER SUPERVISOR FAX RESULTS TO [phone] ELIS HSIEH Elis Tonja MADDOX LAB BLOOD ORDERA BLES Final Result Performing Organization Address [facility] Phone Number [facility] [address] [place] [address] * (ABNORMAL) Comprehensive metabolic panel (08/05/2024 11:22 AM TIMEKEEPER SUPERVISOR) [facility] Sodium 134(L) 135 - 145 mmol/L Potassium, pl 4.4 3.3 - 4.9 mmol/L [facility] Chloride 96(L) 97 - 110 mmol/L [facility] CO2 23 22 - 32 mmol/L [facility] Anion gap 15 2 - 15 mmol/L [facility] BUN 7 6 - 25 mg/dL [facility] Creatinine 0.68 0.60 - 1.10 mg/dL [facility] Glucose 86 70 - 199 mg/dL [facility] Comment: Interpretive Data Fasting glucose >/= 126 [...] CH Blood (Blood, Venous) 08/05/2024 11:22 AM TIMEKEEPER SUPERVISOR 08/05/2024 3:19 PM TIMEKEEPER SUPERVISOR Elis MADDOX LAB BLOOD ORDERA BLES Final Result [facility] [address] [place] [address] from Last [address] [facility] [place] [address] [facility] [place] [address] [facility] Care Teams Construction Director Relationship Specialty Start Date End Date Elis Hsieh PA PCP - General Physician Environmental Services Attendant 10/13/20
--- OUTSIDE RECORDS SUMMARY | 2024-08-09 12:46 | XMS_ITS | Clinical Summary ---
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 Currently wearing event monitor Will evaluate monitor results when available Increase metoprolol to 100 daily Assessment & Plan (08/17/2020 1:49 PM HAMPER MAKER): Due to WCT - likely SVT w [...] those Assessment & Plan (05/11/2020 10:52 AM HAMPER MAKER): Ddx includes sinus tachycardia vs SVT The [...] regimen. Assessment & Plan (07/05/2021 11:29 AM HAMPER MAKER): BP has recently been elevated, remains elevated on repeat check today Unclear if her current sx are related to the elevated Bps or not Regardless, BP is above goal Recommend starting lisinopril 10 mg daily Call w BP update in 1 week Check Bmp today Assessment & Plan (08/17/2020 1:50 PM HAMPER MAKER): BP is somewhat labile, still a bit above goal Will reassess BP control following EP study and consider changing metoprolol to a different agent at that time Secondary work up negative Assessment & Plan (05/11/2020 10:55 AM HAMPER MAKER): She is persistently hypertensive in clinic today. [...] Department Care Team Description 08/05/2024 11:22 AM HAMPER MAKER - 08/05/2024 11:59 PM HAMPER MAKER Hospital Encounter [facility] [address] [place] [address] Hyperglycemia; Dysuria Discharge Disposition: Discharge to home or self care 08/05/2024 11:00 AM HAMPER MAKER Lab [facility] Outpatient Lab at [address] [address] Hyperglycemia (Primary Dx); Dysuria; Benign essential hypertension 07/13/[address] [facility] Cardiology [address] [place] [address] [place] [address] Diego Strong MD from Last 3 Months Immunizations Name Administration Dates Next Due Rho (D) Immune Globulin, IV or IM 03/24/2015 Tdap 01/15/2015 Surgical History Surgery Date Site/Laterality Comments OVARIAN CYST REMOVAL 06/30/2018 - 06/29/2019 DILATION AND CURETTAGE OF UTERUS 06/30/2018 - 06/29/2019 RECTAL PROLAPSE REPAIR 06/30/2014 - 06/29/2015 Medical History Medical History Date Comments Anemia Type 2 [place] (myocardial infarc tion) (CMS/HCC) (HCC) 2014 HTN [...] on file Legal Sex Female 9:19 AM HAMPER MAKER Gender Identity Not on file Sexual Orientation [...] this topic Medical Devices Implanted Type Area Ballet Teacher Device Identifier Shelf Expiration Date Model / Serial / Lot [employer] [id number] System 6-12fr Mvp Venous Closure Vascade - [id number] - [id number] Implanted:Qty: 1 on 09/06/2020 by Tony Pineda MD at [facility] [employer] 07/11/2022 800-612C-1 [id number] / [id number] / [id number] [employer] [id number] System 6-12fr Mvp Venous Closure Vascade - [id number] - [id number] Implanted:Qty: 1 on 09/06/2020 by Tony Pineda MD at [facility] [employer] 07/11/2022 800-612C-1 0U / [id number] / [id number] [employer] [id number] Device Closure Vascade Od5 Fr Femoral Artery - [id number] - [id number] Implanted:Qty: 1 on 09/06/2020 by Tony Pineda MD at [facility] [employer] 06/08/2022 700-500DX- 05U / [id number] 10B / [id number] [employer] [id number] Device Closure Vascade Od5 Fr Femoral Artery - [id number] - [id number] Implanted:Qty: 1 on 09/06/2020 by Tony Pineda MD at [facility] [employer] 06/08/2022 700-500DX- 05U / [id number] / [id number] Procedures Procedure Name Priority Date/Time Associated Diagnosis Comments EGFR Routine 08/05/2024 11:22 AM HAMPER MAKER Hyperglycemia Dysuria DIFFERENTIAL AUTO Routine 08/05/2024 11: 22 AM HAMPER MAKER Hyperglycemia Dysuria CBC WITH AUTO DIFFERENTIAL Routine 08/05/2024 11:22 AM HAMPER MAKER Hyperglycemia Dysuria VITAMIN B12 Routine 08/05/2024 11:22 AM HAMPER MAKER Hyperglycemia Dysuria HEMOGLOBIN A1C Routine 08/05/2024 11:22 AM HAMPER MAKER Hyperglycemia Dysuria FOLATE Routine 08/05/2024 11:22 AM HAMPER MAKER Hyperglycemia Dysuria COMPREHENSIVE METABOLIC PANEL Routine 08/05/2024 11:22 AM HAMPER MAKER Hyperglycemia Dysuria URINE CULTURE Routine 08/05/2024 11:22 AM HAMPER MAKER Hyperglycemia Dysuria URINALYSIS AND REFLEX TO MICROSCOPIC AND CULTURE Routine 08/05/2024 11:22 AM HAMPER MAKER Hyperglycemia Dysuria from Last 3 Months Results * eGFR (08/05/2024 11:22 AM HAMPER MAKER) eGFR >90 >=60 mL/min/1. 73 m2 Comment: [...] reviewed 2021. Blood 08/05/2024 11:2 2 AM HAMPER MAKER 08/05/2024 3:37 PM HAMPER MAKER us Bakari [facility]AD[facility] LAB BLOOD ORDERA BLES Final Result NICK PERKINS [id number] Department [place] [address] * (ABNORMAL) Differential, auto (08/05/2024 11:22 AM HAMPER MAKER) Neutrophil abs 9.5(H) 1.5 - 6.5 K/cumm Imm gran abs 0.1 0.0 - 0.1 K/cumm [facility] Lymphocyte abs 1.2 0.8 - 3.3 K/cumm [facility] Monocyte abs 1.2(H) 0.2 - 0.8 K/cumm [facility] Eosinophil abs 0.2 0.0 - 0.5 K/cumm [facility] Basophil abs 0.1 0.0 - 0.1 K/cumm [facility] Neutrophil pct 78.3 % [facility] Comment: Interpretive Data Percent cell count reference ranges are not reported, since discordance with absolute values may lead to misinterpretation of CBC data. Current Interpretive Data was last revised on 2017. Imm gran pct 0.6 % [facility] Comment: Interpretive Data Percent cell count reference ranges are not reported, since discordance with absolute values may lead to misinterpretation of CBC data. Current Interpretive Data was last revised on 2017. Lymphocyte pct 9.5 % [facility] Comment: Interpretive Data Percent cell count reference ranges are not reported, since discordance with absolute values may lead to misinterpretation of CBC data. Current Interpretive Data was last revised on 2017. Monocyte pct 9.5 % [facility] Comment: Interpretive Data Percent cell count reference ranges are not reported, since discordance with absolute values may lead to misinterpretation of CBC data. Current Interpretive Data was last revised on 2017. Eosinophil pct 1.6 % [facility] Comment: Interpretive Data Percent cell count reference ranges are not reported, since discordance with absolute values may lead to misinterpretation of CBC data. Current Interpretive Data was last revised on 2017. Basophil pct 0.5 % [facility] Comment: Interpretive Data Percent cell count reference ranges are not reported, since discordance with absolute values may lead to misinterpretation of CBC data. Current Interpretive Data was last revised on 2017. Blood 08/05/2024 11:2 2 AM HAMPER MAKER 08/05/2024 3:19 PM HAMPER MAKER us Bakari MADDOX LAB BLOOD ORDERA BLES Final Result [facility] [address] Department [place] [address] * Urinalysis reflex to microscopic and culture Urine, clean voided (08/05/2024 11:22 AM HAMPER MAKER) Color, ur Straw Yellow Clarity, ur Clear [...] tendency for uric acid stone formation. Source: [facility] [employer] Current Interpretive Data was last revised on [...] CH Urine, clean voided 08/05/2024 11:22 AM HAMPER MAKER 08/05/2024 3:19 PM HAMPER MAKER Narrative CERNER - 08/05/2024 3:48 PM HAMPER MAKER FAX RESULTS TO [phone] BAKARI HSIEH Bakari [facility] MICROBIOLOGY - GENERAL ORDERABLES Final Result NICK PERKINS [address] [address] Department [place] [address] * (ABNORMAL) CBC with auto differential (08/05/2024 11:22 AM HAMPER MAKER) WBC 12.2(H) 3.8 - 9.9 K/cumm Hgb [...] NRBC abs 0.00 0.00 - 0.01 K/cumm [facility] Blood 08/05/2024 11:2 2 AM HAMPER MAKER 08/05/2024 3:19 PM HAMPER MAKER Narrative [facility] CH - 08/05/2024 3:46 PM HAMPER MAKER FAX RESULTS TO [phone] BAKARI HSIEH us Bakari [facility]AD[facility] LAB BLOOD ORDERA BLES Final Result [facility] [address] Department [place] [address] * Urine culture Urine, clean voided (08/05/2024 11:22 AM HAMPER MAKER) Report Final Report: Less than 100,000 colonies/mL (clinically insignificant growth based on current clinical standards) Comment:Testing performed by : [facility], [address] [place] [address] Organism (CLINICALLY INSIGNIFICANT GROWTH [facility] Urine, clean voided 08/05/2024 11:22 AM HAMPER MAKER 08/05/2024 6:16 PM HAMPER MAKER Narrative CERNER - 08/06/2024 7:59 PM HAMPER MAKER FAX RESULTS TO [phone] BAKARI HSIEH Testing performed by [facility] Microbiology Laboratory ([phone]) us Bakari MADDO[facility] LAB MICROBIOLOGY - GENERAL ORDERABLES Final Result Performing Organization Address [facility] Co de Phone Number NICK [address] [address] [facility] [place] [address] * Hemoglobin A1c (08/05/2024 11:22 AM HAMPER MAKER) [facility] Hgb A1C 4.9 4.0 - 5.6 % Estimated Average Glucose 94 mg/dL NICK Comment: The ADA recommends reporting an estimated Average Glucose (eAG) with all Hemoglobin A1c results using the equation derived from a study of 507 normal and diabetic adults. Minority populations were underrepresented and children were not included. (Diabetes Care 31:7489-4116, 2008). The eAG is not equivalent to a fasting glucose. Blood (Blood, Venous) 08/05/2024 11:22 AM HAMPER MAKER 08/05/2024 3:19 PM HAMPER MAKER Narrative NICK - 08/05/2024 4:40 PM HAMPER MAKER FAX RESULTS TO [phone] BAKARI HSIEH Bakari MADDOX LAB BLOOD ORDERA BLES Final Result Performing Organization Address [facility] de Phone Number NICK [phone] [address] [facility] [place] [address] * Folate (08/05/2024 11:22 AM HAMPER MAKER) [facility] Folic acid >20.0 >=5.0 ng/mL Comment:Hemolysis present. R esults may be affected. Blood 08/05/2024 11:2 2 AM HAMPER MAKER 08/05/2024 3:19 PM HAMPER MAKER Bakari Tonja [facility] LAB BLOOD ORDERA BLES Final Result Performing Organization Address [facility] Co de Phone Number NICK [address] [address] [facility] [place] [address] * Vitamin B12 (08/05/2024 11:22 AM HAMPER MAKER) [facility] Vitamin B12 480 230 - 1,250 pg/mL Blood (Blood, Venous) 08/05/2024 11:22 AM HAMPER MAKER 08/05/2024 3:19 PM HAMPER MAKER Narrative [facility] CH - 08/05/2024 4:16 PM HAMPER MAKER FAX RESULTS TO [phone] BAKARI HSIEH Bakari Hsieh PA LAB [place]LOOD [place] [address] [address] Department [place] [address] * (ABNORMAL) Comprehensive metabolic panel (08/05/2024 11:22 AM HAMPER MAKER) Sodium 134(L) 135 - 145 mmol/L Potassium, [...] CH Blood (Blood, Venous) 08/05/2024 11:22 AM HAMPER MAKER 08/05/2024 3:19 PM HAMPER MAKER Bakari MADDOX LAB BLOOD ORDERA BLES Final Result NICK [address] [address] [place] [address] from Last 3 Months Insurance [facility] ACCESS [facility] Care Teams English Drawer Relationship Specialty Start Date End Date Bakari Hsieh PA PCP - General Physician Gas Meter Checker 10/13/20
[2024-08-09] MEDS: KETOROLAC 15 MG/ML VIAL (*BKC) IV PUSH (13:12)
[2024-08-09] MEDS: cefTRIAXone 2 GM/NS 100 ML 2 GM/100 ML BAG IVPB (13:12)
[2024-08-09] MEDS: LACTATED RINGERS 1,000 ML 999 ML IV CONT (13:28)
[2024-08-09 14:53] LABS: Prothrombin Time 13.4 Seconds (11.1-14.7)
[2024-08-09 14:54] LABS: Partial Thromboplastin Time 33.7 Seconds (22.3-36.8)
[2024-08-09 15:04] LABS: Influenza A QL RT-PCR Positive (Negative); Influenza B QL RT-PCR Negative (Negative); RSV RNA, RT-PCR Negative (Negative); SARS-CoV-2 RNA PCR Negative (Negative)
--- NOTE | 2024-08-09 16:42 | ADMGEN ---
This patient, Tammy Cross, was admitted to 2 Medical Room 258-. Patient/family oriented to hospital policies and general routines including ID bracelet, bed and alarms, visiting hours, pain management, procedures, bathroom and other care routines, personal items, smoking policy, room service/diet, and visiting hours. Information on how to activate the Rapid Response Team has been discussed. Patient/Family are encouraged to report perceived risks to care and to ask questions if they do not understand what they are told or what they should do.
--- NOTE | 2024-08-09 17:26 | P.HP_ITS ---
H&P: HPI History of Present Illness Date/Time: 08/09/24 17:26 Chief Complaint: Fever Narrative: 39-year-old female presented emergency department with fever. She is 18 days postop from a robotic hysterectomy. Patient evaluated emergency department. Found to have of a small fluid collection in the pelvis. 4 cm in greatest dimension. She also tested positive for the flu. Afebrile emergency department, normal white count, normal H&H. Patient has suprapubic pain and urinary tract infection. Patient to have Interventional Radiology place a drain or evacuate the fluid collection. To be treated with antibiotics for urinary tract infection pelvic abscess. Supportive care for the influenza. Review of Systems Review of Systems: All systems reviewed & are unremarkable except as noted in HPI and below Constitutional: Constitutional: Denies chills, Denies fatigue, Denies fever(s) and Denies weakness Eyes: Eyes: Denies blurry vision, Denies change in vision, Denies loss of peripheral vision, Denies loss of vision, Denies other visual disturbances and Denies eye pain ENT: Denies vertigo, Denies dizziness, Denies hearing loss, Denies mouth pain, Denies nasal obstruction, Denies neck mass and Denies neck pain Cardiovascular: Cardiovascular: Denies chest pain, Denies diaphoresis, Denies syncope, Denies leg edema and Denies dyspnea Respiratory: Respiratory: Denies chest congestion, Denies cough, Denies hemoptysis, Denies dyspnea and Denies wheezing Gastrointestinal: Gastrointestinal: Denies abdominal pain, Denies constipation, Denies diarrhea, Denies nausea and Denies vomiting Genitourinary: Genitourinary: Denies hematuria, Denies change in libido, Denies nocturia, Denies genital lesions, Denies flank pain and Denies urinary urgency Musculoskeletal: Musculoskeletal: Denies abnormal gait, Denies back pain, Denies myalgias, Denies arthralgias, Denies joint swelling, Denies muscle weakness and Denies neck pain Integumentary/Breasts: Skin/Breast: Denies swelling, Denies breast pain, Denies breast mass, Denies dry skin, Denies nipple discharge, Denies unusual bruising and Denies jaundice Neurologic: Denies Neuro-related abnormal movements, Denies Abnormal speech present, Denies abnormal gait, Denies behavioral changes, Denies confusion, Denies vertigo, Denies dizziness, Denies syncope, Denies loss of vision, Denies memory loss, Denies convulsions and Denies weakness Psychiatric: Psychiatric: Denies abnormal sleep pattern, Denies behavioral changes, Denies change in libido, Denies confusion, Denies depression, Denies anhedonia and Denies memory loss Endocrine: Endocrine: Reports no additional endocrine complaints, Denies change in libido and Denies fatigue Hematologic/Lymphatic: Hematologic/Lymphatic: Reports no additional hematologic/lymphatic complaints Allergic/Immunologic: Allergic/Immunologic: Reports no additional allergic/immunologic complaints and Denies wheezing PMFSH Past Medical History Medical History SVT (supraventricular tachycardia) Hypertension Uterine fibroid Surgical History Surgical History H/O cardiac radiofrequency ablation Family History Family History Grandparent Acute myocardial infarction Chronic obstructive pulmonary disease Mother Asthma Cerebrovascular accident Diabetes mellitus Hypertension Sibling Hypertension Father Prostate carcinoma Social History Social History Smoking status: Former smoker Alcohol intake: current Drinks per week: 4 Substance use: never Do You Feel Safe in your Home?: Yes Lack of Transportation: No Lack of Food: Never True Current Housing: I Have Housing Concerned About Future Housing: No Difficulty Paying Gas/Electric Bills: No Difficulty Paying for Meds: No Currently Unemployed: No Education: High School Diploma/GED Difficulty w/ Childcare or Family Care: No Living arrangements: with family Spiritual care concerns: No Meds Home Medications and Allergies Home Medications ?Medication ?Instructions ?Recorded ?Confirmed ?Type ferrous sulfate 137 mg (45 mg 137 mg PO DAILY 07/16/24 08/09/24 History iron) tablet,extended release (Slow Fe) lisinopril 10 mg tablet 10 mg PO DAILY 07/16/24 08/09/24 History metoprolol succinate 100 mg 100 mg PO HS 07/16/24 08/09/24 History tablet,extended release 24 hr lactobacillus comb no.10 20 80,000 mmu cells PO DAILY 08/09/24 08/09/24 History billion cell capsule (Probiotic) [id number] fumarate 18 1 tab-cap PO DAILY 08/09/24 08/09/24 History mg-FA 600 mcg-vit K 40 mcg capsule (Multi For Her) Allergies Allergy/AdvReac Type Severity Reaction Status Date / Time No Known Allergies Allergy Verified 08/09/24 09:43 Vital Signs Vital Signs - 24 hr 08/09/24 09:43 08/09/24 12:49 08/09/24 14:43 Temperature 98.9 F 98.8 F Pulse Rate 97 97 92 Respiratory Rate 16 18 16 Blood Pressure 112/89 143/100 H 134/99 H Pulse Oximetry 100 100 97 Oxygen Delivery Room Air Room Air 08/09/24 16:25 08/09/24 17:10 Temperature 98.6 F 98.0 F Pulse Rate 95 89 Respiratory Rate 16 16 Blood Pressure 126/98 H 135/92 H Pulse Oximetry 97 99 Oxygen Delivery Exam Const: General: cooperative, healthy appearing, comfortable and no acute dis tress Orientation/consciousness: oriented to person, oriented to place and oriented to time HENMT: Head: normal to inspection Ears: external ears normal Face/Nose/Sinus: Normal external nose present and normal facial exam Face and sinus: normal facial exam Eyes: General: appearance normal, both eyes and all related structures Neck: Neck: normal visual inspection, trachea midline and supple Resp: Auscultation: clear to auscultation bilaterally, no crackles, no rales, no rhonchi and no wheezes Cardio: Rate: regular rate Rhythm: regular rhythm Heart sounds: no clic k, no murmurs and no rubs GI: GI Palp: No abdominal tenderness, No Soft to palpation, No Tenderness to palpation present (GI) and No Palpable mass present Auscultation: normal bowel sounds Skin: General skin exam: normal color and no rashes or lesions noted Neuro: General: oriented to person, oriented to place and oriented to time Extrem: General: normal to inspection, no joint enlargement, no clubbing, cyanosis or edema, no pedal edema and no calf tenderness Psych: Appearance: grossly normal Mental Status: mental status grossly normal Speech and movement: Normal speech and movement present H&P: Results Labs Labs: Short CBC 08/09/24 Range/Units 11:46 WBC 8.5 (4.5-10.0) K/mm3 Hgb 13.4 D (12.0-15.0) g/dL Hct 43.7 (37.0-47.0) % Plt Count 383 H D (150-375) k/mm3 BMP 08/09/24 11:46 Sodium 133 L Potassium 4.0 Chloride 94 L Carbon Dioxide 27 BUN 8 D Creatinine 0.52 L Glucose 96 Calcium 9.6 Liver Function 08/09/24 Range/Units 11:46 Total Bilirubin 0.5 (0.2-1.3) mg/dL AST 47 H (14-36) U/L ALT 65 H (6-35) U/L Alkaline Phosphatase 113 (38-126) U/L Albumin 4.4 (3.5-5.1) g/dL Urine 08/09/24 Range/Units 11:46 Urine Color [place] H (Yellow) Urine Appearance TNP Urine pH TNP Ur Specific [place] TNP Urine Protein TNP Urine Glucose (UA) TNP Assessment and Plan Assessment and plan (1) Pelvic abscess in female: Code(s): N73.9 - Female pelvic inflammatory disease, unspecified Status: Acute (2) UTI (urinary tract infection): Code(s): N39.0 - Urinary tract infection, site not specified Status: Acute (3) Influenza: Code(s): J11.1 - Influenza due to unidentified influenza virus with other respiratory manifestations Status: Acute Assessment and Plan: 39-year-old female presented emergency department with fever. She is 18 days postop from a robotic hysterectomy. Patient evaluated emergency department. Found to have of a small fluid collection in the pelvis. 4 cm in greatest dimension. She also tested positive for the flu. Afebrile emergency department, normal white count, normal H&H. Patient has suprapubic pain and urinary tract infection. Patient to have Interventional Radiology place a drain or evacuate the fluid collection. To be treated with antibiotics for urinary tract infection pelvic abscess. Supportive care for the influenza.
[2024-08-09] MEDS: PIPERACILLN/TAZ 3.375GM/NS50ML 3.375 GM/50 ML BAG IVPB ×2 (18:07→23:41)
[2024-08-09] MEDS: metroNIDAZOLE 500 MG/ISO 100ML 500 MG/100 ML BAG 100 MG IVPB ×2 (18:07→23:42)
[2024-08-09] MEDS: METOPROLOL SUCCINATE EXT REL 100 MG TABCR PO (20:22)
[2024-08-09] MEDS: KETOROLAC 30 MG/ML VIAL (*BKC) 15 MG IV PUSH (23:42)
[2024-08-10] VITALS (16 sets, daily range): BP systolic 113–138; BP diastolic 73–104; PULSE 78–92; RESP 12–27; TEMP 36.3–36.7; O2SAT 97–100
[2024-08-10] MEDS: PIPERACILLN/TAZ 3.375GM/NS50ML 3.375 GM/50 ML BAG IVPB ×4 (05:18→23:56)
[2024-08-10] MEDS: metroNIDAZOLE 500 MG/ISO 100ML 500 MG/100 ML BAG 100 MG IVPB ×4 (05:21→23:56)
--- NOTE | 2024-08-10 08:28 | P.PNOB_ITS ---
LEACH RUNNER - A/P Assessment and plan (1) Pelvic abscess in female: Code(s): N73.9 - Female pelvic inflammatory disease, unspecified Status: Acute (2) UTI (urinary tract infection): Code(s): N39.0 - Urinary tract infection, site not specified Status: Acute Plan 39-year-old female with pelvic fluid collection, influenza, urinary tract infection, treated with antibiotics. Improving symptoms. CT-guided drain placement today. Consider discharge later if she is stable and feeling well. Postoperative Procedures: Procedures Operation Date: 08/10/24 11:00 <No data on this case meets the specified criteria> Postoperative day: 1 Postoperative status: doing well Postoperative plan: see orders Time Spent With Patient Time: Total time spent is greater than 50% in coordination of care (as documented) at patient's floor/unit and/or counseling patient: Time with patient: 15 - 25 minutes LEACH RUNNER- PN:Iris Post-Op Subjective Date/time seen: 08/10/24 08:28 Interval history: Improved suprapubic pain and dysuria. Appears better. no shortness of breath, denies fever. Subjective: patient reports feeling better, patient has no complaints and pain is well controlled Exam 2 Const: General: healthy appearing, comfortable and no acute distress Resp: Auscultation: clear to auscultation bilaterally, no rales, no rhonchi and no wheezes Cardio: Rate: regular rate Heart sounds: no click, no murmurs and no rubs GI: Inspection: non-distended Auscultation: normal bowel sounds Extrem: General: normal to inspection, no pedal edema and no calf tenderness LEACH RUNNER - PN: Obj Data Vital Signs Vital Signs: Vital Signs - 24 hr 08/09/24 09:43 08/09/24 12:49 08/09/24 14:43 Temperature 98.9 F 98.8 F Pulse Rate 97 97 92 Respiratory Rate 16 18 16 Blood Pressure 112/89 143/100 H 134/99 H Pulse Oximetry 100 100 97 Oxygen Delivery Room Air Room Air 08/09/24 16:25 08/09/24 17:10 08/09/24 20:22 Temperature 98.6 F 98.0 F Pulse Rate 95 89 56 L Respiratory Rate 16 16 Blood Pressure 126/98 H 135/92 H Pulse Oximetry 97 99 Oxygen Delivery 08/09/24 20:22 08/09/24 22:00 08/10/24 05:24 Temperature 97.9 F 97.3 F L Pulse Rate 67 78 Respiratory Rate 16 20 Blood Pressure 108/72 113/78 Pulse Oximetry 96 99 Oxygen Delivery Room Air Intake/Output Intake/Output: Intake & Output 08/07/24 08/08/24 08/09/24 08/10/24 23:59 23:59 23:59 23:59 Intake Total 1500 300 Output Total 300 Balance 1200 300 Meds/Results Medications: Active Medications Generic Name Dose Route Start Last Admin Trade Name Freq PRN Reason Stop Dose Admin Acetaminophen 650 mg 08/09/24 13:55 Acetaminophen 325 Mg Tablet PO Q4H PRN Mild Pain (1-3) or Fever Piperacillin/Tazobactam/Dextrose 3.375 gm in 50 mls @ 100 mls/hr 08/09/24 18:00 08/10/24 05:48 Zosyn 3.375 Gm/Ns 50 Ml IVPB Infused Q6H [facility] Infusion Metronidazole 500 mg in 100 mls @ 100 mls/hr 08/09/24 18:00 08/10/24 06:21 Flagyl 500 Mg/Iso Soln 100 Ml IVPB Infused Q6H [facility] Infusion Ketorolac Tromethamine 15 mg 08/09/24 13:55 08/09/24 23:42 Ketorolac 30 Mg/Ml Vial (*Bkc) IV PUSH 08/14/24 13:54 15 mg Q6H PRN Administration Pain Rated 4-6 Lisinopril 10 mg 08/10/24 09:00 08/10/24 08:20 Lisinopril 10 Mg Tablet PO Not Given DAILY [facility] Metoprolol Succinate 100 mg 08/09/24 21:00 08/09/24 20:22 Metoprolol Succinate Ext Rel 100 Mg Tabcr PO 100 mg HS [facility] Administration Morphine Sulfate 2 mg 08/09/24 13:55 Morphine Sulfate (*Crx) 2 Mg/Ml Inj IV PUSH Q2H PRN Pain Rated 7-10 Ondansetron HCl 4 mg 08/09/24 13:55 Ondansetron Inj 4 Mg/2 Ml Vial IV PUSH Q4H PRN Nausea Radiology Results: ITS Impressions Abdomen/Pelvis CT 08/09/24 13:03 IMPRESSION: 1. Status post recent hysterectomy with 3.9 x 2.5 x 2.5 cm rim-enhancing fluid collection at the uterine fossa which could represent a postoperative hematoma or abscess. Labs 08/09/24 11:46 08/09/24 11:46 Labs: Laboratory Results - last 24 hr 08/09/24 11:46 WBC 8.5 RBC 5.83 H Hgb 13.4 D Hct 43.7 MCV 75.0 L MCH 23.0 L MCHC 30.7 L RDW 24.3 H Plt Count 383 H D MPV 10.6 H Immature Gran % (Auto) 0.4 Neut % (Auto) 65.6 Lymph % (Auto) 21.5 [place] % (Auto) 11.7 H Eos % (Auto) 0.4 Baso % (Auto) 0.4 Lymph # (Auto) 1.82 [place] # (Auto) 1.0 H Eos # (Auto) 0.0 Baso # (Auto) 0.0 Abs Immat Gran (auto) 0.03 Absolute Neuts (auto) 5.6 Absolute Nucleated RBC 0.000 Nucleated RBC % 0.0 Atypical Lymphocytes Present Platelet Estimate Adequate Anisocytosis 2+ Schistocytes None seen PT 13.4 INR 1.0 APTT 33.7 Sodium 133 L Potassium 4.0 Chloride 94 L Carbon Dioxide 27 Anion Gap 12 BUN 8 D Creatinine 0.52 L Estim Creat Clear Calc 97 Estimated GFR > 60 Glucose 96 Lactic Acid 0.9 Calcium 9.6 Total Bilirubin 0.5 AST 47 H ALT 65 H Alkaline Phosphatase 113 C-Reactive Protein 5.4 H Total Protein 8.0 Albumin 4.4 Urine Color [place] H Urine Appearance TNP Urine pH TNP Ur Specific [place] TNP Urine Protein TNP Urine Glucose (UA) TNP Urine Ketones TNP Ur Blood (Man) TNP Urine Nitrate TNP Urine Bilirubin TNP Urine Urobilinogen TNP Leukocyte Esterase Rfl TNP Urine RBC 51-100 H Urine WBC >100 H Ur Squamous Epith Cells Few Urine Bacteria 1+ H Urine Casts 0-2 Influenza A (RT-PCR) Positive A Influenza B (RT-PCR) Negative RSV (RT-PCR) Negative SARS-CoV-2 RNA (RT-PCR) Negative
[2024-08-10 09:34] LABS: Hematocrit 39.6 % (37.0-47.0); Hemoglobin 11.9 g/dL (12.0-15.0); Mean Corpuscular HGB Conc 30.1 g/dl (32-36); Mean Corpuscular Hemoglobin 22.7 pg (26-34); Mean Corpuscular Volume 75.4 fl (80-100); Mean Platelet Volume 10.2 fl (7.4-10.4); Platelet Count Result 287 k/mm3 (150-375); Red Blood Count 5.25 M/mm3 (4.2-5.4); Red Cell Distribution Width 23.9 % (11.5-14.5); White Blood Count 4.6 K/mm3 (4.5-10.0)
--- NOTE | 2024-08-10 11:03 | P.SEDATION_ITS ---
Moderate Sedation Note-Pt Data Patient Data Diagnosis: Pelvic abscess. Present Complaint: Pelvic abscess. Procedure to be performed/Plan: CT-guided pelvic abscess drainage. Allergies Allergy/AdvReac Type Severity Reaction Status Date / Time No Known Allergies Allergy Verified 08/09/24 09:43 Home Medications ?Medication ?Instructions ?Recorded ?Confirmed ?Type ferrous sulfate 137 mg (45 mg 137 mg PO DAILY 07/16/24 08/09/24 History iron) tablet,extended release (Slow Fe) lisinopril 10 mg tablet 10 mg PO DAILY 07/16/24 08/09/24 History metoprolol succinate 100 mg 100 mg PO HS 07/16/24 08/09/24 History tablet,extended release 24 hr lactobacillus comb no.10 20 80,000 mmu cells PO DAILY 08/09/24 08/09/24 History billion cell capsule (Probiotic) [id number] fumarate 18 1 tab-cap PO DAILY 08/09/24 08/09/24 History mg-FA 600 mcg-vit K 40 mcg capsule (Multi For Her) Current Medications: Active Medications Acetaminophen (Acetaminophen 325 Mg Tablet) 650 mg PO Q4H PRN PRN Reason: Mild Pain (1-3) or Fever Piperacillin/Tazobactam/Dextrose (Zosyn 3.375 Gm/Ns 50 Ml) 3.375 gm in 50 mls @ 100 mls/hr IVPB Q6H [facility] Last Infusion: 08/10/24 05:48 Dose: Infused Metronidazole (Flagyl 500 Mg/Iso Soln 100 Ml) 500 mg in 100 mls @ 100 mls/hr IVPB Q6H [facility] Last Infusion: 08/10/24 06:21 Dose: Infused Ketorolac Tromethamine (Ketorolac 30 Mg/Ml Vial (*Bkc)) 15 mg IV PUSH Q6H PRN PRN Reason: Pain Rated 4-6 Stop: 08/14/24 13:54 Last Admin: 08/09/24 23:42 Dose: 15 mg Lisinopril (Lisinopril 10 Mg Tablet) 10 mg PO DAILY [facility] Last Admin: 08/10/24 08:20 Dose: Not Given Metoprolol Succinate (Metoprolol Succinate Ext Rel 100 Mg Tabcr) 100 mg PO HS [facility] Last Admin: 08/09/24 20:22 Dose: 100 mg Morphine Sulfate (Morphine Sulfate (*Crx) 2 Mg/Ml Inj) 2 mg IV PUSH Q2H PRN PRN Reason: Pain Rated 7-10 Ondansetron HCl (Ondansetron Inj 4 Mg/2 Ml Vial) 4 mg IV PUSH Q4H PRN PRN Reason: Nausea Sedation/Anesthesia: No previous sedation/anesthesia problems (including family history). [facility] Past Medical History Medical History SVT (supraventricular tachycardia) Hypertension Uterine fibroid Surgical History Surgical History H/O cardiac radiofrequency ablation Family History Family History Grandparent Acute myocardial infarction Chronic obstructive pulmonary disease Mother Asthma Cerebrovascular accident Diabetes mellitus Hypertension Sibling Hypertension Father Prostate carcinoma Social History Social History Smoking status: Former smoker Alcohol intake: current Drinks per week: 4 Substance use: never Do You Feel Safe in your Home?: Yes Lack of Transportation: No Lack of Food: Never True Current Housing: I Have Housing Concerned About Future Housing: No Difficulty Paying Gas/Electric Bills: No Difficulty Paying for Meds: No Currently Unemployed: No Education: High School Diploma/GED Difficulty w/ Childcare or Family Care: No Living arrangements: with family Spiritual care concerns: No Mod Sed Physical Exam Physical Exam Pre Procedural Exam: Normal: Appearance, Lungs, Heart Rate, Heart Rhythm and Abdomen Hours since solid foods: 12 Hours since liquid intake: 12 Mallampati Classification: class II Internal Medicine - PN: Obj Da Vital Signs Vital Signs: Vital Signs - 24 hr 08/09/24 12:49 08/09/24 14:43 08/09/24 16:25 Temperature 37.1 C 37.0 C Pulse Rate 97 92 95 Respiratory Rate 18 16 16 Blood Pressure 143/100 H 134/99 H 126/98 H Pulse Oximetry 100 97 97 Oxygen Delivery Room Air 08/09/24 17:10 08/09/24 20:22 08/09/24 20:22 Temperature 36.7 C Pulse Rate 89 56 L Respiratory Rate 16 Blood Pressure 135/92 H Pulse Oximetry 99 Oxygen Delivery Room Air 08/09/24 22:00 08/10/24 05:24 08/10/24 08:25 Temperature 36.6 C 36.3 C L Pulse Rate 67 78 Respiratory Rate 16 20 Blood Pressure 108/72 113/78 Pulse Oximetry 96 99 Oxygen Delivery Room Air 08/10/24 09:35 Temperature Pulse Rate Respiratory Rate Blood Pressure Pulse Oximetry 97 Oxygen Delivery Room Air Intake/Output Intake/Output: Intake & Output 08/07/24 08/08/24 08/09/24 08/10/24 23:59 23:59 23:59 23:59 Intake Total 1500 300 Output Total 300 Balance 1200 300 Meds/Results Medications: Active Medications Generic Name Dose Route Start Last Admin Trade Name Freq PRN Reason Stop Dose Admin Acetaminophen 650 mg 08/09/24 13:55 Acetaminophen 325 Mg Tablet PO Q4H PRN Mild Pain (1-3) or Fever Piperacillin/Tazobactam/Dextrose 3.375 gm in 50 mls @ 100 mls/hr 08/09/24 18:00 08/10/24 05:48 Zosyn 3.375 Gm/Ns 50 Ml IVPB Infused Q6H [facility] Infusion Metronidazole 500 mg in 100 mls @ 100 mls/hr 08/09/24 18:00 08/10/24 06:21 Flagyl 500 Mg/Iso Soln 100 Ml IVPB Infused Q6H [facility] Infusion Ketorolac Tromethamine 15 mg 08/09/24 13:55 08/09/24 23:42 Ketorolac 30 Mg/Ml Vial (*Bkc) IV PUSH 08/14/24 13:54 15 mg Q6H PRN Administration Pain Rated 4-6 Lisinopril 10 mg 08/10/24 09:00 08/10/24 08:20 Lisinopril 10 Mg Tablet PO Not Given DAILY [facility] Metoprolol Succinate 100 mg 08/09/24 21:00 08/09/24 20:22 Metoprolol Succinate Ext Rel 100 Mg Tabcr PO 100 mg HS [facility] Administration Morphine Sulfate 2 mg 08/09/24 13:55 Morphine Sulfate (*Crx) 2 Mg/Ml Inj IV PUSH Q2H PRN Pain Rated 7-10 Ondansetron HCl 4 mg 08/09/24 13:55 Ondansetron Inj 4 Mg/2 Ml Vial IV PUSH Q4H PRN Nausea Radiology Results: ITS Impressions Abdomen/Pelvis CT 08/09/24 13:03 IMPRESSION: 1. Status post recent hysterectomy with 3.9 x 2.5 x 2.5 cm rim-enhancing fluid collection at the uterine fossa which could represent a postoperative hematoma or abscess. Labs 08/10/24 09:23 08/09/24 11:46 Labs: Laboratory Results - last 24 hr 08/09/24 08/10/24 11:46 09:23 WBC 8.5 4.6 RBC 5.83 H 5.25 Hgb 13.4 D 11.9 L Hct 43.7 39.6 MCV 75.0 L 75.4 L MCH 23.0 L 22.7 L MCHC 30.7 L 30.1 L RDW 24.3 H 23.9 H Plt Count 383 H D 287 MPV 10.6 H 10.2 Immature Gran % (Auto) 0.4 Neut % (Auto) 65.6 Lymph % (Auto) 21.5 [place] % (Auto) 11.7 H Eos % (Auto) 0.4 Baso % (Auto) 0.4 Lymph # (Auto) 1.82 [place] # (Auto) 1.0 H Eos # (Auto) 0.0 Baso # (Auto) 0.0 Abs Immat Gran (auto) 0.03 Absolute Neuts (auto) 5.6 Absolute Nucleated RBC 0.000 Nucleated RBC % 0.0 Atypical Lymphocytes Present Platelet Estimate Adequate Anisocytosis 2+ Schistocytes None seen PT 13.4 INR 1.0 APTT 33.7 Sodium 133 L Potassium 4.0 Chloride 94 L Carbon Dioxide 27 Anion Gap 12 BUN 8 D Creatinine 0.52 L Estim Creat Clear Calc 97 Estimated GFR > 60 Glucose 96 Lactic Acid 0.9 Calcium 9.6 Total Bilirubin 0.5 AST 47 H ALT 65 H Alkaline Phosphatase 113 C-Reactive Protein 5.4 H Total Protein 8.0 Albumin 4.4 Urine Color [place] H Urine Appearance TNP Urine pH TNP Ur Specific [place] TNP Urine Protein TNP Urine Glucose (UA) TNP Urine Ketones TNP Ur Blood (Man) TNP Urine Nitrate TNP Urine Bilirubin TNP Urine Urobilinogen TNP Leukocyte Esterase Rfl TNP Urine RBC 51-100 H Urine WBC >100 H Ur Squamous Epith Cells Few Urine Bacteria 1+ H Urine Casts 0-2 Influenza A (RT-PCR) Positive A Influenza B (RT-PCR) Negative RSV (RT-PCR) Negative SARS-CoV-2 RNA (RT-PCR) Negative ASA Classification/Sedation ASA Classification/Sedation ASA Class: III Emergent: No Risks: Risks, benefits and alternatives explained and patient/family accepted plan for sedation. Patient re-evaluated immediately prior to sedation.
[2024-08-10] MEDS: ACETAMINOPHEN 325 MG TABLET 650 MG PO (12:19)
[2024-08-10] MEDS: KETOROLAC 30 MG/ML VIAL (*BKC) 15 MG IV PUSH ×2 (14:22→22:37)
[2024-08-10] MEDS: BENZONATATE 100 MG CAPSULE 200 MG PO (16:52)
[2024-08-10] MEDS: HYDROcodone/acetaminophen (*CRX) 5-325 MG TABLET 1 TAB PO (16:52)
[2024-08-10] MEDS: ONDANSETRON INJ 4 MG/2 ML VIAL IV PUSH ×2 (16:52→22:40)
[2024-08-10] MEDS: METOPROLOL SUCCINATE EXT REL 100 MG TABCR PO (22:26)
[2024-08-11 05:25] VITALS: BP 125/90; PULSE 72; RESP 20; TEMP 36.6; O2SAT 100
[2024-08-11] MEDS: PIPERACILLN/TAZ 3.375GM/NS50ML 3.375 GM/50 ML BAG IVPB ×4 (06:05→23:49)
[2024-08-11] MEDS: metroNIDAZOLE 500 MG/ISO 100ML 500 MG/100 ML BAG 100 MG IVPB ×4 (06:38→23:49)
[2024-08-11] MEDS: BENZONATATE 100 MG CAPSULE 200 MG PO (08:07)
[2024-08-11] MEDS: lisinopriL 10 MG TABLET PO (08:07)
[2024-08-11] MEDS: ACETAMINOPHEN 325 MG TABLET 650 MG PO ×2 (13:04→18:04)
[2024-08-11 14:00] VITALS: BP 126/79; PULSE 76; RESP 18; TEMP 36.4; O2SAT 97
--- NOTE | 2024-08-11 14:25 | PM.GYNPNOP ---
WATER/WASTEWATER PROJECT MANAGER - A/P Assessment and plan (1) UTI (urinary tract infection): Code(s): N39.0 - Urinary tract infection, site not specified Status: Acute (2) Pelvic abscess in female: Code(s): N73.9 - Female pelvic inflammatory disease, unspecified Status: Acute (3) Influenza: Code(s): J11.1 - Influenza due to unidentified influenza virus with other respiratory manifestations Status: Acute Assessment and Plan: Continue observation, continued to the nausea, vomiting. Pelvic pain present. Urinary symptoms improving. Postoperative Procedures: Procedures Operation Date: 08/10/24 11:00 Actual Procedure Side Surgeon p Computed Tomography Guided Abscess Catheter Placement Mendel Rivera MD Postoperative day: 1 Postoperative status: doing well Postoperative plan: see orders Time Spent With Patient Time: Total time spent is greater than 50% in coordination of care (as documented) at patient's floor/unit and/or counseling patient: Time with patient: 15 - 25 minutes WATER/WASTEWATER PROJECT MANAGER- PN:Iris Post-Op Subjective Date/time seen: 08/11/24 14:25 Patient has persistent nausea, vomiting overnight. Vomiting has improved today. Some pelvic discomfort. Diarrhea. Denied is fever, chills. Denies chest pain shortness of Interval history: Improved suprapubic pain and dysuria. Appears better. no shortness of breath, denies fever. Exam Const: General: healthy appearing, comfortable and no acute distress Resp: Auscultation: clear to auscultation bilaterally, no rales, no rhonchi and no wheezes Cardio: Rate: regular rate Heart sounds: no click, no murmurs and no rubs GI: Inspection: non-distended Auscultation: normal bowel sounds Extrem: General: normal to inspection, no pedal edema and no calf tenderness WATER/WASTEWATER PROJECT MANAGER - PN: Obj Data Vital Signs Vital Signs: Vital Signs - 24 hr 08/10/24 16:20 08/10/24 16:24 08/10/24 20:00 Temperature 97.7 F 98.1 F Pulse Rate 88 Respiratory Rate 18 Blood Pressure 123/89 Pulse Oximetry 100 Oxygen Delivery Room Air 08/10/24 20:47 08/10/24 22:26 08/11/24 05:25 Temperature 97.7 F 97.8 F Pulse Rate 81 81 72 Respiratory Rate 12 20 Blood Pressure 119/73 125/90 Pulse Oximetry 97 100 Oxygen Delivery 08/11/24 08:00 Temperature Pulse Rate Respiratory Rate Blood Pressure Pulse Oximetry Oxygen Delivery Room Air Intake/Output Intake/Output: Intake & Output 08/08/24 08/09/24 08/10/24 08/11/24 23:59 23:59 23:59 23:59 Intake Total 1500 1050 1220 Output Total 300 600 Balance 8038 673 4210 Meds/Results Medications: Active Medications Generic Name Dose Route Start Last Admin Trade Name Freq PRN Reason Stop Dose Admin Acetaminophen 650 mg 08/09/24 13:55 08/11/24 13:04 Acetaminophen 325 Mg Tablet PO 650 mg Q4H PRN Administration Mild Pain (1-3) or Fever Hydrocodone Bitart/Acetaminophen 1 tab 08/10/24 14:32 08/10/24 16:52 Hydrocodone/Acetaminophen (*Crx) 5-325 Mg Tablet PO 1 tab Q4H PRN Administration Pain Rated 4-6 Benzonatate 200 mg 08/10/24 14:33 08/11/24 08:07 Benzonatate 100 Mg Capsule PO 200 mg TID PRN Administration cough Piperacillin/Tazobactam/Dextrose 3.375 gm in 50 mls @ 100 mls/hr 08/09/24 18:00 08/11/24 12:43 Zosyn 3.375 Gm/Ns 50 Ml IVPB Infused Q6H [facility] Infusion Metronidazole 500 mg in 100 mls @ 100 mls/hr 08/09/24 18:00 08/11/24 12:43 Flagyl 500 Mg/Iso Soln 100 Ml IVPB 100 mls/hr Q6H [facility] Administration Ketorolac Tromethamine 15 mg 08/09/24 13:55 08/10/24 22:37 Ketorolac 30 Mg/Ml Vial (*Bkc) IV PUSH 08/14/24 13:54 15 mg Q6H PRN Administration Pain Rated 4-6 Lisinopril 10 mg 08/10/24 09:00 08/11/24 08:07 Lisinopril 10 Mg Tablet PO 10 mg DAILY [facility] Administration Metoprolol Succinate 100 mg 08/09/24 21:00 08/10/24 22:26 Metoprolol Succinate Ext Rel 100 Mg Tabcr PO 100 mg HS [facility] Administration Morphine Sulfate 2 mg 08/09/24 13:55 Morphine Sulfate (*Crx) 2 Mg/Ml Inj IV PUSH Q2H PRN Pain Rated 7-10 Ondansetron HCl 4 mg 08/09/24 13:55 08/10/24 22:40 Ondansetron Inj 4 Mg/2 Ml Vial IV PUSH 4 mg Q4H PRN Administration Nausea Radiology Results: ITS Impressions Abdomen/Pelvis CT 08/09/24 13:03 IMPRESSION: 1. Status post recent hysterectomy with 3.9 x 2.5 x 2.5 cm rim-enhancing fluid collection at the uterine fossa which could represent a postoperative hematoma or abscess. Catheter Placement CT 08/10/24 12:08 IMPRESSION: 1. Successful CT-guided pelvic abscess drainage. 2. 2 mL bloody fluid was sent for aerobic and anaerobic cultures. Labs 08/10/24 09:23 08/09/24 11:46
[2024-08-11 21:16] VITALS: BP 117/80; PULSE 73; RESP 16; TEMP 36.7; O2SAT 99
[2024-08-11 22:04] VITALS: PULSE 73
[2024-08-11] MEDS: METOPROLOL SUCCINATE EXT REL 100 MG TABCR PO (22:04)
[2024-08-12 05:04] LABS: Hematocrit 36.6 % (37.0-47.0); Hemoglobin 11.1 g/dL (12.0-15.0); Immature Platelet Fraction Pct 4.6 % (0.9-11.2); Mean Corpuscular HGB Conc 30.3 g/dl (32-36); Mean Corpuscular Volume 75.9 fl (80-100); Mean Platelet Volume 10.5 fl (7.4-10.4); Platelet Count Result 259 k/mm3 (150-375); Red Blood Count 4.82 M/mm3 (4.2-5.4); Red Cell Distribution Width 23.5 % (11.5-14.5); White Blood Count 4.4 K/mm3 (4.5-10.0)
[2024-08-12 05:21] LABS: Alanine Aminotransferase 23 U/L (6-35); Alkaline Phosphatase 70 U/L (38-126); Anion Gap 9 mmol/L (4-12); Aspartate Amino Transferase 21 U/L (14-36); Bilirubin,Total 0.3 mg/dL (0.2-1.3); Blood Urea Nitrogen 6 mg/dL (7-17); Calcium 8.4 mg/dL (8.4-10.2); Carbon Dioxide 26 mmol/L (22-30); Chloride 102 mmol/L (98-107); Estimated CRCL calculation 78 ml/min; Estimated Glomerular Filt Rate > 60; Glucose 94 mg/dL (65-110); Potassium 3.8 mmol/L (3.4-5.0); Sodium 137 mmol/L (137-145)
[2024-08-12 05:32] VITALS: BP 131/87; PULSE 70; RESP 16; TEMP 36.1; O2SAT 100
[2024-08-12] MEDS: PIPERACILLN/TAZ 3.375GM/NS50ML 3.375 GM/50 ML BAG IVPB (06:08)
[2024-08-12] MEDS: metroNIDAZOLE 500 MG/ISO 100ML 500 MG/100 ML BAG 100 MG IVPB (06:09)
[2024-08-12] MEDS: KETOROLAC 30 MG/ML VIAL (*BKC) 15 MG IV PUSH (06:10)
[2024-08-12] MEDS: ONDANSETRON INJ 4 MG/2 ML VIAL IV PUSH (06:12)
[2024-08-12] MEDS: lisinopriL 10 MG TABLET PO (09:00)
--- NOTE | 2024-08-12 12:19 | P.PNOB_ITS ---
IMMUNOLOGY TEACHER - A/P Assessment and plan (1) Pelvic abscess in female: Code(s): N73.9 - Female pelvic inflammatory disease, unspecified Status: Acute (2) UTI (urinary tract infection): Qualifiers: Hematuria presence: with hematuria Urinary tract infection type: acute cystitis Qualified Code(s): N30.01 - Acute cystitis with hematuria Code(s): N39.0 - Urinary tract infection, site not specified Status: Acute (3) Influenza: Code(s): J11.1 - Influenza due to unidentified influenza virus with other respiratory manifestations Status: Acute Postoperative Procedures: Procedures Operation Date: 08/10/24 11:00 Actual Procedure Side Surgeon p Computed Tomography Guided Abscess Catheter Placement Mendel Rivera MD Postoperative day: 20 Postoperative status: doing well Postoperative plan: see orders Time Spent With Patient Time: Total time spent is greater than 50% in coordination of care (as documented) at patient's floor/unit and/or counseling patient: Time with patient: 15 - 25 minutes IMMUNOLOGY TEACHER- PN:Subj Post-Op Subjective Date/time seen: 08/12/24 12:19 Patient reports continued nausea and some vomiting. Changing patient to oral antibiotics now. Afebrile. No chest pain shortness of breath. No vaginal bleeding. Small drain output. Upper respiratory symptoms improved. Urinary tract symptoms have improved. Discharged home tomorrow we Interval history: Improved suprapubic pain and dysuria. Appears better. no shortness of breath, denies fever. Subjective: patient reports feeling better, patient has no complaints and pain is well controlled Exam 2 Const: General: healthy appearing, comfortable and no acute distress Resp: Auscultation: clear to auscultation bilaterally, no rales, no rhonchi and no wheezes Cardio: Rate: regular rate Heart sounds: no click, no murmurs and no rubs GI: Inspection: non-distended Auscultation: normal bowel sounds Extrem: General: normal to inspection, no pedal edema and no calf tenderness IMMUNOLOGY TEACHER - PN: Obj Data Vital Signs Vital Signs: Vital Signs - 24 hr 08/11/24 14:00 08/11/24 20:00 08/11/24 21:16 Temperature 97.6 F 98.1 F Pulse Rate 76 73 Respiratory Rate 18 16 Blood Pressure 126/79 117/80 Pulse Oximetry 97 99 Oxygen Delivery Room Air 08/11/24 22:04 08/12/24 05:32 08/12/24 09:00 Temperature 97 F L Pulse Rate 73 70 Respiratory Rate 16 Blood Pressure 131/87 Pulse Oximetry 100 Oxygen Delivery Room Air Intake/Output Intake/Output: Intake & Output 08/09/24 08/10/24 08/11/24 08/12/24 23:59 23:59 23:59 23:59 Intake Total 1500 1050 2571.7 766.3 Output Total 300 1200 900 Balance 1200 -150 1671.7 766.3 Meds/Results Medications: Active Medications Generic Name Dose Route Start Last Admin Trade Name Freq PRN Reason Stop Dose Admin Acetaminophen 650 mg 08/09/24 13:55 08/11/24 18:04 Acetaminophen 325 Mg Tablet PO 650 mg Q4H PRN Administration Mild Pain (1-3) or Fever Hydrocodone Bitart/Acetaminophen 1 tab 08/10/24 14:32 08/10/24 16:52 Hydrocodone/Acetaminophen (*Crx) 5-325 Mg Tablet PO 1 tab Q4H PRN Administration Pain Rated 4-6 Amoxicillin/Clavulanate Potassium 1 tablet 08/12/24 12:00 Amoxicillin/Clavulanate K 875-125 Mg Tab PO 08/17/24 23:59 Q12HR [facility] Benzonatate 200 mg 08/10/24 14:33 08/11/24 08:07 Benzonatate 100 Mg Capsule PO 200 mg TID PRN Administration cough Ketorolac Tromethamine 15 mg 08/09/24 13:55 08/12/24 06:10 Ketorolac 30 Mg/Ml Vial (*Bkc) IV PUSH 08/14/24 13:54 15 mg Q6H PRN Administration Pain Rated 4-6 Lisinopril 10 mg 08/10/24 09:00 08/12/24 09:00 Lisinopril 10 Mg Tablet PO 10 mg DAILY [facility] Administration Metoprolol Succinate 100 mg 08/09/24 21:00 08/11/24 22:04 Metoprolol Succinate Ext Rel 100 Mg Tabcr PO 100 mg HS [facility] Administration Metronidazole 500 mg 08/12/24 14:00 Metronidazole 500 Mg Tablet PO 08/17/24 23:59 Q8HR [facility] Morphine Sulfate 2 mg 08/09/24 13:55 Morphine Sulfate (*Crx) 2 Mg/Ml Inj IV PUSH Q2H PRN Pain Rated 7-10 Ondansetron HCl 4 mg 08/09/24 13:55 08/12/24 06:12 Ondansetron Inj 4 Mg/2 Ml Vial IV PUSH 4 mg Q4H PRN Administration Nausea Radiology Results: ITS Impressions Abdomen/Pelvis CT 08/09/24 13:03 IMPRESSION: 1. Status post recent hysterectomy with 3.9 x 2.5 x 2.5 cm rim-enhancing fluid collection at the uterine fossa which could represent a postoperative hematoma or abscess. Catheter Placement CT 08/10/24 12:08 IMPRESSION: 1. Successful CT-guided pelvic abscess drainage. 2. 2 mL bloody fluid was sent for aerobic and anaerobic cultures. Labs 08/12/24 04:31 08/12/24 04:31 Labs: Laboratory Results - last 24 hr 08/12/24 04:31 WBC 4.4 L RBC 4.82 Hgb 11.1 L Hct 36.6 L MCV 75.9 L MCH 23.0 L MCHC 30.3 L RDW 23.5 H Plt Count 259 MPV 10.5 H % Immature Plt Fraction 4.6 Sodium 137 Potassium 3.8 Chloride 102 Carbon Dioxide 26 Anion Gap 9 BUN 6 L Creatinine 0.66 L Estim Creat Clear Calc 78 Estimated GFR > 60 Glucose 94 Calcium 8.4 Total Bilirubin 0.3 AST 21 ALT 23 Alkaline Phosphatase 70 Total Protein 6.0 L Albumin 3.0 L
[2024-08-12] MEDS: AMOXICILLIN/CLAVULANATE K 875-125 MG TAB 1 TABLET PO ×2 (12:38→22:09)
[2024-08-12] MEDS: metroNIDAZOLE 500 MG TABLET PO ×2 (13:45→22:09)
[2024-08-12 14:00] VITALS: BP 111/74; PULSE 70; RESP 16; TEMP 36.3; O2SAT 99
[2024-08-12 21:52] VITALS: BP 127/90; PULSE 64; RESP 16; TEMP 36.8; O2SAT 97
[2024-08-12 22:07] VITALS: PULSE 64
[2024-08-12] MEDS: METOPROLOL SUCCINATE EXT REL 100 MG TABCR PO (22:07)
--- NOTE | 2024-08-12 22:15 | PC.NURSE ---
Dr. Giron notified of final abcess culture results. Provider notified earlier in the day, but this was not documented. No new orders.
[2024-08-13 05:13] VITALS: BP 145/92; PULSE 60; RESP 16; TEMP 36.6; O2SAT 100
[2024-08-13] MEDS: metroNIDAZOLE 500 MG TABLET PO (06:19)
[2024-08-13] MEDS: KETOROLAC 30 MG/ML VIAL (*BKC) 15 MG IV PUSH (06:19)
[2024-08-13] MEDS: AMOXICILLIN/CLAVULANATE K 875-125 MG TAB 1 TABLET PO (08:56)
[2024-08-13] MEDS: lisinopriL 10 MG TABLET PO (08:56)
--- NOTE | 2024-08-13 09:15 | P.PNOB_ITS ---
PLANT ASSOCIATE - A/P Assessment and plan (1) Pelvic abscess in female: Code(s): N73.9 - Female pelvic inflammatory disease, unspecified Status: Acute (2) UTI (urinary tract infection): Qualifiers: Hematuria presence: with hematuria Urinary tract infection type: acute cystitis Qualified Code(s): N30.01 - Acute cystitis with hematuria Code(s): N39.0 - Urinary tract infection, site not specified Status: Acute (3) Post-op pain: Code(s): G89.18 - Other acute postprocedural pain Status: Acute (4) Influenza: Code(s): J11.1 - Influenza due to unidentified influenza virus with other respiratory manifestations Status: Acute Plan Influenza symptoms improved, nausea vomiting improved, continue diarrhea with prolonged antibiotic treatment, drain removed today. She tolerated it well. Discharge today. Antibiotic selected by pharmacology. Postoperative Procedures: Procedures Operation Date: 08/10/24 11:00 Actual Procedure Side Surgeon p Computed Tomography Guided Abscess Catheter Placement Mendel Rivera MD Postoperative day: 1 Postoperative status: doing well Postoperative plan: see orders Time Spent With Patient Time: Total time spent is greater than 50% in coordination of care (as documented) at patient's floor/unit and/or counseling patient: Time with patient: 15 - 25 minutes PLANT ASSOCIATE- PN:Subj Post-Op Subjective Date/time seen: 08/13/24 09:15 Denies nausea vomiting today, continued diarrhea, denies fever chills.. Denies chest pain shortness of breath. Interval history: Improved suprapubic pain and dysuria. Appears better. no shortness of breath, denies fever. Subjective: patient reports feeling better, patient has no complaints and pain is well controlled Exam 2 Const: General: healthy appearing, comfortable and no acute distress Resp: Auscultation: clear to auscultation bilaterally, no rales, no rhonchi and no wheezes Cardio: Rate: regular rate Heart sounds: no click, no murmurs and no rubs GI: Inspection: non-distended Auscultation: normal bowel sounds Extrem: General: normal to inspection, no pedal edema and no calf tenderness PLANT ASSOCIATE - PN: Obj Data Vital Signs Vital Signs: Vital Signs - 24 hr 08/12/24 14:00 08/12/24 20:00 08/12/24 21:52 Temperature 97.3 F L 98.3 F Pulse Rate 70 64 Respiratory Rate 16 16 Blood Pressure 111/74 127/90 Pulse Oximetry 99 97 Oxygen Delivery Room Air 08/12/24 22:07 08/13/24 05:13 Temperature 97.8 F Pulse Rate 64 60 Respiratory Rate 16 Blood Pressure 145/92 H Pulse Oximetry 100 Oxygen Delivery Intake/Output Intake/Output: Intake & Output 08/10/24 08/11/24 08/12/24 08/13/24 23:59 23:59 23:59 23:59 Intake Total 1050 2571.7 1624.3 250 Output Total 1200 900 700 Balance -150 1671.7 1624.3 -450 Meds/Results Medications: Active Medications Generic Name Dose Route Start Last Admin Trade Name Freq PRN Reason Stop Dose Admin Acetaminophen 650 mg 08/09/24 13:55 08/11/24 18:04 Acetaminophen 325 Mg Tablet PO 650 mg Q4H PRN Administration Mild Pain (1-3) or Fever Hydrocodone Bitart/Acetaminophen 1 tab 08/10/24 14:32 08/10/24 16:52 Hydrocodone/Acetaminophen (*Crx) 5-325 Mg Tablet PO 1 tab Q4H PRN Administration Pain Rated 4-6 Amoxicillin/Clavulanate Potassium 1 tablet 08/12/24 12:00 08/13/24 08:56 Amoxicillin/Clavulanate K 875-125 Mg Tab PO 08/17/24 23:59 1 tablet Q12HR CHEMA Administration Benzonatate 200 mg 08/10/24 14:33 08/11/24 08:07 Benzonatate 100 Mg Capsule PO 200 mg TID PRN Administration cough Ketorolac Tromethamine 15 mg 08/09/24 13:55 08/13/24 06:19 Ketorolac 30 Mg/Ml Vial (*Bkc) IV PUSH 08/14/24 13:54 15 mg Q6H PRN Administration Pain Rated 4-6 Lisinopril 10 mg 08/10/24 09:00 08/13/24 08:56 Lisinopril 10 Mg Tablet PO 10 mg DAILY CHEMA Administration Metoprolol Succinate 100 mg 08/09/24 21:00 08/12/24 22:07 Metoprolol Succinate Ext Rel 100 Mg Tabcr PO 100 mg HS CHEMA Administration Metronidazole 500 mg 08/12/24 14:00 08/13/24 06:19 Metronidazole 500 Mg Tablet PO 08/17/24 23:59 500 mg Q8HR CHEMA Administration Morphine Sulfate 2 mg 08/09/24 13:55 Morphine Sulfate (*Crx) 2 Mg/Ml Inj IV PUSH Q2H PRN Pain Rated 7-10 Ondansetron HCl 4 mg 08/09/24 13:55 08/12/24 06:12 Ondansetron Inj 4 Mg/2 Ml Vial IV PUSH 4 mg Q4H PRN Administration Nausea Radiology Results: ITS Impressions Abdomen/Pelvis CT 08/09/24 13:03 IMPRESSION: 1. Status post recent hysterectomy with 3.9 x 2.5 x 2.5 cm rim-enhancing fluid collection at the uterine fossa which could represent a postoperative hematoma or abscess. Catheter Placement CT 08/10/24 12:08 IMPRESSION: 1. Successful CT-guided pelvic abscess drainage. 2. 2 mL bloody fluid was sent for aerobic and anaerobic cultures. Labs 08/12/24 04:31 08/12/24 04:31
--- NOTE | 2024-08-13 09:18 | P.DS_ITS ---
DS: Admitting Diagnosis Discharge Date 08/13/2024 Admitting Diagnosis Pelvic abscess, influenza, urinary tract infection DS: Discharge Diagnosis Discharge Diagnosis (1) Pelvic abscess in female: Code(s): N73.9 - Female pelvic inflammatory disease, unspecified Status: Acute (2) Influenza: Code(s): J11.1 - Influenza due to unidentified influenza virus with other respiratory manifestations Status: Acute (3) UTI (urinary tract infection): Qualifiers: Hematuria presence: with hematuria Urinary tract infection type: acute cystitis Qualified Code(s): N30.01 - Acute cystitis with hematuria Code(s): N39.0 - Urinary tract infection, site not specified Status: Acute DS: Summary Hospital Course Hospital Course: 39-year-old female presented to emergency department with port suprapubic/pelvic pain and influenza symptoms. She was diagnosed with urinary tract infection and pelvic abscess. L [place] abscess was drained with a percutaneous drain placement with by CT guidance. Drained very little tract infections she had effectively. Symptoms improved. She was discharged on hospital day 4. Drain was removed. Two oral antibiotics started the previous day. She tolerated them well. Follow-up in 1 week Time Spent with Patient Time attestation: Total time spent providing and/or coordinating discharge services: DS: Data Data Completed and Pending Labs on day of discharge: Preliminary micro results at discharge 08/10/24 11:57 Anaerobic Culture - Preliminary Abscess Bacteroides fragilis group Discharge Plan Discharge Discharging Clinician: Sd Giron Patient Disposition: Home, Self-Care Activity: pelvic rest Diet: regular Patient Instructions: Antibiotic Form Patient Language: Portuguese Stand Alone Forms: General Discharge Information Follow-up/Referrals: Sd Giron MD [Physician] - Discharge Medications: New amoxicillin-pot clavulanate 875-125 mg tablet 1 tablet PO Q12H Qty: 14 0RF metronidazole 500 mg tablet 500 mg PO Q8H Qty: 20 0RF Continued lisinopril 10 mg tablet 10 mg PO DAILY metoprolol succinate 100 mg tablet extended release 24 hr 100 mg PO HS Slow Fe 137 mg (45 mg iron) tablet extended release 137 mg PO DAILY Multi For Her 18 mg iron-600 mcg-40 mcg capsule 1 tab-cap PO DAILY Probiotic 20 billion cell capsule 80,000 mmu cells PO DAILY Rx Instructions: administer with a meal Date of admission: 08/09/24 13:56 Primary Care Provider: Erin,Elis Admitting Provider: Sd Giron Attending physician on admission: Sd Giron Condition: Stable
== END 2024-08-13 10:35 | disposition home or self-care (01) | DRG 863 ==
LOC: ANHED 15:02 → ANH3MEDSUR 15:41 → ANH2MED 15:47
PROVIDERS: Physician Assistant; Radiology Diagnostic Radiology; Admitting Provider Obstetrics & Gynecology; Emergency Provider Student in an Organized Health Care Education/Training Program; PCP Physician Assistant; Visit Provider Obstetrics & Gynecology
PROC: 0W9J30Z Drainage of Pelvic Cavity with Drainage Device, Percutaneous Approach (ICD-10-PCS; CPT 75989; principal; 2024-08-10 11:00)
DX: T81.43XA Infection following a procedure, organ and space surgical site, initial encounter (principal); N39.0 Urinary tract infection, site not specified; N73.9 Female pelvic inflammatory disease, unspecified; J10.1 Influenza due to other identified influenza virus with other respiratory manifestations; I10 Essential (primary) hypertension; Z20.822 Contact with and (suspected) exposure to COVID-19; Z87.891 Personal history of nicotine dependence
CPT/HCPCS: 36415; 74177; 75989; 80053; 81001; 83605; 85025; 85027; 85055; 85610; 85730; 86140; 87070; 87075; 87086; 87205; 87637; 96361; 96365; 96375; 96376; 99285; A9270; C1729; C1769; J0696; J1836; J1885; J2250; J2405; J2543; J3010; J7040; J7120; Q9967

== ENCOUNTER 2024-12-02 09:00 | Outpatient (RCR) | payer BC, SELFPAY ==
--- NOTE | 2024-09-03 09:55 | OPREHPOC ---
Outpatient Therapy Plan of Care This is a Multidisciplinary Plan of Care that may contain components documented by all disciplines (PT, OT, and ST.) PT Problem 1 PT Problem #1 Knowledge Deficit PT Goal 1 Goal / Goal Update 1. Patient will perform independent HEP Target Visit 3 PT Problem 2 PT Problem #2 Pain PT Goal 1 Goal / Goal Update 1. Patient will be able to do all normal activities with pain no higher than 1/10 2. Patient will report no pain with palpation of scar tissue Target Visit 6 PT Problem 3 PT Problem #3 Impaired Strength PT Goal 1 Goal / Goal Update 1. Improve hip strength to 5/5 in all planes Target Visit 6
--- NOTE | 2024-09-03 09:55 | PTOPEVAL1 ---
Assessment and note entered by Barb Nolan DPT Evaluation Information Assessment Status Evaluation ICD-10 Condition Codes (PT) Weakness R53.1,Pelvic and perineal pain R10.2 Subjective Information Partial hysterectomy on July 22. Has had some complications including needing a blood transfusion and an infection in her uterus, was re -hospitalized and had a drain placed about 3 weeks ago. Drain was removed on August 13. Pt had a 10 cm fibroid which was causing urinary issues. Recently highest pain 4-5/10 and lowest 0/10. Currently has 20# lifting restriction. Voids 4-5 times a day and usually does not wake up at night. Can hold urge to void 30 minutes. No recent pain with urination. No urinary incontinence. BM usually 1 time a day but does have a history of constipation and takes a probiotic. Feels that it is more difficult to empty currently but is not having pain or fecal incontinence. Does report history of pelvic pain with intercourse due to the fibroid. Pt has been 2 times and delivered vaginally both times, small tears with second. History of rectal prolapse with repair in 2014 or 2015. No other b/b history. Patient goal: strengthen my pelvic floor muscles, be able to heal properly, prevent another prolapse Returns to MD September 15. Reported Pain Level Pain Score 5: Self Report Assessment PT Clinical Summary The patient is presenting to skilled therapy with a history of pelvic and abdominal pain following a partial hysterectomy and complications in June . She currently presents with decreased hip and abdominal strength, diastasis recti, and pain with palpation of scar tissue which are contributing to her pain and overall difficulty with activities at home. Will assess pelvic floor strength and pain next visit with patient permission. She will highly benefit from skilled therapy to address the above impairments in order to reduce pain and restore function. Plan of Care Interventions Electrical Stimulation,Hot Pack/Cold Pack,Manual Therapy,Neuro Re-education,Patient/Caregiver Education,Therapeutic Activities,Therapeutic Exercise PT Services Indicated Yes Treatment Frequency and 1 time a week for 6 visits Duration These treatments will address the objective and functional deficits as defined above. The patient will be advanced safely and appropriately in order for the patient to progress towards his/her prior level of function. Additional exercises will be introduced and as well as a comprehensive home exercise program upon discharge, if needed, ?to ensure carryover of functional gains achieved in the clinic. This treatment plan has been reviewed and agreement upon by the patient.
--- NOTE | 2024-10-07 09:33 | OPREHPOC ---
Outpatient Therapy Plan of Care This is a Multidisciplinary Plan of Care that may contain components documented by all disciplines (PT, OT, and ST.) PT Problem 1 PT Problem #1 Knowledge Deficit PT Goal 1 Goal / Goal Update 1. Patient will perform independent HEP Target Visit 3 Progress Met PT Problem 2 PT Problem #2 Pain PT Goal 1 Goal / Goal Update 1. Patient will be able to do all normal activities with pain no higher than 1/10 2. Patient will report no pain with palpation of scar tissue update 10/07/24 1. pain 1/10 but not doing all activities yet 2. met Target Visit 8 Progress Partially Met PT Problem 3 PT Problem #3 Impaired Strength PT Goal 1 Goal / Goal Update 1. Improve hip strength to 5/5 in all planes update 10/07/24 1. 5/5 abduction, 4+/5 extension Target Visit 8 Progress Partially Met
--- NOTE | 2024-10-07 09:33 | PTOPPROG ---
Assessment and note entered by Barb Nolan DPT Evaluation Information Assessment Status Progress ICD-10 Condition Codes (PT) Weakness R53.1,Pelvic and perineal pain R10.2 Subjective Information Pt feels better since starting therapy. Had an ultrasound last week but does not know results yet . Highest pain in last week 07/09 and lowest 0/. Less difficulty with BM but continues to take a probiotic. Has been able to have sex without pain. Still reports she is not doing all of her normal activities but is easing back in to them. Main concern at this point is the vaginal pain/itch sensation. Did notice 1 instance of incontinence with a sneeze over the last week while her bladder was full. Assessment PT Clinical Summary The patient has made excellent progress in therapy and reports greatly decreased pelvic pain overall to 1/10 highest. One instance of stress incontinence in the last week. She demonstrates improved hip strength, diastasis recti closure, and no pain with palpation of scar tissue. She reports improved function at home but has not yet done all typical activities. She will continue to benefit from skilled therapy to fully eliminate pain and incontinence and restore function. Plan of Care Interventions Electrical Stimulation,Hot Pack/Cold Pack,Manual Therapy,Neuro Re-education,Patient/Caregiver Education,Therapeutic Activities,Therapeutic Exercise PT Services Indicated Yes Treatment Frequency and 1 visit every other week x 2 visits Duration These treatments will address the objective and functional deficits as defined above. The patient will be advanced safely and appropriately in order for the patient to progress towards his/her prior level of function. Additional exercises will be introduced and as well as a comprehensive home exercise program upon discharge, if needed, ?to ensure carryover of functional gains achieved in the clinic. This treatment plan has been reviewed and agreement upon by the patient.
--- NOTE | 2024-12-02 13:54 | PTOPDC ---
Assessment and note entered by Barb Nolan DPT Evaluation Information Assessment Status Discharge - Pt Not Present ICD-10 Condition Codes (PT) Weakness R53.1,Pelvic and perineal pain R10.2 Subjective Information - Reported Pain Level Pain Score 0: Self Report Assessment PT Clinical Summary The patient attended treatment visit this date and reports she has been feeling good overall. Plan to discharge to independent [facility] and patient will call if issues arise. Plan of Care PT Services Indicated No
== END 2024-12-02 14:10 | disposition home or self-care (01) ==
LOC: ANHGOSHPT 09:00
PROVIDERS: PCP Physician Assistant; Visit Provider Obstetrics & Gynecology
DX: R10.2 Pelvic and perineal pain (principal); R53.1 Weakness
CPT/HCPCS: 97110; 97112; 97140; 97161; 97530